=== PATIENT | female | born 1935 | race African-American/Black ===

== ENCOUNTER 2019-02-10 09:58 | Emergency (ER) | payer OTHER ==
--- OUTSIDE RECORDS SUMMARY | 2019-02-10 10:00 | XMS REPORT | Clinical Summary ---
:1935 Author Organization [facility] Address [address] [place] [address] Care Team Providers Name Role Phone Ellis Moreland MD Primary Care Provider Allergies No Known Allergies Medications Medication Sig Dispensed Refills Start Date End Date Status pantoprazole Take 40 mg by 0 Active (PROTONIX) 40 MG EC mouth daily. tablet LORAZepam (ATIVAN) 2 Take 2 mg by mouth 0 Active MG tablet every 6 (six) hours as needed for anxiety. traMADol (ULTRAM) 50 Take 50 mg by 0 Active mg tablet mouth every 6 (six) hours as needed for moderate pain. verapamil sustained Take 240 mg by 0 Active release (CALAN-SR) 240 mouth nightly. MG SR tablet aspirin (ECOTRIN) 81 Take 81 mg by 0 Active MG enteric coated mouth daily. tablet Active Problems No known active problems Social History Tobacco Use Types Packs/Day Years Used Date Never Smoker Smokeless Tobacco: Never Used Alcohol Use Drinks/Week oz/Week Comments No Sex Assigned at Date Recorded Not on file Job Start Date Occupation Industry Not on file Not on file Not on file Travel History Travel Start Travel End No recent travel history available. 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
[2019-02-10 10:45] LABS: Absolute Lymphocytes (CBC) 1.8 K/uL (0.7-4.9); Hematocrit 40.5 % (36.0-45.0); Lymphocytes % 45.6 % (15.3-44.8); MPV 7.1 fL (7.6-11.3); RBC Red Blood Cell Count 4.15 M/uL (3.86-4.86)
[2019-02-10] MEDS ORDERED: MORPHINE 4 MG/ML SYR ONE ×2 (10:48→14:19)
[2019-02-10] MEDS ORDERED: ONDANSETRON 4 MG/2 ML VIAL ONE ×2 (10:48→12:33)
[2019-02-10] MEDS ORDERED: FAMOTIDINE 20 MG/2 ML VIAL IV ONE (10:49)
[2019-02-10] MEDS ORDERED: NA CHLORIDE 0.9% 1,000 ML ONE (10:49)
[2019-02-10] MEDS ORDERED: CEFTRIAXONE/SWI 1gm 1 GM/10 ML SYR ONE (10:49)
[2019-02-10 11:23] LABS: ALT/SGPT 14 U/L (12-78); AST/SGOT 10 U/L (15-37); Albumin 3.4 g/dL (3.4-5.0); Alkaline Phosphatase 51 U/L (45-117); BUN Blood Urea Nitrogen 9 mg/dL (7-18); Bicarbonate 33 mmol/L (21-32); Bilirubin Direct 0.2 mg/dL (0-0.2); Bilirubin Total 0.6 mg/dL (0.2-1.0); Glucose Level 88 mg/dL (74-106); Lipase 72 U/L (73-393); Potassium 4.1 mmol/L (3.5-5.1); Protein, Total 7.4 g/dL (6.4-8.2); Sodium Level 143 mmol/L (136-145)
--- NOTE | 2019-02-10 11:27 | RAD REPORT ---
EXAM DESCRIPTION: RAD - Chest Single View - 02/10/2019 11:15 am CLINICAL HISTORY: ABDOMINAL DISTENTION Chest pain. COMPARISON: Chest Pa And Lat (2 Views) dated 10/20/2017; Chest Single View dated 07/24/2017; Chest Pa A nd Lat (2 Views) dated 07/19/2017; Chest Pa And Lat (2 Views) dated 05/21/2017 FINDINGS: Portable technique limits examination quality. The lungs are grossly clear. The heart is mildly enlarged size. Advanced scoliosis is present of the thoracolumbar spine.Degenerative changes are present both shoulders, greater on the left.
[2019-02-10 12:46] LABS: Urine Blood NEGATIVE (NEG); Urine Glucose NEGATIVE (NEG); Urine Protein NEGATIVE (NEG); Urine pH 8.5 (5.0-7.0)
--- NOTE | 2019-02-10 13:02 | RAD REPORT ---
EXAM DESCRIPTION: CTAbdomen Pelvis W Contrast - 02/10/2019 12:46 pm CLINICAL HISTORY: Abdominal pain. ABD PAIN COMPARISON: Abdomen Pelvis W Contrast dated 09/21/2016; CT ABD PELVIS W CONTRAST dated 09/01/2012 TECHNIQUE: Biphasic CT imaging of the abdomen and pelvis was performed with 100 ml non-ionic IV cont rast. All CT scans are performed using dose optimization technique as appropriate and may include automated exposure control or mA/KV adjustment according to patient size. FINDINGS: The lung bases are clear. There is mild dilatation of the intrahepatic biliary tree and pancreatic duct seen. The gallbladder a ppears surgically absent. The spleen, pancreas the kidneys show no acute process. Small calculus is p resent inferior right kidney. No bowel obstruction, free air, free fluid or abscess. Postsurgical changes are present involving the sigmoid colon. The appendix is normal. No evidence of significant lymphadenopathy. Prominent lumbar degenerative changes. IMPRESSION: No acute intra-abdominal or pelvic finding.
--- NOTE | 2019-02-10 14:04 | EDPHYS ---
Physician Documentation [facility] Name: Johanna Guevara Age: 83 yrs Sex: Female : 1935 Arrival Date: 02/10/2019 Time: 09:59 Bed 6 Private MD: Ellis Moreland ED Physician Adrienne Godinez HPI: 02/10 13:33 This 83 yrs old Black Female presents to ER via Wheelchair with complaints of Back ma2 Pain, Nausea. 13:33 This 83 yrs old Black Female presents to ER via Wheelchair with complaints of left UQ ma2 abd pain that radiates to back . 13:33 Onset: The symptoms/episode began/occurred gradually, 1 week(s) ago. Associated signs ma2 and symptoms: Pertinent negatives: chest pain, dysuria, headache, incontinence, numbness, tingling. Modifying factors: The patient symptoms are alleviated by nothing, the patient symptoms are aggravated by any movement. Severity of symptoms: At their worst the symptoms were moderate, in the emergency department the symptoms are unchanged. The patient has experienced similar episodes in the past. 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 - Social history:: Smoking status: Patient/guardian denies using tobacco, Patient uses Patient/guardian denies using alcohol, street drugs, The patient lives with family, with spouse. - Ebola Screening: : No symptoms or risks identified at this time. - Family history:: not pertinent. ROS: 13:33 Constitutional: Negative for fever, chills, and weight loss. ma2 13:33 All other systems are negative. Exam: 13:33 Constitutional: This is a well developed, well nourished patient who is awake, alert, ma2 and in no acute distress. ENT: Nares patent. No nasal discharge, no septal abnormalities noted. Tympanic membranes are normal and external auditory canals are clear. Oropharynx with no redness, swelling, or masses, exudates, or evidence of obstruction, uvula midline. Mucous membranes moist. Neck: Trachea midline, no thyromegaly or masses palpated, and no cervical lymphadenopathy. Supple, full range of motion without nuchal rigidity, or vertebral point tenderness. No Meningismus. Chest/axilla: Normal chest wall appearance and motion. Nontender with no deformity. No lesions are appreciated. Cardiovascular: Regular rate and rhythm with a normal S1 and S2. No gallops, murmurs, or rubs. Normal PMI, no JVD. No pulse deficits. Respiratory: Lungs have equal breath sounds bilaterally, clear to auscultation and percussion. No rales, rhonchi or wheezes noted. No increased work of breathing, no retractions or nasal flaring. Abdomen/GI: left UQ ttp, otherwsie abd is Soft with normal bowel sounds. No distension or tympany. No guarding or rebound. Back: No spinal tenderness. No costovertebral tenderness. Full range of motion. Skin: Warm, dry with normal turgor. Normal color with no rashes, no lesions, and no evidence of cellulitis. MS/ Extremity: Pulses equal, no cyanosis. Neurovascular intact. Full, normal range of motion. Neuro: Awake and alert, GCS 15, oriented to person, place, time, and situation. Cranial nerves II-XII grossly intact. Motor strength 5/5 in all extremities. Sensory grossly intact. Cerebellar exam normal. Normal gait. Psych: Awake, alert, with orientation to person, place and time. Behavior, mood, and affect are within normal limits. Vital Signs: 10:08 BP 150 / 92; Pulse 77; Resp 17; Temp 98.5(O); Pulse Ox 94% on R/A; Weight 80.74 kg; la1 Height 5 ft. 5 in. (165.10 cm); 11:00 BP 150 / 97; Pulse 81; Resp 18; Pulse Ox 97% ; bp 12:04 BP 164 / 93; Pulse 77; Resp 16; Pulse Ox 95% on 2 lpm NC; bp 12:41 BP 154 / 87; Pulse 77; Resp 16; Pulse Ox 97% ; bp 13:44 BP 149 / 101; Pulse 76; Resp 17; Pulse Ox 100% ; bp 10:08 Body Mass Index 29.62 (80.74 kg, 165.10 cm) la1 MDM: 10:19 Patient medically screened. ma2 13:33 Differential diagnosis: Cholelithiasis Fatigue Fracture Hydronephrosis Joint Injury ma2 Neoplasm. 14:01 Data reviewed: vital signs, nurses notes. Counseling: I had a detailed discussion with ma2 the patient and/or guardian regarding: the historical points, exam findings, and any diagnostic results supporting the discharge/admit diagnosis, the presence of at least one elevated blood pressure reading (>120/80) during this emergency department visit, the need for outpatient follow up. Response to treatment: the patient's symptoms have resolved after treatment. 02/10 10:27 Order name: Basic Metabolic Panel; Complete Time: 12:49 [facility] 02/10 10:27 Order name: CBC with Diff; Complete Time: 11:23 [facility] 02/10 10:27 Order name: Creatinine for Radiology; Complete Time: 11:23 [facility] 02/10 10:27 Order name: Hepatic Function; Complete Time: 12:49 [facility] 02/10 10:27 Order name: Lipase; Complete Time: 12:49 [facility] 02/10 12:31 Order name: Urine Dipstick--Ancillary (enter results); Complete Time: 12:49 eb 02/10 10:27 Order name: Chest Single View XRAY; Complete Time: 12:49 [facility] 02/10 12:05 Order name: CT Abd/Pelvis - IV Contrast Only; Complete Time: 13:22 bp 02/10 10:27 Order name: IV Saline Lock; Complete Time: 10:41 [facility] 02/10 10:27 Order name: Labs collected and sent; Complete Time: 10:41 [facility] 02/10 10:27 Order name: Urine Dipstick-Ancillary (obtain specimen); Complete Time: 11:56 ma2 Administered Medications: 10:40 Drug: NS 0.9% 1000 ml Route: IV; Rate: 1 bolus; Site: right wrist; bp 14:37 Follow up: IV Status: Completed infusion; IV Intake: 1000ml bp 10:40 Drug: morphine 4 mg Route: IVP; Site: right wrist; bp 14:34 Follow up: Response: No adverse reaction bp 10:40 Drug: Zofran 4 mg Route: IVP; Site: right wrist; bp 14:33 Follow up: Response: No adverse reaction bp 10:40 Drug: Pepcid 20 mg Route: IVP; Site: right wrist; bp 14:33 Follow up: Response: No adverse reaction bp 10:40 Drug: Rocephin 1 grams Route: IV; Rate: calculated rate; Site: right wrist; bp 14:37 Follow up: IV Status: Completed infusion; IV Intake: 50ml bp 12:35 Drug: Zofran 4 mg Route: IVP; Site: right hand; ae4 14:34 Follow up: Response: No adverse reaction bp 14:24 Drug: morphine 4 mg Route: IVP; Site: right wrist; ae4 14:34 Follow up: Response: No adverse reaction bp Disposition: 02/10/19 14:02 Discharged to Home. Impression: Epigastric pain. - Condition is Stable. - Discharge Instructions: Abdominal Pain, Adult. - Prescriptions for Pepcid 20 mg Oral Tablet - take 1 tablet by ORAL route once daily for 10 days; 10 tablet. - Medication Reconciliation Form, Thank You Letter, Antibiotic Education, Prescription Opioid Use form. - Follow up: Private Physician; When: Tomorrow; Reason: Continuance of care. Signatures: Dispatcher [employer] EDMS Miguelito Chauhan RN RN la1 Mason Christopher RN RN bp Alzahri, Mohammad, MD MD ma2 Rustam Baltazar RN RN ae4 Corrections: (The following items were deleted from the chart) 14:45 14:02 02/10/2019 14:02 Discharged to Home. Impression: Epigastric pain. Condition is bp Stable. Forms are Medication Reconciliation Form, Thank You Letter, Antibiotic Education, Prescription Opioid Use. Follow up: Private Physician; When: Tomorrow; Reason: Continuance of care. [email or web address]
--- NOTE | 2019-02-10 14:04 | ER ---
Nurse's Notes [facility] Name: Johanna Guevara Age: 83 yrs Sex: Female : 1935 Arrival Date: 02/10/2019 Time: 09:59 Bed 6 Private MD: Ellis Moreland Diagnosis: Epigastric pain Presentation: 02/10 10:09 Presenting complaint: Patient states: Abd pain, pain behind left shoulder blade off and la1 on all week. Transition of care: patient was not received from another setting of care. Onset of symptoms was February 10, 2019. Risk Assessment: Do you want to hurt yourself or someone else? Patient reports no desire to harm self or others. Initial Sepsis Screen: Does the patient meet any 2 criteria? No. Patient's initial sepsis screen is negative. Does the patient have a suspected source of infection? No. Patient's initial sepsis screen is negative. Care prior to arrival: None. 10:09 Method Of Arrival: Wheelchair la1 10:09 Acuity: JAIME 3 la1 Triage Assessment: 10:10 General: Appears in no apparent distress. uncomfortable, Behavior is cooperative, bp appropriate for age, anxious. Pain: Complains of pain in back and abdomen. EENT: No deficits noted. Neuro: No deficits noted. Cardiovascular: No deficits noted. Respiratory: No deficits noted. GI: No signs and/or symptoms were reported involving the gastrointestinal system. : No signs and/or symptoms were reported regarding the genitourinary system. Derm: No deficits noted. Musculoskeletal: Circulation, motion, and sensation intact. Range of motion: intact in all extremities. 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 - Social history:: Smoking status: Patient/guardian denies using tobacco, Patient uses Patient/guardian denies using alcohol, street drugs, The patient lives with family, with spouse. - Ebola Screening: : No symptoms or risks identified at this time. - Family history:: not pertinent. Screenin:10 Abuse screen: Denies threats or abuse. Denies injuries from another. Nutritional bp screening: No deficits noted. Tuberculosis screening: No symptoms or risk factors identified. Fall Risk None identified. Assessment: 10:10 General: SEE TRIAGE NOTE. Neuro: Level of Consciousness is awake, alert, obeys bp commands, Oriented to person, place, time, situation, Appropriate for age. 11:01 Reassessment: XRAY AND LABS COMPLETED, VS STABLE ON MONITOR. bp 12:04 Reassessment: CT PENDING, VS STABLE ON MONITOR. bp 12:35 Reassessment: Patient c/o of nausea, provider notified, new orders received. ae4 12:41 Reassessment: PT TO CT. bp 12:59 Reassessment: Patient returned from CT via stretcher. General: Behavior is calm, ae4 cooperative. Neuro: Level of Consciousness is awake, alert, obeys commands, Oriented to person, place, situation, Appropriate for age. Respiratory: Airway is patent. 13:45 Reassessment: ALL CURRENT ORDERS COMPLETED, VS STABLE ON MONITOR. bp 14:35 Reassessment: PT D/C HOME WITH WALKER, DX WITH EPIGASTRIC PAIN. bp Vital Signs: 10:08 BP 150 / 92; Pulse 77; Resp 17; Temp 98.5(O); Pulse Ox 94% on R/A; Weight 80.74 kg; la1 Height 5 ft. 5 in. (165.10 cm); 11:00 BP 150 / 97; Pulse 81; Resp 18; Pulse Ox 97% ; bp 12:04 BP 164 / 93; Pulse 77; Resp 16; Pulse Ox 95% on 2 lpm NC; bp 12:41 BP 154 / 87; Pulse 77; Resp 16; Pulse Ox 97% ; bp 13:44 BP 149 / 101; Pulse 76; Resp 17; Pulse Ox 100% ; bp 10:08 Body Mass Index 29.62 (80.74 kg, 165.10 cm) la1 ED Course: 09:59 Patient arrived in ED. as 09:59 Ellis Moreland MD is Private Physician. as 10:09 Triage completed. la1 10:09 Arm band placed on right wrist. la1 10:10 Patient has correct armband on for positive identification. Bed in low position. Call bp light in reach. Side rails up X2. Adult w/ patient. 10:19 Adrienne Godinez MD is Attending Physician. ma2 10:22 Mason Christopher, KUNAL is Primary Nurse. bp 10:40 Inserted saline lock: 22 gauge in right wrist, using aseptic technique. Blood collected.bp 11:16 Chest Single View XRAY In Process Unspecified. EDMS 12:25 Radiology exam delayed due to pt getting meds. mw3 12:44 CT completed. Patient tolerated procedure well. Patient moved back from CT. bq 12:48 CT Abd/Pelvis - IV Contrast Only In Process Unspecified. EDMS 14:36 No provider procedures requiring assistance completed. IV discontinued, intact, bp bleeding controlled, No redness/swelling at site. Pressure dressing applied. Administered Medications: 10:40 Drug: NS 0.9% 1000 ml Route: IV; Rate: 1 bolus; Site: right wrist; bp 14:37 Follow up: IV Status: Completed infusion; IV Intake: 1000ml bp 10:40 Drug: morphine 4 mg Route: IVP; Site: right wrist; bp 14:34 Follow up: Response: No adverse reaction bp 10:40 Drug: Zofran 4 mg Route: IVP; Site: right wrist; bp 14:33 Follow up: Response: No adverse reaction bp 10:40 Drug: Pepcid 20 mg Route: IVP; Site: right wrist; bp 14:33 Follow up: Response: No adverse reaction bp 10:40 Drug: Rocephin 1 grams Route: IV; Rate: calculated rate; Site: right wrist; bp 14:37 Follow up: IV Status: Completed infusion; IV Intake: 50ml bp 12:35 Drug: Zofran 4 mg Route: IVP; Site: right hand; ae4 14:34 Follow up: Response: No adverse reaction bp 14:24 Drug: morphine 4 mg Route: IVP; Site: right wrist; ae4 14:34 Follow up: Response: No adverse reaction bp Intake: 14:37 IV: 50ml; Total: 50ml. bp 14:37 IV: 1000ml; Total: 1050ml. bp Outcome: 14:02 Discharge ordered by . maTanisha 14:36 Discharged to home via wheelchair, with family. bp 14:36 Condition: stable 14:36 Discharge instructions given to patient, family, Instructed on discharge instructions, follow up and referral plans. medication usage, Demonstrated understanding of instructions, follow-up care, medications, Prescriptions given X 1. 14:45 Patient left the ED. bp Signatures: Dispatcher [employer] EDMS Jeaneth Reid Amelia as Attema, Lee, RN RN la1 Mason Christopher RN RN bp Adrienne Godinez MD MD ma2 Lizzette Saldaña 3 Rustam Baltazar RN RN ae4
[2019-02-10 14:52] VITALS: TEMP 98.5
[2019-02-10 14:57] VITALS: BP 149/101; O2SAT 100
== END 2019-02-10 14:45 | disposition home or self-care (01) ==
LOC: ER 09:58
DX: R10.13 Epigastric pain (principal); Z88.0 Allergy status to penicillin
CPT/HCPCS: 96365; 85025; 80048; 36415; 80076; 81003; 83690; 74177; 71045; 96375; 99284; 96366; Q9967; J0696; J7030; J2405 ×2

== ENCOUNTER 2019-07-31 16:08 | Emergency (ER) | payer OTHER ==
[2019-07-31 18:13] LABS: Absolute Lymphocytes (CBC) 2.2 K/uL (0.7-4.9); Basophils % 0.9 % (0-1.3); Lymphocytes % 37.2 % (15.3-44.8); MPV 7.5 fL (7.6-11.3); RBC Red Blood Cell Count 3.16 M/uL (3.86-4.86)
--- NOTE | 2019-07-31 18:15 | RAD REPORT ---
EXAM DESCRIPTION: RAD - Chest Single View - 07/31/2019 5:45 pm CLINICAL HISTORY: rectal bleeding Chest pain. COMPARISON: Chest Single View dated 02/10/2019; Chest Pa And Lat (2 Views) dated 10/20/2017; Chest Sin gle View dated 07/24/2017; Chest Pa And Lat (2 Views) dated 07/19/2017 FINDINGS: Portable technique limits examination quality. The lungs are grossly clear. The heart is mildly enlarged in size. No displaced fractures.Evidence of previous left rotator cuff repair with high-riding left humeral head seen. IMPRESSION: No acute intrathoracic process suspected.
[2019-07-31 18:18] LABS: Protime INR 1.12
[2019-07-31 18:35] LABS: ALT/SGPT 12 U/L (12-78); AST/SGOT 10 U/L (15-37); Albumin 2.9 g/dL (3.4-5.0); Alkaline Phosphatase 41 U/L (45-117); BUN Blood Urea Nitrogen 11 mg/dL (7-18); Bicarbonate 31 mmol/L (21-32); Bilirubin Direct 0.1 mg/dL (0-0.2); Bilirubin Total 0.5 mg/dL (0.2-1.0); Glucose Level 92 mg/dL (74-106); Lipase 112 U/L (73-393); Magnesium 2.1 mg/dL (1.8-2.4); NT PRO-BNP 51 pg/mL (<450); Potassium 3.8 mmol/L (3.5-5.1); Protein, Total 6.2 g/dL (6.4-8.2); Sodium Level 143 mmol/L (136-145); Troponin (Emerg Dept Use Only) < 0.02 ng/mL (0.0-0.045)
[2019-07-31] MEDS ORDERED: FENTANYL CITR 100 MCG/2 ML ONE (19:25)
[2019-07-31] MEDS ORDERED: PANTOPRAZOLE 40 MG INJ ONE (19:25)
[2019-07-31] MEDS ORDERED: CIPROFLOXACIN 400mg IV 400 MG/200 ML BAG IV ONE (19:25)
[2019-07-31] MEDS ORDERED: NA CHLORIDE 0.9% 1,000 ML ONE (19:26)
[2019-07-31] MEDS ORDERED: METRONIDAZOLE 500mg IVPB 500 MG/100 ML BAG IV ONE (19:26)
--- NOTE | 2019-07-31 20:10 | ER ---
Nurse's Notes [facility] Name: Johanna Guevara Age: 84 yrs Sex: Female : 1935 Arrival Date: 07/31/2019 Time: 16:11 Bed 19 Private MD: Diagnosis: Gastrointestinal hemorrhage, unspecified;Generalized abdominal pain Presentation: 07/30 16:26 Chief complaint: Patient states: rectal bleeding since Tuesday that has gotten worse. ss Dr. Diaz ordered a CT which patient had done yesterday which was reproted to her as negative. Pt is having abd pain and feels weak. Coronavirus screen: The patient has NOT traveled to a country currently being monitored by the [facility] within the last 14 days. Proceed with normal triage procedures. Ebola Screen: Patient denies exposure to infectious person. Patient denies travel to an Ebola-affected area in the 21 days before illness onset. Initial Sepsis Screen: Does the patient meet any 2 criteria? No. Patient's initial sepsis screen is negative. Does the patient have a suspected source of infection? No. Patient's initial sepsis screen is negative. Risk Assessment: Do you want to hurt yourself or someone else? Patient reports no desire to harm self or others. 16:26 Method Of Arrival: Wheelchair 16:26 Acuity: JAIME 3 ss 17:00 Onset of symptoms is unknown. wh Historical: - Allergies: 16:29 PENICILLINS; ss - PMHx: 16:29 CVA; Diverticulitis; hemorrhoids; Hypertension; ss - Immunization history:: Adult Immunizations up to date. - Social history:: Smoking status: Patient denies any tobacco usage or history of. Screenin:00 Abuse screen: Denies threats or abuse. Denies injuries from another. Nutritional wh screening: No deficits noted. Tuberculosis screening: No symptoms or risk factors identified. Fall Risk None identified. Assessment: 17:00 General: Appears in no apparent distress. Behavior is calm, cooperative, appropriate wh for age. Pain: Complains of pain in right upper quadrant and abdomen diffusely Pain does not radiate. Pain currently is 4 out of 10 on a pain scale. Pain began 2-3 days ago. Neuro: Level of Consciousness is awake, alert, obeys commands, Oriented to person, place, time, situation, Appropriate for age. Cardiovascular: Heart tones S1 S2. Respiratory: Airway is patent Respiratory effort is even, unlabored, Respiratory pattern is regular, symmetrical, Breath sounds are clear bilaterally. GI: Abdomen is flat, non-distended, Abd is soft and non tender X 4 quads. Reports lower abdominal pain, upper abdominal pain, rectal bleeding. : No signs and/or symptoms were reported regarding the genitourinary system. EENT: No signs and/or symptoms were reported regarding the EENT system. Derm: Skin is intact, is healthy with good turgor, Skin is pink, warm \T\ dry. normal. Musculoskeletal: Circulation, motion, and sensation intact. 18:00 Reassessment: Patient appears in no apparent distress at this time. No changes from previously documented assessment. Patient and/or family updated on plan of care and expected duration. Pain level reassessed. Patient is alert, oriented x 3, equal unlabored respirations, skin warm/dry/pink. 19:05 Reassessment: Patient appears in no apparent distress at this time. No changes from previously documented assessment. Patient and/or family updated on plan of care and expected duration. Pain level reassessed. Patient is alert, oriented x 3, equal unlabored respirations, skin warm/dry/pink. Provider at bedside explaining POC need for admit. 20:23 Reassessment: Patient appears in no apparent distress at this time. No changes from previously documented assessment. Patient and/or family updated on plan of care and expected duration. Pain level reassessed. Patient is alert, oriented x 3, equal unlabored respirations, skin warm/dry/pink. Provider at bedside explained transfer to [facility]. 21:23 Reassessment: Patient appears in no apparent distress at this time. No changes from previously documented assessment. Patient and/or family updated on plan of care and expected duration. Pain level reassessed. Patient is alert, oriented x 3, equal unlabored respirations, skin warm/dry/pink. Report given to Kimberley Angel RN. Vital Signs: 16:26 BP 167 / 112; Pulse 93; Resp 16; Temp 98.1(O); Pulse Ox 97% on R/A; Weight 81.65 kg; ss Height 5 ft. 5 in. (165.10 cm); Pain 10/10; 17:00 BP 111 / 73; Pulse 80; Pulse Ox 100% on R/A; Pain 6/10; jp3 18:30 BP 148 / 79; Pulse 74; Resp 18; Pulse Ox 99% on R/A; wh 20:15 BP 152 / 96; Pulse 73; Resp 18; Pulse Ox 100% on R/A; wh 21:24 BP 144 / 82; Pulse 77; Resp 18; Pulse Ox 98% on R/A; wh 16:26 Body Mass Index 29.95 (81.65 kg, 165.10 cm) ED Course: 16:11 Patient arrived in ED. ag5 16:28 Triage completed. ss 16:29 Arm band placed on right wrist. ss 16:33 Thais Tong is Primary Nurse. wh 16:37 Anand Marquez PA is PHCP. cp 16:37 Anand Nicole MD is Attending Physician. cp 17:00 Patient has correct armband on for positive identification. Placed in gown. Bed in low wh position. Call light in reach. monitor technician on. Pulse ox on. NIBP on. 17:15 Missed attempt(s): 22 gauge in left forearm. Bleeding controlled, band aid applied, jp3 catheter tip intact. 17:25 Missed attempt(s): 20 gauge in left antecubital area. Bleeding controlled, band aid jp3 applied, catheter tip intact. 17:30 Patient maintains SpO2 saturation greater than 95% on room air. jp3 17:46 XRAY Chest (1 view) In Process Unspecified. EDMS 18:00 Missed attempt(s): 22 gauge in left antecubital area. 19:01 Missed attempt(s): 22 gauge in right hand. Bleeding controlled, band aid applied, tw2 catheter tip intact. 19:48 Accessed peripheral vein via ultrasound, utilizing dynamic ultrasound technique using jd3 per hospital protocol. Good blood return. Flushes easily. Pro power glide 20 g 10 cm. 21:52 No provider procedures requiring assistance completed. Patient transferred, IV remains in place. Administered Medications: 20:02 Drug: NS 0.9% 250 ml Route: IV; Rate: bolus; Site: left upper arm; 21:25 Follow up: Response: No adverse reaction; IV Status: Completed infusion 20:04 Drug: fentaNYL (PF) 25 mcg {Note: RASS 0.} Route: IVP; Site: left upper arm; 21:25 Follow up: Response: No adverse reaction; Pain is decreased; RASS: Alert and Calm (0) 20:06 Drug: ProTONIX 40 mg Route: IVP; Site: left upper arm; 21:25 Follow up: Response: No adverse reaction 20:08 Drug: metroNIDAZOLE 500 mg Volume: 100 ml; Route: IVPB; Infused Over: 30 mins; Site: left upper arm; 21:24 Follow up: Response: No adverse reaction; IV Status: Completed infusion 20:25 Drug: Cipro 400 mg Volume: 200 ml; Route: IVPB; Infused Over: 60 mins; Site: left upper arm; 21:25 Follow up: Response: No adverse reaction; IV Status: Completed infusion 20:26 Drug: NS 0.9% 1000 ml Route: IV; Rate: 75 ml/hr; Site: left upper arm; 21:56 Follow up: Response: No adverse reaction; IV Status: Completed infusion Outcome: 20:09 ER care complete, transfer ordered by . 21:52 Transferred by ground EMS to [facility], Transfer form completed. X-rays sent w/ patient. Note: Report given to [facility] and Kimberley Angel RN 21:52 Condition: stable 21:52 Instructed on the need for transfer. 21:56 Patient left the ED. Signatures: Dispatcher [employer] EDMS Adry Zuniga RN RN Anand Vera PA PA cp Wise, Tara RN RN tw2 Thais Tong Campbell Pham RN RN jd3 José Benz jp3 Celestine Park
--- NOTE | 2019-07-31 20:10 | EDPHYS ---
Physician Documentation [facility] Name: Johanna Guevara Age: 84 yrs Sex: Female : 1935 Arrival Date: 07/31/2019 Time: 16:11 Bed 19 Private MD: ED Physician Anand Nicole HPI: 07/30 16:50 This 84 yrs old Black Female presents to ER via Wheelchair with complaints of Rectal cp Bleeding. 16:50 The patient presents to the emergency department with bleeding from the rectum/anus. cp Onset: The symptoms/episode began/occurred 4 day(s) ago. 16:50 Associate signs and symptoms: Pertinent positives: abdominal pain in the abdomen cp diffusely, Pertinent negatives: constipation, diarrhea, fever, vomiting. 16:50 Patient reports history of diverticulitis with colon resection and having CT cp abdomen/pelvis done yesterday. Patient reports results of CT were negative for acute findings. Historical: - Allergies: 16:29 PENICILLINS; ss - PMHx: 16:29 CVA; Diverticulitis; hemorrhoids; Hypertension; ss - Immunization history:: Adult Immunizations up to date. - Social history:: Smoking status: Patient denies any tobacco usage or history of. ROS: 17:00 Constitutional: Negative for body aches, chills, fever, poor PO intake. cp 17:00 Eyes: Negative for injury, pain, redness, and discharge. cp 17:00 ENT: Negative for drainage from ear(s), ear pain, sore throat, difficulty swallowing, difficulty handling secretions. 17:00 Cardiovascular: Negative for chest pain, palpitations. 17:00 Respiratory: Negative for cough, shortness of breath, wheezing. 17:00 Abdomen/GI: Positive for abdominal pain, rectal bleeding, Negative for vomiting, diarrhea, constipation, black/tarry stool. 17:00 Back: Negative for pain at rest, pain with movement, radiated pain. 17:00 : Negative for urinary symptoms. 17:00 MS/extremity: Positive for pain, of the left shoulder, Negative for injury or acute deformity, paresthesias. 17:00 Neuro: Negative for altered mental status, headache, weakness. 17:00 All other systems are negative. Exam: 17:10 Head/Face: Normocephalic, atraumatic. cp 17:10 Constitutional: The patient appears in no acute distress, alert, awake, non-diaphoretic, non-toxic, well developed, well nourished. 17:10 Eyes: Periorbital structures: appear normal, Conjunctiva: normal, no exudate, no injection, Sclera: no appreciated abnormality, Lids and lashes: appear normal, bilaterally. 17:10 ENT: External ear(s): are unremarkable, Nose: is normal, Mouth: is normal, Posterior pharynx: is normal, airway is patent, no erythema, no exudate. 17:10 Chest/axilla: Inspection: normal, Palpation: is normal, no crepitus, no tenderness. 17:10 Cardiovascular: Rate: normal, Rhythm: regular. 17:10 Respiratory: the patient does not display signs of respiratory distress, Respirations: normal, no use of accessory muscles, labored breathing, is not present, Breath sounds: are clear throughout, no decreased breath sounds, no stridor, no wheezing. 17:10 Abdomen/GI: Inspection: abdomen appears normal, Bowel sounds: active, all quadrants, Palpation: soft, in all quadrants, mild abdominal tenderness, in all quadrants, rebound tenderness, is not appreciated, voluntary guarding, is not appreciated, involuntary guarding, is not appreciated, Rectal exam: Stool: guaiac positive, maroon, hemorrhoid(s), without bleeding, without inflammation, without thrombosis, without pain, noted hemorrhoid tags. 17:10 Back: pain, is absent, ROM is normal. 17:10 Skin: cellulitis, is not appreciated, no rash present. 17:10 Neuro: Orientation: to person, place \T\ time. Mentation: is normal. 17:13 ECG was reviewed by the Attending Physician. cp Vital Signs: 16:26 BP 167 / 112; Pulse 93; Resp 16; Temp 98.1(O); Pulse Ox 97% on R/A; Weight 81.65 kg; ss Height 5 ft. 5 in. (165.10 cm); Pain 10/10; 17:00 BP 111 / 73; Pulse 80; Pulse Ox 100% on R/A; Pain 6/10; jp3 18:30 BP 148 / 79; Pulse 74; Resp 18; Pulse Ox 99% on R/A; wh 20:15 BP 152 / 96; Pulse 73; Resp 18; Pulse Ox 100% on R/A; wh 21:24 BP 144 / 82; Pulse 77; Resp 18; Pulse Ox 98% on R/A; wh 16:26 Body Mass Index 29.95 (81.65 kg, 165.10 cm) ss MDM: 16:44 Patient medically screened. lupe 16:45 Patient medically screened. lupe 20:00 Data reviewed: vital signs, nurses notes, lab test result(s), EKG, I have discussed the cp patient's presentation/case with the attending Emergency Department Physician; and as a result, I will administer antibiotics Flagyl, Cipro and transfer patient for GI services. 20:02 Physician consultation: was contacted at 20:00, DR Huff hospitalist \T\[facility], will approve transfer of patient for continued care . 07/30 16:47 Order name: Basic Metabolic Panel; Complete Time: 18:40 cp 07/30 18:40 Interpretation: Normal except: CL 108. cp 07/30 16:47 Order name: CBC with Diff; Complete Time: 18:19 cp 07/30 18:19 Interpretation: Normal except: RBC 3.16; HGB 10.0; HCT 31.0; MPV 7.5. cp 07/30 16:47 Order name: LFT's; Complete Time: 18:40 cp 07/30 18:40 Interpretation: Normal except: AST 10; ALK 41; TP 6.2; ALB 2.9; A/G 0.9. cp 07/30 16:47 Order name: Magnesium; Complete Time: 18:40 cp 07/30 16:47 Order name: NT PRO-BNP; Complete Time: 18:40 cp 07/30 16:47 Order name: PT-INR; Complete Time: 18:40 cp 07/30 16:47 Order name: Troponin (emerg Dept Use Only); Complete Time: 18:40 cp 07/30 16:47 Order name: XRAY Chest (1 view); Complete Time: 18:19 cp 07/30 16:47 Order name: Ptt, Activated; Complete Time: 18:40 cp 07/30 16:47 Order name: Type And Screen; Complete Time: 19:59 cp 07/30 16:47 Order name: Lipase; Complete Time: 18:40 cp 07/30 16:47 Order name: EKG; Complete Time: 16:49 cp 07/30 16:47 Order name: Cardiac monitoring; Complete Time: 17:49 cp 07/30 16:47 Order name: EKG - Nurse/Tech; Complete Time: 17:49 cp 07/30 16:47 Order name: IV Saline Lock; Complete Time: 20:26 cp 07/30 16:47 Order name: Labs collected and sent; Complete Time: 17:50 cp 07/30 16:47 Order name: O2 Per Protocol; Complete Time: 17:50 cp 07/30 16:47 Order name: O2 Sat Monitoring; Complete Time: 17:50 cp EC:13 Rate is 78 beats/min. Rhythm is regular. AL interval is normal. QRS interval is normal. cp QT interval is normal. T waves are Inverted in lead aVL. Interpreted by me. Reviewed by me. Administered Medications: 20:02 Drug: NS 0.9% 250 ml Route: IV; Rate: bolus; Site: [facility]; 21:25 Follow up: Response: No adverse reaction; IV Status: Completed infusion 20:04 Drug: fentaNYL (PF) 25 mcg {Note: RASS 0.} Route: IVP; Site: [facility]; 21:25 Follow up: Response: No adverse reaction; Pain is decreased; RASS: Alert and Calm (0) 20:06 Drug: ProTONIX 40 mg Route: IVP; Site: [facility]; 21:25 Follow up: Response: No adverse reaction 20:08 Drug: metroNIDAZOLE 500 mg Volume: 100 ml; Route: IVPB; Infused Over: 30 mins; Site: [facility]; 21:24 Follow up: Response: No adverse reaction; IV Status: Completed infusion 20:25 Drug: Cipro 400 mg Volume: 200 ml; Route: IVPB; Infused Over: 60 mins; Site: left upper arm; 21:25 Follow up: Response: No adverse reaction; IV Status: Completed infusion 20:26 Drug: NS 0.9% 1000 ml Route: IV; Rate: 75 ml/hr; Site: [facility]; 21:56 Follow up: Response: No adverse reaction; IV Status: Completed infusion Disposition: 07/31 12:43 Co-signature as Attending Physician, Anand PRESSLEY I agree with the assessment and lupe plan of care. Disposition: 07/31/19 20:09 Transfer ordered to [facility]. Diagnosis are Gastrointestinal hemorrhage, unspecified, Generalized abdominal pain. - Reason for transfer: Higher level of care. - Accepting physician is DR Ema Jacnito. - Condition is Stable. - Problem is new. - Symptoms have improved. Signatures: Dispatcher [employer] EDAnand Carrillo MD MD cha Smirch, Shelby, RN RN ss Anand Marquez, PA PA cp Asael Tongpipo puckett Corrections: (The following items were deleted from the chart) 07/30 18:19 18:19 Normal except: RBC 3.16; HGB 10.0; HCT 31.0. cp cp 20:49 20:09 07/31/2019 20:09 Transfer ordered to [facility]. Diagnosis is cp Gastrointestinal hemorrhage, unspecified; Generalized abdominal pain. Reason for transfer: Higher level of care. Accepting physician is Doctor. Condition is Stable. Problem is new. Symptoms have improved. cp 21:56 20:49 07/31/2019 20:09 Transfer ordered to [facility]. Diagnosis is Gastrointestinal hemorrhage, unspecified; Generalized abdominal pain. Reason for transfer: Higher level of care. Accepting physician is DR Ema Jacinto. Condition is Stable. Problem is new. Symptoms have improved. cp
[2019-07-31 22:37] VITALS: TEMP 98.1
[2019-07-31 22:42] VITALS: BP 144/82; O2SAT 98
--- NOTE | 2019-08-01 09:27 | EKG ---
Test Date: 2019-07-31 Test Time: 16:56:15 Health And Safety Manager: JOLYNN MEASUREMENT RESULTS: Intervals: Rate: 78 MA: 156 QRSD: 74 QT: 396 QTc: 451 [place]: P: 54 MA: 156 QRS: 76 T: 83 INTERPRETIVE STATEMENTS: Normal sinus rhythm ST elevation, consider early repolarization, pericarditis, or injury Abnormal ECG Compared to ECG 07/24/2017 09:57:38 No significant changes Electronically Signed On 08-01-19 09:26:58 CDT by Darrion Alegria
== END 2019-07-31 21:56 | disposition short-term general hospital (02) ==
LOC: ER 16:08
DX: K92.2 Gastrointestinal hemorrhage, unspecified (principal); R10.84 Generalized abdominal pain; Z88.0 Allergy status to penicillin
CPT/HCPCS: 96365; 96367; 96361; 93005; 85025; 80048; 36415; 86900; 83735; 86850; 85610; 86901; 80076; 85730; 84484; 83690; 83880; 71045; 96375; 99285; C9113; J3010; J7030; J0744

== ENCOUNTER 2020-10-30 16:04 | Emergency (ER) | payer OTHER ==
--- OUTSIDE RECORDS SUMMARY | 2020-10-30 16:07 | XMS REPORT | Continuity of Care Document ---
:1935 Author Organization [facility] t Address [address] [place] [address] Care Team Providers Name Role Phone Aniceto Oh MD, Nataliya Primary Care Physician [phone] NICOLAS Attending Clinician Unavailable CLEWING Admitting Clinician Unavailable Problems Condition Condition Condition Status Onset Resolution Last Treating Co mments Source Name Details Category Date Date Treatment Clinician Date Ventricula Ventricula Disease Active 2020-0 [place] r 3-14 Method[facility] tachycardi tachycardi 00:00: st a a 00 Hypokalemi Hypokalemi Disease Active 2020-0 [place] a a 3-14 Methodi 00:00: st 00 Diverticul Diverticul Disease Active 2020-0 [place] osis osis 3-11 Methodi 00:00: st 00 Hematochez Hematochez Disease Active 2020-0 Overview : Calder ia ia 3-10 Formattin Methodi 00:00: g of this st 00 note might be different from the original. Added automatic ally from request for surgery [id number] Allergies, Adverse Reactions, Alerts This patient has no known allergies or adverse reactions. Social History Social Habit Start Date Stop Date Quantity Comments Source Tobacco use and 2019-08-06 2019-08-06 Never used [facility] ethodist exposure 00:00:00 00:00:00 Alcohol intake 2019-08-06 2019-08-06 Current [facility] thodist 00:00:00 00:00:00 non-drinker of alcohol (finding) Sex Ass[birth year] At [birth year] Kevin Cartwright ethodist 00:00:00 00:00:00 Smoking Status Start Date Stop Date Source Never smoker Brown Methodis t Medications Ordered Filled Start Stop Current Ordering Indication Dosage Frequency Signature Comments Components Source Medication Medication Date Date Medication? Clinician (SIG) Name Name pantoprazol 2020-0 Yes 40mg QD Take 40 mg Brown e 3-15 by mouth Methodi (PROTONIX) 14:33: daily. st 40 MG EC 38 tablet LORAZepam 2020-0 Yes 2mg Q.5D Take 2 mg Kirti ston (ATIVAN) 2 3-15 by mouth 2 Met hodi MG tablet 14:33: (two) st 38 times a day. traMADol 2020-0 Yes 50mg Q.5D Take 50 mg Kirti ston (ULTRAM) 50 3-15 by mouth 2 Me thodi mg tablet 14:33: (two) st 38 times a day as needed for moderate pain. aspirin 2020-0 Yes 81mg QD Take 81 mg [place] (ECOTRIN) 3-15 by mouth Method i 81 MG 14:33: daily. st enteric 38 coated tablet cyanocobala 2020-0 Yes 1000ug QD Take 1,000 Brown min 3-15 mcg by Methodi (VITAMIN 14:33: mouth st B-12) 1000 38 daily. MCG tablet multivitami 2020-0 Yes 1{tbl} QD Take 1 [place] n-minerals- 3-15 tablet by Met hodi lutein 14:33: mouth st tablet 38 daily. cycloSPORIN 2020-0 Yes 1[drp] Q24H Administer Brown E 3-15 1 drop to Methodi (RESTASIS) 14:33: both eyes st 0.05 % 38 daily as ophthalmic needed. emulsion ADVAIR 2020-0 Yes 1{puff} Q.5D Inhale 1 [place] DISKUS 2-21 puff 2 Methodi 250-50 00:00: (two) st mcg/dose 00 times a DISKUS day. verapamil 2020-0 Yes 240mg Q.5D Take 240 Kirti ston extended 1-21 mg by Methodi release 00:00: mouth 2 st (VERELAN) 00 (two) 240 MG 24 times a hr capsule day. Tramadol Tramadol Yes [place] [address] HCl HCl [place] [facility] Centrum Centrum Yes [place] not [facility] Vitamints Vitamints [place] defined [facility] Advair Advair Yes [place] INHALE 1 [facility] Diskus Diskus [place] PUFFS [facility] Celecoxib Celecoxib Yes [place] [address] [facility] [place] with food [facility] Lorazepam Lorazepam Yes [place] [address] [facility] [place] at bedtime [facility] Verapamil Verapamil Yes [place] [address] [address] HCl ER HCl ER [place] [facility] Albuterol Albuterol Yes [place] [address] [facility] Sulfate Sulfate [place] needed [facility] Pantoprazol Pantoprazol Yes [place] [address] e Sodium e Sodium [place] [facility] Pantoprazol Pantoprazol Yes [place] TAKE [address] [facility] e Sodium e Sodium [place] TABLET BY [facility] EVERY DAY l [facility] ent Clinics Procedures This patient has no known procedures. Plan of Care Planned Activity Planned Date Details Comments Source Future Scheduled 2020-12-21 INFLUENZA VACCINE [place] [facility] 00:00:00 [code = INFLUENZA VACCINE] Future Scheduled 2002 65+ PNEUMOCOCCAL [facility] Test 00:00:00 VACCINE (1 of 1 - PPSV23) [code = 65+ PNEUMOCOCCAL VACCINE (1 of 1 - PPSV23)] Future Scheduled 1987 SHINGLES VACCINES (#1) Richy amezcua [facility] Test 00:00:00 [code = SHINGLES VACCINES (#1)] Future Scheduled 1949 COVID-19 VACCINE (1) Kirticarlos carpio [employer] Test 00:00:00 [code = COVID-19 VACCINE (1)] Encounters Start End Encounter Admission Attending Care Care Encounter Source Date/Time Date/Time Type Type Clinicians Facility Department ID 2020-10-22 2020-10-22 Outpatient [facility] [id number] [facility] 2020-10-15 2020-10-15 Outpatient [facility] [id number] [facility] 2020-09-25 2020-09-25 [facility] [id number] [facility] 2020-09-24 2020-09-24 Out[facility] [id number] [facility] 2020-09-23 2020-09-23 Out[facility] [id number] [facility] 2020-09-23 2020-09-23 Out[facility] [id number] [facility] 2020-07-22 2020-07-22 Outpatient [facility] [id number] [facility] 2020-06-17 2020-06-17 Outpatient [facility] [id number] [facility] 2020-05-07 2020-05-07 Out[facility] [id number] [facility] 2020-04-30 2020-04-30 Outpatient [facility] [id number] [facility] 2020-02-27 2020-02-27 Outpatient [facility] [id number] [facility] 2020-02-26 2020-02-26 Outpatient [facility] [id number] [facility] 2020-01-30 2020-01-30 [facility] [id number] 14:00:00 14:00:00 [employer] [place] [employer] [facility] Outpat[facility] ent Clinics 2019-12-07 2019-12-07 [facility] [id number] 10:54:00 10:54:00 t [employer] s - Drive [facility] Medicine l Medicine Outpati ent Clinics 2019-10-30 2019-10-30 [facility] [id number] 13:30:00 13:30:00 [employer] - Drive [facility] Medicine l Medicine Outpati ent Clinics 2019-10-25 2019-10-25 [facility] [id number] 16:50:00 16:50:00 t [facility] [employer] s - Road [facility] Medicine l Medicine Outpati ent Clinics 2019-10-19 2019-10-19 [facility] [id number] 15:21:00 15:21:00 t [place] [employer] [employer] - [address] [facility] l Medicine Outpati ent Clinics 2019-10-18 2019-10-18 [facility] [id number] 08:34:00 08:34:00 t [facility] [employer] s - Road [facility] Medicine l Medicine Outpati ent Clinics 2019-10-11 2019-10-11 [facility] [id number] 13:40:00 13:40:00 t [facility] [employer] [facility] Medicine Outpati ent Clinics 2019-10-09 2019-10-09 [facility] [id number] 13:00:00 13:00:00 t [employer] [facility] Medicine l Medicine Outpati ent Clinics 2019-10-04 2019-10-04 [facility] [id number] 14:02:00 14:02:00 t [facility] [employer] - [address] [facility] Medicine l Medicine Outpati ent Clinics 2019-10-02 2019-10-02 [facility] [id number] 17:10:00 17:10:00 t [place] - [address] [facility] l Medicine Outpati ent Clinics 2019-10-01 2019-10-01 [facility] [id number] 13:30:00 13:30:00 t [employer] [facility] ent [facility] 2019-10-01 2019-10-01 Outpatient [facility] [id number] 09:03:00 09:03:00 [facility] [employer] [facility] 2019-07-31 2019-08-05 [facility] [id number] [place] [address] 00:00:00 00:00:00 JORGE A [address] Results This patient has no known results.
[2020-10-30 17:25] LABS: Absolute Lymphocytes (CBC) 1.7 K/uL (0.7-4.9); Basophils % 0.9 % (0-1.3); Hematocrit 41.2 % (36.0-45.0); Lymphocytes % 39.7 % (15.3-44.8); MPV 7.4 fL (7.6-11.3)
--- NOTE | 2020-10-30 17:25 | RAD REPORT ---
EXAM DESCRIPTION: [place] Single View10/30/2020 5:10 pm CLINICAL HISTORY: Shortness of breath COMPARISON: 2019 FINDINGS: Scoliosis involves the spine. The lungs appear clear of acute infiltrate. The heart is mildly enlarged IMPRESSION: No acute abnormalities displayed
[2020-10-30 17:27] LABS: Protime INR 1.03
[2020-10-30 17:41] LABS: ALT/SGPT 16 U/L (12-78); AST/SGOT 12 U/L (15-37); Albumin 3.3 g/dL (3.4-5.0); Alkaline Phosphatase 62 U/L (45-117); BUN Blood Urea Nitrogen 12 mg/dL (7-18); Bicarbonate 35 mmol/L (21-32); Bilirubin Direct < 0.1 mg/dL (0-0.2); Bilirubin Total 0.3 mg/dL (0.2-1.0); Glucose Level 111 mg/dL (74-106); Magnesium 2.2 mg/dL (1.8-2.4); NT PRO-BNP 119 pg/mL (<450); Protein, Total 7.8 g/dL (6.4-8.2); Sodium Level 141 mmol/L (136-145); Troponin (Emerg Dept Use Only) < 0.02 ng/mL (0.0-0.045)
[2020-10-30 17:51] LABS: Urine Blood Trace-lysed (Negative); Urine Glucose Negative (Negative); Urine Protein Negative (Negative); Urine Specific Gravity 1.015 (1.005-1.030); Urine pH 7.5 (5.0-7.0)
[2020-10-30 18:36] LABS: Urine Bacteria <20 /HPF (<20); Urine RBC <5 /HPF (NONE SEEN)
[2020-10-30] MEDS ORDERED: NA CHLORIDE 0.9% 250 ML ONE (18:37)
[2020-10-30] MEDS ORDERED: METHYLPREDNISOLONE 40 MG INJ ONE (19:17)
[2020-10-30] MEDS ORDERED: ALBUTEROL 2.5 MG/3 ML NEB SOL ONE (19:17)
[2020-10-30] MEDS ORDERED: IPRATROPIUM BROM 0.5MG/2.5ML ONE (19:18)
--- NOTE | 2020-10-30 19:43 | EDPHYS ---
Physician Documentation [facility] Name: Johanna Guevara Age: 85 yrs Sex: Female : 1935 Arrival Date: 10/30/2020 Time: 16:13 Bed 19 Private MD: ED Physician Renzo Persaud HPI: 10/30 16:33 This 85 yrs old Black Female presents to ER via EMS with complaints of shortness of cp breath. 16:33 The patient has shortness of breath at rest. Onset: The symptoms/episode began/occurred cp gradually, and became worse over past several days. Duration: The symptoms are continuous, and are steadily getting worse. Associated signs and symptoms: Pertinent negatives: chest pain, productive cough, fever, vomiting, abdominal pain. Severity of symptoms: in the emergency department the symptoms are unchanged despite home interventions. 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 - Social history:: Smoking status: Patient denies any tobacco usage or history of. ROS: 16:35 Constitutional: Negative for body aches, chills, fever, poor PO intake. cp 16:35 Eyes: Negative for injury, pain, redness, and discharge. cp 16:35 ENT: Negative for ear pain, sore throat, difficulty swallowing, difficulty handling secretions. 16:35 Cardiovascular: Negative for chest pain, edema, palpitations. 16:35 Respiratory: Positive for cough, with no reported sputum, shortness of breath. 16:35 Abdomen/GI: Negative for abdominal pain, nausea, vomiting, and diarrhea. 16:35 Back: Negative for radiated pain. 16:35 Neuro: Negative for altered mental status, dizziness, headache, syncope, weakness. 16:35 All other systems are negative. Exam: 16:40 Constitutional: The patient appears in no acute distress, alert, awake, cp non-diaphoretic, non-toxic, well developed, well nourished, obese. 16:40 Head/Face: Normocephalic, atraumatic. cp 16:40 Eyes: Periorbital structures: appear normal, Conjunctiva: normal, no exudate, no injection, Sclera: no appreciated abnormality, Lids and lashes: appear normal, bilaterally. 16:40 ENT: External ear(s): are unremarkable, Nose: is normal, Mouth: Lips: moist, Oral mucosa: pink and intact, moist, Posterior pharynx: Airway: no evidence of obstruction, patent. 16:40 Chest/axilla: Inspection: normal, Palpation: is normal, no crepitus, no tenderness. 16:40 Cardiovascular: Rate: normal, Rhythm: regular, Edema: is not appreciated, JVD: is not appreciated. 16:40 Respiratory: the patient does not display signs of respiratory distress, Respirations: shallow respirations, that is mild, Breath sounds: bronchial sounds, that are mild, are heard diffusely, stridor, is not appreciated. 16:40 Abdomen/GI: Inspection: abdomen appears normal, Palpation: abdomen is soft and non-tender, in all quadrants. 16:40 Back: pain, is absent, ROM is normal. 16:40 Skin: no rash present. 16:40 Neuro: Orientation: to person, place \T\ time. Mentation: is normal. 17:25 ECG was reviewed by the Attending Physician. Vital Signs: 16:21 BP 155 / 97; Pulse 72; Resp 20; Pulse Ox 95% on R/A; Pain 0/10; kg 17:10 Weight 80.74 kg (R); Height 5 ft. 6 in. (167.64 cm) (R); kg 17:10 Temp 97.8(T); kg 19:00 BP 136 / 91; Pulse 74; Resp 18; Pulse Ox 95% on R/A; wh 20:00 BP 140 / 91; Pulse 72; Resp 18; Pulse Ox 95% on R/A; wh 17:10 Body Mass Index 28.73 (80.74 kg, 167.64 cm) kg MDM: 16:24 Patient medically screened. cp 17:00 Differential diagnosis: Anemia asthma, CHF exacerbation, Chronic Obstructive Pulmonary cp Disease Myocardial Infarction pneumonia, pulmonary edema, Pulmonary Embolism Sepsis Unstable Angina. 19:40 Data reviewed: vital signs, nurses notes, lab test result(s), EKG, radiologic studies, cp plain films. 19:40 Test interpretation: by ED physician or midlevel provider: ECG, plain radiologic cp studies. Response to treatment: the patient's symptoms have markedly improved after treatment, VSS. Patient reports symptoms improved after breathing treatment. Will discharge to home for continued monitoring. 10/30 16:26 Order name: Basic Metabolic Panel 10/30 16:26 Order name: CBC with Diff; Complete Time: 17:42 10 17:43 Interpretation: Normal except: WBC 4.20; MCHC 31.4; MPV 7.4; EOSINOPHIL % 4.6. 10/30 16:26 Order name: LFT's; Complete Time: 17:43 10 17:43 Interpretation: Normal except: AST 12; ALB 3.3; GLOB 4.5; A/G 0.7. 10/30 16:26 Order name: Magnesium; Complete Time: 17:43 10/30 16:26 Order name: NT PRO-BNP; Complete Time: 17:43 10/30 16:26 Order name: PT-INR; Complete Time: 17:43 10/30 16:26 Order name: Troponin (emerg Dept Use Only); Complete Time: 17:43 10/30 16:26 Order name: XRAY Chest (1 view); Complete Time: 17:43 10/30 16:27 Order name: Basic Metabolic Panel; Complete Time: 17:43 EDMS 10 17:43 Interpretation: Normal except: CO2 35; GLUC 111. 10/30 16:27 Order name: Urine Microscopic Only EDMO 10/30 17:51 Order name: Urine Dipstick-Ancillary EDMO 10/30 18:44 Order name: SARS-COV-2 RT PCR EDMO 10/30 16:26 Order name: EKG; Complete Time: 16:27 10 16:26 Order name: Cardiac monitoring; Complete Time: 17:03 10 16:26 Order name: EKG - Nurse/Tech; Complete Time: 17:09 10/30 16:26 Order name: IV Saline Lock; Complete Time: 17:03 10/30 16:26 Order name: Labs collected and sent; Complete Time: 17:03 10/30 16:26 Order name: O2 Per Protocol; Complete Time: 17:03 10/30 16:26 Order name: O2 Sat Monitoring; Complete Time: 17:03 10/30 16:26 Order name: Urine Dipstick-Ancillary (obtain specimen); Complete Time: 18:12 cp EC:25 Rate is 65 beats/min. Rhythm is regular. IA interval is normal. QRS interval is normal. cp QT interval is normal. Interpreted by me. Reviewed by me. Administered Medications: 18:21 Drug: NS 0.9% 250 ml Route: IV; Rate: calculated rate; Site: left antecubital; kg 20:07 Follow up: Response: No adverse reaction; IV Status: Completed infusion wh 19:12 Drug: AtroVENT (ipratropium) Aerosol 0.5 mg Route: Inhalation; wh 20:07 Follow up: Response: No adverse reaction; Wheezing diminished wh 19:13 Drug: Albuterol 2.5 mg Route: Inhalation; wh 20:07 Follow up: Response: No adverse reaction; Wheezing diminished wh 19:13 Drug: SOLU-Medrol (methylPrednisoLONE) 80 mg Route: IVP; Site: left antecubital; wh 20:07 Follow up: Response: No adverse reaction Disposition: 10/31 07:03 Co-signature as Attending Physician, Renzo Persaud MD I agree with the assessment and kdr plan of care. Disposition: 10/30/20 19:41 Discharged to Home. Impression: Unspecified asthma with (acute) exacerbation. - Condition is Stable. - Discharge Instructions: Asthma, Adult. - Prescriptions for Albuterol Sulfate 2.5 mg /3 mL (0.083 %) Inhalation Solution for Nebulization - inhale 1 unit by NEBULIZATION route every 8 hours As needed; 1 box. Prednisone 20 mg Oral Tablet - take 2 tablet by ORAL route once daily for 5 days; 10 tablet. - Medication Reconciliation Form, Thank You Letter, Antibiotic Education, Prescription Opioid Use form. - Follow up: Private Physician; When: 1 - 2 days; Reason: Recheck today's complaints. - Problem is an acute exacerbation. - Symptoms have improved. Signatures: Dispatcher [employer] EDMS Renzo Persaud MD MD [facility] Anand Marquez PA PA cp Habalo, Winsy, KUNAL SYED Emmy Merrill RN RN kg Corrections: (The following items were deleted from the chart) 10/30 17:48 16:27 UA MICROSCOPIC+U.LAB.BRZ ordered. EDMS EDMS :07 19:41 10/30/2020 19:41 Discharged to Home. Impression: Unspecified asthma with (acute) wh exacerbation. Condition is Stable. Forms are Medication Reconciliation Form, Thank You Letter, Antibiotic Education, Prescription Opioid Use. Follow up: Private Physician; When: 1 - 2 days; Reason: Recheck today's complaints. Problem is an acute exacerbation. Symptoms have improved. cp
--- NOTE | 2020-10-30 19:43 | ER ---
Nurse's Notes [facility] Name: Johanna Guevara Age: 85 yrs Sex: Female : 1935 Arrival Date: 10/30/2020 Time: 16:13 Bed 19 Private MD: Diagnosis: Unspecified asthma with (acute) exacerbation Presentation: 10/30 16:21 Chief complaint: Patient states: High Blood pressure since this AM. Coronavirus screen: kg Client denies travel out of the [place] in the last 14 days. Client indicates they have traveled out of the [place] in the last 14 days. At this time, unable to obtain information related to travel outside the [place] Coronavirus screen: Client denies travel out of the [place] in the last 14 days. Ebola Screen: Patient negative for fever greater than or equal to 101.5 degrees Fahrenheit, and additional compatible Ebola Virus Disease symptoms Patient denies exposure to infectious person. Patient denies travel to an Ebola-affected area in the 21 days before illness onset. Initial Sepsis Screen: Does the patient meet any 2 criteria? No. Patient's initial sepsis screen is negative. Initial Sepsis Screen: Does the patient have a suspected source of infection? No. Patient's initial sepsis screen is negative. Risk Assessment: Do you want to hurt yourself or someone else? Patient reports no desire to harm self or others. Onset of symptoms was October 30, 2020. 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 - Social history:: Smoking status: Patient denies any tobacco usage or history of. Screenin:32 Abuse screen: Denies threats or abuse. Denies injuries from another. Nutritional kg screening: No deficits noted. Tuberculosis screening: No symptoms or risk factors identified. Fall Risk None identified. No fall in past 12 months (0 pts). No secondary diagnosis (0 pts). IV access (20 points). Ambulatory Aid- Crutches/Cane/Walker (15 pts). Gait- Weak (10 pts.). Mental Status- Oriented to own ability (0 pts). Total Restrepo Fall Scale indicates Low Risk Score (25-44 pts). Fall prevention measures have been instituted. Side Rails Up X 2 Placed close to Nursing Station Frequent Obs/Assesments occuring Family Present and informed to notify staff if they need to leave bedside As available Patient and Family Educated on Fall Prevention Program and strategies. Assessment: 17:11 General: Appears in no apparent distress. Behavior is calm, cooperative, appropriate kg for age, quiet. Pain: Denies pain. Neuro: No deficits noted. Level of Consciousness is awake, alert, obeys commands, Oriented to person, place, time, situation, Appropriate for age. Cardiovascular: No deficits noted. Reports Pt reports high blood pressure this morning. B/P is now within normal limits Heart tones S1 S2 Capillary refill < 3 seconds. Respiratory: Airway is patent Trachea midline Respiratory effort is even, Respiratory pattern is tachypnea Breath sounds with wheezes. GI: No deficits noted. : No deficits noted. EENT: No deficits noted. Derm: No deficits noted. Musculoskeletal: No deficits noted. 19:15 Reassessment: Patient appears in no apparent distress at this time. Patient and/or wh family updated on plan of care and expected duration. Pain level reassessed. Patient is alert, oriented x 3, equal unlabored respirations, skin warm/dry/pink. 20:00 Reassessment: Patient appears in no apparent distress at this time. Patient and/or wh family updated on plan of care and expected duration. Pain level reassessed. Patient is alert, oriented x 3, equal unlabored respirations, skin warm/dry/pink. Vital Signs: 16:21 BP 155 / 97; Pulse 72; Resp 20; Pulse Ox 95% on R/A; Pain 0/10; kg 17:10 Weight 80.74 kg (R); Height 5 ft. 6 in. (167.64 cm) (R); kg 17:10 Temp 97.8(T); kg 19:00 BP 136 / 91; Pulse 74; Resp 18; Pulse Ox 95% on R/A; wh 20:00 BP 140 / 91; Pulse 72; Resp 18; Pulse Ox 95% on R/A; wh 17:10 Body Mass Index 28.73 (80.74 kg, 167.64 cm) kg ED Course: 16:13 Patient arrived in ED. kg 16:19 Anand Marquez PA is PHCP. cp 16:19 eRnzo Persaud MD is Attending Physician. cp 16:21 Emmy Merrill, KUNAL is Primary Nurse. kg 16:27 Triage completed. kg 16:50 Inserted saline lock: 20 gauge in left antecubital area, using aseptic technique. kg 17:03 Basic Metabolic Panel Sent. kg 17:09 EKG done, by ED staff, reviewed by Renzo Persaud MD. mh5 17:09 Patient has correct armband on for positive identification. Placed in gown. Bed in low mh5 position. Call light in reach. Side rails up X 1. Adult w/ patient. Warm blanket given. sort worker on. Pulse ox on. NIBP on. 17:10 XRAY Chest (1 view) In Process Unspecified. EDMS 19:00 Arm band placed on right wrist. wh 20:06 No provider procedures requiring assistance completed. IV discontinued, intact, wh bleeding controlled, No redness/swelling at site. Administered Medications: 18:21 Drug: NS 0.9% 250 ml Route: IV; Rate: calculated rate; Site: left antecubital; kg 20:07 Follow up: Response: No adverse reaction; IV Status: Completed infusion wh 19:12 Drug: AtroVENT (ipratropium) Aerosol 0.5 mg Route: Inhalation; wh 20:07 Follow up: Response: No adverse reaction; Wheezing diminished wh 19:13 Drug: Albuterol 2.5 mg Route: Inhalation; wh 20:07 Follow up: Response: No adverse reaction; Wheezing diminished wh 19:13 Drug: SOLU-Medrol (methylPrednisoLONE) 80 mg Route: IVP; Site: left antecubital; wh 20:07 Follow up: Response: No adverse reaction Outcome: 19:41 Discharge ordered by MD. cp 20:06 Discharged to home via wheelchair, with family. wh 20:06 Condition: stable 20:06 Discharge instructions given to patient, family, Instructed on discharge instructions, follow up and referral plans. medication usage, POC Demonstrated understanding of instructions, follow-up care, medications, POC Prescriptions given X 2. 20:07 Patient left the ED. wh Signatures: Dispatcher [employer] EDND Anand Marquez PA PA cp Martinez, Maria [facility]ill [facility] Thais Tong, KUNAL RN Emmy Merrill RN RN kg Corrections: (The following items were deleted from the chart) 18:13 17:11 Respiratory: Airway is patent Trachea midline Respiratory effort is even, kg Respiratory pattern is tachypnea Breath sounds are clear bilaterally. kg
[2020-10-30 20:21] VITALS: TEMP 97.8
[2020-10-30 20:22] VITALS: O2SAT 95
[2020-10-30 20:23] VITALS: BP 140/91
== END 2020-10-30 20:07 | disposition home or self-care (01) ==
LOC: ER 16:04
DX: J45.901 Unspecified asthma with (acute) exacerbation (principal); Z20.822 Contact with and (suspected) exposure to COVID-19; I10 Essential (primary) hypertension; Z88.5 Allergy status to narcotic agent
CPT/HCPCS: 96365; 93005; 85025; 80048; 36415; 83735; 85610; 80076; 84484; 83880; 71045; 96375; 99285; 96366; U0003; J7050; J2920; 81003; 81015

== ENCOUNTER 2022-03-18 14:03 | Emergency (ER) | payer OTHER ==
--- OUTSIDE RECORDS SUMMARY | 2022-03-18 14:12 | XMS REPORT | Continuity of Care Document ---
:1935 Author Organization [facility] t Address [facility] Rodrigues. [address] [place] [id number] Care Team Providers Name Role Phone Aniceto Oh MD, Ellis An Primary Care Physician [phone] Colten [place] Attending Clinician Unavailable Lalito Richardson MD Attending Clinician Misael Pham MD Attending Clinician [phone] Sarah New Attending Clinician Rain Crouch NP Attending Clinician Yani Menendez MD Attending Clinician Kingsley Aguirre MD Attending Clinician [phone] Eliana Fam MD Attending Clinician DAYSI GARCIA Attending Clinician Unavailable Baltazar Oden Attending Clinician Unavailable LALITO RICHARDSON Admitting Clinician Unavailable Baltazar Oden Admitting Clinician Unavailable Payers Payer Name Policy Type Policy Number Effective Date Expiration Date Mimi Han [id number] 2019 [facility] (NON-PAR) 00:00:00 - [facility] MEDICARE MB [id number] 1989 [facility] NOVITAS 00:00:00 [facility] JUANA C1 [id number] 2019 [facility] (NON-PAR) 00:00:00 [facility] MEDICARE MB [id number] 1989 [facility] NOVITAS 00:00:00 [facility] JUANA C1 [id number] 2019 [facility] (NON-PAR) 00:00:00 [facility] MEDICARE MB [id number] 1989 [facility] NOVITAS 00:00:00 [facility] JUANA C1 [id number] 2019 [facility] (NON-PAR) 00:00:00 [facility] MEDICARE MB [id number] 1989 [facility] NOVITAS 00:00:00 [facility] Problems Condition Condition Condition Status Onset Resolution Last Treating Co mments Source Name Details Category Date Date Treatment Clinician Date 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 [facility] complicati Medica l on Center [id number] Opioid Problem Common dependence Spirit in - CHI controlled [facility] [id number] Generalize Problem Com mon d anxiety Spirit disorder - CHI [facility] [id number] Benzodiaze Problem Co mmon pine Spirit dependence - CHI , [facility] [id number] Chronic Problem Commo n pain Spirit syndrome - CHI [facility] [id number] Urinary Problem Commo n incontinen Spirit ce, - CHI unspecifie [facility] [id number] Mild Problem Common opioid use Spirit disorder - CHI in controlled [facility] [id number] Primary Problem 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 [facility] [id number] 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 [facility] Allergies, Adverse Reactions, Alerts Allergy Allergy Status Severity Reaction(s) Onset Inactive Treating Comm ents Source Name Type Date Date Clinician No Known DA Active U [facility] Allergie 12-08 Clear s 00:00: Hernandez 00 [facility] No Known DA Active U [facility] Allergie 12-08 Clear s 00:00: Hernandez [facility] codeine DA Active SV ITCHING [facility] 7 Clear 00:00: Hernandez 00 [facility] codeine DA Active SV 2020- [facility] 12-08 Clear 00:00: Hernandez [facility] Codeine Propensi Active Itching Method i ty to 12-08 st adverse 00:00: Hospita reaction 00 l s to drug Family History Family Member Diagnosis Comments Start Date Stop Date Source Natural father [facility] Natural mother [facility] Social History Social Habit Start Date Stop Date Quantity Comments Source [facility] of [facility] - Tobacco Use [facility] Alcohol intake 2022-01-15 2022-01-15 Current [facility] 00:00:00 00:00:00 non-drinker of Hospital alcohol (finding) Tobacco use and 2021-08-28 2021-08-28 Smokeless tobacco [facility] exposure 00:00:00 00:00:00 non-user Hospital Sex Assigned At [birth year] [facility] 00:00:00 00:00:00 Hospital Smoking Status Start Date Stop Date Source Never Smoker [facility] Medications Ordered Filled Start Stop Current Ordering Indication Dosage Frequency Signature Comments Components Source Medication Medication Date Date Medication? Clinician (SIG) Name Name LORazepam 1 LORazepam 1 No 1{table BID LORazepam MG MG 8-29 t_as_ne 1 MG 00:00: eded} 00 traMADol traMADol No 1{table BID traMADol HCl 50 MG HCl 50 MG 8-29 t_as_ne HCl 50 MG 00:00: eded} 00 Famotidine Famotidine No 1{table BID Famotidine 10 MG 10 MG 8-29 t_as_ne 10 MG 00:00: eded} 00 LORazepam 1 LORazepam 1 No 1{table BID LORazepam MG MG 8-29 t_as_ne 1 MG 00:00: eded} 00 Famotidine Famotidine No 1{table BID Famotidine 10 MG 10 MG 8-29 t_as_ne 10 MG 00:00: eded} 00 traMADol traMADol No 1{table BID traMADol HCl 50 MG HCl 50 MG 8-29 t_as_ne HCl 50 MG 00:00: eded} 00 traMADol Yes 50mg Q.5D Take 50 mg Met hodi (ULTRAM) 50 8-[address] mg tablet 14:24: (two) Hospita 10 times a l day as needed for moderate pain. aspirin Yes 81mg QD Take 81 mg Meth monica (ECOTRIN) 8-[address] 81 MG 14:24: daily. Hospita enteric 10 l coated tablet multivitami Yes 1{tbl} QD Take 1 Me thodi n-minerals- 8-[address] lutein 14:24: mouth Hospita tablet 10 daily. l cycloSPORIN Yes 1[drp] Q24H Administer Methodi E 8-[address] (RESTASIS) 14:24: both eyes Ho spita 0.05 % 10 daily as l ophthalmic needed. emulsion LORAZepam Yes 1 tablet Meth monica (ATIVAN) 1 8-[address] MG tablet 14:24: Hospita 10 l celecoxib Yes 1 capsule Met hodi (CeleBREX) 8-[address] 200 MG 14:24: Hospita capsule 10 l ZINC ORAL Yes Take by Metho di 8-[address] 14:24: Hospita 10 l diphenhydrA Yes 25mg QD Take 1 Meth monica MINE 8-25 tablet (25 st (BENADRYL) 14:24: mg total) Ho spita 25 mg 10 by mouth l tablet nightly as needed for sleep. famotidine Yes 10mg Q.5D Take 1 Metho di (PEPCID) 10 8-25 tablet (10 st MG tablet 14:24: mg total) Hos radha 10 by mouth 2 l (two) [place] [id number] 50mg Q6H Take 1 Metho di (ULTRAM) 50 8-25 08-31 tablet (50 s t mg tablet 00:00: 04:59 mg total) Ho spita 00 :00 by mouth l every 6 (six) hours as needed for moderate pain for up to 5 days .acute pain. Azithromyci Azithromyci 2021- No QD Azithromyc n 250 MG n 250 MG 12-14-30 in 250 MG 00:00: 00:00 00 :00 predniSONE predniSONE 2021- No QD predniSONE 20 MG 20 MG 12-14-30 20 MG 00:00: 00:00 00 :00 Azithromyci Azithromyci 2021- No QD Azithromyc n 250 MG n 250 MG 12-14-30 in 250 MG 00:00: 00:00 00 :00 predniSONE predniSONE 2021- No QD predniSONE 20 MG 20 MG 12-14-30 20 MG 00:00: 00:00 00 :00 pantoprazol 2021- No 40mg QD Take 40 mg Methodi e 6-14 06-[address] (PROTONIX) 15:27: 00:00 daily. Hosp [place] 40 MG EC 30 :00 l tablet LORAZepam No 2mg Q.5D Take 2 mg Me thodi (ATIVAN) 2 6-14 06-[address] MG tablet 15:27: 00:00 (two) Hospit a 20 :00 times a l day. cyanocobala No 1000ug QD Take 1,000 Methodi min 6-14 06-[address] (VITAMIN 15:26: 00:00 mouth Hospita B-12) 1000 53 :00 daily. l MCG tablet LORazepam 1 LORazepam 1 No 1{table BID LORazepam MG MG 09-21 t_as_ne 1 MG 00:00: eded} 00 traMADol traMADol 2021- No 1{table BID traMADol HCl 50 MG HCl 50 MG 5- 06- t_as_ne HCl 50 MG 00:00: 00:00 eded} 00 :00 methylPREDN methylPREDN 2021- No QD methylPRED ISolone 4 ISolone 4 3- 03-07 NISolone 4 MG MG 00:00: 00:00 MG 00 :00 methylPREDN methylPREDN 2021- No QD methylPRED ISolone 4 ISolone 4 3-05 25- NISolone 4 MG MG 00:00: 00:00 MG 00 :00 LORazepam 1 LORazepam 1 2021-0 No 1{table BID LORazepam MG MG 2-03 t_as_ne 1 MG 00:00: eded} 00 traMADol traMADol 2021-0 No 1{table BID traMADol HCl 50 MG HCl 50 MG 2-03 t_as_ne HCl 50 MG 00:00: eded} 00 traMADol traMADol 2021-0 No 1{table BID traMADol HCl 50 MG HCl 50 MG 2-03 t_as_ne HCl 50 MG 00:00: eded} 00 LORazepam 1 LORazepam 1 2021- No 1{table BID LORazepam MG MG 2-03 t_as_ne 1 MG 00:00: eded} traMADol traMADol 2021-0 No 1{table BID traMADol HCl 50 MG HCl 50 MG 2-03 t_as_ne HCl 50 MG 00:00: eded} 00 LORazepam 1 LORazepam 1 2021- No 1{table BID LORazepam MG MG 2-03 t_as_ne 1 MG 00:00: eded} 00 traMADol traMADol 2021-0 No 1{table BID traMADol HCl 50 MG HCl 50 MG 2-03 t_as_ne HCl 50 MG 00:00: eded} 00 LORazepam 1 LORazepam 1 2021-0 No 1{table BID LORazepam MG MG 2-03 t_as_ne 1 MG 00:00: eded} 00 Nystatin Nystatin 2021-0 2021- No QID Nystatin [id number] 2-07-09 [id number] UNIT/ML UNIT/ML 00:00: 00:00 UNIT/ML 00 :00 traMADol traMADol 2020- No 1{table BID traMADol HCl 50 MG HCl 50 MG 1-02 t_as_ne HCl 50 MG 00:00: eded} 00 LORazepam 1 LORazepam 1 2020-05 No 1{table BID LORazepam MG MG 1-02 t_as_ne 1 MG 00:00: eded} 00 traMADol traMADol 2020- No 1{table BID traMADol HCl 50 MG HCl 50 MG 1-02 t_as_ne HCl 50 MG 00:00: eded} 00 LORazepam 1 LORazepam 1 2020-05 No 1{table BID LORazepam MG MG 1-02 t_as_ne 1 MG 00:00: eded} 00 Bactrim DS Bactrim DS 2020-05- No 1{table BID Bactrim DS 800-160 MG 800-160 MG 0-28 03-24 t} 800-160 MG 00:00: 00:00 00 :00 Bactrim DS Bactrim DS 2020-05- No 1{table BID Bactrim DS 800-160 MG 800-160 MG 0-28 03-24 t} 800-160 MG 00:00: 00:00 00 :00 Pyridium Pyridium 2020-05- No 1{table TID Pyridium 200 MG 200 MG 03-21 t_after 200 MG 00:00: 00:00 _meals} 00 :00 traMADol traMADol 2020-0 No 1{table BID traMADol HCl 50 MG HCl 50 MG 9-17 t_as_ne HCl 50 MG 00:00: eded} 00 traMADol traMADol 2020-0 No 1{table BID traMADol HCl 50 MG HCl 50 MG 9-17 t_as_ne HCl 50 MG 00:00: eded} 00 traMADol traMADol 2020-0 No 1{table BID traMADol HCl 50 MG HCl 50 MG 9-17 t_as_ne HCl 50 MG 00:00: eded} 00 traMADol traMADol 2020-0 No 1{table BID traMADol HCl 50 MG HCl 50 MG 9-17 t_as_ne HCl 50 MG 00:00: eded} 00 traMADol traMADol 2020-0 No 1{table BID traMADol HCl 50 MG HCl 50 MG 9-17 t_as_ne HCl 50 MG 00:00: eded} 00 traMADol traMADol 2020-0 No 1{table BID traMADol HCl 50 MG HCl 50 MG 9-17 t_as_ne HCl 50 MG 00:00: eded} 00 traMADol traMADol 2020-0 No 1{table BID traMADol HCl 50 MG HCl 50 MG 9-17 t_as_ne HCl 50 MG 00:00: eded} 00 traMADol traMADol 2020-0 No 1{table BID traMADol HCl 50 MG HCl 50 MG 9-17 t_as_ne HCl 50 MG 00:00: eded} 00 traMADol traMADol 2020-0 No 1{table BID traMADol HCl 50 MG HCl 50 MG 02-06 t_as_ne HCl 50 MG 00:00: eded} 00 traMADol traMADol 2020-0 No 1{table BID traMADol HCl 50 MG HCl 50 MG 17 t_as_ne HCl 50 MG 00:00: eded} 00 Spacer/Aero Spacer/Aero 2020-0 No Spacer/Aer -Holding -Holding 5-06 o-Holding Chambers - Chambers - 00:00: Chambers - 00 Spacer/Aero Spacer/Aero 2020-0 No Spacer/Aer -Holding -Holding 5-06 o-Holding Chambers - Chambers - 00:00: Chambers - 00 Spacer/Aero Spacer/Aero 2020-0 No Spacer/Aer -Holding -Holding 5-06 o-Holding Chambers - Chambers - 00:00: Chambers - 00 Spacer/Aero Spacer/Aero 2020-0 No Spacer/Aer -Holding -Holding 5-06 o-Holding Chambers - Chambers - 00:00: Chambers - 00 Spacer/Aero Spacer/Aero 2020-0 No Spacer/Aer -Holding -Holding 5-06 o-Holding Chambers - Chambers - 00:00: Chambers - 00 Spacer/Aero Spacer/Aero 2020-0 No Spacer/Aer -Holding -Holding 5-06 o-Holding Chambers - Chambers - 00:00: Chambers - 00 Spacer/Aero Spacer/Aero 2020-0 No Spacer/Aer -Holding -Holding 5-06 o-Holding Chambers - Chambers - 00:00: Chambers - 00 Spacer/Aero Spacer/Aero 2020-0 No Spacer/Aer -Holding -Holding 5-06 o-Holding Chambers - Chambers - 00:00: Chambers - 00 Spacer/Aero Spacer/Aero 2020-0 No Spacer/Aer -Holding -Holding 5-06 o-Holding Chambers - Chambers - 00:00: Chambers - 00 Spacer/Aero Spacer/Aero 2020-0 No Spacer/Aer -Holding -Holding 5-06 o-Holding Chambers - Chambers - 00:00: Chambers - 00 gabapentin 2019-1 Yes 1 capsule Me thodi (NEURONTIN) 0-06 st 300 mg 00:00: Hospita capsule 00 l LORAZepam Yes 2mg Q.5D Take 2 mg Met hodi (ATIVAN) 2 3-[address] MG tablet 19:33: (two) Hospita 38 times a l day. traMADol 2020-0 Yes 50mg Q.5D Take 50 mg Met hodi (ULTRAM) 50 3-[address] mg tablet 19:33: (two) Hospita 38 times a l day as needed for moderate pain. aspirin 2020-0 Yes 81mg QD Take 81 mg Meth monica (ECOTRIN) 3-[address] 81 MG 19:33: daily. Hospita enteric 38 l coated tablet cyanocobala 2020-0 Yes 1000ug QD Take 1,000 Methodi min 3-[address] (VITAMIN 19:33: mouth Hospita B-12) 1000 38 daily. l MCG tablet multivitami 2020-0 Yes 1{tbl} QD Take 1 Me thodi n-minerals- 3-[address] lutein 19:33: mouth Hospita tablet 38 daily. l cycloSPORIN 2020-0 Yes 1[drp] Q24H Administer Methodi E 3-[address] (RESTASIS) 19:33: both eyes Ho spita 0.05 % 38 daily as l ophthalmic needed. emulsion pantoprazol 2020-0 Yes 40mg QD Take 40 mg Methodi e 3-[address] (PROTONIX) 19:33: daily. Hospi ta 40 MG EC 38 l tablet ADVAIR 2020-0 Yes 1{puff} Q.5D Inhale 1 Meth monica DISKUS 2-[address] 250-50 00:00: (two) Hospita mcg/dose 00 times a l DISKUS day. ADVAIR 2020-0 Yes 1{puff} Q.5D Inhale 1 Meth monica DISKUS 2-[address] 250-50 00:00: (two) Hospita mcg/dose 00 times a l DISKUS day. verapamil 2020-0 Yes 240mg Q.5D Take 240 Met hodi extended 1-[address] release 00:00: mouth 2 Hospita (VERELAN) 00 (two) l 240 MG 24 times a hr capsule day. verapamil 2020-0 Yes 240mg Q.5D Take 240 Met hodi extended 1-[address] release 00:00: mouth 2 Hospita (VERELAN) 00 (two) l 240 MG 24 times a hr capsule day. Tramadol Tramadol Yes Colten 1 tablet C ommon HCl HCl [place] as needed [facility] Centrum Centrum Yes Colten not Common Vitamints Vitamints [place] defined S pirit [facility] Advair Advair Yes Colten INHALE 1 Commo n Diskus Diskus [place] PUFFS Spirit TWICE A - CHI DAY [facility] Celecoxib Celecoxib Yes Colten 1 capsule Common [place] with food [facility] Lorazepam Lorazepam Yes Colten 1 tablet Common [place] at bedtime Spirit as needed [facility] Verapamil Verapamil Yes Colten 1 tablet Common HCl ER HCl ER [place] [facility] Albuterol Albuterol Yes Colten 3 ml as Common Sulfate Sulfate [place] needed [facility] Pantoprazol Pantoprazol Yes Colten 1 tablet Common e Sodium e Sodium [place] [facility] Pantoprazol Pantoprazol Yes Colten TAKE 1 Common e Sodium e Sodium [place] TABLET BY S pirit MOUTH - CHI EVERY DAY [facility] Albuterol Albuterol No Albuterol Sulfate Sulfate Sulfate (2.5 (2.5 (2.5 MG/3ML) MG/3ML) MG/3ML) 0.083% 0.083% 0.083% Cyclobenzap Cyclobenzap No 1{table QD Cyclobenza rine HCl 5 rine HCl 5 t_at_be buffy HCl MG MG dtime_a 5 MG s_neede d} Eliquis 5 Eliquis 5 No Eliquis 5 MG MG MG Centrum Centrum No Centrum Vitamints Vitamints Vitamints Pantoprazol Pantoprazol No Pantoprazo e Sodium 40 e Sodium 40 le Sodium MG MG 40 MG Verapamil Verapamil No 1{table BID Verapamil HCl ER 240 HCl ER 240 t} HCl ER 240 MG MG MG LORazepam 1 LORazepam 1 No 1{table BID LORazepam MG MG t_as_ne 1 MG eded} Albuterol Albuterol No 3{ml_as TID Albuterol Sulfate Sulfate _needed Sulfate (2.5 (2.5 } (2.5 MG/3ML) MG/3ML) MG/3ML) 0.083% 0.083% 0.083% Advair Advair No Advair Diskus Diskus Diskus 250-50 250-50 250-50 MCG/DOSE MCG/DOSE MCG/DOSE Albuterol Albuterol No Albuterol Sulfate Sulfate Sulfate (2.5 (2.5 (2.5 MG/3ML) MG/3ML) MG/3ML) 0.083% 0.083% 0.083% Prevacid Prevacid No Prevacid Centrum Centrum No Centrum Vitamints Vitamints Vitamints Gabapentin Gabapentin No 1{capsu BID Gabapentin 300 MG 300 MG le} 300 MG Celecoxib Celecoxib No Celecoxib 200 MG 200 MG 200 MG Cyclobenzap Cyclobenzap No 1{table QD Cyclobenza rine HCl 5 rine HCl 5 t_at_be buffy HCl MG MG dtime_a 5 MG s_neede d} Eliquis 5 Eliquis 5 No Eliquis 5 MG MG MG Celecoxib Celecoxib No 1{capsu Celecoxib 200 MG 200 MG le_with 200 MG _food} Albuterol Albuterol No Albuterol Sulfate Sulfate Sulfate (2.5 (2.5 (2.5 MG/3ML) MG/3ML) MG/3ML) 0.083% 0.083% 0.083% Centrum Centrum No Centrum Vitamints Vitamints Vitamints Celecoxib Celecoxib No 1{capsu Celecoxib 200 MG 200 MG le_with 200 MG _food} Eliquis 5 Eliquis 5 No Eliquis 5 MG MG MG Albuterol Albuterol No 3{ml_as TID Albuterol Sulfate Sulfate _needed Sulfate (2.5 (2.5 } (2.5 MG/3ML) MG/3ML) MG/3ML) 0.083% 0.083% 0.083% Pantoprazol Pantoprazol No Pantoprazo e Sodium 40 e Sodium 40 le Sodium MG MG 40 MG Celecoxib Celecoxib No Celecoxib 200 MG 200 MG 200 MG Advair Advair No Advair Diskus Diskus Diskus 250-50 250-50 250-50 MCG/DOSE MCG/DOSE MCG/DOSE LORazepam 1 LORazepam 1 No 1{table BID LORazepam MG MG t_as_ne 1 MG eded} Cyclobenzap Cyclobenzap No 1{table QD Cyclobenza rine HCl 5 rine HCl 5 t_at_be buffy HCl MG MG dtime_a 5 MG s_neede d} Gabapentin Gabapentin No 1{capsu BID Gabapentin 300 MG 300 MG le} 300 MG Prevacid Prevacid No Prevacid Verapamil Verapamil No 1{table BID Verapamil HCl ER 240 HCl ER 240 t} HCl ER 240 MG MG MG Centrum Centrum No Centrum Vitamints Vitamints Vitamints Celecoxib Celecoxib No Celecoxib 200 MG 200 MG 200 MG Advair Advair No Advair Diskus Diskus Diskus 250-50 250-50 250-50 MCG/DOSE MCG/DOSE MCG/DOSE Verapamil Verapamil No 1{table BID Verapamil HCl ER 240 HCl ER 240 t} HCl ER 240 MG MG MG Celecoxib Celecoxib No 1{capsu Celecoxib 200 MG 200 MG le_with 200 MG _food} Albuterol Albuterol No 3{ml_as TID Albuterol Sulfate Sulfate _needed Sulfate (2.5 (2.5 } (2.5 MG/3ML) MG/3ML) MG/3ML) 0.083% 0.083% 0.083% Albuterol Albuterol No Albuterol Sulfate Sulfate Sulfate (2.5 (2.5 (2.5 MG/3ML) MG/3ML) MG/3ML) 0.083% 0.083% 0.083% Prevacid Prevacid No Prevacid Gabapentin Gabapentin No 1{capsu BID Gabapentin 300 MG 300 MG le} 300 MG Pantoprazol Pantoprazol No 1{table QD Pantoprazo e Sodium 40 e Sodium 40 t} le Sodium MG MG 40 MG Eliquis 5 Eliquis 5 No Eliquis 5 MG MG MG Advair Advair No Advair Diskus Diskus Diskus 250-50 250-50 250-50 MCG/DOSE MCG/DOSE MCG/DOSE Cyclobenzap Cyclobenzap No 1{table QD Cyclobenza rine HCl 5 rine HCl 5 t_at_be buffy HCl MG MG dtime_a 5 MG s_neede d} Pantoprazol Pantoprazol No Pantoprazo e Sodium 40 e Sodium 40 le Sodium MG MG 40 MG Celecoxib Celecoxib No Celecoxib 200 MG 200 MG 200 MG Centrum Centrum No Centrum Vitamints Vitamints Vitamints Albuterol Albuterol No 3{ml_as TID Albuterol Sulfate Sulfate _needed Sulfate (2.5 (2.5 } (2.5 MG/3ML) MG/3ML) MG/3ML) 0.083% 0.083% 0.083% Albuterol Albuterol No Albuterol Sulfate Sulfate Sulfate (2.5 (2.5 (2.5 MG/3ML) MG/3ML) MG/3ML) 0.083% 0.083% 0.083% Celecoxib Celecoxib No 1{capsu Celecoxib 200 MG 200 MG le_with 200 MG _food} Prevacid Prevacid No Prevacid Gabapentin Gabapentin No 1{capsu BID Gabapentin 300 MG 300 MG le} 300 MG Verapamil Verapamil No 1{table BID Verapamil HCl ER 240 HCl ER 240 t} HCl ER 240 MG MG MG Eliquis 5 Eliquis 5 No Eliquis 5 MG MG MG Cyclobenzap Cyclobenzap No 1{table QD Cyclobenza rine HCl 5 rine HCl 5 t_at_be buffy HCl MG MG dtime_a 5 MG s_neede d} Advair Advair No Advair Diskus Diskus Diskus 250-50 250-50 250-50 MCG/DOSE MCG/DOSE MCG/DOSE Pantoprazol Pantoprazol No 1{table QD Pantoprazo e Sodium 40 e Sodium 40 t} le Sodium MG MG 40 MG Pantoprazol Pantoprazol No Pantoprazo e Sodium 40 e Sodium 40 le Sodium MG MG 40 MG Pantoprazol Pantoprazol No Pantoprazo e Sodium 40 e Sodium 40 le Sodium MG MG 40 MG Pantoprazol Pantoprazol No 1{table QD Pantoprazo e Sodium 40 e Sodium 40 t} le Sodium MG MG 40 MG Prevacid Prevacid No Prevacid Centrum Centrum No Centrum Vitamints Vitamints Vitamints Advair Advair No Advair Diskus Diskus Diskus 250-50 250-50 250-50 MCG/DOSE MCG/DOSE MCG/DOSE Gabapentin Gabapentin No 1{capsu BID Gabapentin 300 MG 300 MG le} 300 MG Advair Advair No Advair Diskus Diskus Diskus 250-50 250-50 250-50 MCG/DOSE MCG/DOSE MCG/DOSE Verapamil Verapamil No 1{table BID Verapamil HCl ER 240 HCl ER 240 t} HCl ER 240 MG MG MG Eliquis 5 Eliquis 5 No Eliquis 5 MG MG MG Cyclobenzap Cyclobenzap No 1{table QD Cyclobenza rine HCl 5 rine HCl 5 t_at_be buffy HCl MG MG dtime_a 5 MG s_neede d} Celecoxib Celecoxib No Celecoxib 200 MG 200 MG 200 MG Albuterol Albuterol No 3{ml_as TID Albuterol Sulfate Sulfate _needed Sulfate (2.5 (2.5 } (2.5 MG/3ML) MG/3ML) MG/3ML) 0.083% 0.083% 0.083% Celecoxib Celecoxib No 1{capsu Celecoxib 200 MG 200 MG le_with 200 MG _food} Albuterol Albuterol No Albuterol Sulfate Sulfate Sulfate (2.5 (2.5 (2.5 MG/3ML) MG/3ML) MG/3ML) 0.083% 0.083% 0.083% Eliquis 5 Eliquis 5 No Eliquis 5 MG MG MG Pantoprazol Pantoprazol No 1{table QD Pantoprazo e Sodium 40 e Sodium 40 t} le Sodium MG MG 40 MG Prevacid Prevacid No Prevacid Verapamil Verapamil No 1{table BID Verapamil HCl ER 240 HCl ER 240 t} HCl ER 240 MG MG MG Cyclobenzap Cyclobenzap No 1{table QD Cyclobenza rine HCl 5 rine HCl 5 t_at_be buffy HCl MG MG dtime_a 5 MG s_neede d} Celecoxib Celecoxib No Celecoxib 200 MG 200 MG 200 MG Azithromyci Azithromyci No QD Azithromyc n 250 MG n 250 MG in 250 MG Albuterol Albuterol No Albuterol Sulfate Sulfate Sulfate (2.5 (2.5 (2.5 MG/3ML) MG/3ML) MG/3ML) 0.083% 0.083% 0.083% Celecoxib Celecoxib No 1{capsu Celecoxib 200 MG 200 MG le_with 200 MG _food} Advair Advair No Advair Diskus Diskus Diskus 250-50 250-50 250-50 MCG/DOSE MCG/DOSE MCG/DOSE Gabapentin Gabapentin No 1{capsu BID Gabapentin 300 MG 300 MG le} 300 MG Centrum Centrum No Centrum Vitamints Vitamints Vitamints Albuterol Albuterol No 3{ml_as TID Albuterol Sulfate Sulfate _needed Sulfate (2.5 (2.5 } (2.5 MG/3ML) MG/3ML) MG/3ML) 0.083% 0.083% 0.083% Benzonatate Benzonatate No 1{capsu Benzonatat 200 MG 200 MG le_as_n e 200 MG eeded} Pantoprazol Pantoprazol No Pantoprazo e Sodium 40 e Sodium 40 le Sodium MG MG 40 MG Eliquis 5 Eliquis 5 No Eliquis 5 MG MG MG Pantoprazol Pantoprazol No 1{table QD Pantoprazo e Sodium 40 e Sodium 40 t} le Sodium MG MG 40 MG Prevacid Prevacid No Prevacid Verapamil Verapamil No 1{table BID Verapamil HCl ER 240 HCl ER 240 t} HCl ER 240 MG MG MG Cyclobenzap Cyclobenzap No 1{table QD Cyclobenza rine HCl 5 rine HCl 5 t_at_be buffy HCl MG MG dtime_a 5 MG s_neede d} Celecoxib Celecoxib No Celecoxib 200 MG 200 MG 200 MG Azithromyci Azithromyci No QD Azithromyc n 250 MG n 250 MG in 250 MG Albuterol Albuterol No Albuterol Sulfate Sulfate Sulfate (2.5 (2.5 (2.5 MG/3ML) MG/3ML) MG/3ML) 0.083% 0.083% 0.083% Celecoxib Celecoxib No 1{capsu Celecoxib 200 MG 200 MG le_with 200 MG _food} Advair Advair No Advair Diskus Diskus Diskus 250-50 250-50 250-50 MCG/DOSE MCG/DOSE MCG/DOSE Gabapentin Gabapentin No 1{capsu BID Gabapentin 300 MG 300 MG le} 300 MG Centrum Centrum No Centrum Vitamints Vitamints Vitamints Albuterol Albuterol No 3{ml_as TID Albuterol Sulfate Sulfate _needed Sulfate (2.5 (2.5 } (2.5 MG/3ML) MG/3ML) MG/3ML) 0.083% 0.083% 0.083% Benzonatate Benzonatate No 1{capsu Benzonatat 200 MG 200 MG le_as_n e 200 MG eeded} Pantoprazol Pantoprazol No Pantoprazo e Sodium 40 e Sodium 40 le Sodium MG MG 40 MG Verapamil Verapamil No 1{table BID Verapamil HCl ER 240 HCl ER 240 t} HCl ER 240 MG MG MG Eliquis 5 Eliquis 5 No Eliquis 5 MG MG MG Celecoxib Celecoxib No Celecoxib 200 MG 200 MG 200 MG Prevacid Prevacid No Prevacid Cyclobenzap Cyclobenzap No 1{table QD Cyclobenza rine HCl 5 rine HCl 5 t_at_be buffy HCl MG MG dtime_a 5 MG s_neede d} Advair Advair No Advair Diskus Diskus Diskus 250-50 250-50 250-50 MCG/DOSE MCG/DOSE MCG/DOSE Azithromyci Azithromyci No QD Azithromyc n 250 MG n 250 MG in 250 MG Albuterol Albuterol No Albuterol Sulfate Sulfate Sulfate (2.5 (2.5 (2.5 MG/3ML) MG/3ML) MG/3ML) 0.083% 0.083% 0.083% Celecoxib Celecoxib No 1{capsu Celecoxib 200 MG 200 MG le_with 200 MG _food} Gabapentin Gabapentin No 1{capsu BID Gabapentin 300 MG 300 MG le} 300 MG Pantoprazol Pantoprazol No Pantoprazo e Sodium 40 e Sodium 40 le Sodium MG MG 40 MG Centrum Centrum No Centrum Vitamints Vitamints Vitamints Albuterol Albuterol No 3{ml_as TID Albuterol Sulfate Sulfate _needed Sulfate (2.5 (2.5 } (2.5 MG/3ML) MG/3ML) MG/3ML) 0.083% 0.083% 0.083% Benzonatate Benzonatate No 1{capsu Benzonatat 200 MG 200 MG le_as_n e 200 MG eeded} Pantoprazol Pantoprazol No 1{table QD Pantoprazo e Sodium 40 e Sodium 40 t} le Sodium MG MG 40 MG Celecoxib Celecoxib No Celecoxib 200 MG 200 MG 200 MG Celecoxib Celecoxib No 1{capsu Celecoxib 200 MG 200 MG le_with 200 MG _food} Gabapentin Gabapentin No 1{capsu BID Gabapentin 300 MG 300 MG le} 300 MG Cyclobenzap Cyclobenzap No 1{table QD Cyclobenza rine HCl 5 rine HCl 5 t_at_be buffy HCl MG MG dtime_a 5 MG s_neede d} Advair Advair No Advair Diskus Diskus Diskus 250-50 250-50 250-50 MCG/ACT MCG/ACT MCG/ACT Azithromyci Azithromyci No QD Azithromyc n 250 MG n 250 MG in 250 MG Albuterol Albuterol No Albuterol Sulfate Sulfate Sulfate (2.5 (2.5 (2.5 MG/3ML) MG/3ML) MG/3ML) 0.083% 0.083% 0.083% Pantoprazol Pantoprazol No Pantoprazo e Sodium 40 e Sodium 40 le Sodium MG MG 40 MG Benzonatate Benzonatate No 1{capsu Benzonatat 200 MG 200 MG le_as_n e 200 MG eeded} Eliquis 5 Eliquis 5 No Eliquis 5 MG MG MG Verapamil Verapamil No BID Verapamil HCl ER 240 HCl ER 240 HCl ER 240 MG MG MG Pantoprazol Pantoprazol No 1{table QD Pantoprazo e Sodium 40 e Sodium 40 t} le Sodium MG MG 40 MG Albuterol Albuterol No 3{ml_as TID Albuterol Sulfate Sulfate _needed Sulfate (2.5 (2.5 } (2.5 MG/3ML) MG/3ML) MG/3ML) 0.083% 0.083% 0.083% Centrum Centrum No Centrum Vitamints Vitamints Vitamints Prevacid Prevacid No Prevacid traMADol traMADol No 1{table BID traMADol HCl 50 MG HCl 50 MG t_as_ne HCl 50 MG eded} Celecoxib Celecoxib No 1{capsu Celecoxib 200 MG 200 MG le_with 200 MG _food} LORazepam 1 LORazepam 1 No 1{table BID LORazepam MG MG t_as_ne 1 MG eded} Albuterol Albuterol No 3{ml_as TID Albuterol Sulfate Sulfate _needed Sulfate (2.5 (2.5 } (2.5 MG/3ML) MG/3ML) MG/3ML) 0.083% 0.083% 0.083% Cyclobenzap Cyclobenzap No 1{table QD Cyclobenza rine HCl 5 rine HCl 5 t_at_be buffy HCl MG MG dtime_a 5 MG s_neede d} Verapamil Verapamil No 1{table BID Verapamil HCl ER 240 HCl ER 240 t} HCl ER 240 MG MG MG Gabapentin Gabapentin No 1{capsu BID Gabapentin 300 MG 300 MG le} 300 MG Centrum Centrum No Centrum Vitamints Vitamints Vitamints Advair Advair No Advair Diskus Diskus Diskus 250-50 250-50 250-50 MCG/DOSE MCG/DOSE MCG/DOSE Pantoprazol Pantoprazol No 1{table QD Pantoprazo e Sodium 40 e Sodium 40 t} le Sodium MG MG 40 MG traMADol traMADol No 1{table BID traMADol HCl 50 MG HCl 50 MG t_as_ne HCl 50 MG eded} Celecoxib Celecoxib No 1{capsu Celecoxib 200 MG 200 MG le_with 200 MG _food} LORazepam 1 LORazepam 1 No 1{table BID LORazepam MG MG t_as_ne 1 MG eded} Albuterol Albuterol No 3{ml_as TID Albuterol Sulfate Sulfate _needed Sulfate (2.5 (2.5 } (2.5 MG/3ML) MG/3ML) MG/3ML) 0.083% 0.083% 0.083% Cyclobenzap Cyclobenzap No 1{table QD Cyclobenza rine HCl 5 rine HCl 5 t_at_be buffy HCl MG MG dtime_a 5 MG s_neede d} Verapamil Verapamil No 1{table BID Verapamil HCl ER 240 HCl ER 240 t} HCl ER 240 MG MG MG Gabapentin Gabapentin No 1{capsu BID Gabapentin 300 MG 300 MG le} 300 MG Centrum Centrum No Centrum Vitamints Vitamints Vitamints Advair Advair No Advair Diskus Diskus Diskus 250-50 250-50 250-50 MCG/DOSE MCG/DOSE MCG/DOSE Pantoprazol Pantoprazol No 1{table QD Pantoprazo e Sodium 40 e Sodium 40 t} le Sodium MG MG 40 MG traMADol traMADol No 1{table BID traMADol HCl 50 MG HCl 50 MG t_as_ne HCl 50 MG eded} Celecoxib Celecoxib No 1{capsu Celecoxib 200 MG 200 MG le_with 200 MG _food} LORazepam 1 LORazepam 1 No 1{table BID LORazepam MG MG t_as_ne 1 MG eded} Albuterol Albuterol No 3{ml_as TID Albuterol Sulfate Sulfate _needed Sulfate (2.5 (2.5 } (2.5 MG/3ML) MG/3ML) MG/3ML) 0.083% 0.083% 0.083% Cyclobenzap Cyclobenzap No 1{table QD Cyclobenza rine HCl 5 rine HCl 5 t_at_be buffy HCl MG MG dtime_a 5 MG s_neede d} Verapamil Verapamil No 1{table BID Verapamil HCl ER 240 HCl ER 240 t} HCl ER 240 MG MG MG Gabapentin Gabapentin No 1{capsu BID Gabapentin 300 MG 300 MG le} 300 MG Centrum Centrum No Centrum Vitamints Vitamints Vitamints Advair Advair No Advair Diskus Diskus Diskus 250-50 250-50 250-50 MCG/DOSE MCG/DOSE MCG/DOSE Pantoprazol Pantoprazol No 1{table QD Pantoprazo e Sodium 40 e Sodium 40 t} le Sodium MG MG 40 MG Verapamil Verapamil No 1{table BID Verapamil HCl ER 240 HCl ER 240 t} HCl ER 240 MG MG MG Pantoprazol Pantoprazol No 1{table QD Pantoprazo e Sodium 40 e Sodium 40 t} le Sodium MG MG 40 MG Centrum Centrum No Centrum Vitamints Vitamints Vitamints Celecoxib Celecoxib No 1{capsu Celecoxib 200 MG 200 MG le_with 200 MG _food} traMADol traMADol No 1{table BID traMADol HCl 50 MG HCl 50 MG t_as_ne HCl 50 MG eded} Cyclobenzap Cyclobenzap No 1{table QD Cyclobenza rine HCl 5 rine HCl 5 t_at_be buffy HCl MG MG dtime_a 5 MG s_neede d} LORazepam 1 LORazepam 1 No 1{table BID LORazepam MG MG t_as_ne 1 MG eded} Advair Advair No Advair Diskus Diskus Diskus 250-50 250-50 250-50 MCG/DOSE MCG/DOSE MCG/DOSE Benzonatate Benzonatate No 1{capsu TID Benzonatat 200 MG 200 MG le_as_n e 200 MG eeded} Advair Advair No Advair Diskus Diskus Diskus 250-50 250-50 250-50 MCG/ACT MCG/ACT MCG/ACT Albuterol Albuterol No 3{ml_as TID Albuterol Sulfate Sulfate _needed Sulfate (2.5 (2.5 } (2.5 MG/3ML) MG/3ML) MG/3ML) 0.083% 0.083% 0.083% Gabapentin Gabapentin No 1{capsu BID Gabapentin 300 MG 300 MG le} 300 MG Verapamil Verapamil No 1{table BID Verapamil HCl ER 240 HCl ER 240 t} HCl ER 240 MG MG MG Pantoprazol Pantoprazol No 1{table QD Pantoprazo e Sodium 40 e Sodium 40 t} le Sodium MG MG 40 MG Centrum Centrum No Centrum Vitamints Vitamints Vitamints Celecoxib Celecoxib No 1{capsu Celecoxib 200 MG 200 MG le_with 200 MG _food} traMADol traMADol No 1{table BID traMADol HCl 50 MG HCl 50 MG t_as_ne HCl 50 MG eded} Cyclobenzap Cyclobenzap No 1{table QD Cyclobenza rine HCl 5 rine HCl 5 t_at_be buffy HCl MG MG dtime_a 5 MG s_neede d} LORazepam 1 LORazepam 1 No 1{table BID LORazepam MG MG t_as_ne 1 MG eded} Advair Advair No Advair Diskus Diskus Diskus 250-50 250-50 250-50 MCG/DOSE MCG/DOSE MCG/DOSE Benzonatate Benzonatate No 1{capsu TID Benzonatat 200 MG 200 MG le_as_n e 200 MG eeded} Advair Advair No Advair Diskus Diskus Diskus 250-50 250-50 250-50 MCG/ACT MCG/ACT MCG/ACT Albuterol Albuterol No 3{ml_as TID Albuterol Sulfate Sulfate _needed Sulfate (2.5 (2.5 } (2.5 MG/3ML) MG/3ML) MG/3ML) 0.083% 0.083% 0.083% Gabapentin Gabapentin No 1{capsu BID Gabapentin 300 MG 300 MG le} 300 MG Advair Advair No Advair Diskus Diskus Diskus 250-50 250-50 250-50 MCG/DOSE MCG/DOSE MCG/DOSE Albuterol Albuterol No 3{ml_as TID Albuterol Sulfate Sulfate _needed Sulfate (2.5 (2.5 } (2.5 MG/3ML) MG/3ML) MG/3ML) 0.083% 0.083% 0.083% Gabapentin Gabapentin No 1{capsu BID Gabapentin 300 MG 300 MG le} 300 MG Celecoxib Celecoxib No 1{capsu Celecoxib 200 MG 200 MG le_with 200 MG _food} Verapamil Verapamil No Verapamil HCl ER 240 HCl ER 240 HCl ER 240 MG MG MG Centrum Centrum No Centrum Vitamints Vitamints Vitamints Benzonatate Benzonatate No 1{capsu TID Benzonatat 200 MG 200 MG le_as_n e 200 MG eeded} Advair Advair No Advair Diskus Diskus Diskus 250-50 250-50 250-50 MCG/ACT MCG/ACT MCG/ACT Celecoxib Celecoxib No Celecoxib 200 MG 200 MG 200 MG Verapamil Verapamil No 1{table BID Verapamil HCl ER 240 HCl ER 240 t} HCl ER 240 MG MG MG Cyclobenzap Cyclobenzap No 1{table QD Cyclobenza rine HCl 5 rine HCl 5 t_at_be buffy HCl MG MG dtime_a 5 MG s_neede d} Cyclobenzap Cyclobenzap No 1{table QD Cyclobenza rine HCl 5 rine HCl 5 t_at_be buffy HCl MG MG dtime_a 5 MG s_neede d} Nystatin Nystatin No Nystatin [id number] UNIT/ML UNIT/ML UNIT/ML Albuterol Albuterol No 3{ml_as TID Albuterol Sulfate Sulfate _needed Sulfate (2.5 (2.5 } (2.5 MG/3ML) MG/3ML) MG/3ML) 0.083% 0.083% 0.083% Gabapentin Gabapentin No 1{capsu BID Gabapentin 300 MG 300 MG le} 300 MG Celecoxib Celecoxib No 1{capsu Celecoxib 200 MG 200 MG le_with 200 MG _food} Centrum Centrum No Centrum Vitamints Vitamints Vitamints Advair Advair No Advair Diskus Diskus Diskus 250-50 250-50 250-50 MCG/DOSE MCG/DOSE MCG/DOSE Advair Advair No Advair Diskus Diskus Diskus 250-50 250-50 250-50 MCG/ACT MCG/ACT MCG/ACT Celecoxib Celecoxib No Celecoxib 200 MG 200 MG 200 MG Verapamil Verapamil No Verapamil HCl ER 240 HCl ER 240 HCl ER 240 MG MG MG Verapamil Verapamil No 1{table BID Verapamil HCl ER 240 HCl ER 240 t} HCl ER 240 MG MG MG Benzonatate Benzonatate No 1{capsu TID Benzonatat 200 MG 200 MG le_as_n e 200 MG eeded} Pantoprazol Pantoprazol No Pantoprazo e Sodium 40 e Sodium 40 le Sodium MG MG 40 MG Celecoxib Celecoxib No 1{capsu Celecoxib 200 MG 200 MG le_with 200 MG _food} Gabapentin Gabapentin No 1{capsu BID Gabapentin 300 MG 300 MG le} 300 MG Verapamil Verapamil No 1{table BID Verapamil HCl ER 240 HCl ER 240 t} HCl ER 240 MG MG MG LORazepam 1 LORazepam 1 No 1{table BID LORazepam MG MG t_as_ne 1 MG eded} Albuterol Albuterol No 3{ml_as TID Albuterol Sulfate Sulfate _needed Sulfate (2.5 (2.5 } (2.5 MG/3ML) MG/3ML) MG/3ML) 0.083% 0.083% 0.083% Advair Advair No Advair Diskus Diskus Diskus 250-50 250-50 250-50 MCG/DOSE MCG/DOSE MCG/DOSE Prevacid Prevacid No Prevacid Celecoxib Celecoxib No Celecoxib 200 MG 200 MG 200 MG Advair Advair No Advair Diskus Diskus Diskus 250-50 250-50 250-50 MCG/DOSE MCG/DOSE MCG/DOSE Immunizations Ordered Immunization Filled Immunization Date Status Commen ts Source Name Name [employer] COVID-19 MRNA 2021-08-27 Completed Meth odist VACCINATION 00:00:00 [facility] PFIZER COVID-19 MRNA 2021-02-14 Completed Meth odist VACCINATION 00:00:00 [facility] PFIZER COVID-19 MRNA 2020-08-05 Completed Meth odist VACCINATION 00:00:00 [facility] PFIZER COVID-19 MRNA 2020-07-15 Completed Meth odist VACCINATION 00:00:00 Hospital Vital Signs Vital Name Observation Time Observation Value Comments Source height 2022-01-18 13:10:00 66 [in_i] [facility] S [facility] weight 2022-01-18 13:10:00 191.8 [lb_av] [facility] temperature 2022-01-18 13:10:00 97.3 [degF] [facility] bmi 2022-01-18 13:10:00 30.95 kg/m2 [facility] oximetry 2022-01-18 13:10:00 96 % [facility] respiratory rate 2022-01-18 13:10:00 17 /min Comm on [facility] blood pressure 2022-01-18 13:10:00 119 mm[Hg] Common [facility] - systolic [facility] blood pressure 2022-01-18 13:10:00 70 mm[Hg] [facility] height 2021-12-14 16:40:00 66 [in_i] Common S [facility] weight 2021-12-14 16:40:00 191.8 [lb_av] [facility] bmi 2021-12-14 16:40:00 30.95 kg/m2 Common [facility] height 2021-10-07 14:30:00 66 [in_i] Common [facility] weight 2021-10-07 14:30:00 191.8 [lb_av] [facility] temperature 2021-10-07 14:30:00 97.2 [degF] [facility] bmi 2021-10-07 14:30:00 30.95 kg/m2 [facility] oximetry 2021-10-07 14:30:00 90 % [facility] respiratory rate 2021-10-07 14:30:00 16 /min Comm on [facility] blood pressure 2021-10-07 14:30:00 137 mm[Hg] Common [facility] - systolic [facility] blood pressure 2021-10-07 14:30:00 77 mm[Hg] Common [facility] - diastolic [facility] height 2021-10-07 15:00:00 66 [in_i] Common [facility] weight 2021-10-07 15:00:00 191.8 [lb_av] [facility] temperature 2021-10-07 15:00:00 97.2 [degF] [facility] bmi 2021-10-07 15:00:00 30.95 kg/m2 [facility] oximetry 2021-10-07 15:00:00 90 % [facility] respiratory rate 2021-10-07 15:00:00 16 /min Comm on [facility] blood pressure 2021-10-07 15:00:00 137 mm[Hg] Common [facility] - systolic [facility] blood pressure 2021-10-07 15:00:00 77 mm[Hg] Common [facility] - diastolic [facility] height 2021-07-21 13:20:00 66 [in_i] Common [facility] weight 2021-07-21 13:20:00 187.3 [lb_av] [facility] bmi 2021-07-21 13:20:00 30.23 kg/m2 [facility] height 2021-06-25 15:40:00 66 [in_i] [facility] weight 2021-06-25 15:40:00 187.3 [lb_av] [facility] temperature 2021-06-25 15:40:00 97.8 [degF] [facility] bmi 2021-06-25 15:40:00 30.23 kg/m2 [facility] oximetry 2021-06-25 15:40:00 99 % [facility] respiratory rate 2021-06-25 15:40:00 18 /min Comm [facility] blood pressure 2021-06-25 15:40:00 135 mm[Hg] Common [facility] - systolic [facility] blood pressure 2021-06-25 15:40:00 78 mm[Hg] Common [facility] - diastolic [facility] height 2021-03-24 10:10:00 66 [in_i] Common [facility] weight 2021-03-24 10:10:00 188 [lb_av] [facility] temperature 2021-03-24 10:10:00 98 [degF] Common S [facility] - [facility] bmi 2021-03-24 10:10:00 30.34 kg/m2 Common S pirit - [facility] blood pressure 2021-03-24 10:10:00 132 mm[Hg] [facility] blood pressure 2021-03-24 10:10:00 62 mm[Hg] [facility] Systolic blood 2022-01-14 18:54:00 139 mm[Hg] [facility] pressure Diastolic blood 2022-01-14 18:54:00 69 mm[Hg] [facility] pressure Heart rate 2022-01-14 18:54:00 69 /min [facility] Body temperature 2022-01-14 18:54:00 36.67 Ilsa [facility] Respiratory rate 2022-01-14 18:54:00 20 /min [facility] Oxygen saturation in 2022-01-14 18:54:00 94 /min [facility] Arterial blood by Pulse oximetry Body height 2022-01-12 21:37:00 167.6 cm [facility] Body weight 2022-01-12 21:37:00 85.73 kg [facility] BMI 2022-01-12 21:37:00 30.51 kg/m2 [facility] Procedures Procedure Date / Time Performing Clinician Source Performed OH AN ELECTIVE 2022-01-14 17:16:00 Luisana Cardenas spital SUPRAGLOTTIC AIRWAY POC GLUCOSE 2022-01-14 17:07:00 Lalito Richardson Nasir [facility] CARPAL TUNNEL RELEASE, 2022-01-14 17:07:00 [facility]OS[facility]IC BASIC METABOLIC PANEL 2022-01-12 21:29:00 Sarah Clark [facility] ESTIMATED GFR 2022-01-12 21:29[facility] 3+ VW LEFT 2021-07-27 23:36:16 Eliana Ferrer [facility] XR HAND 3+ VW LEFT 2021-07-27 23:35:53 Eliana Ferrer [facility] CYCLIC CITRULLINATED 2021-07-27 22:43:00 Eliana Ferrer [facility] PEPTIDE AB, IGG HC COMPLETE BLD COUNT 2021-07-27 22:43:00 Eliana Ferrer [facility] W/AUTO DIFF COMPREHENSIVE METABOLIC 2021-07-27 22:43:00 Eliana Ferrer [facility] PANEL SEDIMENTATION RATE 2021-07-27 22:43:00 Eliana Ferrer [facility] C-REACTIVE PROTEIN 2021-07-27 22:43:00 Eliana Ferrer [facility] URIC ACID LEVEL 2021-07-27 22:43:00 Eliana Ferrer [facility] spital ESTIMATED GFR 2021-07-27 22:43:00 Eliana Ferrer [facility] spital RHEUMATOID FACTOR 2021-07-27 22:43:00 Eliana Ferrer [facility] Plan of Care Planned Activity Planned Date Details Comments Source Future Scheduled 2022-02-05 HEPATITIS B VACCINES Met [facility] [place] [place] Test 03:31:20 (1 of 3 - 3-dose series) [code = HEPATITIS B VACCINES (1 of 3 - 3-dose series)] Future Scheduled 2022-02-05 65+ PNEUMOCOCCAL [facility] Test 03:31:20 VACCINE (1 - PCV) [code = 65+ PNEUMOCOCCAL VACCINE (1 - PCV)] Future Scheduled 2022-02-05 SHINGLES VACCINES ([address] [facility] [place] Test 03:31:20 of 2) [code = SHINGLES VACCINES (1 of 2)] Future Scheduled 2022-02-05 COVID-19 VACCINE (5 - [facility] Test 03:31:20 Booster for Pfizer series) [code = COVID-19 VACCINE (5 - Booster for Pfizer series)] Future Scheduled 2022-02-05 INFLUENZA VACCINE Method [facility] Test 03:31:20 [code = INFLUENZA VACCINE] Future Scheduled COVID-19 VACCINE (1) Met [facility] [place] [place] Test [code = COVID-19 VACCINE (1)] Future Scheduled SHINGLES VACCINES (#1) [facility] Test [code = SHINGLES VACCINES (#1)] Future Scheduled 65+ PNEUMOCOCCAL [facility] Test VACCINE (1 of 1 - PPSV23) [code = 65+ PNEUMOCOCCAL VACCINE (1 of 1 - PPSV23)] Future Scheduled INFLUENZA VACCINE [facility] Test [code = INFLUENZA VACCINE] Encounters Start End Encounter Admission Attending Care Care Encounter Source Date/Time Date/Time Type Type Clinicians Facility Department ID 2021-12-14 Out[facility] [place] [id number] Common 16:19:01 [place] 2021-07-20 Outpatient [place], STLMLC [facility] [id number] Common 14:24:03 [facility] 2021-06-17 Outpatient [place], STLMLC [facility] [id number] Common 14:01:53 [place] [id number] [facility] 2021-06-17 Outpatient [place], STLMLC [facility] [id number] Common 13:57:09 [place] [address] [facility] 2021-06-17 Outpatient [place], STLMLC [facility] [id number] Common 13:55:26 [place] [address] [facility] 2021-06-17 Outpatient [place], STLMLC [facility] [id number] Common 13:34:26 [place] [address]478 [facility] 2021-06-17 Outpatient [place], STLMLC [facility] [id number] Common 13:33:54 [place] [address] [facility] 2021-06-17 Outpatient [place], STLC ST[facility] [id number] Common 12:58:36 [place] 11758 [facility] 2021-06-17 Outpatient [place], STLMLC [facility] [id number] Common 12:35:04 [place] 79427 [facility] 2021-06-17 Outpatient [place], [facility]LMLC [facility] [id number] Common 12:34:21 [place] 45241 [facility] 2021-06-17 Outpatient [place], STLC ST[facility] [id number] Common 12:11:56 [place] 7[address]82 [facility] 2021-06-17 Outpatient [place], STLMLC ST[facility] [id number] Common 11:52:30 [place] [address] [facility] 2021-06-17 Outpatient [place], STLMLC STLMLC [id number] Common 11:44:30 [place] [address] [facility] 2021-06-17 Outpatient [place], STLMLC STLMLC [id number] Common 11:26:10 [place] [address] [facility] 2021-06-17 Outpatient [place], STLMLC STLMLC [id number] Common 11:22:17 [place] [address] [facility] 2021-06-17 Outpatient [place], STLMLC STLMLC [id number] Common 11:21:19 [place] [address] [facility] 2021-06-17 Outpatient [place], STLMLC STLMLC [id number] Common 11:21:11 [place] [address] [facility] 2022-03-08 2022-03-08 (TEL) STLMLC STLC [id number] Co mmon 00:00:00 00:00:00 [facility] 2022-01-22 2022-01-22 Office Richardson, 1.2.840.1 [id number] Methodi 14:40:00 17:39:07 Visit Lalito 35010.1.1 456 [facility] 3.430.2.7 Hospit a .3.723897 l .8 2022-01-22 2022-01-22 Outpatient RICHARDSON, [facility] [id number] [place] 00:00:00 00:00:00 LALITO [facility] 2022-01-22 2022-01-22 Travel 1.2.840.1 [id number] Methodi 00:00:00 00:00:[id number] 3.430.2.7 0.2.7.3.698 Ho spita .3.470558 084.8 l .8 2022-01-18 2022-01-18 OFFICE STLMLC STL[facility]C [id number] Co mmon 00:00:00 00:00:00 VISIT [facility] LEVEL 4 [facility] 2022-01-14 2022-01-14 Hospital Richardson, 1.2.840.1 [id number] Methodi 10:21:00 14:23:00 Encounter Vincent [address]852.1.[address] [facility] 3.430.2.7 Hospit a .3.598944 l .8 2022-01-14 2022-01-14 Anesthesia BrandynmireyaDavidMisael 1.2.8 40.1 [id number] Methodi 12:06:00 12:55:00 Event Sarah Clark 38300.1.[address] 3.430.2.7 Hospit a .3.717179 l .8 2022-01-14 2022-01-14 Surgery [facility], 1.2.840.1 [id number] Methodi 12:00:00 12:55:[address] [facility] 3.430.2.7 Hospit a .3.106618 l .8 2022-01-14 2022-01-14 Outpatient [facility], [facility] 885 [id number] [place] 00:00:00 00:00:00 VINCENT [address] 2022-01-14 2022-01-14 Orders Richardson, 1.2.840.1 [id number] Methodi 00:00:00 00:00:00 Only Vincent [address]203.1.[address] [facility] 3.430.2.7 Hospit a .3.799845 l .8 2022-01-12 2022-01-12 Pre-Admiss Richardson, 1.2.840.1 [id number] Methodi 16:30:00 17:30:00 ion Vincent [address]86.1.[address] Testing Nas[facility] 3.430.2.7 Hospit a .3.636729 l .8 2022-01-12 2022-01-12 Office Richardson, 1.2.840.1 [id number] Methodi 14:50:00 15:55:40 Visit Vincent [address]02.1.[address] [facility] 3.430.2.7 Hospit a .3.711734 l .8 2022-01-12 2022-01-12 Outpatient RICHARDSON, [facility] [id number] [place] 00:00:00 00:00:00 VINCENT [address] 2022-01-12 2022-01-12 Outpatient RICHARDSON, [facility] [id number] [place] 00:00:00 00:00:00 VINCENT [address] 2022-01-12 2022-01-12 Transcribe Richardson, 1.2.840.1 [id number] Methodi 00:00:00 00:00:00 Orders [place] [address]443.1.[address] Nasir 3.430.2.7 Hospit a .3.648762 l .8 2022-01-12 2022-01-12 Travel 1.2.840.1 1.2.087.739 [id number] Methodi 00:00:00 00:00:[address] 3.430.2.7 0.2.7.3.698 Ho spita .3.944098 084.8 l .8 2022-01-01 2022-01-01 Travel 1.2.840.1 1.2.402.219 8381 589486 Methodi 00:00:00 00:00:[address] 3.430.2.7 0.2.7.3.698 Ho spita .3.809838 084.8 l .8 2021-12-14 2021-12-14 OL DIG E/M [facility] [id number] Common 00:00:00 00:00:00 [facility] [place] it [facility] 2021-12-14 2021-12-14 (TEL) [facility] [id number] Co mmon 00:00:00 00:00:00 [facility] 2021-12-10 2021-12-10 Office Miko, 1.2.840.1 [id number] 3726 Methodi 14:30:00 14:32:16 Visit Rain 01468.1.1 [address] 3.430.2.7 Hospit a .3.476982 l .8 2021-12-10 2021-12-10 Procedure Yani Menendez 1.2.840.1 [id number] Methodi 13:30:00 13:56:[address] 3.430.2.7 Hospit a .3.936079 l .8 2021-12-10 2021-12-10 Outpatient YANI MENENDEZ [facility] [id number] [place] 00:00:00 00:00:[address] 2021-12-10 2021-12-10 Outpatient [facility] [id number] [place] 00:00:00 00:00:[address] 2021-12-10 2021-12-10 Travel 1.2.840.1 1.2.803.425 [id number] Methodi 00:00:00 00:00:[address] 3.430.2.7 0.2.7.3.698 Ho spita .3.227872 084.8 l .8 2021-11-03 2021-11-03 Office Miko, 1.2.840.1 [id number] Methodi 15:30:00 16:21:50 Visit Rain [address]54.1.[address] 3.430.2.7 Hospit a .3.527237 l .8 2021-11-03 2021-11-03 Travel 1.2.840.1 1.2.003.038 1099 [id number] Methodi 00:00:00 00:00:[address] 3.430.2.7 0.2.7.3.698 Ho spita .3.258791 084.8 l .8 2021-11-03 2021-11-03 Outpatient [facility] [id number] [place] 00:00:00 00:00:[address] 2021-10-07 2021-10-07 OFFICE STLMLC STLMLC [id number] [place] 00:00:00 00:00:00 VISIT Spirit ESTAB PT - CHI LEVEL 4 [facility] 2021-10-07 2021-10-07 (TEL) STLMLC STLMLC [id number] Co mmon 00:00:00 00:00:00 Spirit - CHI [facility] 2021-10-07 2021-10-07 SUB ANNUAL STLMLC STLMLC [id number] Common 00:00:00 00:00:00 MCR Spirit WELLNESS - CHI VISIT [facility] 2021-09-21 2021-09-21 (TEL) STLMLC STLMLC [id number] Co mmon 00:00:00 00:00:00 Spirit - CHI [facility] 2021-08-28 2021-08-28 Office Richardson, 1.2.840.1 [id number] Methodi 13:40:00 14:39:54 Visit Lalito 76558.1.[address] Nasir 3.430.2.7 Hospit a .3.245424 l .8 2021-08-28 2021-08-28 Travel 1.2.840.1 1.2.845.802 4850 [id number] Methodi 00:00:00 00:00:[address] 3.430.2.7 0.2.7.3.698 Ho spita .3.969207 084.8 l .8 2021-08-28 2021-08-28 Outpatient RICHARDSON, [facility] [id number] [place] 00:00:00 00:00:[address] 2021-08-25 2021-08-25 Transcribe Carla, 1.2.840.1 [id number] Methodi 00:00:00 00:00:00 Orders Kingsley [address]32.1.[address] [place] 3.430.2.7 Hospit a .3.193823 l .8 2021-08-12 2021-08-12 Travel 1.2.840.1 1.2.601.896 [id number] [id number] Methodi 00:00:00 00:00:[address] 3.430.2.7 0.2.7.3.698 Ho spita .3.385200 084.8 l .8 2021-07-31 2021-07-31 (TEL) STLMLC STLMLC [id number] Co mmon 00:00:00 00:00:00 [facility] 2021-07-27 2021-07-27 [facility] Eliana Ferrer 1.2.840.1 [id number] Methodi 17:06:04 23:59:00 Encounter W. [address]376.1.[address] 3.430.2.7 Hospit a .3.307946 l .8 2021-07-27 2021-07-27 [facility] Eliana Ferrer 1.2.840.1 [id number] Methodi 17:00:00 17:05:00 Encounter [address]856.1.[address] 3.430.2.7 Hospit a .3.899931 l .8 2021-07-27 2021-07-27 Outpatient ELIANA FERRER [facility] [id number] [place] 00:00:00 00:00:[address] 2021-07-27 2021-07-27 Outpatient ELIANA FERRER [facility] [id number] [place] 00:00:00 00:00:[address] 2021-07-27 2021-07-27 Outpatient ELIANA FERRER [facility] [id number] [place] 00:00:00 00:00:[address] 2021-07-27 2021-07-27 Transcribe Ferrer, Eliana 1.2.840.1 [id number] Methodi 00:00:00 00:00:[address] Orders [address]. [address]951.1.[address] 3.430.2.7 Hospit a .3.862369 l .8 2021-07-27 2021-07-27 Travel 1.2.840.1 1.2.080.105 [id number] Methodi 00:00:00 00:00:[address] 3.430.2.7 0.2.7.3.698 Ho spita .3.719130 084.8 l .8 2021-07-21 2021-07-21 OL DIG E/M STLMLC STLMLC [id number] Common 00:00:00 00:00:00 [facility] [place] Spir it MIN [facility] 2021-07-15 2021-07-15 (TEL) STLMLC STLMLC [id number] Co mmon 00:00:00 00:00:00 [facility] 2021-06-25 2021-06-25 OFFICE STLMLC STLMLC [id number] Co mmon 00:00:00 00:00:00 VISIT [facility] PT [facility] LEVEL 4 [facility] 2021-06-16 2021-06-16 (TEL) STLMLC STLMLC [id number] Co mmon 00:00:00 00:00:00 [facility] 2021-03-24 2021-03-24 (TELEAUD) STLMLC STLMLC [id number] Common 00:00:00 00:00:[address] [facility] TELEMEDICI - [facility] 2021-03-19 2021-03-19 (TEL) STLMLC STLMLC [id number] Co mmon 00:00:00 00:00:00 [facility] 2021-03-09 2021-03-09 (TEL) STLMLC STLMLC [id number] Co mmon 00:00:00 00:00:00 [facility] 2021-03-04 2021-03-04 Outpatient [facility] [id number] [place] 00:00:00 00:00:00 DAYSI 514 Method i 2021-03-04 2021-03-04 Outpatient [facility] [id number] [place] 00:00:00 00:00:00 DAYSI 823 Method i 2021-03-04 2021-03-04 Outpatient [facility] [id number] [place] 00:00:00 00:00:00 DAYSI 315 Method i 2021-02-19 2021-02-19 (TEL) STLMLC STLMLC [id number] Co mmon 00:00:00 00:00:00 [facility] 2021-01-28 2021-01-28 Inpatient [facility] OUTD [id number] [facility] 05:18:00 05:18:00 Baltazar 03 [facility] 2020-12-24 2020-12-24 Outpatient STLMLC STLMLC [id number] Common 00:00:00 00:00:00 [facility] 2020-12-10 2020-12-11 Inpatient RIANA MercadoCL INTE.02 [id number] [facility] 05:27:00 13:49:00 Baltazar 17 [facility] 2020-10-30 2020-10-30 Outpatient STLMLC STLMLC [id number] Common 00:00:00 00:00:00 [facility] 2020-10-22 2020-10-22 Outpatient STLMLC STLMLC [id number] Common 00:00:00 00:00:00 [facility] 2020-10-15 2020-10-15 Outpatient STLMLC STLMLC [id number] Common 00:00:00 00:00:00 [facility] 2020-09-25 2020-09-25 Outpatient STLMLC STLMLC [id number] Common 00:00:00 00:00:00 [facility] 2020-09-24 2020-09-24 Outpatient STLMLC STLMLC [id number] Common 00:00:00 00:00:00 [facility] 2020-09-23 2020-09-23 Outpatient STLMLC STLMLC [id number] Common 00:00:00 00:00:00 [facility] 2020-09-23 2020-09-23 Outpatient STLMLC STLMLC [id number] Common 00:00:00 00:00:00 [facility] 2020-07-22 2020-07-22 Outpatient STLMLC STLMLC [id number] Common 00:00:00 00:00:00 [facility] 2020-06-17 2020-06-17 Outpatient STLMLC STLMLC [id number] Common 00:00:00 00:00:00 [facility] 2020-05-07 2020-05-07 Outpatient STLMLC STLMLC [id number] Common 00:00:00 00:00:00 [facility] 2020-04-30 2020-04-30 Outpatient STLMLC STLMLC [id number] Common 00:00:00 00:00:00 [facility] 2020-02-27 2020-02-27 Outpatient STLMLC STLMLC [id number] Common 00:00:00 00:00:00 [facility] 2020-02-26 2020-02-26 Outpatient STLMLC STLMLC [id number] Common 00:00:00 00:00:00 [facility] 2020-01-30 2020-01-30 [facility] [id number] Common 14:00:00 14:00:[address] [facility] 2019-12-07 2019-12-07 [facility] [id number] Common 10:54:00 10:54:[address] [facility] 2019-10-30 2019-10-30 [facility] 30 [id number] Common 13:30:00 13:30:[address] [facility] 2019-10-25 2019-10-25 [facility] [id number] Common 16:50:00 16:50:00 [facility] [address] [facility] 2019-10-19 2019-10-19 [facility] [id number] Common 15:21:00 15:21:00 [facility] [address] [facility] 2019-10-18 2019-10-18 [facility] [id number] Common 08:34:00 08:34:00 [facility] [address] [facility] 2019-10-11 2019-10-11 [facility] [id number] Common 13:40:00 13:40:[address] [facility] 2019-10-09 2019-10-09 [facility] 30 [id number] Common 13:00:00 13:00:[address] [facility] 2019-10-04 2019-10-04 [facility] 30 [id number] Common 14:02:00 14:02:[address] [facility] 2019-10-02 2019-10-02 [facility] 30 [id number] Common 17:10:00 17:10:[address] [facility] 2019-10-01 2019-10-01 [facility] [id number] Common 13:30:00 13:30:[address] [facility] 2019-10-01 2019-10-01 Out[facility] [id number] Common 09:03:00 09:03:[address] [facility] Results Test Description Test Time Test Comments Results Result Comments Source POC glucose 2022-01-14 17:17:00 Test Item Value Reference Range Interpretation Comme nts POC glucose (test code = 87 mg/dL 65-99 Ope rator Name: Mumtaz Oneill [id number]) ID: [id number] [facility] Coronavirus 2018 [id number] 23:10:00 Test Item Value Reference Range Interpretation Comments Novel Coronavirus Negative Negative Positive r esults are 2019 Inhouse (test indicativ e of the presence code = COVNONPUI) ofSARS-CoV -2 RNA, clinical correlation wit h patient historyand othe r diagnostic info rmation is necessary to determinepatien t infection status. Positiv e results do not rule out bacterial infection or co -infection with other viru ses. Negative result s do not preclude SARS-C oV-2 infection andsh ould not be used as the estrella e basis for patient managementdecis ions. Negative result s must be combined with otherclinical observations, p atient history, and epidemiological information . Detection of SARS-CoV-2 RNA may be affe cted bysample collec tion methods, storag e conditions, and /or stageof infection. Radha l RNA mutations, vacc inations, antiviraltherap eutics, antibiotics, chemotherapeuti c orimmunosuppres karen drugs have not been e valuated for effectson d etection. Results are for the identification of SARS-CoV-2 RNA usingthe Yogurt3D Engine M2000 Sy stem under the FDA Emergen cy UseAuthorizatio n. The testing is perf ormed by personneltraine d in the procedures for the Yogurt3D Engine M2000 molecular diagnostic SARS-CoV-2 assa y in vitro. PROTHROMBIN [id number] 11:28:00 Test Item Value Reference Range Interpretation Comments PROTHROMBIN TIME 14.6 SECONDS 9.3-12.9 H PATIENT (test code = PTP) INTERNATIONAL NORMAL 1.3 0.8-1.2 H TARGET INR BY RATIO (test code = INDICATIO N Indication INR) INR1. Prophylax is of venous thrombos is 2.0 - 3.0 (orthoped ic surgery), Proph ylaxis of venous throm bosis (other than hig h-risk surgery), Treat ment of Deep Vein Thrombosis/Pulm onary Embolism, Preve ntion of systemic emb olism - Tissue heart va lves, Acute Myocardia l Infarction (to prevent systemic emboli sm), Valvular heart disease, Atrial Fibrillation, Bileaflet mecha nical valve in aortic position.2. Mec hanical prosthetic valv es (high risk), 2. 5 - 3.5 Presence of Lup us Anticoagulant o r Antiphospholipi d Antibodies, Pre vention of systemic emb olism - Acute Myocardia l Infarction (to prevent recurrent infar ct). BASIC METABOLIC [id number] 11:25:00 Test Item Value Reference Range Interpretation Comments SODIUM (test code = NA) 145 mEq/L 134-147 N POTASSIUM (test code = 3.8 mEq/L 3.4-5.0 N K) CHLORIDE (test code = 103 mEq/L 100-108 N CL) CARBON DIOXIDE (test 37 mEq/l 21-33 H code = CO2) ANION GAP (test code = 9 0-20 N GAP) GLUCOSE (test code = 119 mg/dL 70-110 H GLU) BLOOD UREA NITROGEN 17 mg/dL 7-18 N (test code = BUN) GLOMERULAR FILTRATION 64.1 70-80 L Units of measure = RATE (test code = GFR) ml/mi n/1.73 m2 CREATININE (test code = 1.0 mg/dL 0.6-1.3 N CREAT) CALCIUM (test code = 9.6 mg/dL 8.0-10.5 N CA) CBC W/AUTO [id number] 11:15:00 Test Item Value Reference Range Interpretation Comments WHITE BLOOD CELL (test code = 4.8 x10 3/uL 4.5-11.0 N WBC) RED BLOOD CELL (test code = 4.07 x10 6/uL 3.54-5.02 N RBC) HEMOGLOBIN (test code = HGB) 12.8 g/dL 11.0-15.0 N HEMATOCRIT (test code = HCT) 42.4 % 33.0-45.0 N MEAN CELL VOLUME (test code = 104.2 fL 81.0-99.0 H MCV) MEAN CELL HGB (test code = MCH) 31.4 pg 27.0-33.0 N MEAN CELL HGB CONCETRATION 30.2 g/dL 33.0-37.0 L (test code = MCHC) RED CELL DISTRIBUTION WIDTH CV 14.1 % 11.5-14.5 N (test code = RDW) RED CELL DISTRIBUTION WIDTH SD 55.0 fL 37.0-54.0 H (test code = RDW-SD) PLATELET COUNT (test code = 286 x10 3/uL 150-400 N PLT) MEAN PLATELET VOLUME (test code 9.1 fL 7.0-9.0 H = MPV) NEUTROPHIL % (test code = NT%) 54.7 % 56.0-77.0 L IMMATURE GRANULOCYTE % (test 0.2 % 0.0-2.0 N code = IG%) LYMPHOCYTE % (test code = LY%) 35.9 % 14.0-32.0 H MONOCYTE % (test code = MO%) 7.1 % 4.8-9.0 N EOSINOPHIL % (test code = EO%) 1.7 % 0.3-3.7 N BASOPHIL % (test code = BA%) 0.4 % 0.0-2.0 N NUCLEATED RBC % (test code = 0.0 % 0-0 N NRBC%) NEUTROPHIL # (test code = NT#) 2.60 x10 3/uL 2.0-7.6 N IMMATURE GRANULOCYTE # (test 0.01 x10 3/uL 0.00-0.03 N code = IG#) LYMPHOCYTE # (test code = LY#) 1.71 x10 3/uL 1.0-3.8 N MONOCYTE # (test code = MO#) 0.34 x10 3/uL 0.1-0.8 N EOSINOPHIL # (test code = EO#) 0.08 x10 3/uL 0.0-0.2 N BASOPHIL # (test code = BA#) 0.02 x10 3/uL 0.0-0.2 N NUCLEATED RBC # (test code = 0.00 x10 3/uL 0.0-0.1 N NRBC#) MANUAL DIFF REQUIRED (test code NO = MDIFF) BASIC METABOLIC [id number] 05:27:00 Test Item Value Reference Range Interpretation Comments SODIUM (test code = NA) 140 mEq/L 134-147 N POTASSIUM (test code = 4.0 mEq/L 3.4-5.0 N K) CHLORIDE (test code = 106 mEq/L 100-108 N CL) CARBON DIOXIDE (test 27 mEq/l 21-33 N code = CO2) ANION GAP (test code = 11 0-20 N GAP) GLUCOSE (test code = 161 mg/dL 70-110 H GLU) BLOOD UREA NITROGEN 8 mg/dL 7-18 N (test code = BUN) GLOMERULAR FILTRATION 96.7 70-80 H Units of measure = RATE (test code = GFR) ml/mi n/1.73 m2 CREATININE (test code = 0.7 mg/dL 0.6-1.3 N CREAT) CALCIUM (test code = 8.5 mg/dL 8.0-10.5 N CA) CBC W/AUTO [id number] 05:17:00 Test Item Value Reference Range Interpretation Comments WHITE BLOOD CELL (test code = 5.6 x10 3/uL 4.5-11.0 N WBC) RED BLOOD CELL (test code = 3.83 x10 6/uL 3.54-5.02 N RBC) HEMOGLOBIN (test code = HGB) 11.9 g/dL 11.0-15.0 N HEMATOCRIT (test code = HCT) 37.8 % 33.0-45.0 N MEAN CELL VOLUME (test code = 98.7 fL 81.0-99.0 N MCV) MEAN CELL HGB (test code = MCH) 31.1 pg 27.0-33.0 N MEAN CELL HGB CONCETRATION 31.5 g/dL 33.0-37.0 L (test code = MCHC) RED CELL DISTRIBUTION WIDTH CV 13.2 % 11.5-14.5 N (test code = RDW) RED CELL DISTRIBUTION WIDTH SD 47.6 fL 37.0-54.0 N (test code = RDW-SD) PLATELET COUNT (test code = 224 x10 3/uL 150-400 N PLT) MEAN PLATELET VOLUME (test code 9.1 fL 7.0-9.0 H = MPV) NEUTROPHIL % (test code = NT%) 80.3 % 56.0-77.0 H IMMATURE GRANULOCYTE % (test 0.5 % 0.0-2.0 N code = IG%) LYMPHOCYTE % (test code = LY%) 16.3 % 14.0-32.0 N MONOCYTE % (test code = MO%) 2.9 % 4.8-9.0 L EOSINOPHIL % (test code = EO%) 0.0 % 0.3-3.7 L BASOPHIL % (test code = BA%) 0.0 % 0.0-2.0 N NUCLEATED RBC % (test code = 0.0 % 0-0 N NRBC%) NEUTROPHIL # (test code = NT#) 4.50 x10 3/uL 2.0-7.6 N IMMATURE GRANULOCYTE # (test 0.03 x10 3/uL 0.00-0.03 N code = IG#) LYMPHOCYTE # (test code = LY#) 0.91 x10 3/uL 1.0-3.8 L MONOCYTE # (test code = MO#) 0.16 x10 3/uL 0.1-0.8 N EOSINOPHIL # (test code = EO#) 0.00 x10 3/uL 0.0-0.2 N BASOPHIL # (test code = BA#) 0.00 x10 3/uL 0.0-0.2 N NUCLEATED RBC # (test code = 0.00 x10 3/uL 0.0-0.1 N NRBC#) MANUAL DIFF REQUIRED (test code NO = MDIFF) [id number] 15:33:00 Test Item Value Reference Range Interpretation Comments ACT-ISTAT (test code 257 SEC 74-137 H Perform ed by certified = ACTI) 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 [facility] [id number] 15:33:00 Test Item Value Reference Range Interpretation Comments ACT-ISTAT (test code 235 SEC 74-137 H Perform ed by certified = ACTI) 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 [facility] [id number] 14:40:00 Test Item Value Reference Range Interpretation Comments ACT-ISTAT (test code 224 SEC 74-137 H Perform ed by certified = ACTI) 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 [facility] - XR CHEST 1 [id number] 00:00:00 [facility] : 1935 Sex: F FAX: Baltazar Avendaño MD [phone] [place]: St: [facility] FAX: Dhaval Gracia [facility] [phone] Name: JOHANNA GUEVARA [facility] : 1935 Age/S: 85/F [address] [place] [address] Unit #: [id number] Loc: [place] [address] Phys: Dhaval Gracia [facility] Acct: [id number] Dis Date: Status: ADM IN PHONE #: [phone] Exam Date: 12/10/2020 1623 FAX #: [phone] Reason: S/P WATCHMAN EXAMS: CPT CODE: [id number] XR CHEST 1 V 42403 PROCEDURE INFORMATION: Exam: XR Chest Exam date and time: 12/10/2020 3:48 PM Age: 85 years old Clinical indication: Condition or disease; Other: Watchman; Additional info: S/P watchman TECHNIQUE: Imaging protocol: XR of the chest. Views: 1 view. Other technique: AP portable chest obtained with the patient semi upright. COMPARISON: DX XR CHEST 2 V 12/08/2020 1:09 PM FINDINGS: Limitations: Portable technique, patient slightly rotated and tilted to the left. Tubes, catheters and devices: Faintly radiopaque EKG leads overlie the chest. Atrial appendage occlusion device overlies the left cardiac silhouette. Lungs: The lungs are clear, allowing for portable technique. Pleural spaces: There isno pneumothorax or pleural effusion. Heart/Mediastinum: The cardiomediastinal silhouette is stable allowing for rotation. Calcified plaque thoracic aorta. Bones/joints: Scoliosis and multilevel degenerative changes of the spine. No acute skeletal abnormality. IMPRESSION: 1. Interval atrial appendage occlusion device placement. 2. No acute findings. at 1177 Reported and signed by: Mark So M.D. CC: Baltazar Oden MD; Clinton Gracia Technologist: RT Karina(R) Trnscrd Date/Time/By: 12/10/2020 (1646) : By: Sandip Orig Print D/T: S: 12/10/2020 (1646) PAGE 1 Signed ReportNovel Coronavirus 2019 [id number] 05:28:00 Test Item Value Reference Range Interpretation Comments Novel Coronavirus Negative Negative Positive r esults are 2019 Inhouse (test indicativ e of the presence code = COVNONPUI) ofSARS-CoV -2 RNA, clinical correlation wit h patient historyand othe r diagnostic info rmation is necessary to determinepatien t infection status. Positiv e results do not rule out bacterial infection or co -infection with other viru ses. Negative result s do not preclude SARS-C oV-2 infection andsh ould not be used as the estrella e basis for patient managementdecis ions. Negative result s must be combined with otherclinical observations, p atient history, and epidemiological information . Detection of SARS-CoV-2 RNA may be affe cted bysample collec tion methods, storag e conditions, and /or stageof infection. Radha l RNA mutations, vacc inations, antiviraltherap eutics, antibiotics, chemotherapeuti c orimmunosuppres karen drugs have not been e valuated for effectson d etection. Results are for the identification of SARS-CoV-2 RNA usingthe Yogurt3D Engine M2Picturae Sy stem under the FDA Emergen cy UseAuthorizatio n. The testing is perf ormed by personneltraine d in the procedures for the Seekly000 molecular diagnostic SARS-CoV-2 assa y in vitro. BASIC METABOLIC [id number] 12:58:00 Test Item Value Reference Range Interpretation Comments SODIUM (test code = NA) 142 mEq/L 134-147 N POTASSIUM (test code = 4.0 mEq/L 3.4-5.0 N K) CHLORIDE (test code = 103 mEq/L 100-108 N CL) CARBON DIOXIDE (test 33 mEq/l 21-33 N code = CO2) ANION GAP (test code = 10 0-20 N GAP) GLUCOSE (test code = 90 mg/dL 70-110 N GLU) BLOOD UREA NITROGEN 12 mg/dL 7-18 N (test code = BUN) GLOMERULAR FILTRATION 72.4 70-80 N Units of measure = RATE (test code = GFR) ml/mi n/1.73 m2 CREATININE (test code = 0.9 mg/dL 0.6-1.3 N CREAT) CALCIUM (test code = 9.9 mg/dL 8.0-10.5 N CA) [id number] 12:58:00 Test Item Value Reference Range Interpretation Comments PREALBUMIN (test code = PREALB) 15.9 mg/dL 16.0-40.0 L BASIC METABOLIC [id number] 12:57:00 Test Item Value Reference Range Interpretation Comments SODIUM (test code = NA) 142 mEq/L 134-147 N POTASSIUM (test code = 4.0 mEq/L 3.4-5.0 N K) CHLORIDE (test code = 103 mEq/L 100-108 N CL) CARBON DIOXIDE (test 33 mEq/l 21-33 N code = CO2) ANION GAP (test code = 10 0-20 N GAP) GLUCOSE (test code = 90 mg/dL 70-110 N GLU) BLOOD UREA NITROGEN 12 mg/dL 7-18 N (test code = BUN) GLOMERULAR FILTRATION 72.4 70-80 N Units of measure = RATE (test code = GFR) ml/mi n/1.73 m2 CREATININE (test code = 0.9 mg/dL 0.6-1.3 N CREAT) CALCIUM (test code = 9.9 mg/dL 8.0-10.5 N CA) [id number] 12:57:00 Test Item Value Reference Range Interpretation Comments PREALBUMIN (test code = PREALB) mg/dL 16.0-40.0 PROTHROMBIN [id number] 12:50:00 Test Item Value Reference Range Interpretation Comments PROTHROMBIN TIME 12.1 SECONDS 9.3-12.9 N PATIENT (test code = PTP) INTERNATIONAL NORMAL 1.1 0.8-1.2 N TARGET INR BY RATIO (test code = INDICATIO N Indication INR) INR1. Prophylax is of venous thrombos is 2.0 - 3.0 (orthoped ic surgery), Proph ylaxis of venous throm bosis (other than hig h-risk surgery), Treat ment of Deep Vein Thrombosis/Pulm onary Embolism, Preve ntion of systemic emb olism - Tissue heart va lves, Acute Myocardia l Infarction (to prevent systemic emboli sm), Valvular heart disease, Atrial Fibrillation, Bileaflet mecha nical valve in aortic position.2. Mec hanical prosthetic valv es (high risk), 2. 5 - 3.5 Presence of Lup us Anticoagulant o r Antiphospholipi d Antibodies, Pre vention of systemic emb olism - Acute Myocardia l Infarction (to prevent recurrent infar ct). CBC W/AUTO [id number] 12:45:00 Test Item Value Reference Range Interpretation Comments WHITE BLOOD CELL (test code = 5.2 x10 3/uL 4.5-11.0 N WBC) RED BLOOD CELL (test code = 4.60 x10 6/uL 3.54-5.02 N RBC) HEMOGLOBIN (test code = HGB) 14.2 g/dL 11.0-15.0 N HEMATOCRIT (test code = HCT) 46.3 % 33.0-45.0 H MEAN CELL VOLUME (test code = 100.7 fL 81.0-99.0 H MCV) MEAN CELL HGB (test code = MCH) 30.9 pg 27.0-33.0 N MEAN CELL HGB CONCETRATION 30.7 g/dL 33.0-37.0 L (test code = MCHC) RED CELL DISTRIBUTION WIDTH CV 13.5 % 11.5-14.5 N (test code = RDW) RED CELL DISTRIBUTION WIDTH SD 50.2 fL 37.0-54.0 N (test code = RDW-SD) PLATELET COUNT (test code = 245 x10 3/uL 150-400 N PLT) MEAN PLATELET VOLUME (test code 8.8 fL 7.0-9.0 N = MPV) NEUTROPHIL % (test code = NT%) 49.1 % 56.0-77.0 L IMMATURE GRANULOCYTE % (test 0.2 % 0.0-2.0 N code = IG%) LYMPHOCYTE % (test code = LY%) 39.9 % 14.0-32.0 H MONOCYTE % (test code = MO%) 8.3 % 4.8-9.0 N EOSINOPHIL % (test code = EO%) 2.1 % 0.3-3.7 N BASOPHIL % (test code = BA%) 0.4 % 0.0-2.0 N NUCLEATED RBC % (test code = 0.0 % 0-0 N NRBC%) NEUTROPHIL # (test code = NT#) 2.53 x10 3/uL 2.0-7.6 N IMMATURE GRANULOCYTE # (test 0.01 x10 3/uL 0.00-0.03 N code = IG#) LYMPHOCYTE # (test code = LY#) 2.06 x10 3/uL 1.0-3.8 N MONOCYTE # (test code = MO#) 0.43 x10 3/uL 0.1-0.8 N EOSINOPHIL # (test code = EO#) 0.11 x10 3/uL 0.0-0.2 N BASOPHIL # (test code = BA#) 0.02 x10 3/uL 0.0-0.2 N NUCLEATED RBC # (test code = 0.00 x10 3/uL 0.0-0.1 N NRBC#) MANUAL DIFF REQUIRED (test code NO = MDIFF) - XR CHEST 2 [id number] 00:00:00 [facility] : 1935 Sex: F FAX: Baltazar Avendaño MD [phone] [place]: St: PRE Name: GUEVARA,JOHANNA ARRINGTON [facility] : 1935 Age/S: 85/F [address] [place] [address] Unit #: [id number] Loc: [place] [address] Phys: Baltazar Oden MD Acct: [id number] Dis Date: Status: PRE IN PHONE #: [phone] Exam Date: 12/08/2020 1434 FAX #: [phone] Reason: WATCHMAN EXAMS: CPT CODE: [id number] XR CHEST 2 V [id number] PROCEDURE INFORMATION: Exam: XR Chest Exam date and time: 12/08/2020 1:09 PM Age: 85 years old Clinical indication: Pre-operative exam; Respiratory screening exam; Additional info: Watchman TECHNIQUE: Imaging protocol: XR of the chest. Views: 2 views. PA and Lateral COMPARISON: No relevant prior studies available. FINDINGS: Lungs: There are normal lung volumes without consolidation or interstitial oppacities. Pleural spaces: Unremarkable. No pleural effusion. No pneumothorax. Heart/Mediastinum: Mild cardiomegaly. Vasculature: Tortuous aorta contains calcifications. Bones/joints: Right curvature of the midthoracic spine is present. Degenerative changes in both shoulders. IMPRESSION: No acute cardiopulmonary process. at 1950 Reported and signed by: Mason Calvert M.D. CC: Baltazar Oden MD Technologist: RT Efrain(Natalie) Trnscrd Date/Time/By: 12/08/2020 (1950) : By: [email or web address] Orig Print D/T: S: 12/08/2020 (1950) PAGE 1 Signed Report
[2022-03-18 15:44] LABS: Absolute Lymphocytes (CBC) 2.3 K/uL (0.7-4.9); Hematocrit 25.9 % (36.0-45.0); MPV 6.8 fL (7.6-11.3); RBC Red Blood Cell Count 2.64 M/uL (3.86-4.86)
[2022-03-18] MEDS ORDERED: FAMOTIDINE 20 MG/2 ML VIAL IV ONE (15:53)
[2022-03-18] MEDS ORDERED: NA CHLORIDE 0.9% 1,000 ML ONE (15:53)
[2022-03-18 16:03] LABS: Albumin 2.9 g/dL (3.4-5.0); Bilirubin Total 0.5 mg/dL (0.2-1.0); Potassium 4.1 mmol/L (3.5-5.1); Protein, Total 5.9 g/dL (6.4-8.2)
--- NOTE | 2022-03-18 16:59 | RAD REPORT ---
EXAM DESCRIPTION: CTAbdomen Pelvis W Contrast - 03/18/2022 4:38 pm CLINICAL HISTORY: Abdominal pain. GIB COMPARISON: Abdomen Pelvis W Contrast dated 07/30/2019; Abdomen Pelvis W Contrast dated 02/10/2019; Abdomen Pelvis W Contrast dated 09/21/2016; CT ABD PELVIS W CONTRAST dated 09/01/2012 TECHNIQUE: Biphasic CT imaging of the abdomen and pelvis was performed with 100 ml non-ionic IV cont rast. All CT scans are performed using dose optimization technique as appropriate and may include automated exposure control or mA/KV adjustment according to patient size. FINDINGS: The lung bases are clear. The liver, spleen, pancreas, adrenal glands and left kidney are within normal limits. 5 mm calculus i s present inferior calyx right kidney without hydronephrosis. No bowel obstruction, free air, free fluid or abscess. Nonvisualized appendix. Postsurgical changes in the region of the sigmoid colon. Mild sigmoid diverticulosis coli without diverticulitis. No evid ence of significant lymphadenopathy. Moderate lumbar degenerative changes are present. IMPRESSION: No acute intra-abdominal or pelvic finding. Nonobstructing 5 mm right renal calculus.
[2022-03-18] MEDS ORDERED: PANTOPRAZOLE 40 MG INJ ONE (17:04)
--- NOTE | 2022-03-18 18:52 | ER ---
Nurse's Notes [facility] Name: Johanna Gueavra Age: 86 yrs Sex: Female : 1935 Arrival Date: 03/18/2022 Time: 14:04 Bed 16 Private MD: Diagnosis: GI Bleed/ Gastrointestinal hemorrhage, unspecified;Anemia, unspecified Presentation: 03/18 14:05 Chief complaint: Patient states: Rectal bleeding since Tuesday - reports passing blood ld1 clots. Denies pain. Coronavirus screen: At this time, the client does not indicate any symptoms associated with coronavirus-19. Ebola Screen: No symptoms or risks identified at this time. Initial Sepsis Screen: Does the patient meet any 2 criteria? No. Patient's initial sepsis screen is negative. Does the patient have a suspected source of infection? No. Patient's initial sepsis screen is negative. Risk Assessment: Do you want to hurt yourself or someone else? Patient reports no desire to harm self or others. Onset of symptoms was March 18, 2022. 14:05 Method Of Arrival: EMS: [facility] ld1 14:05 Acuity: JAIME 3 ld1 Triage Assessment: 14:05 General: Appears in no apparent distress. comfortable, Behavior is calm, cooperative, ld1 appropriate for age. Pain: Complains of pain in low back area Pain does not radiate. Pain currently is 7 out of 10 on a pain scale. Quality of pain is described as throbbing. EENT: No signs and/or symptoms were reported regarding the EENT system. Neuro: Level of Consciousness is awake, alert, obeys commands, Oriented to person, place, time, situation, Appropriate for age. Cardiovascular: Capillary refill < 3 seconds Patient's skin is warm and dry. Respiratory: Airway is patent Respiratory effort is even, unlabored. GI: Abdomen is round non-distended. : No signs and/or symptoms were reported regarding the genitourinary system. Derm: No signs and/or symptoms reported regarding the dermatologic system. Musculoskeletal: No signs and/or symptoms reported regarding the musculoskeletal system. 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 - Social history:: Smoking status: Patient denies any tobacco usage or history of. Patient/guardian denies using alcohol. Screenin:36 Abuse screen: Denies threats or abuse. Denies injuries from another. Nutritional ph screening: No deficits noted. Tuberculosis screening: No symptoms or risk factors identified. Fall Risk None identified. Assessment: 16:14 General: Appears in no apparent distress. comfortable, well groomed, Behavior is calm, ph cooperative, appropriate for age, Denies fever, feeling ill. Pain: Complains of pain in low back area. Neuro: Level of Consciousness is awake, alert, obeys commands, Oriented to person, place, time, situation. Cardiovascular: Capillary refill < 3 seconds in bilateral fingers Patient's skin is warm and dry. Respiratory: Airway is patent Respiratory effort is even, unlabored, Respiratory pattern is regular, symmetrical. GI: Reports rectal bleeding, Patient currently denies abdominal pain, nausea, vomiting. Derm: Skin is pink, warm \T\ dry. Musculoskeletal: Circulation, motion, and sensation intact. Range of motion: intact in all extremities. 17:30 Reassessment: Patient appears in no apparent distress at this time. Patient and/or ph family updated on plan of care and expected duration. Pain level reassessed. Patient is alert, oriented x 3, equal unlabored respirations, skin warm/dry/pink. 18:34 Reassessment: Patient appears in no apparent distress at this time. Patient and/or ph family updated on plan of care and expected duration. Pain level reassessed. Patient is alert, oriented x 3, equal unlabored respirations, skin warm/dry/pink. 19:00 General: Received care of pt from day shift RN. PT AAO x4, states no pain at this time. kb3 Updated regarding pending transfer, no questions. Will continue to provide updates regarding transfer as information is known. Pt's daughter at bedside with no questions. . 21:13 General: Report given to [facility] medic for pt transport to [facility]. kb3 Vital Signs: 14:05 BP 116 / 80; Pulse 109; Resp 18; Temp 98.9(O); Pulse Ox 98% on R/A; Weight 81.19 kg; ld1 Height 5 ft. 6 in. (167.64 cm); Pain 7/10; 16:15 BP 122 / 78; Pulse 84; Resp 18; Pulse Ox 98% on R/A; ph 17:30 BP 118 / 68; Pulse 68; Resp 18; Pulse Ox 98% on R/A; ph 18:46 BP 146 / 99; Pulse 72; ko1 19:00 BP 127 / 75; Pulse 93; Resp 20; Pulse Ox 100% ; Pain 0/10; kb3 20:00 BP 140 / 85; Pulse 102; Resp 20; Pulse Ox 100% ; kb3 21:00 BP 142 / 80; Pulse 100; Resp 18; Pulse Ox 100% ; kb3 14:05 Body Mass Index 28.89 (81.19 kg, 167.64 cm) ld1 ED Course: 14:04 Patient arrived in ED. ld1 14:05 Triage completed. ld1 14:05 Arm band placed on right wrist. ld1 14:07 Jyothi Viveros RN is Primary Nurse. ph 15:02 Aura Mercado FNP-C is PHCP. snw 15:02 Anand Nicole MD is Attending Physician. snw 15:31 Inserted saline lock: 22 gauge in left hand, using aseptic technique. Blood collected. ph placed by Cathleen DINERO observed by Campbell SYED. 15:38 TS Sent. kb3 15:38 CBC with Diff Sent. kb3 15:38 CMP Sent. kb3 15:38 Lipase Sent. kb3 16:40 CT Abd/Pelvis - IV Contrast Only In Process Unspecified. EDMS 17:36 Patient has correct armband on for positive identification. Bed in low position. Call ph light in reach. Side rails up X 1. 17:36 No provider procedures requiring assistance completed. ph 18:09 transfer initiated with [facility] [place]; transfer declined due to em1 capacity. 19:01 SARS RAPID Sent. ko1 19:26 Ferritin Sent. kb3 20:36 Assisted to bedside commode. Cleaned of incontinence. ld1 21:15 Patient transferred, IV remains in place. kb3 Administered Medications: 16:14 Drug: Pepcid (famotidine) 20 mg Route: IVP; Site: left hand; ph 19:00 Follow up: Response: No adverse reaction ph 16:14 Drug: NS 0.9% 1000 ml Route: IV; Rate: 75 ml/hr; Site: left hand; ph 19:00 Follow up: Response: No adverse reaction; IV Status: Infusion continued upon transfer ph 21:15 Follow up: Response: No adverse reaction; IV Status: Infusion continued upon transfer; kb3 IV Intake: 150ml 17:20 Drug: ProTONIX (pantoprazole) 40 mg Route: IVP; Site: left hand; ph 19:00 Follow up: Response: No adverse reaction ph 20:39 Drug: Ativan (LORazepam) 1 mg Route: IVP; Site: left hand; kb3 21:10 Follow up: Response: No adverse reaction; Anxiety decreased kb3 Medication: 17:36 VIS not applicable for this client. ph Intake: 21:15 IV: 150ml; Total: 150ml. kb3 Outcome: 18:52 ER care complete, transfer ordered by . snbeto 21:14 Transferred by ground EMS Note: [facility] kb3 21:14 Condition: stable 21:14 Instructed on the need for transfer, Demonstrated understanding of instructions. 21:16 Patient left the ED. kb3 Signatures: Dispatcher [employer] EDMS Aura Mercado, ENGAGEMENT QUALITY CONSULTANT-C ENGAGEMENT QUALITY CONSULTANT-Csnw Sahil Rausch em1 Jyothi Viveros RN KUNAL ph Radha Marie RN RN ld1 Estrellita Irene RN RN kb3 Allison Sylvester RN RN ko1
--- NOTE | 2022-03-18 18:53 | EDPHYS ---
Physician Documentation [facility] Name: Johanna Guevara Age: 86 yrs Sex: Female : 1935 Arrival Date: 03/18/2022 Time: 14:04 Bed 16 Private MD: ED Physician Anand Nicole HPI: 03/18 15:46 This 86 yrs old Black Female presents to ER via EMS with complaints of Rectal Bleeding. snw 15:46 The patient presents to the emergency department with bleeding from the rectum/anus, snw that is moderate. Onset: The symptoms/episode began/occurred suddenly. 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 Pt has had rectal bleeding in the past, today with clots and weakness. Associate signs and symptoms: The patient has no apparent associated signs or symptoms. The patient has experienced similar episodes in the past. Pt sees Dr. Templeton, Dr. Choi, Dr. Aguirre, and Dr. Rausch. 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 - Social history:: Smoking status: Patient denies any tobacco usage or history of. Patient/guardian denies using alcohol. ROS: 15:40 Eyes: Negative for injury, pain, redness, and discharge, ENT: Negative for injury, snw pain, and discharge, Neck: Negative for injury, pain, and swelling, Cardiovascular: Negative for chest pain, palpitations, and edema, Respiratory: Negative for shortness of breath, cough, wheezing, and pleuritic chest pain. 15:40 MS/Extremity: Negative for injury and deformity, Skin: Negative for injury, rash, and discoloration, Neuro: Negative for headache, weakness, numbness, tingling, and seizure. 15:40 Constitutional: Positive for malaise, weakness. 15:40 Abdomen/GI: Positive for rectal bleeding. 15:40 Back: Positive for left subscapular tenderness. Exam: 15:35 Head/Face: Normocephalic, atraumatic. Eyes: Pupils equal round and reactive to light, snw extra-ocular motions intact. Lids and lashes normal. Conjunctiva and sclera are non-icteric and not injected. Cornea within normal limits. Periorbital areas with no swelling, redness, or edema. ENT: Nares patent. No nasal discharge, no septal abnormalities noted. Tympanic membranes are normal and external auditory canals are clear. Oropharynx with no redness, swelling, or masses, exudates, or evidence of obstruction, uvula midline. Mucous membranes moist. Neck: Trachea midline, no thyromegaly or masses palpated, and no cervical lymphadenopathy. Supple, full range of motion without nuchal rigidity, or vertebral point tenderness. No Meningismus. Chest/axilla: Normal chest wall appearance and motion. Nontender with no deformity. No lesions are appreciated. 15:35 Respiratory: Lungs have equal breath sounds bilaterally, clear to auscultation and percussion. No rales, rhonchi or wheezes noted. No increased work of breathing, no retractions or nasal flaring. Abdomen/GI: Soft, non-tender, with normal bowel sounds. No distension or tympany. No guarding or rebound. No evidence of tenderness throughout. +rectal bleeding Back: No spinal tenderness. No costovertebral tenderness. Full range of motion. MS/ Extremity: Pulses equal, no cyanosis. Neurovascular intact. Full, normal range of motion. Neuro: Awake and alert, GCS 15, oriented to person, place, time, and situation. Cranial nerves II-XII grossly intact. Motor strength 5/5 in all extremities. Sensory grossly intact. Cerebellar exam normal. Normal gait. 15:35 Constitutional: The patient appears alert, awake, pale. 15:35 Cardiovascular: Rate: tachycardic, Rhythm: regular, Pulses: no pulse deficits are appreciated. Vital Signs: 14:05 BP 116 / 80; Pulse 109; Resp 18; Temp 98.9(O); Pulse Ox 98% on R/A; Weight 81.19 kg; ld1 Height 5 ft. 6 in. (167.64 cm); Pain 7/10; 16:15 BP 122 / 78; Pulse 84; Resp 18; Pulse Ox 98% on R/A; ph 17:30 BP 118 / 68; Pulse 68; Resp 18; Pulse Ox 98% on R/A; ph 18:46 BP 146 / 99; Pulse 72; ko1 19:00 BP 127 / 75; Pulse 93; Resp 20; Pulse Ox 100% ; Pain 0/10; kb3 20:00 BP 140 / 85; Pulse 102; Resp 20; Pulse Ox 100% ; kb3 21:00 BP 142 / 80; Pulse 100; Resp 18; Pulse Ox 100% ; kb3 14:05 Body Mass Index 28.89 (81.19 kg, 167.64 cm) ld1 MDM: 15:02 Patient medically screened. snw 15:11 Data reviewed: vital signs, nurses notes. Data interpreted: Pulse oximetry: on room air snw is 98 %. Interpretation: normal. Counseling: I had a detailed discussion with the patient and/or guardian regarding: the historical points, exam findings, and any diagnostic results supporting the discharge/admit diagnosis, the need for further work-up and treatment in the hospital. 17:16 Physician consultation: Bang Medina MD was called at 17:16, regarding admission, to snw the telemetry unit. 17:45 Physician consultation: was contacted at 17:45, would like consultation with Dr. Joan HOOK snw monotype mechanic for scope, will transfer as requested. 18:50 Physician consultation: Dr. Carlson was contacted at 18:50, regarding regarding transfer, snw to [facility]. 03/18 15:05 Order name: CBC with Diff; Complete Time: 15:57 snw 03/18 15:05 Order name: CMP; Complete Time: 16:07 snw 03/18 15:05 Order name: Lipase; Complete Time: 16:07 snw 03/18 15:05 Order name: TS; Complete Time: 16:54 snw 03/18 15:11 Order name: Ferritin snw 03/18 15:12 Order name: SARS RAPID; Complete Time: 19:29 snw 03/18 15:05 Order name: CT Abd/Pelvis - IV Contrast Only; Complete Time: 17:02 snw 03/18 15:05 Order name: IV Saline Lock; Complete Time: 15:38 snw 03/18 15:05 Order name: Labs collected and sent; Complete Time: 15:38 snw 03/18 18:07 Order name: EKG; Complete Time: 18:08 snw 03/18 17:47 Order name: consult Order-[facility] snw 03/18 18:07 Order name: EKG - Nurse/Tech; Complete Time: 18:31 snw EC:39 Rate is 95 beats/min. Rhythm is regular. [place] interval is normal. QRS interval is normal. snw QT interval is normal. No Q waves. Clinical impression: NSR w/ Non-specific ST/T Changes. Administered Medications: 16:14 Drug: Pepcid (famotidine) 20 mg Route: IVP; Site: left hand; ph 19:00 Follow up: Response: No adverse reaction ph 16:14 Drug: NS 0.9% 1000 ml Route: IV; Rate: 75 ml/hr; Site: left hand; ph 19:00 Follow up: Response: No adverse reaction; IV Status: Infusion continued upon transfer ph 21:15 Follow up: Response: No adverse reaction; IV Status: Infusion continued upon transfer; kb3 IV Intake: 150ml 17:20 Drug: ProTONIX (pantoprazole) 40 mg Route: IVP; Site: left hand; ph 19:00 Follow up: Response: No adverse reaction ph 20:39 Drug: Ativan (LORazepam) 1 mg Route: IVP; Site: left hand; kb3 21:10 Follow up: Response: No adverse reaction; Anxiety decreased kb3 Disposition Summary: 03/18/22 18:52 Transfer Ordered Transfer Location: [facility] snw Reason: Specialty snw Condition: Stable snw Problem: new snw Symptoms: are unchanged snw Accepting Physician: Dr. Carlson(03/18/22 21:16) kb3 Diagnosis - GI Bleed/ Gastrointestinal hemorrhage, unspecified snw - Anemia, unspecified snw Forms: - Medication Reconciliation Form snw - SBAR form snw Signatures: Dispatcher [employer] EDAura Bella FNP-Matt ULTRASOUND MANAGER-Csnw Jyothi Viveros RN RN ph Radha Marie RN RN ld1 Estrellita Irene RN RN kb3 Corrections: (The following items were deleted from the chart) 21:16 18:52 Dr. Carlson snw kb3
[2022-03-18 19:22] LABS: SARS-CoV-2 Antigen Rapid Res Negative (Negative)
[2022-03-18] MEDS ORDERED: LORazepam 2 MG/ML VIAL ONE (20:37)
[2022-03-18 21:49] VITALS: TEMP 98.9
[2022-03-18 21:55] VITALS: O2SAT 100
[2022-03-18 21:57] VITALS: BP 142/80
== END 2022-03-18 21:16 | disposition short-term general hospital (02) ==
LOC: ER 14:03
DX: D64.9 Anemia, unspecified (principal); I10 Essential (primary) hypertension; Z88.5 Allergy status to narcotic agent; Z20.822 Contact with and (suspected) exposure to COVID-19
CPT/HCPCS: 96361; 93005; 85025; 36415; 86900; 86850; 86901; 82728; 83690; 80053; 74177; 96375; 96374; 99285; 87811; Q9967; C9113; J7030

== ENCOUNTER 2022-11-29 09:34 | Emergency (ER) | payer OTHER ==
--- OUTSIDE RECORDS SUMMARY | 2022-11-29 09:42 | XMS REPORT | Continuity of Care Document ---
:1935 Author Organization [facility] t Address [address] [place] [address] [address] [place] [address] Care Team Providers Name Role Phone Colten [place] DO Primary Care Physician [phone] Colten [place] Attending Clinician Unavailable Yani Menendez MD Attending Clinician DEON BURCH Attending Clinician Unavailable Lalito Richardson MD Attending Clinician Misael Pham MD Attending Clinician [phone] Sarah New Attending Clinician Rain Crouch NP Attending Clinician Kingsley Aguirre MD Attending Clinician [phone] Eliana Ferrer MD Attending Clinician DAYIS GARCIA Attending Clinician Unavailable Baltazar Oden Attending Clinician Unavailable ANIL GUERRA Admitting Clinician Unavailable LALITO RICHARDSON Admitting Clinician Unavailable Baltazar Oden Admitting Clinician Unavailable Payers Payer Name Policy Type Policy Number Effective Date Expiration Date Mimi benton MEDICARE A B [id number] 1989 00:00:00 MEDICAID OF [id number] 2022 [place] 00:00:00 ARIAS C1 [id number] 2019 [facility] (NON-PAR) 00:00:00 [facility] MEDICARE MB [id number] 1989 [facility] NOVITAS 00:00:00 [facility] ARIAS C1 [id number] 2019 [facility] (NON-PAR) 00:00:00 [facility] MEDICARE MB [id number] 1989 [facility] NOVITAS 00:00:00 [facility] ARIAS C1 [id number] 2019 [facility] (NON-PAR) 00:00:00 [facility] MEDICARE MB [id number] 1989 [facility] NOVITAS 00:00:00 [facility] ARIAS C1 [id number] 2019 [facility] (NON-PAR) 00:00:00 [facility] MEDICARE MB [id number] 1989 [facility] NOVITAS 00:00:00 [facility] Problems Condition Condition Condition Status Onset Resolution Last Treating Co mments Source Name Details Category Date Date Treatment Clinician Date 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 intestinal Medica l diverticul Center itis [id number] S/P Problem Common partial Spirit colectomy - CHI [facility] [id number] GERD Problem Common without Spirit esophagiti - CHI s 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 [id number] Diverticul Problem Comm on osis large Spirit intestine - CHI w/o perforatio 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 complicati Medica l on Center [id number] Opioid Problem Common dependence Spirit in - CHI controlled [facility] [id number] Generalize Problem Com mon d anxiety Spirit disorder - CHI [facility] [id number] Benzodiaze Problem Co mmon pine Spirit dependence - [facility] , [facility] [id number] Chronic Problem Commo n pain Spirit syndrome - CHI 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 [facility] Allergies, Adverse Reactions, Alerts Allergy Allergy Status Severity Reaction(s) Onset Inactive Treating Comm ents Source Name Type Date Date Clinician TRAMADOL Allergy Active High Hives 2021-[address] [facility] [address] [facility] 00[facility] 00 Helen CODEINE Allergy Active Itching 2021-[address] [facility] 00 Helen Codeine Propensi Active Itching Method i ty to 12-08 st adverse 00:00: Hospita reaction 00 l s to drug No Known DA Active U [facility] Allergie 12-08 Clear s 00:00: Hernandez 00 [facility] No Known DA Active U [facility] Allergie 12-08 Clear s 00:00: Hernandez 00 [facility] codeine DA Active SV ITCHING [facility] 7-19 Clear 00:00: Hernandez 00 [facility] codeine DA Active SV 2020-0 [facility] 7-19 Clear 00:00: Hernandez 00 [facility] Family History Family Member Diagnosis Comments Start Date Stop Date Source Natural father [facility] Natural mother [facility] Social History Social Habit Start Date Stop Date Quantity Comments Source Gender identity Yarsanism [facility] Sexual orientation [facility] of [facility] - Use [facility] Alcohol intake 2022-01-15 2022-01-15 Current Yarsanism 00:00:00 00:00:00 non-drinker of Hospital alcohol (finding) History of Social 2022-01-15 2022-01-[address] function 00:00:00 00:00:00 Hospital Tobacco use and 2021-08-28 2021-08-28 Smokeless Yarsanism exposure 00:00:00 00:00:00 tobacco non-user Hospital Sex Assigned At [birth year] Yarsanism 00:00:00 00:00:00 Hospital Smoking Status Start Date Stop Date Source Never Smoker [facility] Medications Ordered Filled Start Stop Current Ordering Indication Dosage Frequency Signature Comments Components Source Medication Medication Date Date Medication? Clinician (SIG) Name Name LORazepam 1 LORazepam 1 2021-05 No 1{table BID LORazepam MG MG 1-29 t_as_ne 1 MG 00:00: eded} traMADol traMADol 2021-05 No 1{table BID traMADol HCl 50 MG HCl 50 MG 1-29 t_as_ne HCl 50 MG 00:00: eded} 00 LORazepam 1 LORazepam 1 No 1{table BID LORazepam MG MG 8-29 t_as_ne 1 MG 00:00: eded} traMADol traMADol No 1{table BID traMADol HCl 50 MG HCl 50 MG 8-29 t_as_ne HCl 50 MG 00:00: eded} Famotidine Famotidine No 1{table BID Famotidine 10 MG 10 MG 8-29 t_as_ne 10 MG 00:00: eded} 00 LORazepam 1 LORazepam 1 No 1{table BID LORazepam MG MG 8- t_as_ne 1 MG 00:00: eded} Famotidine Famotidine No 1{table BID Famotidine 10 MG 10 MG 8-29 t_as_ne 10 MG 00:00: eded} traMADol traMADol No 1{table BID traMADol HCl 50 MG HCl 50 MG 8-29 t_as_ne HCl 50 MG 00:00: eded} LORazepam 1 LORazepam 1 No 1{table BID LORazepam MG MG 8-29 t_as_ne 1 MG 00:00: eded} traMADol traMADol No 1{table BID traMADol HCl 50 MG HCl 50 MG 8-29 t_as_ne HCl 50 MG 00:00: eded} 00 LORazepam 1 LORazepam 1 No 1{table BID LORazepam MG MG 8-29 t_as_ne 1 MG 00:00: eded} traMADol traMADol No 1{table BID traMADol HCl 50 MG HCl 50 MG 8-29 t_as_ne HCl 50 MG 00:00: eded} traMADol Yes 50mg Q.5D Take 50 mg [...] mouth 2 l (two) times a day. traMADol Yes 50mg Q.5D Take 50 mg [...] celecoxib Yes 1 capsule Met hodi (CeleBREX) [address] 200 MG 14:24: Hospita [...] 2 l (two) times a day. traMADoL 2021- No [id number] 50mg Q6H Take 1 Metho di (ULTRAM) 50 8-25 08-31 tablet (50 s t mg tablet 00:00: 04:59 mg total) Ho spita 00 :00 by mouth l every 6 (six) hours as needed for moderate pain for up to 5 days .acute pain. traMADoL 2021- [place] [id number] 50mg Q6H Take 1 Metho di (ULTRAM) 50 8-25 08-31 tablet (50 s t mg tablet 00:00: 04:59 mg total) Ho spita 00 :00 by mouth l every 6 (six) hours as needed for moderate pain for up to 5 days .acute pain. Azithromyci Azithromyci 2021- No QD Azithromyc n 250 MG n 250 MG 12-14 07-30 in 250 MG 00:00: 00:00 00 :00 predniSONE predniSONE 2021- No QD predniSONE 20 MG 20 MG - 07-30 20 MG 00:00: 00:00 00 :00 Azithromyci Azithromyci 2021- No QD Azithromyc n 250 MG n 250 MG 12-14 07-30 in 250 MG 00:00: 00:00 00 :00 predniSONE predniSONE 2021- No QD predniSONE 20 MG 20 MG 12-14-30 20 MG 00:00: 00:00 00 :00 pantoprazol 2021- No 40mg QD Take 40 mg Methodi e - 06-[address] (PROTONIX) 15:27: 00:00 daily. Hosp [place] 40 MG EC 30 :00 l tablet LORAZepam 2021- No 2mg Q.5D Take 2 mg [facility] (ATIVAN) 2 11-03-[address] MG tablet 15:27: 00:00 (two) Hospit a 20 :00 times a l day. cyanocobala 2021- No 1000ug QD Take 1,000 Methodi min -03 11-[address] (VITAMIN 15:26: 00:00 mouth Hospita B-12) 1000 53 :00 daily. l MCG tablet LORazepam 1 LORazepam 1 No 1{table BID LORazepam MG MG 5- t_as_ne 1 MG 00:00: eded} 00 traMADol traMADol 2021- No 1{table BID traMADol HCl 50 MG HCl 50 MG 5-06 28- t_as_ne HCl 50 MG 00:00: 00:00 eded} 00 :00 methylPREDN methylPREDN 2021- No QD methylPRED ISolone 4 ISolone 4 3-05 25- NISolone 4 MG MG 00:00: 00:00 MG 00 :00 methylPREDN methylPREDN 2021- No QD methylPRED ISolone 4 ISolone 4 3-05 25- NISolone 4 MG MG 00:00: 00:00 MG 00 :00 LORazepam 1 LORazepam 1 No 1{table BID LORazepam MG MG 2-03 t_as_ne 1 MG 00:00: eded} 00 traMADol traMADol No 1{table BID traMADol HCl 50 MG HCl 50 MG 2-03 t_as_ne HCl 50 MG 00:00: eded} 00 traMADol traMADol 2022-0 No 1{table BID traMADol HCl 50 MG HCl 50 MG 2-03 t_as_ne HCl 50 MG 00:00: eded} 00 LORazepam 1 LORazepam 1 No 1{table BID LORazepam MG MG 2-03 t_as_ne 1 MG 00:00: eded} 00 traMADol traMADol No 1{table BID traMADol HCl 50 MG HCl 50 MG 2-03 t_as_ne HCl 50 MG 00:00: eded} 00 LORazepam 1 LORazepam 1 No 1{table BID LORazepam MG MG 2-03 t_as_ne 1 MG 00:00: eded} 00 traMADol traMADol No 1{table BID traMADol HCl 50 MG HCl 50 MG 2-03 t_as_ne HCl 50 MG 00:00: eded} 00 LORazepam 1 LORazepam 1 No 1{table BID LORazepam MG MG 2-03 t_as_ne 1 MG 00:00: eded} 00 Nystatin Nystatin No QID Nystatin 006533 611863 2-03 02-17 063076 UNIT/ML UNIT/ML 00:00: 00:00 UNIT/ML 00 :00 traMADol traMADol 2020-05 No 1{table BID traMADol HCl 50 MG HCl 50 MG 1-02 t_as_ne HCl 50 MG 00:00: eded} 00 LORazepam 1 LORazepam 1 2020-05 No 1{table BID LORazepam MG MG 1-02 t_as_ne 1 MG 00:00: eded} 00 traMADol traMADol 2020-05 No 1{table BID traMADol HCl 50 MG HCl 50 MG 1-02 t_as_ne HCl 50 MG 00:00: eded} 00 LORazepam 1 LORazepam 1 2020-05 No 1{table BID LORazepam MG MG 1-02 t_as_ne 1 MG 00:00: eded} 00 Bactrim DS Bactrim DS 2020-05- No 1{table BID Bactrim DS 800-160 MG 800-160 MG 0-28 -02 t} 800-160 MG 00:00: 00:00 00 :00 Bactrim DS Bactrim DS 2020-05- No 1{table BID Bactrim DS 800-160 MG 800-160 MG 0-28 -02 t} 800-160 MG 00:00: 00:00 00 :00 Pyridium Pyridium 2020-1 2020- No 1{table TID Pyridium 200 MG 200 MG 028 -30 t_after 200 MG 00:00: 00:00 _meals} 00 [...] 9-17 t_as_ne HCl 50 MG 00:00: eded} traMADol traMADol 2020-0 No 1{table BID traMADol HCl 50 MG HCl 50 MG 9-17 t_as_ne HCl 50 MG 00:00: eded} 00 Spacer/Aero Spacer/Aero No Spacer/Aer -Holding -Holding 5-06 o-Holding Chambers - Chambers - 00:00: Chambers - 00 Spacer/Aero Spacer/Aero 2021-0 No Spacer/Aer -Holding -Holding 5-06 o-Holding Chambers - Chambers - 00:00: Chambers - 00 Spacer/Aero Spacer/Aero 2021-0 No Spacer/Aer -Holding -Holding 5-06 o-Holding Chambers - Chambers - 00:00: Chambers - 00 Spacer/Aero Spacer/Aero 2021-0 No Spacer/Aer -Holding -Holding 5-06 o-Holding Chambers - Chambers - 00:00: Chambers - 00 Spacer/Aero Spacer/Aero 2021-0 No Spacer/Aer -Holding -Holding 5-06 o-Holding Chambers - Chambers - 00:00: Chambers - 00 Spacer/Aero Spacer/Aero 2021-0 No Spacer/Aer -Holding -Holding 5-06 o-Holding Chambers - Chambers - 00:00: Chambers - 00 Spacer/Aero Spacer/Aero 2021-0 No Spacer/Aer -Holding -Holding 5-06 o-Holding Chambers - Chambers - 00:00: Chambers - 00 Spacer/Aero Spacer/Aero 2021-0 No Spacer/Aer -Holding -Holding 5-06 o-Holding Chambers - Chambers - 00:00: Chambers - 00 Spacer/Aero Spacer/Aero 2021-0 No Spacer/Aer -Holding -Holding 5-06 o-Holding Chambers - Chambers - 00:00: Chambers - 00 Spacer/Aero Spacer/Aero 2021-0 No Spacer/Aer -Holding -Holding 5-06 o-Holding Chambers - Chambers - 00:00: Chambers - 00 gabapentin 2019- Yes 1 capsule [facility] (NEURONTIN) 0-06 st 300 mg 00:00: Hospita capsule 00 l gabapentin 2019-05 Yes 1 capsule [facility] (NEURONTIN) 0-06 st 300 mg 00:00: Hospita capsule 00 l LORAZepam 2019-0 Yes 2mg Q.5D Take 2 mg Met hodi (ATIVAN) 2 3-[address] MG tablet 19:33: (two) Hospita 38 times a l day. traMADol 2019-0 Yes 50mg Q.5D Take 50 mg Met [...] C ommon HCl HCl [place] as needed [facility] Centrum Centrum Yes Colten not Common Vitamints Vitamints [place] defined S pirit [facility] Advair Advair Yes Colten INHALE 1 Commo n Diskus Diskus [place] PUFFS Spirit TWICE A - CHI DAY [facility] Celecoxib Celecoxib Yes Colten 1 capsule Common [place] with food [facility] Lorazepam Lorazepam Yes Colten 1 tablet Common [place] at bedtime Spirit as needed [facility] Verapamil Verapamil Yes Colten 1 tablet Common HCl ER HCl ER [place] [facility] Albuterol Albuterol Yes Colten 3 ml as Common Sulfate Sulfate [place] needed [facility] Pantoprazol Pantoprazol Yes Colten 1 tablet Common e Sodium e Sodium [place] [facility] Pantoprazol Pantoprazol Yes Colten TAKE 1 Common e Sodium e Sodium [place] TABLET BY S pirit MOUTH - CHI EVERY DAY [facility] Albuterol Albuterol No Albuterol Sulfate Sulfate Sulfate [...] MG s_neede d} Nystatin Nystatin No Nystatin 037974 768769 783157 UNIT/ML UNIT/ML UNIT/ML Albuterol Albuterol No 3{ml_as [...] 200 MG le_as_n e 200 MG eeded} Cyclobenzap Cyclobenzap No 1{table QD Cyclobenza rine [...] Celecoxib 200 MG 200 MG 200 MG Heartburn Heartburn No Heartburn Relief 10 Relief 10 Relief 10 MG MG MG Verapamil Verapamil No Verapamil HCl ER 240 HCl ER 240 HCl ER 240 MG MG MG Verapamil Verapamil No 1{table BID Verapamil HCl ER 240 HCl ER 240 t} HCl ER 240 MG MG MG Nystatin Nystatin No Nystatin 997899 594816 860033 UNIT/ML UNIT/ML UNIT/ML Benzonatate Benzonatate No 1{capsu TID Benzonatat 200 MG 200 MG le_as_n e 200 MG eeded} Cyclobenzap Cyclobenzap No 1{table QD Cyclobenza rine [...] Celecoxib 200 MG 200 MG 200 MG Heartburn Heartburn No Heartburn Relief 10 Relief 10 Relief 10 MG MG MG Verapamil Verapamil No Verapamil HCl ER 240 HCl ER 240 HCl ER 240 MG MG MG Verapamil Verapamil No 1{table BID Verapamil HCl ER 240 HCl ER 240 t} HCl ER 240 MG MG MG Nystatin Nystatin No Nystatin 184837 664368 134641 UNIT/ML UNIT/ML UNIT/ML Benzonatate Benzonatate No 1{capsu TID Benzonatat 200 MG 200 MG le_as_n e 200 MG eeded} Famotidine Famotidine No 1{table BID Famotidine 10 MG 10 MG t_as_ne 10 MG eded} Gabapentin Gabapentin No 1{capsu BID Gabapentin 300 MG 300 MG le} 300 MG Albuterol Albuterol No 3{ml_as TID Albuterol Sulfate Sulfate _needed Sulfate (2.5 (2.5 } (2.5 MG/3ML) MG/3ML) MG/3ML) 0.083% 0.083% 0.083% Nystatin Nystatin No Nystatin 600198 595633 500109 UNIT/ML UNIT/ML UNIT/ML Advair Advair No Advair Diskus Diskus Diskus 250-50 250-50 250-50 MCG/ACT MCG/ACT MCG/ACT Heartburn Heartburn No Heartburn Relief 10 Relief 10 Relief 10 MG MG MG Benzonatate Benzonatate No 1{capsu TID Benzonatat 200 MG 200 MG le_as_n e 200 MG eeded} Advair Advair No Advair Diskus Diskus Diskus 250-50 250-50 250-50 MCG/DOSE MCG/DOSE MCG/DOSE Centrum Centrum No Centrum Vitamints Vitamints Vitamints Verapamil Verapamil No Verapamil HCl ER 240 HCl ER 240 HCl ER 240 MG MG MG traMADol traMADol No 1{table BID traMADol HCl 50 MG HCl 50 MG t_as_ne HCl 50 MG eded} LORazepam 1 LORazepam 1 No 1{table BID LORazepam MG MG t_as_ne 1 MG eded} Celecoxib Celecoxib No 1{capsu Celecoxib 200 MG 200 MG le_with 200 MG _food} Celecoxib Celecoxib No Celecoxib 200 MG 200 MG 200 MG Verapamil Verapamil No 1{table BID Verapamil HCl ER 240 HCl ER 240 t} HCl ER 240 MG MG MG Cyclobenzap Cyclobenzap No 1{table QD Cyclobenza rine HCl 5 rine HCl 5 t_at_be buffy HCl MG MG dtime_a 5 MG s_neede d} Famotidine Famotidine No 1{table BID Famotidine 10 MG 10 MG t_as_ne 10 MG eded} Gabapentin Gabapentin No 1{capsu BID Gabapentin 300 MG 300 MG le} 300 MG Albuterol Albuterol No 3{ml_as TID Albuterol Sulfate Sulfate _needed Sulfate (2.5 (2.5 } (2.5 MG/3ML) MG/3ML) MG/3ML) 0.083% 0.083% 0.083% Nystatin Nystatin No Nystatin 881525 840206 701463 UNIT/ML UNIT/ML UNIT/ML Advair Advair No Advair Diskus Diskus Diskus 250-50 250-50 250-50 MCG/ACT MCG/ACT MCG/ACT Heartburn Heartburn No Heartburn Relief 10 Relief 10 Relief 10 MG MG MG Benzonatate Benzonatate No 1{capsu TID Benzonatat 200 MG 200 MG le_as_n e 200 MG eeded} Advair Advair No Advair Diskus Diskus Diskus 250-50 250-50 250-50 MCG/DOSE MCG/DOSE MCG/DOSE Centrum Centrum No Centrum Vitamints Vitamints Vitamints Verapamil Verapamil No Verapamil HCl ER 240 HCl ER 240 HCl ER 240 MG MG MG traMADol traMADol No 1{table BID traMADol HCl 50 MG HCl 50 MG t_as_ne HCl 50 MG eded} LORazepam 1 LORazepam 1 No 1{table BID LORazepam MG MG t_as_ne 1 MG eded} Celecoxib Celecoxib No 1{capsu Celecoxib 200 MG 200 MG le_with 200 MG _food} Celecoxib Celecoxib No Celecoxib 200 MG 200 MG 200 MG Verapamil Verapamil No 1{table BID Verapamil HCl ER 240 HCl ER 240 t} HCl ER 240 MG MG MG Cyclobenzap Cyclobenzap No 1{table QD Cyclobenza rine HCl 5 rine HCl 5 t_at_be buffy HCl MG MG dtime_a 5 MG s_neede d} Celecoxib Celecoxib No Celecoxib 200 MG 200 MG 200 MG Benzonatate Benzonatate No 1{capsu TID Benzonatat 200 MG 200 MG le_as_n e 200 MG eeded} Famotidine Famotidine No 1{table BID Famotidine 10 MG 10 MG t_as_ne 10 MG eded} Advair Advair No Advair Diskus Diskus Diskus 250-50 250-50 250-50 MCG/DOSE MCG/DOSE MCG/DOSE Centrum Centrum No Centrum Vitamints Vitamints Vitamints Advair Advair No Advair Diskus Diskus Diskus 250-50 250-50 250-50 MCG/ACT MCG/ACT MCG/ACT Verapamil Verapamil No 1{table BID Verapamil HCl ER 240 HCl ER 240 t} HCl ER 240 MG MG MG Heartburn Heartburn No Heartburn Relief 10 Relief 10 Relief 10 MG MG MG Verapamil Verapamil No Verapamil HCl ER 240 HCl ER 240 HCl ER 240 MG MG MG Celecoxib Celecoxib No 1{capsu Celecoxib 200 MG 200 MG le_with 200 MG _food} Cyclobenzap Cyclobenzap No 1{table QD Cyclobenza rine HCl 5 rine HCl 5 t_at_be buffy HCl MG MG dtime_a 5 MG s_neede d} Gabapentin Gabapentin No 1{capsu BID Gabapentin 300 MG 300 MG le} 300 MG Albuterol Albuterol No 3{ml_as TID Albuterol Sulfate Sulfate _needed Sulfate (2.5 (2.5 } (2.5 MG/3ML) MG/3ML) MG/3ML) 0.083% 0.083% 0.083% Nystatin Nystatin No Nystatin 853167 170186 186669 UNIT/ML UNIT/ML UNIT/ML Pantoprazol Pantoprazol No Pantoprazo e Sodium 40 [...] Date Status Commen ts Source Name Name PFIZER COVID-19 MRNA 2021-08-27 Completed Meth odist VACCINATION 00:00:00 [facility] PFIZER COVID-19 MRNA 2021-08-27 Completed Meth odist VACCINATION 00:00:00 [facility] PFIZER COVID-19 MRNA 2021-02-14 Completed Meth odist VACCINATION 00:00:00 [facility] PFIZER COVID-19 MRNA 2021-02-14 Completed Meth odist VACCINATION 00:00:00 [facility] PFIZER COVID-19 MRNA 2020-08-05 Completed Meth odist VACCINATION 00:00:00 [facility] PFIZER COVID-19 MRNA 2020-08-05 Completed Meth odist VACCINATION 00:00:00 [facility] PFIZER COVID-19 MRNA 2020-07-15 Completed Meth odist VACCINATION 00:00:00 [facility] PFIZER COVID-19 MRNA 2020-07-15 Completed Meth odist VACCINATION 00:00:00 Hospital Vital Signs Vital Name Observation Time Observation Value Comments Source height 2022-04-20 14:10:00 66 [in_i] [facility] weight 2022-04-20 14:10:00 178.4 [lb_av] [facility] temperature 2022-04-20 14:10:00 96.7 [degF] [facility] bmi 2022-04-20 14:10:00 28.79 kg/m2 [facility] oximetry 2022-04-20 14:10:00 96 % [facility] respiratory rate 2022-04-20 14:10:00 17 /min Comm on [facility] blood pressure 2022-04-20 14:10:00 138 mm[Hg] [facility] - systolic [facility] blood pressure 2022-04-20 14:10:00 72 mm[Hg] [facility] - diastolic [facility] height 2022-03-23 09:20:00 66 [in_i] Common [facility] weight 2022-03-23 09:20:00 179 [lb_av] Common S [facility] temperature 2022-03-23 09:20:00 96.2 [degF] Common S [facility] bmi 2022-03-23 09:20:00 28.89 kg/m2 Common [facility] blood pressure 2022-03-23 09:20:00 132 mm[Hg] [facility] - systolic [facility] blood pressure 2022-03-23 09:20:00 70 mm[Hg] [facility] - diastolic [facility] HEIGHT 2022-03-19 05:00:00 167.6 cm WEIGHT 2022-03-18 22:43:00 88.905 kg HEIGHT 2022-03-19 05:00:00 167.6 cm WEIGHT 2022-03-18 22:43:00 88.905 kg height 2022-01-18 13:10:00 66 [in_i] Common [facility] weight 2022-01-18 13:10:00 191.8 [lb_av] Common [facility] temperature 2022-01-18 13:10:00 97.3 [degF] Common [facility] bmi 2022-01-18 13:10:00 30.95 kg/m2 [facility] oximetry 2022-01-18 13:10:00 96 % [facility] respiratory rate 2022-01-18 13:10:00 17 /min Comm on [facility] blood pressure 2022-01-18 13:10:00 119 mm[Hg] [facility] - systolic [facility] blood pressure 2022-01-18 13:10:00 70 mm[Hg] [facility] - diastolic [facility] height 2021-12-14 16:40:00 66 [in_i] Common S pirit - [facility] weight 2021-12-14 16:40:00 191.8 [lb_av] Common [facility] bmi 2021-12-14 16:40:00 30.95 kg/m2 Common S pirit - [facility] height 2021-10-07 14:30:00 66 [in_i] Common S pirit [facility] weight 2021-10-07 14:30:00 191.8 [lb_av] [facility] temperature 2021-10-07 14:30:00 97.2 [degF] [facility] bmi 2021-10-07 14:30:00 30.95 kg/m2 [facility] oximetry 2021-10-07 14:30:00 90 % [facility] respiratory rate 2021-10-07 14:30:00 16 /min Comm on [facility] blood pressure 2021-10-07 14:30:00 137 mm[Hg] [facility] - systolic [facility] blood pressure 2021-10-07 14:30:00 77 mm[Hg] [facility] - diastolic [facility] height 2021-10-07 15:00:00 66 [in_i] Common S pirit [facility] weight 2021-10-07 15:00:00 191.8 [lb_av] [facility] temperature 2021-10-07 15:00:00 97.2 [degF] [facility] bmi 2021-10-07 15:00:00 30.95 kg/m2 [facility] oximetry 2021-10-07 15:00:00 90 % Common S pirit [facility] respiratory rate 2021-10-07 15:00:00 16 /min Comm on [facility] blood pressure 2021-10-07 15:00:00 137 mm[Hg] Common [facility] - systolic [facility] blood pressure 2021-10-07 15:00:00 77 mm[Hg] [facility] - diastolic [facility] height 2021-07-21 13:20:00 66 [in_i] Common [facility] weight 2021-07-21 13:20:00 187.3 [lb_av] Common [facility] bmi 2021-07-21 13:20:00 30.23 kg/m2 Common [facility] height 2021-06-25 15:40:00 66 [in_i] [facility] weight 2021-06-25 15:40:00 187.3 [lb_av] [facility] temperature 2021-06-25 15:40:00 97.8 [degF] [facility] bmi 2021-06-25 15:40:00 30.23 kg/m2 [facility] oximetry 2021-06-25 15:40:00 99 % [facility] respiratory rate 2021-06-25 15:40:00 18 /min Comm on [facility] blood pressure 2021-06-25 15:40:00 135 mm[Hg] Common [facility] - systolic [facility] blood pressure 2021-06-25 15:40:00 78 mm[Hg] Common [facility] - diastolic [facility] height 2021-03-24 10:10:00 66 [in_i] Common [facility] weight 2021-03-24 10:10:00 188 [lb_av] [facility] temperature 2021-03-24 10:10:00 98 [degF] [facility] bmi 2021-03-24 10:10:00 30.34 kg/m2 [facility] blood pressure 2021-03-24 10:10:00 132 mm[Hg] [facility] - systolic [facility] blood pressure 2021-03-24 10:10:00 62 mm[Hg] [facility] - diastolic [facility] Systolic blood 2022-07-19 21:40:00 143 mm[Hg] [facility] pressure Diastolic blood 2022-07-19 21:40:00 86 mm[Hg] [facility] pressure Heart rate 2022-07-19 21:40:00 79 /min [facility] Respiratory rate 2022-07-19 21:40:00 16 /min [facility] Body temperature 2022-01-14 18:54:00 36.67 Ilsa [facility] Oxygen saturation in 2022-01-14 18:54:00 94 /min [facility] Arterial blood by Pulse oximetry Systolic blood 2022-01-14 18:54:00 139 mm[Hg] Method [facility] pressure Diastolic blood 2022-01-14 18:54:00 69 mm[Hg] [facility] pressure Heart rate 2022-01-14 18:54:00 69 /min [facility] Respiratory rate 2022-01-14 18:54:00 20 /min [facility] Body height 2022-01-12 21:37:00 167.6 cm [facility] Body weight 2022-01-12 21:37:00 85.73 kg [facility] BMI 2022-01-12 21:37:00 30.51 kg/m2 [facility] Procedures Procedure Date / Time Performing Clinician Source Performed PA AN ELECTIVE 2022-01-14 17:16:00 Luisana Cardenas spital SUPRAGLOTTIC AIRWAY POC GLUCOSE 2022-01-14 17:07:00 Lalito Richardson Nasir [facility] CARPAL TUNNEL RELEASE, 2022-01-14 17:07:00 [facility] ENDOSCOPIC BASIC METABOLIC PANEL 2022-01-12 21:29:00 Sarah Clark [facility] ESTIMATED GFR 2022-01-12 21:29:00 Sarah Clark ospital XR WRIST 3+ VW LEFT 2021-07-27 23:36:16 Eliana Ferrer [facility] XR HAND 3+ VW LEFT 2021-07-27 23:35:53 Eliana Ferrer [facility] RHEUMATOID FACTOR 2021-07-27 22:43:00 Eliana Ferrer [facility] CYCLIC CITRULLINATED 2021-07-27 22:43:00 Eliana Ferrer [facility] PEPTIDE AB, IGG HC COMPLETE BLD COUNT 2021-07-27 22:43:00 Eliana Ferrer [facility] W/AUTO DIFF COMPREHENSIVE METABOLIC 2021-07-27 22:43:00 Eliana Ferrer [facility] PANEL SEDIMENTATION RATE 2021-07-27 22:43:00 Eliana Ferrer [facility] C-REACTIVE PROTEIN 2021-07-27 22:43:00 Eliana Ferrer [facility] URIC ACID LEVEL 2021-07-27 22:43:00 Eliana Ferrer [facility] spital ESTIMATED GFR 2021-07-27 22:43:00 Eliana Ferrer [facility] spital Plan of Care Planned Activity Planned Date Details Comments Source Future Scheduled 2022-11-29 65+ PNEUMOCOCCAL [facility] Test 09:36:31 VACCINE (1 - PCV) [code = 65+ PNEUMOCOCCAL VACCINE (1 - PCV)] Future Scheduled 2022-11-29 SHINGLES VACCINES (1 Met [facility] Test 09:36:31 of 2) [code = SHINGLES VACCINES (1 of 2)] Future Scheduled 2022-11-29 COVID-19 VACCINE (5 - Me [facility] Test 09:36:31 Pfizer series) [code = COVID-19 VACCINE (5 - Pfizer series)] Future Scheduled 2022-11-29 INFLUENZA VACCINE Method [facility] Test 09:36:31 [code = INFLUENZA VACCINE] Future Scheduled 2022-02-05 HEPATITIS B VACCINES Met [facility] Test 03:31:20 (1 of 3 - 3-dose series) [code = HEPATITIS B VACCINES (1 of 3 - 3-dose series)] Future Scheduled 2022-02-05 65+ PNEUMOCOCCAL [facility] Test 03:31:20 VACCINE (1 - PCV) [code = 65+ PNEUMOCOCCAL VACCINE (1 - PCV)] Future Scheduled 2022-02-05 SHINGLES [facility]ACCINES ([facility] 03:31:20 of 2) [code = SHINGLES VACCINES (1 of 2)] Future Scheduled 2022-02-05 COVID-19 [facility]ACCINE (5 - [facility] Test 03:31:20 Booster for Pfizer series) [code = COVID-19 VACCINE (5 - Booster for Pfizer series)] Future Scheduled 2022-02-05 INFLUENZA VACCINE [facility] Test 03:31:20 [code = INFLUENZA VACCINE] Future Scheduled COVID-19 VACCINE (1) Met [facility] Test [code = COVID-19 VACCINE (1)] Future Scheduled SHINGLES VACCINES (#1) [facility] [code = SHINGLES VACCINES (#1)] Future Scheduled 65+ PNEUMOCOCCAL [facility] Test VACCINE (1 of 1 - PPSV23) [code = 65+ PNEUMOCOCCAL VACCINE (1 of 1 - PPSV23)] Future Scheduled INFLUENZA VACCINE [facility] Test [code = INFLUENZA VACCINE] Encounters Start End Encounter Admission Attending Care Care Encounter Source Date/Time Date/Time Type Type Clinicians Facility Department ID 2022-10-05 Outpatient [place], [facility] [id number] Common 14:00:02 [facility] [address] [facility] 2022-05-01 Outpatient [place], [facility] [id number] Common 07:04:01 [facility] 31543 [facility] 2022-04-19 Outpatient [place], [facility] [id number] Common 15:50:02 [facility] 2022-03-23 Outpatient [place], [facility] [id number] Common 09:09:01 [facility] 2021-12-14 Outpatient [place], [facility] [id number] Common 16:19:01 [facility] 2021-07-20 Outpatient [place], [facility] [id number] Common 14:24:03 [facility] 2021-06-17 Outpatient [place], [facility] [id number] Common 14:01:53 [facility] 63676 [facility] 2021-06-17 Outpatient [place], STLMLC STLMLC [id number] Common 13:57:09 [place] 74[address] [facility] 2021-06-17 Outpatient [place], STLMLC STLMLC [id number] Common 13:55:26 [place] 584[address] [facility] 2021-06-17 Outpatient [place], STLMLC STLMLC [id number] Common 13:34:26 [place] 288[address] [facility] 2021-06-17 Outpatient [place], STLMLC STLMLC [id number] Common 13:33:54 [place] 91278 [facility] 2021-06-17 Outpatient [place], STLMLC STLMLC [id number] Common 12:58:36 [place] 61131 [facility] 2021-06-17 Outpatient [place], STLMLC STLMLC [id number] Common 12:35:04 [place] 10859 [facility] 2021-06-17 Outpatient [place], STLMLC STLMLC [id number] Common 12:34:21 [place] 95329 [facility] 2021-06-17 Outpatient [place], STLMLC STLMLC [id number] Common 12:11:56 [place] 85977 [facility] 2021-06-17 Outpatient [place], STLMLC STLMLC [id number] Common 11:52:30 [place] 81252 [facility] 2021-06-17 Outpatient [place], STLMLC STLMLC [id number] Common 11:44:30 [place] 09826 [facility] 2021-06-17 Outpatient [place], STLMLC STLMLC [id number] Common 11:26:10 [place] 07297 [facility] 2021-06-17 Outpatient [place], STLMLC STLMLC [id number] Common 11:22:17 [place] 60372 [facility] 2021-06-17 Outpatient [place], STLMLC STLMLC [id number] Common 11:21:19 [place] 11338 [facility] 2021-06-17 Outpatient [place], STLMLC STLMLC [id number] Common 11:21:11 [facility] 38[address] [facility] 2022-07-19 2022-07-19 Office Yani Menendez 1.2.840.1 [id number] Methodi 15:30:00 15:53:[address] 3.430.2.7 Hospit a .3.328006 l .8 2022-07-19 2022-07-19 Outpatient YANI MENENDEZ [facility] [id number] [place] 00:00:00 00:00:[address] 2022-07-19 2022-07-19 Travel 1.2.840.1 1.2.175.663 5948 [id number] Methodi 00:00:00 00:00:[address] 3.430.2.7 0.2.7.3.698 Ho spita .3.772509 084.8 l .8 2022-04-20 2022-04-20 OFFICE STLMLC STLMLC [id number] Co mmon 00:00:00 00:00:00 VISIT [facility] ESTAB PT - CHI LEVEL 4 [facility] 2022-04-09 2022-04-09 (TEL) STLMLC STLMLC [id number] Co mmon 00:00:00 00:00:00 [facility] 2022-03-23 2022-03-23 (EST. STLMLC STLMLC [id number] Co mmon 00:00:00 00:00:00 VIDEO) EST Spi rit VIRTUAL - CHI VIDEO [facility] 2022-03-22 2022-03-22 (TEL) STLMLC STLMLC [id number] Co mmon 00:00:00 00:00:00 [facility] 2022-03-22 2022-03-22 (TEL) STLMLC STLMLC [id number] Co mmon 00:00:00 00:00:00 [facility] 2022-03-18 2022-03-21 Inpatient ER SHIEH, [facility] [id number] [facility] 22:24:00 12:02:00 DEON 2022-03-18 2022-03-18 Emergency [facility] [id number] [facility] 22:52:53 22:52:00 2022-03-08 2022-03-08 (TEL) STLMLC STLMLC [id number] Co mmon 00:00:00 00:00:00 Spirit - [facility] 2022-01-22 2022-01-22 Office Richardson, 1.2.840.1 [id number] Methodi 14:40:00 17:39:07 Visit Lalito 69556.1.[address] Nasir 3.430.2.7 Hospit a .3.845327 l .8 2022-01-22 2022-01-22 Office Richardson, 1.2.840.1 [id number] 0803 Methodi 14:40:00 17:39:07 Visit Lalito 07790.1.[address] Nasir 3.430.2.7 Hospit a .3.741045 l .8 2022-01-22 2022-01-22 Travel 1.2.840.1 1.2.516.539 5757 [id number] Methodi 00:00:00 00:00:[address] 3.430.2.7 0.2.7.3.698 Ho spita .3.754619 084.8 l .8 2022-01-22 2022-01-22 Travel 1.2.840.1 1.2.162.334 3579 232968 Methodi 00:00:00 00:00:[address] 3.430.2.7 0.2.7.3.698 Ho spita .3.216838 084.8 l .8 2022-01-18 2022-01-18 OFFICE STLC STLC [id number] Co mmon 00:00:00 00:00:00 VISIT Rylan BECK PT - CHI LEVEL 4 [facility] 2022-01-14 2022-01-14 Hospital Richardson, 1.2.840.1 [id number] Methodi 10:21:00 14:23:00 Encounter Vincent 27880.1.[address] Nasir 3.430.2.7 Hospit a .3.702832 l .8 2022-01-14 2022-01-14 Hospital Richardson, 1.2.840.1 [id number] 08725 05775 Methodi 10:21:00 14:23:00 Encounter Vincent 68188.1.[address] Nasir 3.430.2.7 Hospit a .3.382171 l .8 2022-01-14 2022-01-14 Anesthesia [facility] 1.2.8 40.1 [id number] Methodi 12:06:00 12:55:00 Event Eduardo, Sarah 31880.1.[address] 3.430.2.7 Hospit a .3.456500 l .8 2022-01-14 2022-01-14 Anesthesia [facility] 1.2.8 40.1 [id number] Methodi 12:06:00 12:55:00 Event Eduardo, Sarah 89982.1.[address] 3.430.2.7 Hospit a .3.535933 l .8 2022-01-14 2022-01-14 Surgery Richardson, 1.2.840.1 [id number] 3504 Methodi 12:00:00 12:55:[address] Nasir 3.430.2.7 Hospit a .3.876970 l .8 2022-01-14 2022-01-14 Surgery Richardson, 1.2.840.1 [id number] 9791 Methodi 12:00:00 12:55:[address] Nasir 3.430.2.7 Hospit a .3.987914 l .8 2022-01-14 2022-01-14 Orders Richardson, 1.2.840.1 [id number] 1405 Methodi 00:00:00 00:00:00 Only Vincent 73749.1.[address] Nasir 3.430.2.7 Hospit a .3.691354 l .8 2022-01-14 2022-01-14 Orders Richardson, 1.2.840.1 [id number] 4288 Methodi 00:00:00 00:00:00 Only Vincent 96257.1.[address] Nasir 3.430.2.7 Hospit a .3.833488 l .8 2022-01-12 2022-01-12 Pre-Admiss Irchardson, 1.2.840.1 [id number] Methodi 16:30:00 17:30:00 ion Vincent 17173.1.[address] Testing Nasir 3.430.2.7 Hospit a .3.583192 l .8 2022-01-12 2022-01-12 Pre-Admiss Richardson, 1.2.840.1 [id number] 948 [id number] Methodi 16:30:00 17:30:00 ion Vincent 89208.1.[address] Testing Nasir 3.430.2.7 Hospit a .3.170146 l .8 2022-01-12 2022-01-12 Office Richardson, 1.2.840.1 [id number] 3860 Methodi 14:50:00 15:55:40 Visit Vincent 49053.1.[address] Nasir 3.430.2.7 Hospit a .3.773397 l .8 2022-01-12 2022-01-12 Office Richardson, 1.2.840.1 [id number] 2767 Methodi 14:50:00 15:55:40 Visit Vincent 69348.1.[address] Nasir 3.430.2.7 Hospit a .3.947108 l .8 2022-01-12 2022-01-12 Transcribe Richardson, 1.2.840.1 [id number] 324 [id number] Methodi 00:00:00 00:00:00 Orders Vincent 08336.1.[address] Nasir 3.430.2.7 Hospit a .3.409188 l .8 2022-01-122022-01-12 Travel 1.2.840.1 1.2.044.034 7975 075945 Methodi 00:00:00 00:00:[address] 3.430.2.7 0.2.7.3.698 Ho spita .3.959613 084.8 l .8 2022-01-12 2022-01-12 Transcribe Richardson, 1.2.840.1 [id number] Methodi 00:00:00 00:00:00 Orders Vincent 94843.1.[address] Nasir 3.430.2.7 Hospit a .3.745969 l .8 2022-01-12 2022-01-12 Travel 1.2.840.1 1.2.701.076 8332 574147 Methodi 00:00:00 00:00:[address] 3.430.2.7 0.2.7.3.698 Ho spita .3.614058 084.8 l .8 2022-01-01 2022-01-01 Travel 1.2.840.1 1.2.125.954 7590 427846 Methodi 00:00:00 00:00:[address] 3.430.2.7 0.2.7.3.698 Ho spita .3.715229 084.8 l .8 2022-01-01 2022-01-01 Travel 1.2.840.1 1.2.994.756 0087 018050 Methodi 00:00:00 00:00:[address] 3.430.2.7 0.2.7.3.698 Ho spita .3.558148 084.8 l .8 2021-12-14 2021-12-14 OL DIG E/M STLMLC STLMLC [id number] Common 00:00:00 00:00:00 SVC 11-20 Spir it MIN - [facility] 2021-12-14 2021-12-14 (TEL) STLMLC STLMLC [id number] Co mmon 00:00:00 00:00:00 [facility] 2021-12-10 2021-12-10 Office Miko, 1.2.840.1 [id number] 9250 Methodi 14:30:00 14:32:16 Visit Rain 72000.1.[address] 3.430.2.7 Hospit a .3.531427 l .8 2021-12-10 2021-12-10 Office Miko, 1.2.840.1 [id number] 3591 Methodi 14:30:00 14:32:16 Visit Rain 38048.1.[address] 3.430.2.7 Hospit a .3.747157 l .8 2021-12-10 2021-12-10 Procedure Yani Menendez 1.2.840.1 [id number] Methodi 13:30:00 13:56:[address] 3.430.2.7 Hospit a .3.664025 l .8 2021-12-10 2021-12-10 Procedure Yani Menendez 1.2.840.1 [id number] Methodi 13:30:00 13:56:[address] 3.430.2.7 Hospit a .3.116911 l .8 2021-12-10 2021-12-10 Travel 1.2.840.1 1.2.606.593 3277 108391 Methodi 00:00:00 00:00:[address] 3.430.2.7 0.2.7.3.698 Ho spita .3.647945 084.8 l .8 2021-12-10 2021-12-10 Travel 1.2.840.1 1.2.788.426 4585 887230 Methodi 00:00:00 00:00:[address] 3.430.2.7 0.2.7.3.698 Ho spita .3.565002 084.8 l .8 2021-11-03 2021-11-03 Office Miko, 1.2.840.1 [id number] 012509 2817 Methodi 15:30:00 16:21:50 Visit Rain 63331.1.[address] 3.430.2.7 Hospit a .3.194829 l .8 2021-11-03 2021-11-03 Travel 1.2.840.1 1.2.802.364 6941 479406 Methodi 00:00:00 00:00:[address] 3.430.2.7 0.2.7.3.698 Ho spita .3.945970 084.8 l .8 2021-10-07 2021-10-07 OFFICE STLMLC STLMLC [id number] Co mmon 00:00:00 00:00:00 VISIT Spirit ESTAB PT - [facility] LEVEL 4 [facility] 2021-10-07 2021-10-07 (TEL) STLMLC STLMLC [id number] Co mmon 00:00:00 00:00:00 Spirit - [facility] 2021-10-07 2021-10-07 SUB ANNUAL STLMLC STLMLC [id number] Common 00:00:00 00:00:00 MCR Spirit WELLNESS - [facility]I VISIT [facility] 2021-09-21 2021-09-21 (TEL) STLMLC STLMLC [id number] Co mmon 00:00:00 00:00:00 Spirit [facility] 2021-08-28 2021-08-28 Office Richardson, 1.2.840.1 [id number] 6819 Methodi 13:40:00 14:39:54 Visit Lalito 33147.1.[address] Nasir 3.430.2.7 Hospit a .3.400641 l .8 2021-08-28 2021-08-28 Travel 1.2.840.1 1.2.409.536 9515 997791 Methodi 00:00:00 00:00:[address] 3.430.2.7 0.2.7.3.698 Ho spita .3.466653 084.8 l .8 2021-08-25 2021-08-25 Transcribe Carla, 1.2.840.1 [id number] 162 [id number] Methodi 00:00:00 00:00:00 Orders Kingsley 07889.1.[address] [place] 3.430.2.7 Hospit a .3.778317 l .8 2021-08-12 2021-08-12 Travel 1.2.840.1 1.2.057.628 1386 105496 Methodi 00:00:00 00:00:[address] 3.430.2.7 0.2.7.3.698 Ho spita .3.393354 084.8 l .8 2021-07-31 2021-07-31 (TEL) [facility] [id number] Co mmon 00:00:00 00:00:00 [facility] 2021-07-27 2021-07-27 [facility] Eliana Ferrer 1.2.840.1 [id number] Methodi 17:06:04 23:59:00 Encounter [address] 23464.1.[address] 3.430.2.7 Hospit a .3.247933 l .8 2021-07-27 2021-07-27 [facility] Eliana Ferrer 1.2.840.1 [id number] Methodi 17:00:00 17:05:00 Encounter W[address]982.1.[address] 3.430.2.7 Hospit a .3.844592 l .8 2021-07-27 2021-07-27 Outpatient ELIANA FERRER [facility] [id number] [place] 00:00:00 00:00:[address] 2021-07-27 2021-07-27 Transcribe Eliana Ferrer 1.2.840.1 [id number] Methodi 00:00:00 00:00:[address] Orders W[address] 00508.1.[address] 3.430.2.7 Hospit a .3.716992 l .8 2021-07-27 2021-07-27 Travel 1.2.840.1 1.2.691.532 2092 079504 Methodi 00:00:00 00:00:[address] 3.430.2.7 0.2.7.3.698 Ho spita .3.091496 084.8 l .8 2021-07-21 2021-07-21 OL DIG E/M STLMLC STLMLC [id number] Common 00:00:00 00:00:00 [facility] [place] Spir it MIN - [facility] 2021-07-15 2021-07-15 (TEL) STLMLC STLMLC [id number] Co mmon 00:00:00 00:00:00 [facility] 2021-06-25 2021-06-25 OFFICE STLMLC STLMLC [id number] Co mmon 00:00:00 00:00:00 VISIT Spirit ESTAB PT - [facility]I LEVEL 4 [facility] 2021-06-16 2021-06-16 (TEL) STLMLC STLMLC [id number] Co mmon 00:00:00 00:00:00 [facility] 2021-03-24 2021-03-24 (TELEAUD) STLMLC STLMLC [id number] Common 00:00:00 00:00:00 AUDIO [facility] TELEMEDICI - [facility] NE [facility] 2021-03-19 2021-03-19 (TEL) STLMLC STLMLC [id number] Co mmon 00:00:00 00:00:00 [facility] 2021-03-09 2021-03-09 (TEL) STLMLC STLMLC [id number] Co mmon 00:00:00 00:00:00 [facility] 2021-03-04 2021-03-04 Outpatient JOSE [facility] [id number] [place] 00:00:00 00:00:00 DAYSI [facility] 2021-03-042021-03-04 Outpatient JOSE [facility] [id number] [place] 00:00:00 00:00:00 DAYSI [address] 2021-03-04 2021-03-04 Outpatient JOSE [facility] [id number] [place] 00:00:00 00:00:00 DAYSI [address] 2021-02-19 2021-02-19 (TEL) STLMLC STLMLC [id number] Co mmon 00:00:00 00:00:00 [facility] 2021-01-28 2021-01-28 Inpatient EL Raslan, [facility] OUTD [id number] [facility] 05:18:00 05:18:00 Baltazar 03 [facility] 2020-12-24 2020-12-24 Outpatient STLMLC STLMLC [id number] Common 00:00:00 00:00:00 [facility] 2020-12-10 2020-12-11 Inpatient EL Raslan, [facility] INTE.02 [id number] [facility] 05:27:00 13:49:00 Baltazar 17 [facility] 2020-10-30 2020-10-30 Outpatient STLMLC STLMLC [id number] Common 00:00:00 00:00:00 [facility] 2020-10-22 2020-10-22 Outpatient STLMLC STLMLC [id number] Common 00:00:00 00:00:00 [facility] 2020-10-15 2020-10-15 Outpatient STLMLC STLMLC [id number] Common 00:00:00 00:00:00 [facility] 2020-09-25 2020-09-25 Outpatient STLMLC STLMLC [id number] Common 00:00:00 00:00:00 [facility] 2020-09-24 2020-09-24 Outpatient STLMLC STLMLC [id number] Common 00:00:00 00:00:00 [facility] 2020-09-23 2020-09-23 Outpatient STLMLC STLMLC [id number] Common 00:00:00 00:00:00 [facility] 2020-09-23 2020-09-23 Outpatient STLMLC STLMLC [id number] Common 00:00:00 00:00:00 [facility] 2020-07-22 2020-07-22 Outpatient STLMLC STLMLC [id number] Common 00:00:00 00:00:00 [facility] 2020-06-17 2020-06-17 Outpatient STLMLC STLMLC [id number] Common 00:00:00 00:00:00 [facility] 2020-05-07 2020-05-07 Outpatient STLMLC STLMLC [id number] Common 00:00:00 00:00:00 [facility] 2020-04-30 2020-04-30 Outpatient STLMLC STLMLC [id number] Common 00:00:00 00:00:00 [facility] 2020-02-27 2020-02-27 Outpatient STLMLC STLMLC [id number] Common 00:00:00 00:00:00 [facility] 2020-02-26 2020-02-26 Outpatient STLMLC STLMLC [id number] Common 00:00:00 00:00:00 [facility] 2020-01-30 2020-01-30 [facility] [id number] Common 14:00:00 14:00:[address] [facility] 2019-12-07 2019-12-07 Outpatient [facility] [id number] Common 10:54:00 10:54:[address] [facility] 2019-10-30 2019-10-30 Outpatient [facility] [id number] Common 13:30:00 13:30:[address] [facility] 2019-10-25 2019-10-25 Outpatient [facility] [id number] Common 16:50:00 16:50:00 t [facility] it [facility] 2019-10-19 2019-10-19 Outpatient [facility] [id number] Common 15:21:00 15:21:[address] [facility] 2019-10-18 2019-10-18 [facility] [id number] Common 08:34:00 08:34:[address] [facility] 2019-10-11 2019-10-11 [facility] [id number] Common 13:40:00 13:40:[address] [facility] 2019-10-09 2019-10-09 [facility] [id number] Common 13:00:00 13:00:[address] [facility] 2019-10-04 2019-10-04 [facility] [id number] Common 14:02:00 14:02:00 t [facility] [address] [facility] 2019-10-02 2019-10-02 [facility] [id number] Common 17:10:00 17:10:00 t [facility] [address] [facility] 2019-10-01 2019-10-01 [facility] [id number] Common 13:30:00 13:30:[address] [facility] 2019-10-01 2019-10-01 [facility] [id number] Common 09:03:00 09:03:[address] [facility] Results Test Description Test Time Test Comments Results Result Comments Source BASIC METABOLIC PANEL 2022-03-21 05:58:05 Test Item Value Reference Range Interpretation Comme nts SODIUM (BEAKER) (test 143 meq/L 135-148 code = 381) POTASSIUM (BEAKER) 3.8 meq/L 3.6-5.5 (test code = 379) CHLORIDE (BEAKER) (test 109 meq/L 98-106 H code = 382) CO2 (BEAKER) (test code 24 meq/L 20-29 = 355) BLOOD UREA NITROGEN 6 mg/dL 10-26 L (BEAKER) (test code = 354) CREATININE (BEAKER) 0.79 mg/dL 0.50-1.20 (test code = 358) GLUCOSE RANDOM (BEAKER) 106 mg/dL 70-110 (test code = 652) CALCIUM (BEAKER) (test 8.6 mg/dL 8.5-10.5 code = 697) EGFR (BEAKER) (test 74 mL/min/1.73 sq In terpretation of eGFR values code = 1092) m Stage Descripti on Result G1 Normal or high >=90 G2 Mildly decreased 60-89 G3a Mildly to moderately 45-5 9 G3b Moderately to severely 30- 44 G4 Severly decreased 15-29 G5 Kidney failure <15Repo rted eGFR is based on the CK D-EPI 2020 equation that d oes not use a race coefficien tEstimated GFR is not as accurate as Creatinine Clearance in pr edicting glomerular filt ration rate. Estimated GFR i s not applicable for dialysis pa tients Printing Plate Clerk ID - LITOOperator ID - LITOOperator ID - LITOOperator ID - LITOOperator ID - LITOOperator ID - LITOOperator ID - LITOOperator ID - LITOOperator ID - LITOOperator ID - LITOOperator ID - LITOOperator ID - LITOOperator ID - LITOOperator ID - leviotaOperator ID - leviotaOperator ID - leviotaCBC W/PLT COUNT & AUTO [id number] 05:06:22 Test Item Value Reference Range Interpretation Comments WHITE BLOOD CELL COUNT (BEAKER) 5.9 K/ L 4.0-10.0 (test code = 775) RED BLOOD CELL COUNT (BEAKER) 2.95 M/ L 4.00-5.00 L (test code = 761) HEMOGLOBIN (BEAKER) (test code = 9.5 GM/DL 12.0-15.5 L 410) HEMATOCRIT (BEAKER) (test code = 29.4 % 36.0-46.0 L 411) MEAN CORPUSCULAR VOLUME (BEAKER) 100 fL 82-99 H (test code = 753) MEAN CORPUSCULAR HEMOGLOBIN 32.2 pg 27.0-33.0 (BEAKER) (test code = 751) MEAN CORPUSCULAR HEMOGLOBIN CONC 32.3 GM/DL 32.0-36.0 (BEAKER) (test code = 752) RED CELL DISTRIBUTION WIDTH 14.6 % 12.0-15.0 (BEAKER) (test code = 412) PLATELET COUNT (BEAKER) (test 211 K/CU MM 150-430 code = 756) MEAN PLATELET VOLUME (BEAKER) 9.0 fL 6.0-11.5 (test code = 754) NUCLEATED RED BLOOD CELLS 0 /100 WBC 0-0 (BEAKER) (test code = 413) NEUTROPHILS RELATIVE PERCENT 61 % (BEAKER) (test code = 429) LYMPHOCYTES RELATIVE PERCENT 29 % (BEAKER) (test code = 430) MONOCYTES RELATIVE PERCENT 8 % (BEAKER) (test code = 431) EOSINOPHILS RELATIVE PERCENT 2 % (BEAKER) (test code = 432) BASOPHILS RELATIVE PERCENT 0 % (BEAKER) (test code = 437) NEUTROPHILS ABSOLUTE COUNT 3.61 K/ L 1.80-8.00 (BEAKER) (test code = 670) LYMPHOCYTES ABSOLUTE COUNT 1.70 K/ L 1.48-4.50 (BEAKER) (test code = 414) MONOCYTES ABSOLUTE COUNT (BEAKER) 0.47 K/ L 0.00-1.30 (test code = 415) EOSINOPHILS ABSOLUTE COUNT 0.10 K/ L 0.00-0.50 (BEAKER) (test code = 416) BASOPHILS ABSOLUTE COUNT (BEAKER) 0.01 K/ L 0.00-0.20 (test code = 417) IMMATURE GRANULOCYTES-RELATIVE 0.20 % 0.00-0.00 H PERCENT (BEAKER) (test code = 2801) HEPATITIS B SURFACE [id number] 16:55:30 Test Item Value Reference Range Interpretation Comments HEPATITIS B SURFACE ANTIGEN (2) Nonreactive Nonreactive (BEAKER) (test code = 2585) Printing Plate Clerk ID - CARLINE-GLUCOSE [id number] 11:52:58 Test Item Value Reference Range Interpretation Comments POC-GLUCOSE METER 86 mg/dL 70-110 : TESTED A T [facility] [address] (BEAKER) (test code = [address], [address]) [facility] 77 478: Printing Plate Clerk/Techni kelly ID = [id number] for Diana Steiner POCT-GLUCOSE [id number] 06:57:11 Test Item Value Reference Range Interpretation Comments POC-GLUCOSE METER 112 mg/dL 70-110 H : TESTED A T [facility] [address] (BEAKER) (test code [address], = 1538) [facility] 77 478: Printing Plate Clerk/Techni kelly ID = [id number] for [facility] october BASIC METABOLIC [id number] 01:45:44 Test Item Value Reference Range Interpretation Comments SODIUM (BEAKER) 142 meq/L 135-148 (test code = 381) POTASSIUM 3.7 meq/L 3.6-5.5 (BEAKER) (test code = 379) CHLORIDE (BEAKER) 109 meq/L 98-106 H (test code = 382) CO2 (BEAKER) 23 meq/L 20-29 (test code = 355) BLOOD UREA 7 mg/dL 10-26 L NITROGEN (BEAKER) (test code = 354) CREATININE 0.72 mg/dL 0.50-1.20 (BEAKER) (test code = 358) GLUCOSE RANDOM 103 mg/dL 70-110 (BEAKER) (test code = 652) CALCIUM (BEAKER) 8.2 mg/dL 8.5-10.5 L (test code = 697) EGFR (BEAKER) 82 Interpretatio n of eGFR (test code = mL/min/1.73 values Stage De scription 1092) sq m Result G1 Francisca l or high >=90 G2 Mildly decreased 60-89 G3a Mildl y to moderately 45-5 9 G3b Moderately to s everely 30-44 G4 Sever ly decreased 15-29 G5 Kidney failure <15Repo rted eGFR is based on the CKD-EPI 2020 equation t hat does not use a race coefficientEsti mated GFR is not as accur ate as Creatinine Cherrie smith in predicting glom erular filtration rate . Estimated GFR is not appl icable for dialysis patien ts Printing Plate Clerk ID - [id number] ID - [id number] ID - [id number] ID - [id number] - [id number] ID - [id number] ID - [id number] ID - [id number] ID - [id number] ID - [id number] ID - [id number] ID - [id number] ID - [id number] CBC W/PLT COUNT & AUTO [id number] 01:33:45 Test Item Value Reference Range Interpretation Comments WHITE BLOOD CELL COUNT (BEAKER) 6.5 K/ L 4.0-10.0 (test code = 775) RED BLOOD CELL COUNT (BEAKER) 2.84 M/ L 4.00-5.00 L (test code = 761) HEMOGLOBIN (BEAKER) (test code = 9.0 GM/DL 12.0-15.5 L 410) HEMATOCRIT (BEAKER) (test code = 28.2 % 36.0-46.0 L 411) MEAN CORPUSCULAR VOLUME (BEAKER) 99 fL 82-99 (test code = 753) MEAN CORPUSCULAR HEMOGLOBIN 31.7 pg 27.0-33.0 (BEAKER) (test code = 751) MEAN CORPUSCULAR HEMOGLOBIN CONC 31.9 GM/DL 32.0-36.0 L (BEAKER) (test code = 752) RED CELL DISTRIBUTION WIDTH 15.0 % 12.0-15.0 (BEAKER) (test code = 412) PLATELET COUNT (BEAKER) (test 169 K/CU MM 150-430 code = 756) MEAN PLATELET VOLUME (BEAKER) 9.0 fL 6.0-11.5 (test code = 754) NUCLEATED RED BLOOD CELLS 0 /100 WBC 0-0 (BEAKER) (test code = 413) NEUTROPHILS RELATIVE PERCENT 61 % (BEAKER) (test code = 429) LYMPHOCYTES RELATIVE PERCENT 28 % (BEAKER) (test code = 430) MONOCYTES RELATIVE PERCENT 9 % (BEAKER) (test code = 431) EOSINOPHILS RELATIVE PERCENT 2 % (BEAKER) (test code = 432) BASOPHILS RELATIVE PERCENT 0 % (BEAKER) (test code = 437) NEUTROPHILS ABSOLUTE COUNT 3.96 K/ L 1.80-8.00 (BEAKER) (test code = 670) LYMPHOCYTES ABSOLUTE COUNT 1.80 K/ L 1.48-4.50 (BEAKER) (test code = 414) MONOCYTES ABSOLUTE COUNT (BEAKER) 0.58 K/ L 0.00-1.30 (test code = 415) EOSINOPHILS ABSOLUTE COUNT 0.12 K/ L 0.00-0.50 (BEAKER) (test code = 416) BASOPHILS ABSOLUTE COUNT (BEAKER) 0.01 K/ L 0.00-0.20 (test code = 417) IMMATURE GRANULOCYTES-RELATIVE 0.50 % 0.00-0.00 H PERCENT (BEAKER) (test code = 2801) POCT-GLUCOSE [id number] 23:59:54 Test Item Value Reference Range Interpretation Comments POC-GLUCOSE METER 126 mg/dL 70-110 H : TESTED A T [facility] [address] (BEAKER) (test code [address], = 1538) [place] [address] 478: Printing Plate Clerk/Techni kelly ID = [id number] for [facility] october POCT-GLUCOSE [id number] 17:17:50 Test Item Value Reference Range Interpretation Comments POC-GLUCOSE METER 98 mg/dL 70-110 : TESTED A T [facility] [address] (BEAKER) (test code = [address], [address]) [place] [address] 478: Printing Plate Clerk/Techni kelly ID = [id number] for Dapr Diana og B-TYPE NATRIURETIC FACTOR (BNP)2022-03-19 04:33:52 Test Item Value Reference Range Interpretation Comments B-TYPE NATRIURETIC PEPTIDE (BEAKER) 90 pg/mL 0-100 (test code = 700) Printing Plate Clerk ID - LITOBASIC METABOLIC [id number] 04:22:47 Test Item Value Reference Range Interpretation Comments SODIUM (BEAKER) 142 meq/L 135-148 (test code = 381) POTASSIUM 3.7 meq/L 3.6-5.5 (BEAKER) (test code = 379) CHLORIDE (BEAKER) 109 meq/L 98-106 H (test code = 382) CO2 (BEAKER) 23 meq/L 20-29 (test code = 355) BLOOD UREA 17 mg/dL 10-26 NITROGEN (BEAKER) (test code = 354) CREATININE 0.81 mg/dL 0.50-1.20 (BEAKER) (test code = 358) GLUCOSE RANDOM 117 mg/dL 70-110 H (BEAKER) (test code = 652) CALCIUM (BEAKER) 8.2 mg/dL 8.5-10.5 L (test code = 697) EGFR (BEAKER) 72 Interpretatio n of eGFR (test code = mL/min/1.73 values Stage De scription 1092) sq m Result G1 Francisca l or high >=90 G2 Mildly decreased 60-89 G3a Mildl y to moderately 45-5 9 G3b Moderately to s everely 30-44 G4 Severl y decreased 15-29 G5 Kidney failure <15Reported eGF R is based on the CKD-EPI 2021 equation that d oes not use a race coefficientEsti mated GFR is not as accur ate as Creatinine Cherrie luis in predicting glom erular filtration rate . Estimated GFR is not appl icable for dialysis patien ts Printing Plate Clerk ID - LITOOperator ID - LITOOperator ID - LITOOperator ID - LITOOperator ID - LITOOperator ID - LITOOperator ID - LITOOperator ID - LITOOperator ID - LITOOperator ID - LITOOperator ID - LITOOperator ID - LITOCBC W/PLT COUNT & AUTO [id number] 04:14:27 Test Item Value Reference Range Interpretation Comments WHITE BLOOD CELL COUNT (BEAKER) 6.2 K/ L 4.0-10.0 (test code = 775) RED BLOOD CELL COUNT (BEAKER) 2.32 M/ L 4.00-5.00 L (test code = 761) HEMOGLOBIN (BEAKER) (test code = 7.5 GM/DL 12.0-15.5 L 410) HEMATOCRIT (BEAKER) (test code = 23.4 % 36.0-46.0 L 411) MEAN CORPUSCULAR VOLUME (BEAKER) 101 fL 82-99 H (test code = 753) MEAN CORPUSCULAR HEMOGLOBIN 32.3 pg 27.0-33.0 (BEAKER) (test code = 751) MEAN CORPUSCULAR HEMOGLOBIN CONC 32.1 GM/DL 32.0-36.0 (BEAKER) (test code = 752) RED CELL DISTRIBUTION WIDTH 14.1 % 12.0-15.0 (BEAKER) (test code = 412) PLATELET COUNT (BEAKER) (test 184 K/CU MM 150-430 code = 756) MEAN PLATELET VOLUME (BEAKER) 9.2 fL 6.0-11.5 (test code = 754) NUCLEATED RED BLOOD CELLS 0 /100 WBC 0-0 (BEAKER) (test code = 413) NEUTROPHILS RELATIVE PERCENT 52 % (BEAKER) (test code = 429) LYMPHOCYTES RELATIVE PERCENT 40 % (BEAKER) (test code = 430) MONOCYTES RELATIVE PERCENT 7 % (BEAKER) (test code = 431) EOSINOPHILS RELATIVE PERCENT 1 % (BEAKER) (test code = 432) BASOPHILS RELATIVE PERCENT 0 % (BEAKER) (test code = 437) NEUTROPHILS ABSOLUTE COUNT 3.23 K/ L 1.80-8.00 (BEAKER) (test code = 670) LYMPHOCYTES ABSOLUTE COUNT 2.45 K/ L 1.48-4.50 (BEAKER) (test code = 414) MONOCYTES ABSOLUTE COUNT (BEAKER) 0.40 K/ L 0.00-1.30 (test code = 415) EOSINOPHILS ABSOLUTE COUNT 0.08 K/ L 0.00-0.50 (BEAKER) (test code = 416) BASOPHILS ABSOLUTE COUNT (BEAKER) 0.01 K/ L 0.00-0.20 (test code = 417) IMMATURE GRANULOCYTES-RELATIVE 0.20 % 0.00-0.00 H PERCENT (BEAKER) (test code = 2801) VITAMIN [id number] 03:09:55 Test Item Value Reference Range Interpretation Comments VITAMIN B12 (BEAKER) (test code = 386 pg/mL 211-911 774) Printing Plate Clerk ID - LITOTSH/FREE T4 IF [id number] 01:33:59 Test Item Value Reference Range Interpretation Comments THYROID STIMULATING HORMONE 1.240 uIU/mL 0.350-5.500 (BEAKER) (test code = 772) Printing Plate Clerk ID - JUSTINLIPID [id number] 01:31:59 Test Item Value Reference Range Interpretation Comments TRIGLYCERIDES (BEAKER) 101 mg/dL Speci men slightly (test code = 540) hemolyzed CHOLESTEROL (BEAKER) 143 mg/dL Specime n slightly (test code = 631) hemolyzed HDL CHOLESTEROL (BEAKER) 36 mg/dL (test code = 976) LDL CHOLESTEROL 87 mg/dL CALCULATED (BEAKER) (test code = 633) Triglyceride Reference Range: Low Risk <150 Borderline 150-199 High Risk 200-499 Very High Risk >=500Cholesterol Reference Range: Low Risk <200 Borderline 200-239 High Risk >240HDL Cholesterol Reference Range: Low Risk >=60 High Risk <40LDL Cholesterol Reference Range: Optimal <100 Near Optimal 100-129 Borderline 130-159 High 160-189 Very High >=190 Printing Plate Clerk ID - JUSTINOperator ID - JUSTINOperator ID - JUSTINOperator ID - JUSTINOperator ID - JUSTINOperator ID - JUSTINIRON, TIBC, % SAT. (WITHOUT FERRITIN)2022-03-19 00:10:48 Test Item Value Reference Range Interpretation Comments IRON (BEAKER) (test code = 547) 127.0 ug/dL 45.0-170.0 TOTAL IRON BINDING CAPACITY 233 ug/dL 250-550 L (BEAKER) (test code = 769) IRON % SATURATION (2) (BEAKER) 55 % 20-55 (test code = 2590) Printing Plate Clerk ID - JUSTINOperator ID - [id number] 00:07:28 Test Item Value Reference Range Interpretation Comments FERRITIN (BEAKER) (test code = 53.60 ng/mL 10.00-291.00 361) Printing Plate Clerk ID - JUSTINCOMPREHENSIVE METABOLIC [id number] 23:49:23 Test Item Value Reference Range Interpretation Comments TOTAL PROTEIN 5.3 gm/dL 6.0-8.5 L Specimen sligh tly (BEAKER) (test hemolyzed code = 770) ALBUMIN (BEAKER) 3.0 g/dL 3.5-5.0 L Specimen sl ightly (test code = 1145) hemolyzed ALKALINE 32 U/L 30-115 PHOSPHATASE (BEAKER) (test code = 346) BILIRUBIN TOTAL 0.7 mg/dL 0.1-1.2 Specimen sli ghtly (BEAKER) (test hemolyzed code = 377) SODIUM (BEAKER) 143 meq/L 135-148 (test code = 381) POTASSIUM (BEAKER) 4.2 meq/L 3.6-5.5 Specimen slightly (test code = 379) hemolyzed CHLORIDE (BEAKER) 110 meq/L 98-106 H (test code = 382) CO2 (BEAKER) (test 23 meq/L 20-29 code = 355) BLOOD UREA 20 mg/dL 10-26 NITROGEN (BEAKER) (test code = 354) CREATININE 0.84 mg/dL 0.50-1.20 Specimen slight ly (BEAKER) (test hemolyzed code = 358) GLUCOSE RANDOM 112 mg/dL 70-110 H (BEAKER) (test code = 652) CALCIUM (BEAKER) 8.4 mg/dL 8.5-10.5 L (test code = 697) AST (SGOT) 17 U/L 5-40 Specimen slight ly (BEAKER) (test hemolyzed code = 353) ALT (SGPT) 8 U/L 5-50 Specimen slight ly (BEAKER) (test hemolyzed code = 347) EGFR (BEAKER) 68 Interpretatio n of eGFR (test code = 1092) mL/min/1.[address] age Description sq m Result G1 Francisca l or high >=90 G2 Mildly decreased 60-89 G3a Mildl y to moderately 45-5 9 G3b Moderately to s everely 30-44 G4 Severl y decreased 15-29 G5 Kidney failure <15Reported eGF R is based on the CKD-EPI 2020 equation that d oes not use a race coefficientEsti mated GFR is not as accur ate as Creatinine Cherrie luis in predicting glom erular filtration rate . Estimated GFR is not appl icable for dialysis patien ts Printing Plate Clerk ID - JUSTINOperator ID - JUSTINOperator ID - JUSTINOperator ID - JUSTINOperator ID - JUSTINOperator ID - JUSTINOperator ID - JUSTINOperator ID - JUSTINOperator ID - JUSTINOperator ID - JUSTINOperator ID - JUSTINOperator ID - JUSTINOperator ID - JUSTINOperator ID - JUSTINOperator ID - JUSTINOperator ID - JUSTINOperator ID - JUSTINOperator ID - JUSTINOperator ID - JUSTINPROTHROMBIN TIME/[id number] 23:42:41 Test Item Value Reference Range Interpretation Comments PROTIME (BEAKER) 11.6 seconds 9.3-12.0 Final Infor mation (test code = 759) (Auto Outp ut) INR (BEAKER) (test 1.06 See_Comment Final Inf ormation code = 370) (Auto Output) [Automated mess age] The system [employer] generated this result transmitted ref erence range: <=5.90. The reference range was not used to int erpret this result as normal/abnormal . RECOMMENDED COUMADIN/WARFARIN INR THERAPY RANGESSTANDARD DOSE: 2.0 - 3.0 Includes: PROPHYLAXIS for venous thrombosis, systemic embolization; TREATMENT for venous thrombosis and/or pulmonary embolus.HIGH RISK: Target INR is 2.5-3.5 for patients with mechanical heart valves.CBC W/PLT COUNT & AUTO [id number] 23:29:57 Test Item Value Reference Range Interpretation Comments WHITE BLOOD CELL COUNT (BEAKER) 6.5 K/ L 4.0-10.0 (test code = 775) RED BLOOD CELL COUNT (BEAKER) 2.40 M/ L 4.00-5.00 L (test code = 761) HEMOGLOBIN (BEAKER) (test code = 7.7 GM/DL 12.0-15.5 L 410) HEMATOCRIT (BEAKER) (test code = 24.2 % 36.0-46.0 L 411) MEAN CORPUSCULAR VOLUME (BEAKER) 101 fL 82-99 H (test code = 753) MEAN CORPUSCULAR HEMOGLOBIN 32.1 pg 27.0-33.0 (BEAKER) (test code = 751) MEAN CORPUSCULAR HEMOGLOBIN CONC 31.8 GM/DL 32.0-36.0 L (BEAKER) (test code = 752) RED CELL DISTRIBUTION WIDTH 14.1 % 12.0-15.0 (BEAKER) (test code = 412) PLATELET COUNT (BEAKER) (test 190 K/CU MM 150-430 code = 756) MEAN PLATELET VOLUME (BEAKER) 9.5 fL 6.0-11.5 (test code = 754) NUCLEATED RED BLOOD CELLS 0 /100 WBC 0-0 (BEAKER) (test code = 413) NEUTROPHILS RELATIVE PERCENT 56 % (BEAKER) (test code = 429) LYMPHOCYTES RELATIVE PERCENT 35 % (BEAKER) (test code = 430) MONOCYTES RELATIVE PERCENT 8 % (BEAKER) (test code = 431) EOSINOPHILS RELATIVE PERCENT 1 % (BEAKER) (test code = 432) BASOPHILS RELATIVE PERCENT 0 % (BEAKER) (test code = 437) NEUTROPHILS ABSOLUTE COUNT 3.63 K/ L 1.80-8.00 (BEAKER) (test code = 670) LYMPHOCYTES ABSOLUTE COUNT 2.27 K/ L 1.48-4.50 (BEAKER) (test code = 414) MONOCYTES ABSOLUTE COUNT (BEAKER) 0.50 K/ L 0.00-1.30 (test code = 415) EOSINOPHILS ABSOLUTE COUNT 0.08 K/ L 0.00-0.50 (BEAKER) (test code = 416) BASOPHILS ABSOLUTE COUNT (BEAKER) 0.02 K/ L 0.00-0.20 (test code = 417) IMMATURE GRANULOCYTES-RELATIVE 0.30 % 0.00-0.00 H PERCENT (BEAKER) (test code = 2801) POC [id number] 17:17:00 Test Item Value Reference Range Interpretation Comments POC glucose (test 87 mg/dL 65-99 Printing Plate Clerk N justice: Pandya code = 51256-2) CarmenDevice ID: [id number] [facility] [id number] 17:17:00 Test Item Value Reference Range Interpretation Comments POC glucose (test 87 mg/dL 65-99 Printing Plate Clerk N justice: Pandya code = 11192-7) CarmenDevice ID: [id number] [facility] Coronavirus 2019 [id number] 23:10:00 Test Item Value Reference Range Interpretation [...] for the identification of SARS-CoV-2 RNA usingthe Dragonfly List M2000 Sy stem under the FDA Emergen cy UseAuthorizatio n. The testing is perf ormed by russell d in the procedures for the Dragonfly List M2000 molecular diagnostic SARS-CoV-2 assa y in vitro. PROTHROMBIN [id number] 11:28:00 Test Item Value Reference Range Interpretation Comments PROTHROMBIN TIME 14.6 SECONDS 9.3-12.9 H PATIENT (test code = PTP) INTERNATIONAL NORMAL 1.3 0.8-1.2 H TARGET INR BY RATIO (test code = INDICATIO N Indication INR) INR1. Prophylax is of venous thrombos is 2.0 - 3.0 (orthope dic surgery), Proph ylaxis of venous throm bosis [...] (to prevent recurrent infar ct). BASIC METABOLIC [id number] 11:25:00 Test Item Value Reference Range Interpretation [...] 9.6 mg/dL 8.0-10.5 N CA) CBC W/AUTO [id number] 11:15:00 Test Item Value Reference Range Interpretation [...] (test code NO = MDIFF) BASIC METABOLIC [id number] 05:27:00 Test Item Value Reference Range Interpretation [...] 8.5 mg/dL 8.0-10.5 N CA) CBC W/AUTO [id number] 05:17:00 Test Item Value Reference Range Interpretation [...] DIFF REQUIRED (test code NO = MDIFF) [id number] 15:33:00 Test Item Value Reference Range Interpretation Comments ACT-ISTAT (test code 257 SEC 74-137 H Perform ed by certified = ACTI) 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 [facility] [id number] 15:33:00 Test Item Value Reference Range Interpretation Comments ACT-ISTAT (test code 235 SEC 74-137 H Perform ed by certified = ACTI) 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 [facility] [id number] 14:40:00 Test Item Value Reference Range Interpretation Comments ACT-ISTAT (test code 224 SEC 74-137 H Perform ed by certified = ACTI) 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 [facility] - XR CHEST 1 [id number] 00:00:00 [facility] 1935 Sex: F FAX: Baltazar Avendaño MD [phone] Agency: St: ADM FAX: Dhaval Gracia [phone] Name: JOHANNA GUEVARA [facility] : 1935 Age/S: 85/F [address] [place] [address] Unit #: [id number] Loc: [place] [address] Phys: Dhaval Gracia Acct: [id number] Dis Date: Status: ADM IN PHONE #: [phone] Exam Date: 12/10/2020 1623 FAX #: [phone] Reason: S/P WATCHMAN EXAMS: CPT CODE: [id number] XR CHEST 1 V 46350 PROCEDURE INFORMATION: Exam: XR Chest Exam date [...] device placement. 2. No acute findings. at 3387 Reported and signed by: Mark So M.D. CC: Baltazar Oden MD; Clinton Gracia Technologist: RT Karina(R) Trnscrd Date/Time/By: 12/10/2020 (1646) : By: Sandip Orig Print D/T: S: 12/10/2020 (1646) PAGE 1 Signed ReportNovel Coronavirus 2019 [id number] 05:28:00 Test Item Value Reference Range Interpretation [...] for the identification of SARS-CoV-2 RNA usingthe Dragonfly List M2000 Sy stem under the FDA Emergen cy UseAuthorizatio n. The testing is perf ormed by personneltrajaime d in the procedures for the Whipple M2000 molecular diagnostic SARS-CoV-2 assa y in vitro. BASIC METABOLIC [id number] 12:58:00 Test Item Value Reference Range Interpretation [...] code = 9.9 mg/dL 8.0-10.5 N CA) [id number] 12:58:00 Test Item Value Reference Range Interpretation Comments PREALBUMIN (test code = PREALB) 15.9 mg/dL 16.0-40.0 L BASIC METABOLIC [id number] 12:57:00 Test Item Value Reference Range Interpretation [...] code = 9.9 mg/dL 8.0-10.5 N CA) [id number] 12:57:00 Test Item Value Reference Range Interpretation Comments PREALBUMIN (test code = PREALB) mg/dL 16.0-40.0 PROTHROMBIN [id number] 12:50:00 Test Item Value Reference Range Interpretation [...] (to prevent recurrent infar ct). CBC W/AUTO [id number] 12:45:00 Test Item Value Reference Range Interpretation [...] NO = MDIFF) - XR CHEST 2 [id number] 00:00:00 [facility] : 1935 Sex: F FAX: Baltazar Avendaño MD [phone] Agency: St: PRE Name: JOHANNA GUEVARA [facility] : 1935 Age/S: 85/F [address] [place] [address] Unit #: [id number] Loc: [place] [address] Phys: Baltazar Oden MD Acct: [id number] Dis Date: Status: PRE IN PHONE #: [phone] Exam Date: 12/08/2020 1434 FAX #: [phone] Reason: WATCHMAN EXAMS: CPT CODE: [id number] XR CHEST 2 V 21899 PROCEDURE INFORMATION: Exam: XR Chest Exam date [...] shoulders. IMPRESSION: No acute cardiopulmonary process. at 1951 Reported and signed by: Mason Calvert M.D. CC: Baltazar Oden MD Technologist: Virginia Jennings, RT(R) Trnscrd Date/Time/By: 12/08/2020 (1950) : By: [email or web address] Orig Print D/T: S: 12/08/2020 (1950) PAGE 1 Signed Report Notes Date/Time Note Provider Source 2020-12-11 12:04:00-00:00 [facility]) Discharge Summary REPORT#:[id number] REPORT STATUS: Signed DATE:12/11/20 TIME: 1204 PATIENT: JOHANNA GUEVARA UNIT #: [id number] ROOM/BED: [place] [address] : [birth year] AGE: 85 SEX: F ATTEND: Manpreet Oden MD ADM AUTHOR: Dhaval Gracia * ALL edits or amendments must be made on the Mambu/computer document * PCP PCP Discharge to: home General Information Discharge date: 12/11/20 Hospital course: -s/p Watchman implantation per -monitored overnight -hemodynamically stable -R groin soft; no hematoma; suture removed yeste rday -post-op ECHO - no pericardial effusion -resume AC eliquis -d/c home; outpt f/u w/ in 2 weeks Med Rec PCP PCP: PCP: Undefined Provider Med Rec Discharge meds: Continue taking these medications: ASPIRIN EC (ECOTRIN) 81 MG TAB.EC 81 MILLIGRAM ORAL DAILY. MULTIVITAMIN (MULTIPLE VITAMIN) 1 TAB TAB 1 TABLET ORAL DAILY. LORazepam (ATIVAN) 1 MG TAB 1 MILLIGRAM ORAL TWICE DAILY. as needed for ANX IETY CELECOXIB (CeleBREX) 200 MG CAP 200 MILLIGRAM ORAL DAILY. as needed for ARTHRIT IS PAIN GABAPENTIN (NEURONTIN) 300 MG CAP 300 MILLIGRAM ORAL BEDTIME. LANSOPRAZOLE DR (PREVACID) 30 MG CAP.DR 30 MILLIGRAM ORAL TWICE DAILY. traMADol ER (ULTRAM ER) 100 MG TAB.SR.24H 100 MILLIGRAM ORAL TWICE DAILY. VERAPAMIL ER (VERELAN) 240 MG CAP.SR.24H 240 MILLIGRAM ORAL TWICE DAILY. APIXABAN (ELIQUIS) 5 MG TAB 5 MILLIGRAM ORAL TWICE DAILY. Objective VS/I O Last Documented: Result Date Time Pulse Ox 92 12/11 113 B/P 139/85 12/11 1137 B/P Mean 102.6 12/11 1137 O2 Delivery Room air 12/11 1137 Temp 36.7 12/11 1137 Pulse 83 12/11 1137 Resp 18 12/11 1137 24 hour I O ending at 0700: 12/11 0700 12/10 1900 Intake Total 870.00 Output Total 2700 Balance -1830.00 Intake, IV 750.00 Intake, Oral 120 Number Voids 5 Output, Urine 2700 PATIENT WEIGHT: Weight (lb): 180 Weight (oz): 12.46 Weight (kg): 82.000 General appearance: alert, awake, oriented, no a cute distress Cardiovascular: regular rate rhythm Respiratory: clear to auscultation, no distress GI: soft, non-tender Extremities: moves all Neuro/WEIGHT SHIFTER: alert, oriented X 3 Skin: dry Wound/incision: Location: R groin soft; no hematoma Results Findings/Data: Laboratory Tests: 12/11 12/10 12/10 12/10 0355 1454 1443 1431 Chemistry Sodium (134 - 147 mEq/L) 140 Potassium (3.4 - 5.0 mEq/L) 4.0 Chloride (100 - 108 mEq/L) 106 Carbon Dioxide (21 - 33 mEq/l) 27 Anion Gap (0 - 20) 11 BUN (7 - 18 mg/dL) 8 Creatinine (0.6 - 1.3 mg/dL) 0.7 Glomerular Filtr Rate (70 - 80) 96.7 H Glucose (70 - 110 mg/dL) 161 H Calcium (8.0 - 10.5 mg/dL) 8.5 Coagulation Activated Coag Time (74 - 137 SEC) 257 H 235 H 224 H Hematology WBC (4.5 - 11.0 x10 3/uL) 5.6 RBC (3.54 - 5.02 x10 6/uL) 3.83 Hgb (11.0 - 15.0 g/dL) 11.9 Hct (33.0 - 45.0 %) 37.8 MCV (81.0 - 99.0 fL) 98.7 MCH (27.0 - 33.0 pg) 31.1 MCHC (33.0 - 37.0 g/dL) 31.5 L RDW (11.5 - 14.5 %) 13.2 Plt Count (150 - 400 x10 3/uL) 224 MPV (7.0 - 9.0 fL) 9.1 H Neut % (Auto) (56.0 - 77.0 %) 80.3 H Lymph % (Auto) (14.0 - 32.0 %) 16.3 [place] % (Auto) (4.8 - 9.0 %) 2.9 L Eos % (Auto) (0.3 - 3.7 %) 0.0 L Baso % (Auto) (0.0 - 2.0 %) 0.0 Neut # (Auto) (2.0 - 7.6 x10 3/uL) 4.50 Lymph # (Auto) (1.0 - 3.8 x10 3/uL) 0.91 L [place] # (Auto) (0.1 - 0.8 x10 3/uL) 0.16 Eos # (Auto) (0.0 - 0.2 x10 3/uL) 0.00 Baso # (Auto) (0.0 - 0.2 x10 3/uL) 0.00 Abs Immat Gran (auto) (0.00 - 0.03 x10 3/uL) 0. 03 Add Manual Diff NO Immature Gran % (0.0 - 2.0 %) 0.5 Nucleated RBC % (0 - 0 %) 0.0 Nucleated RBCs # (Man) (0.0 - 0.1 x10 3/uL) 0.0 0 Radiology data: Recent Impressions: RADIOLOGY - XR CHEST 1 V 12/10 1623 Report Impression - Status: SIGNED Entered: 12/10/2020 7897 IMPRESSION: 1. Interval atrial appendage occlusion device pl acement. 2. No acute findings. Impression By: Sandip So M.D. Treatments Procedures Treatments Procedures: Left atrial appendage closure using a 27-mm Watc hman FLX closure device. Lab: Chemistry last 24 hrs: 12/11 9855 Chemistry Sodium (134 - 147 mEq/L) 140 Potassium (3.4 - 5.0 mEq/L) 4.0 Chloride (100 - 108 mEq/L) 106 BUN (7 - 18 mg/dL) 8 Creatinine (0.6 - 1.3 mg/dL) 0.7 Glucose (70 - 110 mg/dL) 161 H Hematology last 24 hrs: 12/11 0355 Hematology WBC (4.5 - 11.0 x10 3/uL) 5.6 Hgb (11.0 - 15.0 g/dL) 11.9 Hct (33.0 - 45.0 %) 37.8 Plt Count (150 - 400 x10 3/uL) 224 Neut % (Auto) (56.0 - 77.0 %) 80.3 H Imaging: Recent Impressions: RADIOLOGY - XR CHEST 1 V 12/10 1623 Report Impression - Status: SIGNED Entered: 12/10/2020 1647 IMPRESSION: 1. Interval atrial appendage occlusion device pl acement. 2. No acute findings. Impression By: Sandip So M.D. Discharge Instructions PCP PCP: PCP: Undefined Provider )( Discharge to: Home/Self Care Discharge Instructions Additional Discharge Routines: Attending Follow- Up )( Diet: Cardiac )( Activity: As Tolerated Follow-up Appointments Attending Physician: Attending Physician: Baltazar Oden MD Attending physician follow up timeframe: In 1-2 weeks Consulting provider 1: Provider 1: Baltazar Oden MD Specialty: BOTTOMER OPERATOR Consult follow up timeframe: 2 WEEKS Special instructions: CALL FOR FOLLOW UP APPOINTMENT Electronically Signed by Dhaval Gracia on 0 12/11/20 at 1508 RPT #:[id number] END OF REPORT 2020-12-11 12:04:00-00:00 [facility]ACL [facility] ([facility]) Discharge Summary REPORT#:[id number] REPORT STATUS: Signed DATE:12/11/20 TIME: 1204 PATIENT: JOHANNA GUEVARA UNIT #: [id number] ROOM/BED: 3353-1 : 37 AGE: 85 SEX: F ATTEND: Manpreet Oden MD ADM AUTHOR: Dhaval Gracia * ALL edits or amendments must be made on the Mambu/computer document * PCP PCP Discharge to: home General Information Discharge date: 12/11/20 Hospital course: -s/p Watchman implantation per -monitored overnight -hemodynamically stable -R groin soft; no hematoma; suture removed yeste rday -post-op ECHO - no pericardial effusion -resume AC eliquis -d/c home; outpt f/u w/ in 2 weeks Med Rec PCP PCP: PCP: Undefined Provider Med Rec Discharge meds: Continue taking these medications: ASPIRIN EC (ECOTRIN) 81 MG TAB.EC 81 MILLIGRAM ORAL DAILY. MULTIVITAMIN (MULTIPLE VITAMIN) 1 TAB TAB 1 TABLET ORAL DAILY. LORazepam (ATIVAN) 1 MG TAB 1 MILLIGRAM ORAL TWICE DAILY. as needed for ANX IETY CELECOXIB (CeleBREX) 200 MG CAP 200 MILLIGRAM ORAL DAILY. as needed for ARTHRIT IS PAIN GABAPENTIN (NEURONTIN) 300 MG CAP 300 MILLIGRAM ORAL BEDTIME. LANSOPRAZOLE DR (PREVACID) 30 MG CAP.DR 30 MILLIGRAM ORAL TWICE DAILY. traMADol ER (ULTRAM ER) 100 MG TAB.SR.24H 100 MILLIGRAM ORAL TWICE DAILY. VERAPAMIL ER (VERELAN) 240 MG CAP.SR.24H 240 MILLIGRAM ORAL TWICE DAILY. APIXABAN (ELIQUIS) 5 MG TAB 5 MILLIGRAM ORAL TWICE DAILY. Objective VS/I O Last Documented: Result Date Time Pulse Ox 92 12/11 1137 B/P 139/85 12/11 1137 B/P Mean 102.6 12/11 1137 O2 Delivery Room air 12/11 1137 Temp 36.7 12/11 1137 Pulse 83 12/11 1137 Resp 18 12/11 1137 24 hour I O ending at 0700: 12/11 0700 12/10 1900 Intake Total 870.00 Output Total 2700 Balance -1830.00 Intake, IV 750.00 Intake, Oral 120 Number Voids 5 Output, Urine 2700 PATIENT WEIGHT: Weight (lb): 180 Weight (oz): 12.46 Weight (kg): 82.000 General appearance: alert, awake, oriented, no a cute distress Cardiovascular: regular rate rhythm Respiratory: clear to auscultation, no distress GI: soft, non-tender Extremities: moves all Neuro/WEIGHT SHIFTER: alert, oriented X 3 Skin: dry Wound/incision: Location: R groin soft; no hematoma Results Findings/Data: Laboratory Tests: 12/11 12/10 12/10 12/10 0355 1454 1443 1431 Chemistry Sodium (134 - 147 mEq/L) 140 Potassium (3.4 - 5.0 mEq/L) 4.0 Chloride (100 - 108 mEq/L) 106 Carbon Dioxide (21 - 33 mEq/l) 27 Anion Gap (0 - 20) 11 BUN (7 - 18 mg/dL) 8 Creatinine (0.6 - 1.3 mg/dL) 0.7 Glomerular Filtr Rate (70 - 80) 96.7 H Glucose (70 - 110 mg/dL) 161 H Calcium (8.0 - 10.5 mg/dL) 8.5 Coagulation Activated Coag Time (74 - 137 SEC) 257 H 235 H 224 H Hematology WBC (4.5 - 11.0 x10 3/uL) 5.6 RBC (3.54 - 5.02 x10 6/uL) 3.83 Hgb (11.0 - 15.0 g/dL) 11.9 Hct (33.0 - 45.0 %) 37.8 MCV (81.0 - 99.0 fL) 98.7 MCH (27.0 - 33.0 pg) 31.1 MCHC (33.0 - 37.0 g/dL) 31.5 L RDW (11.5 - 14.5 %) 13.2 Plt Count (150 - 400 x10 3/uL) 224 MPV (7.0 - 9.0 fL) 9.1 H Neut % (Auto) (56.0 - 77.0 %) 80.3 H Lymph % (Auto) (14.0 - 32.0 %) 16.3 Morehouse % (Auto) (4.8 - 9.0 %) 2.9 L Eos % (Auto) (0.3 - 3.7 %) 0.0 L Baso % (Auto) (0.0 - 2.0 %) 0.0 Neut # (Auto) (2.0 - 7.6 x10 3/uL) 4.50 Lymph # (Auto) (1.0 - 3.8 x10 3/uL) 0.91 L Morehouse # (Auto) (0.1 - 0.8 x10 3/uL) 0.16 Eos # (Auto) (0.0 - 0.2 x10 3/uL) 0.00 Baso # (Auto) (0.0 - 0.2 x10 3/uL) 0.00 Abs Immat Gran (auto) (0.00 - 0.03 x10 3/uL) 0. 03 Add Manual Diff NO Immature Gran % (0.0 - 2.0 %) 0.5 Nucleated RBC % (0 - 0 %) 0.0 Nucleated RBCs # (Man) (0.0 - 0.1 x10 3/uL) 0.0 0 Radiology data: Recent Impressions: RADIOLOGY - XR CHEST 1 V 12/10 1622 Report Impression - Status: SIGNED Entered: 12/10/20201646 IMPRESSION: 1. Interval atrial appendage occlusion device pl acement. 2. No acute findings. Impression By: Sandip So M.D. Treatments Procedures Treatments Procedures: Left atrial appendage closure using a 27-mm Watc hman FLX closure device. Lab: Chemistry last 24 hrs: 12/11 0355 Chemistry Sodium (134 - 147 mEq/L) 140 Potassium (3.4 - 5.0 mEq/L) 4.0 Chloride (100 - 108 mEq/L) 106 BUN (7 - 18 mg/dL) 8 Creatinine (0.6 - 1.3 mg/dL) 0.7 Glucose (70 - 110 mg/dL) 161 H Hematology last 24 hrs: 12/11 0355 Hematology WBC (4.5 - 11.0 x10 3/uL) 5.6 Hgb (11.0 - 15.0 g/dL) 11.9 Hct (33.0 - 45.0 %) 37.8 Plt Count (150 - 400 x10 3/uL) 224 Neut % (Auto) (56.0 - 77.0 %) 80.3 H Imaging: Recent Impressions: RADIOLOGY - XR CHEST 1 V 12/10 1622 Report Impression - Status: SIGNED Entered: 12/10/20201646 IMPRESSION: 1. Interval atrial appendage occlusion device pl acement. 2. No acute findings. Impression By: Sandip So M.D. 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 AGE: 85 REPORT TYPE: eECHOCARDIOGRAM REPORT SEX: F ADMITTING PHYSICIAN:Baltazar Oden MD ATTENDING PHYSICIAN:Balatzar Oden MD *[place] [address] Limited Transthoracic Echocardiogram Patient: Johanna Guevara Study Date: 12/10/2020 BP: 165 / 86 Location: [facility] URN: [id number] : 1935 Age: 85 Height: 66 in / 167.6 cm Gender: F Weight: 179 .6 lb / 81.6 kg BMI/BSA: 29.1 kg/m 2 / 1.97 m 2 *Ordering Physician: * Dhaval Gracia *Interpreting Physician: * Akshat Ledesma MD *Planned Giving Officer: * Esther Ramires Indications: POST WATCHMAN. Study data: Transthoracic echocardiogram, limite d study. Procedure: Transthoracic echocardiography was performed. Im age quality was adequate. Limited 2D and limited spectral Dopple r. Location: Bedside. Patient status: Inpatient. Patient room number: CHIC. Study status: Routine. Findings Left ventricle: The cavity size is normal. Wall thickness is normal. Systolic function is normal. The estimated eject ion fraction is 55-60%. Wall motion is normal; there are no regional wal l motion abnormalities. Left atrium: The atrium is normal in size. Pericardium: There is no pericardial effusion. PATIENT NAME: JOHANNA GUEVARA [id number] Measurements Left ventricle Value Ref PHILLY, LAX 4.4 cm 3.8 - 5.2 ESD, LAX 3.0 cm 2.2 - 3.5 ESD/bsa, LAX 1.5 cm/m 2 1.3 - 2.1 FS, LAX 31 % 27 - 45 ESD/bsa major ax, A4C 3.1 cm/m 2 --------- PHILLY/bsa minor ax, A4C 3.1 cm/m 2 --------- PHILLY major ax, A2C 7.4 cm --------- PHILLY/bsa major ax, A2C 3.7 cm/m 2 --------- PW, ED 1.0 cm 0.6 - 0.9 IVS/PW, ED 1.06 --------- EF 58 % 54 - 74 LVOT Value Ref Diam, S 1.99 cm --------- Area 3.1 cm 2 --------- Ventricular septum Value Ref IVS, ED 1.0 cm 0.6 - 0.9 Right ventricle Value Ref PHILLY, LAX 2.8 cm --------- Left atrium Value Ref Vol/bsa, ES, 1-p A4C 25 ml/m 2 11 - 40 Vol/bsa, ES, A/L 27 ml/m 2 16 - 34 AP dim, ES MM 4.5 cm 2.7 - 3.8 LA/Ao root ratio, MM 1.54 --------- Aortic valve Value Ref Leaflet sep, MM 2.00 cm --------- Mitral valve Value Ref E-septal separation 0.5 cm --------- E-F slope 0.07 m/sec --------- Aortic root Value Ref Root diam, ED MM 2.89 cm --------- Conclusions Summary: 1. Left ventricle: The cavity size is normal. Wa ll thickness is normal. Systolic function is normal. The estimated ejec tion fraction is 55-60%. Wall motion is normal; there are no reg ional wall motion abnormalities. 2. Left atrium: The atrium is normal in size. 3. Pericardium, extracardiac: There is no perica rdial effusion. PATIENT NAME: JOHANNA GUEVARA ANN [id number] Prepared and electronically signed by Akshat Ledesma MD 12/10/2020 19:08 Electronically Signed by Baltazar Oden MD on at 1909 PATIENT NAME: JOHANNA GUEVARA [id number] 15:52:00-00:00 [id number] [place] [address] PATIENT NAME: JOHANNA GUEVARA ADMIT DATE: 12/10 ACCOUNT NO: [id number] ROOM NO: G.CHIC AGE: 85 REPORT TYPE: eELECTROCARDIOGRAM REPORT SEX: F ADMITTING PHYSICIAN:Baltazar Oden MD ATTENDING PHYSICIAN:Baltazar Oden MD Order: [id number] Test Reason : WATCHMAN Test Date/Time Stamp: TueDec 10 2020 15:52:19 Blood Pressure : / mmHG Vent. Rate : 071 BPM Atrial Rate : 071 BPM P-R Int : 192 ms QRS Dur : 076 ms QT Int : 454 ms P-R-T Axes : 079 078 079 degree s QTc Int : 493 ms Normal sinus rhythm ST elevation, consider early repolarization, per icarditis, or injury Prolonged QT Abnormal ECG When compared with ECG of 08-DEC-2020 12:34, No significant change was found Confirmed by WALDEMAR FINK MD ([id number]) on 12/11/19 21 7:03:52 PM Referred By: Baltazar Oden Confirmed by:WALDEMAR SALAS MD at 1904 PATIENT NAME: JOHANNA GUEVARA [id number] 15:24:00-00:00 [id number] [place] [id number] PATIENT NAME: JOHANNA GUEVARA ADMIT DATE: 12/10 ACCOUNT NO: [id number] ROOM NO: G.3353 AGE: 85 REPORT TYPE: OPERATIVE REPORT SEX: F ADMITTING PHYSICIAN:Baltazar Oden MD ATTENDING PHYSICIAN:Baltazar Oden MD OPERATION DATE: 12/10/2020 PREOPERATIVE DIAGNOSIS: POSTOPERATIVE DIAGNOSIS: PROCEDURE PERFORMED: Left atrial appendage closu re using a 27-mm Watchman FLX closure device. SURGEON: Baltazar Oden MD BRAKE REPAIRER RAILROAD: ANESTHESIA: INDICATIONS: Paroxysmal atrial fibrillation with history of TIA and inability to take anticoagulants due to falls and GI bleed . ACCESS: Right femoral vein, 16-Tongan closed wit h [id number] suture. COMPLICATIONS: None. BLEEDING: Less than 50 mL. PROCEDURE IN DETAIL: After risks, benefits, and alternatives were explained, the patient agreed to proceed and signed informe d consent. The patient was brought into the cardiac catheterization laboratory, prepped and draped in the usual sterile fashion and th en general anesthesia was applied and HORACIO probe was inserted and preprocedure HORACIO was performed. No thrombus was found in the appendage. I then took micropuncture kit and und er the ultrasound guidance, accessed the right femoral vein and placed an 8- Tongan [place] sheath and upgraded to 16-Tongan Cook sheath and gave parti al dose of heparin. Subsequently, took a SL1 she ath into the SVC and then the [place] needle inside, we descended under the val nce of HORACIO and fluoroscopy into the low mid position and transseptal puncture was done succes sfully. LA pressure was 10 mmHg. Then, I took a ProTrack wire into the left atrium and we gave full dose heparin to assure ACT level above 250 t hroughout the procedure. I then took a double curve Watchman sheath into the LA and navigated it into the appendage over the pigtail and then the angiogram was done of the appendage and determined 27-mm device will be suitable for closure. Attempted to deploy a 27-mm device; however, the appendage was very deep anteriorly, could not re ach it with a double curve sheath, so we captured the d evice and then removed it outside the body and then exchanged for a single anter ior curve sheath and placed it in the appendage over PATIENT NAME: JOHANNA GUEVARA [id number] the pigtail and then I took a new 27-mm Watchman FLX closure device into the sheath and under fluoroscopy and HORACIO guidance, t he device was deployed in position. Then, PASS criteria were evalu ated and were all met such. The device was released in position and remained stable. Then, removed the Watchman sheath and the Cook sheath and placed a [id number] suture with good hemostasis. CONCLUSION: Successful left atrial appendage martha sure using 27-mm Watchman FLX closure device. PLAN: Eliquis for 6 weeks, at which time a HORACIO will be performed and then plan to discontinue it if satisfactory closure. Dictated By: Baltazar Oden MD WT: OP:PEREZ/TANIA/ESTEVAN Conf#: [id number]/DID#: [id number] Authenticated by Baltazar Oden MD On 12/23/2020 11:48:02 AM Electronically Signed by Baltazar Oden MD on at 1148 PATIENT NAME: JOHANNA GUEVARA [id number] 17:14:00-00:00 HCACL [facility]) Consultation Note - Brief REPORT#:[id number] REPORT STATUS: Signed DATE:12/08/20 TIME: 1714 PATIENT: JOHANNA GUEVARA UNIT #: [id number] ROOM/BED: : 37 AGE: 85 SEX: F ATTEND: Manpreet Oden MD ADM AUTHOR: Tony Alexander DO * ALL edits or amendments must be made on the Mambu/computer document * History of Present Illness HPI Requesting Clinician: Dr Oden Reason for consult: WATCHMAN pre-op evaluation PCP: PCP: Daysi Templeton MD History of present illness: 85-year-old female with past medical history of atrial fibrillation on, diverticulitis, rheumatoid arthritis, ne uropathy, anxiety, GERD, hypertension, and stroke in 2000 with residual right-s ided weakness presents to hospital for preop evaluation for watchman procedure. She is not currently on anticoagulation, reports that she had diverticul ar bleeding. Her [id number] score is 6 and her has bled score is 4. The NICE questionnaire was reviewed with her and all questions were answered. History - Adult longitudinal Additional medical history: Atrial fibrillation Diverticulitis Rheumatoid arthritis Neuropathy Anxiety GERD Hypertension Stroke Additional surgical history: Bilateral total knee replacement Bilateral shoulder surgery Colon resection Appendectomy Additional family history: Denies Alcohol use: Denies EtOH use Drug use: Denies recreational drugs Smoking status: Smoking status for patients 13 years old or old er: Never Smoker Medications: Home Medications: Medication Dose/Rte/Freq Days Qty Entered Last Max Daily Dose Reviewed ASPIRIN EC (ECOTRIN) 81 MG PO DAILY 12/08/20 Strength: 81 MG TAB.EC 1246 MULTIVITAMIN 1 TAB PO DAILY 12/08/20 (MULTIPLE VITAMIN) 1247 Strength: 1 TAB TAB LORazepam (ATIVAN) 1 MG PO 12/08/20 Strength: 1 MG TAB BID PRN ANXIETY 1247 CELECOXIB (CeleBREX) 200 MG PO 12/08/20 Strength: 200 MG CAP DAILY PRN ARTHRITIS 1248 PAIN GABAPENTIN (NEURONTIN) 300 MG PO BEDTIME Strength: 300 MG CAP [address] 30 MG PO BID 12/08/20 (PREVACID) 1249 Strength: 30 MG CAP.DR traMADol ER (ULTRAM ER) 100 MG PO BID 12/08/20 Strength: 100 MG 1249 TAB.SR.24H VERAPAMIL ER (VERELAN) 240 MG PO BID 12/08/20 Strength: 240 MG 1249 CAP.SR.24H Current Hospital Medications: Cardiovascular Drugs Sig/Thierno Start time Last Medication Dose Route Stop Time Status Admin Lidocaine HCl 2 ML PREOP ONCALL 12/08 1345 AC (LIDOCAINE HCL/PF) LOCAL 01/07 2359 Lidocaine HCl 2 ML PREOP ONCALL 12/08 1345 AC (LIDOCAINE HCL/PF) LOCAL 01/07 235 Central Nervous System Agents Sig/Thierno Start time Last Medication Dose Route Stop Time Status Admin Acetaminophen 1,000 MG PREOP ONCALL 12/08 1345 CKD (TYLENOL EXTRA PO 01/07 2359 STRENGTH) Electrolytic, Caloric, And Gildardo Sig/Thierno Start time Last Medication Dose Route Stop Time Status Admin Lactated Ringer's 1,000 ML PREOP ONCALL 12/08 1 345 AC (LACTATED RINGERS) IV 01/07 2359 Sodium Chloride 500 ML PREOP ONCALL 12/08 1345 AC (SODIUM CHLORIDE IV 01/07 2359 0.9%) Sodium Chloride 500 ML PREOP ONCALL 12/08 1345 AC (SODIUM CHLORIDE IV 01/07 2359 0.9%) Sodium Chloride 1,000 ML PREOP ONCALL 12/08 134 5 AC (SODIUM CHLORIDE IV 08/18 2359 0.9%) Sodium Chloride 5 ML ASDIR PRN 12/08 1345 AC (SODIUM CHLORIDE) IV 01/07 1344 Sodium Chloride 10 ML ASDIR PRN 12/08 1345 AC (SODIUM CHLORIDE) IV 01/07 1344 Sodium Chloride 250 ML ASDIR PRN 12/08 1345 AC (SODIUM CHLORIDE IV 01/07 1344 0.9%) Allergies: Coded Allergies: codeine (Severe, ITCHING 12/08/20) Brief Consult Note Physical Exam General appearance: alert, awake, oriented HEENT: mucosal membranes moist, pupils reactive to light Neck: non-tender Cardiovascular: normal capillary refill, normal heart sounds Respiratory: clear to auscultation, aerating wel l Abdomen: soft, non-tender Neuro/WEIGHT SHIFTER: alert, oriented X 3 Skin: dry, intact Findings/Data: Laboratory Tests 12/08/20 1218: [Embedded Image Not Available] Problem List/A P: 1. Afib A P Patient seen for preop watchman evaluat ion. [id number] score is 6, has bled score is 4. The NICE questio nnaire was reviewed with patient, all questions were answered. Patient appears to be a good candidate for watchman procedure. at 1721 RPT #:[id number] END OF REPORT 2020-12-08 12:34:00-00:00 [id number] [place] [address] PATIENT NAME: JOHANNA GUEVARA ADMIT DATE: ACCOUNT NO: [id number] ROOM NO: AGE: 85 REPORT TYPE: eELECTROCARDIOGRAM REPORT SEX: F ADMITTING PHYSICIAN:Baltazra Oden MD ATTENDING PHYSICIAN:Baltazar Oden MD Order: [id number] Test Reason : PREOP Test Date/Time Stamp: TueDec 08 2020 12:34:04 Blood Pressure : / mmHG Vent. Rate : 071 BPM Atrial Rate : 071 BPM P-R Int : 174 ms QRS Dur : 076 ms QT Int : 408 ms P-R-T Axes : 049 065 076 degree s QTc Int : 443 ms Normal sinus rhythm ST elevation, consider early repolarization, per icarditis, or injury Abnormal ECG No previous ECGs available Confirmed by ALICIA PACHECO ([id number]) on 9:00:26 AM Referred By: Baltazar Oden Confirmed by:ALICIA PACHECO at 0900 PATIENT NAME: JOHANNA GUEVARA ANN [id number]
[2022-11-29 10:04] LABS: Absolute Lymphocytes (CBC) 1.5 K/uL (0.7-4.9); Hematocrit 40.9 % (36.0-45.0); Lymphocytes % 40.9 % (15.3-44.8); MCV 98.1 fL (80-100); MPV 6.7 fL (7.6-11.3); RBC Red Blood Cell Count 4.17 M/uL (3.86-4.86)
[2022-11-29 10:18] LABS: Albumin 3.4 g/dL (3.4-5.0); Bilirubin Direct 0.1 mg/dL (0-0.2); Bilirubin Indirect, Calculated 0.4 mg/dL (0.2-0.8); Bilirubin Total 0.5 mg/dL (0.2-1.0); Protein, Total 7.6 g/dL (6.4-8.2); Troponin High Sensitivity 8.3 pg/mL (<58.9)
[2022-11-29] MEDS ORDERED: ONDANSETRON 4 MG/2 ML VIAL ONE (10:23)
[2022-11-29] MEDS ORDERED: MORPHINE 2 MG/ML SYR ONE (10:23)
--- NOTE | 2022-11-29 11:10 | RAD REPORT ---
EXAM DESCRIPTION: RADChest Single View11/29/2022 9:57 am CLINICAL HISTORY: Chest pain;Cough COMPARISON: Chest Single View dated 10/30/2020; Chest Single View dated 07/31/2019; Chest Single View dated 02/10/2019; Chest Pa And Lat (2 Views) dated 10/20/2017; Chest For Pe Angio dated 11/29/2022 TECHNIQUE: Portable AP view of the chest. FINDINGS: The lungs are clear. No pneumothorax or effusion. The cardiomediastinal contours are unch anged, again with tortuosity of the ascending aorta. Shadowing density in the retrocardiac region is stable, and likely also relates to tortuosity. IMPRESSION: No acute cardiopulmonary process.
--- NOTE | 2022-11-29 11:31 | RAD REPORT ---
EXAM DESCRIPTION: CT - Chest For Pe Angio - 11/29/2022 10:38 am CLINICAL HISTORY: CHEST PAIN COMPARISON: Chest Single View dated 11/29/2022 TECHNIQUE: Thin axial CT images of the chest were obtained following administration of 100 mL Isovue 370 IV contrast. Multiplanar reconstructions, and maximum intensity projection reconstructions were generated and reviewed. Exam utilizes a protocol for optimal evaluation of pulmonary arterial tree. All CT scans are performed using dose optimization technique as appropriate and may include automated exposure control or mA/KV adjustment according to patient size. FINDINGS: Pulmonary arteries are normal. No emboli or other suspicious finding. No acute or signific ant aorta findings. Left atrial appendage occlusion device in place. No mass or infiltrate in the lung parenchyma. Right posterior costophrenic angle 6 millimeter calcifi ed granuloma is incidentally noted. No pleural thickening or pleural effusion. No pneumothorax. No abnormal mediastinal or hilar masses or lymphadenopathy seen. No chest wall mass or abnormal axill iary lymphadenopathy. No suspicious osseous abnormality. Midthoracic dextroconvex scoliosis noted. IMPRESSION: No evidence of acute central pulmonary emboli. No other acute chest process.
--- NOTE | 2022-11-29 12:18 | RAD REPORT ---
EXAM DESCRIPTION: US - Extremity Venous Uni Ltd - 11/29/2022 10:53 am CLINICAL HISTORY: Pain COMPARISON: None. TECHNIQUE: Real-time sonographic evaluation of the right lower extremity deep venous system was perf ormed. FINDINGS: Normal compressibility, flow augmentation, phasic flow and spontaneous flow is identified in the right lower extremity deep venous system. No intraluminal filling defects seen. IMPRESSION: No DVT in the right lower extremity.
--- NOTE | 2022-11-29 13:09 | EDPHYS ---
Physician Documentation [facility] Name: Johanna Guevara Age: 87 yrs Sex: Female : 1935 Arrival Date: 11/29/2022 Time: 09:34 Bed 20 Private MD: ED Physician Ildefonso Tuttle HPI: 11/29 10:17 This 87 yrs old Black Female presents to ER via EMS with complaints of Chest Pain, Knee rn Pain. 10:17 The patient or guardian reports chest pain that is located primarily in the anterior rn chest wall, left. Onset: just prior to arrival. The pain radiates to back. Associated signs and symptoms: Pertinent positives: shortness of breath, Pertinent negatives: abdominal pain, headache, palpitations, syncope. The chest pain is described as sharp, stabbing. Duration: The patient or guardian reports multiple episodes, that are intermittent. Modifying factors: The symptoms are alleviated by nothing. the symptoms are aggravated by nothing. 10:18 Severity of pain: At its worst the pain was mild in the emergency department the pain rn is unchanged. The patient has not experienced similar symptoms in the past. The patient has not recently seen a physician. Pt reports chest pain, left sided, started this AM, no trauma, no hx of dvt/PE. Denies abd pain/vomiting/diarrhea. Also reports chronic pain to RLE. Has had stroke in past with residual right sided weakness. No fever. + asthma. . 10:49 Pt also reports dizziness and generalized weakness. . rn Historical: - Allergies: 09:45 Codeine; eh3 - PMHx: 09:45 CVA; Diverticulitis; hemorrhoids; Hypertension; Arthritis; eh3 - PSHx: 09:45 Cholecystectomy; eh3 - Immunization history:: Adult Immunizations up to date. - Social history:: Smoking status: unknown. - Family history:: not pertinent. - Hospitalizations: : No recent hospitalization is reported. ROS: 10:18 Constitutional: Negative for fever, chills, and weight loss, Neck: Negative for injury, rn pain, and swelling, Cardiovascular: Negative for palpitations Respiratory: Negative for cough, wheezing Abdomen/GI: Negative for abdominal pain, nausea, vomiting, diarrhea, and constipation, MS/Extremity: Negative for injury and deformity, Skin: Negative for injury, rash, and discoloration, Neuro: Negative for headache, numbness, tingling, and seizure. Exam: 10:01 ECG was reviewed by the Attending Physician. rn 10:18 Constitutional: This is a well developed, well nourished patient who is awake, alert, rn and in no acute distress. Head/Face: Normocephalic, atraumatic. Cardiovascular: Regular rate and rhythm. No pulse deficits. Respiratory: No increased work of breathing, no retractions or nasal flaring. Abdomen/GI: soft, non-tender Skin: Warm, dry with normal turgor. Normal color with no rashes, no lesions, and no evidence of cellulitis. MS/ Extremity: RLE slightly greater circumference when compared to LLE Neuro: Awake and alert, GCS 15, oriented to person, place, time, and situation. Baseline RUE/RLE weakness. Vital Signs: 09:53 BP 165 / 89; Pulse 70; Resp 16; Temp 98.4(O); Pulse Ox 95% on R/A; Pain 8/10; eh3 10:45 BP 156 / 90; Pulse 69; Resp 17; Pulse Ox 94% on R/A; eh3 11:45 BP 148 / 87; Pulse 79; Resp 20; Pulse Ox 95% on R/A; eh3 12:45 BP 169 / 94; Pulse 75; Resp 16; Pulse Ox 95% on R/A; eh3 09:53 Pain Scale: Adult eh3 MDM: 09:37 Patient medically screened. rn 13:07 Differential diagnosis: acute myocardial infarction, acute pericarditis, anxiety, rn coronary artery disease chest wall pain, congestive heart failure costochondritis, esophagitis, gastritis, gastroesophageal reflux disease (GERD), pericarditis, pleurisy, pneumonia, pneumothorax, pulmonary embolus, stable angina, thoracic aortic disection, unstable angina. Data reviewed: vital signs, nurses notes, lab test result(s), EKG, radiologic studies, CT scan, plain films, ultrasound, and as a result, I will discharge patient. Counseling: I had a detailed discussion with the patient and/or guardian regarding: the historical points, exam findings, and any diagnostic results supporting the discharge/admit diagnosis, lab results, radiology results, the need for outpatient follow up, to return to the emergency department if symptoms worsen or persist or if there are any questions or concerns that arise at home. Response to treatment: the patient's symptoms have markedly improved after treatment, Eating and sitting upright, feels much better. , and as a result, I will discharge patient. Special discussion: Based on the patient's history, exam, and Dx evaluation, there is no indication for emergent intervention or inpatient Tx. It is understood by the patient/guardian that if the Sx's persist or worsen they need to return immediately for re-evaluation. I discussed with the patient/guardian in detail that at this point there is no indication for admission to the hospital. It is understood, however, that if the symptoms persist or worsen the patient needs to return immediately for re-evaluation. Based on the history and exam findings, there is no indication for further emergent testing or inpatient evaluation. I discussed with the patient/guardian the need to see the primary care provider for further evaluation of the symptoms. ED course: Trop neg x 2, no STEMI on ECG, CT PE grossly neg, no acute findings in blood or ultrasound either. . 11/29 09:38 Order name: Basic Metabolic Panel; Complete Time: 10:11/29 09:38 Order name: CBC with Diff; Complete Time: 11:11/29 09:38 Order name: LFT's; Complete Time: :11/29 09:38 Order name: NT PRO-BNP; Complete Time: :11/29 09:38 Order name: PT-INR; Complete Time: 10:11/29 09:38 Order name: Troponin HS; Complete Time: :11/29 11:57 Order name: Troponin High Sensitivity; Complete Time: 13:03 11/29 09:38 Order name: XRAY Chest (1 view); Complete Time: 11:11/29 09:38 Order name: Extremity Venous Uni Ltd US; Complete Time: 12:39 11/29 09:38 Order name: CT Chest For PE Angio; Complete Time: 11:56 11/29 09:38 Order name: EKG; Complete Time: 09:39 11/29 09:38 Order name: Cardiac monitoring; Complete Time: 09:50 11/29 09:38 Order name: EKG - Nurse/Tech; Complete Time: 09:50 11/29 09:38 Order name: IV Saline Lock; Complete Time: :50 11/29 09:38 Order name: Labs collected and sent; Complete Time: 09:50 rn 11/29 09:38 Order name: O2 Per Protocol; Complete Time: rn 11/29 09:38 Order name: O2 Sat Monitoring; Complete Time: rn EC:01 Rate is 68 beats/min. Rhythm is regular. QRS [place] is Normal. [place] interval is normal. QRS rn interval is normal. QT interval is normal. No Q waves. T waves are Normal. No ST changes noted. Clinical impression: NSR w/ Non-specific ST/T Changes. Interpreted by me. Reviewed by me. Administered Medications: 10:20 Drug: Ondansetron IVP 4 mg Route: IVP; Site: left forearm; 3 11:00 Follow up: Response: No adverse reaction 3 10:21 Drug: morphine IVP or IV 2 mg Route: IVP; Infused Over: 4 mins; Site: left forearm; eh3 11:00 Follow up: Response: No adverse reaction; Pain is decreased 3 Disposition Summary: 11/29/22 13:09 Discharge Ordered Location: Home rn Problem: new rn Symptoms: have improved rn Condition: Stable rn Diagnosis - Chest pain, unspecified rn Followup: rn - With: Private Physician - When: As needed - Reason: Recheck today's complaints, Re-evaluation by your physician Discharge Instructions: - Discharge Summary Sheet rn - Nonspecific Chest Pain, Adult rn - Hypertension, Adult rn - Pain Without a Known Cause rn Forms: - Medication Reconciliation Form rn - Thank You Letter rn - Antibiotic rn dermatology - Prescription Opioid Use rn - [email or web address] rn Signatures: Dispatcher [employer] Ildefonso Marquez MD MD rn Hall, Erin, RN RN [facility]
--- NOTE | 2022-11-29 13:09 | ER ---
Nurse's Notes [facility] Name: Johanna Guevara Age: 87 yrs Sex: Female : 1935 Arrival Date: 11/29/2022 Time: 09:34 Bed 20 Private MD: Diagnosis: Chest pain, unspecified Presentation: 11/29 09:53 Chief complaint: EMS states: left sided chest pain started 30 minutes ago, pt c/o eh3 dizziness and pain gets worse with inspiration/expiration, also c/o right knee pain. Coronavirus screen: Vaccine status: Patient reports receiving the 2nd dose of the covid vaccine. Ebola Screen: No symptoms or risks identified at this time. Initial Sepsis Screen: Does the patient meet any 2 criteria? No. Patient's initial sepsis screen is negative. Does the patient have a suspected source of infection? No. Patient's initial sepsis screen is negative. Risk Assessment: Do you want to hurt yourself or someone else? Patient reports no desire to harm self or others. Onset of symptoms. 09:53 Method Of Arrival: EMS: [facility] 09:53 Acuity: JAIME 3 eh3 Triage Assessment: 09:45 General: Appears in no apparent distress. uncomfortable, Behavior is calm, cooperative, eh3 appropriate for age. Pain: Complains of pain in chest Pain radiates to back Pain currently is 8 out of 10 on a pain scale. Pain began 30 min ago. Neuro: Level of Consciousness is awake, alert, obeys commands, Oriented to person, place, time, situation. Cardiovascular: Capillary refill < 3 seconds Patient's skin is warm and dry. Respiratory: Airway is patent Respiratory effort is even, unlabored, Respiratory pattern is regular, symmetrical. GI: Abdomen is round non-distended. Derm: Skin is pink, warm \T\ dry. Musculoskeletal: Reports pain in right knee. Historical: - Allergies: 09:45 Codeine; eh3 - PMHx: :45 CVA; Diverticulitis; hemorrhoids; Hypertension; Arthritis; eh3 - PSHx: 09:45 Cholecystectomy; eh3 - Immunization history:: Adult Immunizations up to date. - Social history:: Smoking status: unknown. - Family history:: not pertinent. - Hospitalizations: : No recent hospitalization is reported. Screenin:45 [facility] ED Fall Risk Assessment (Adult) Score/Fall Risk Level 0 - 2 = Low Risk. Abuse eh3 screen: Denies threats or abuse. Denies injuries from another. Nutritional screening: No deficits noted. Tuberculosis screening: No symptoms or risk factors identified. Assessment: 09:45 Reassessment: No changes from previously documented assessment. See triage assessment. eh3 Pain: Complains of pain in right knee and chest Pain radiates to back Pain currently is 8 out of 10 on a pain scale. Quality of pain is described as pressure, sharp, Pain began 30 min ago. Is continuous. 10:45 Reassessment: Patient appears in no apparent distress at this time. Patient and/or eh3 family updated on plan of care and expected duration. Pain level reassessed. Patient is alert, oriented x 3, equal unlabored respirations, skin warm/dry/pink. 11:45 Reassessment: Patient appears in no apparent distress at this time. Patient and/or eh3 family updated on plan of care and expected duration. Pain level reassessed. Patient is alert, oriented x 3, equal unlabored respirations, skin warm/dry/pink. 12:45 Reassessment: Patient appears in no apparent distress at this time. Patient and/or eh3 family updated on plan of care and expected duration. Pain level reassessed. Patient is alert, oriented x 3, equal unlabored respirations, skin warm/dry/pink. Vital Signs: 09:53 BP 165 / 89; Pulse 70; Resp 16; Temp 98.4(O); Pulse Ox 95% on R/A; Pain 8/10; eh3 10:45 BP 156 / 90; Pulse 69; Resp 17; Pulse Ox 94% on R/A; eh3 11:45 BP 148 / 87; Pulse 79; Resp 20; Pulse Ox 95% on R/A; eh3 12:45 BP 169 / 94; Pulse 75; Resp 16; Pulse Ox 95% on R/A; eh3 09:53 Pain Scale: Adult 3 ED Course: 09:37 Patient arrived in ED. rn 09:37 Ildefonso Tuttle MD is Attending Physician. rn 09:40 Emily Viveros RN is Primary Nurse. eh3 09:45 Patient maintains SpO2 saturation greater than 95% on room air. eh3 09:45 Arm band placed on. eh3 09:45 Patient has correct armband on for positive identification. Bed in low position. Call eh3 light in reach. Side rails up X2. Provided Education on: N/A. Client placed on continuous cardiac and pulse oximetry monitoring. NIBP monitoring applied. Warm blanket given. 09:50 Inserted saline lock: 22 gauge in left forearm, using aseptic technique. Blood ds4 collected. 09:55 Triage completed. eh3 09:59 XRAY Chest (1 view) In Process Unspecified. EDMS 10:39 CT Chest For PE Angio In Process Unspecified. EDMS 10:53 Extremity Venous Uni Ltd US In Process Unspecified. EDMS 13:27 No provider procedures requiring assistance completed. IV discontinued, intact, eh3 bleeding controlled, No redness/swelling at site. Pressure dressing applied. Administered Medications: 10:20 Drug: Ondansetron IVP 4 mg Route: IVP; Site: left forearm; eh3 11:00 Follow up: Response: No adverse reaction eh3 10:21 Drug: morphine IVP or IV 2 mg Route: IVP; Infused Over: 4 mins; Site: left forearm; eh3 11:00 Follow up: Response: No adverse reaction; Pain is decreased eh3 Medication: 13:27 VIS not applicable for this client. eh3 Outcome: 13:09 Discharge ordered by . rn 13:43 Discharged to home via wheelchair, with family. eh3 13:43 Condition: stable 13:43 Discharge instructions given to patient, family, Instructed on discharge instructions, follow up and referral plans. Demonstrated understanding of instructions, follow-up care. 13:43 Patient left the ED. eh3 Signatures: Dispatcher [employer] EDMS Ildefonso Tuttle MD MD rn Swanson, Donovan ds4 Emily Viveros RN RN eh3 Corrections: (The following items were deleted from the chart) 10:01 10:01 Pain: Complains of pain in right knee and back and chest eh3 eh3 10:02 10:01 Reassessment: No changes from previously documented assessment. See triage eh3 assessment eh3 10:02 10:01 Pain: Complains of pain in right knee and back and chest Pain currently is 8 out eh3 of 10 on a pain scale. Quality of pain is described as pressure, sharp, Pain began 30 min ago. Is continuous, eh3 10:02 10:01 Pain: Complains of pain in right knee and chest Pain radiates to back Pain eh3 currently is 8 out of 10 on a pain scale. Quality of pain is described as pressure, sharp, Pain began 30 min ago. Is continuous, eh3
[2022-11-29 14:05] VITALS: TEMP 98.4
[2022-11-29 14:09] VITALS: O2SAT 95
[2022-11-29 14:10] VITALS: BP 169/94
--- NOTE | 2022-11-30 20:26 | EKG ---
Test Date: 2022-11-29 Test Time: 09:45:52 [employer]ber: ROBERT MEASUREMENT RESULTS: Intervals: Rate: 68 LA: 180 QRSD: 72 QT: 446 QTc: 474 [place]: P: 85 LA: 180 QRS: 74 T: 83 INTERPRETIVE STATEMENTS: Normal sinus rhythm Biatrial enlargement ST elevation, consider early repolarization, pericarditis, or injury Abnormal ECG Compared to ECG 10/30/2020 17:17:39 No significant changes Electronically Signed On 11-30-22 20:23:55 CDT by Nic Alvarez
== END 2022-11-29 13:43 | disposition home or self-care (01) ==
LOC: ER 09:34
DX: R07.89 Other chest pain (principal); R53.1 Weakness; R42 Dizziness and giddiness; I10 Essential (primary) hypertension; Z88.5 Allergy status to narcotic agent
CPT/HCPCS: 93005; 85025; 80048; 36415; 85610; 80076; 84484 ×2; 83880; 71275; 71045; 93971; 96375; 96374; 99285; Q9967; J2270; J2405

== ENCOUNTER 2023-04-26 15:57 | Emergency (ER) | payer OTHER ==
--- OUTSIDE RECORDS SUMMARY | 2023-04-26 16:04 | XMS REPORT | Continuity of Care Document ---
:1935 Author Organization [facility] t Address [address] [place] [address] [place] [id number] Care Team Providers Name Role Phone Colten Templeton DO Primary Care Physician [phone] Colten Templeton Attending Clinician Unavailable Trace Calixto MD Attending Clinician DEON BURCH Attending Clinician Unavailable Lalito Richardson MD Attending Clinician Misael Pham MD Attending Clinician [phone] Sarah New Attending Clinician Rain Crouch NP Attending Clinician Kingsley Aguirre MD Attending Clinician [phone] Eliana Ferrer MD Attending Clinician DAYSI GARCIA Attending Clinician Unavailable Baltazar Oden Attending Clinician Unavailable ANIL GUERRA Admitting Clinician Unavailable LALITO RICHARDSON Admitting Clinician Unavailable Baltazar Oden Admitting Clinician Unavailable Payers Payer Name Policy Type Policy Number Effective Date Expiration Date Mimi benton MEDICARE A B [id number] 1989 00:00:00 [place]ICA[place] [id number] 2022 [place] 00:[place]:00 [place] [id number] 2019 [facility] (NON-PAR) 00:00:00 [facility] MEDICARE MB [id number] 1989 [facility] [place] 00:00:00 [place] [id number] 2019 [facility] (NON-PAR) 00:00:00 [facility] MEDICARE MB [id number] 1989 [facility] [place]IT[place] 00:00:00 [place] [id number] 2019 [facility] (NON-PAR) 00:00:00 [facility] MEDICARE MB [id number] 1989 [facility] [place]OVITAS 00:00:00 [place] [id number] 2019 [facility] (NON-PAR) 00:00:00 [facility] MEDICARE MB [id number] 1989 [facility] NOVITAS 00:00:00 [facility] Problems Condition Condition Condition Status Onset Resolution Last Treating Co mments Source Name Details Category Date Date Treatment Clinician Date Anxiety Anxiety Disease Recurre 2021-[address] [facility] [address] [facility] Center Paroxysmal Paroxysmal Disease Recurre 2021-[address] atrial atrial nce 0-27 [facility] fibrillati fibrillati 00:00: Me dical on on 00 Center History of History of Disease Recurre 2021-05 Overvie w: [facility] CVA with CVA with nce 0-27 Formattin Ranjana es residual residual 00:00: g of this Med ical deficit deficit 00 note Center might be different from the original. 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 [facility] [id number] Body mass Problem Com mon index Spirit [BMI] - CHI 30.0-30.9, [facility] [id number] Other Problem Common obesity Spirit due to - CHI excess [facility] [id number] S/P Problem Common partial Spirit colectomy - CHI [facility] [id number] GERD Problem Common without Spirit esophagiti - CHI s [facility] [id number] Diverticul Problem Comm on osis large Spirit intestine - CHI w/o perforatio [facility] n or Medical abscess Center w/bleeding [id number] Panic Problem Common disorder Spirit [episodic - CHI paroxysmal anxiety] [facility] [id number] 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[facility] 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 [id number] 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 - CHI joints, St unspecifie [facility] Medical osteoarthr Center itis type [id number] Nontraumat Problem C ommon 937576 ic tear of Spirit left - CHI rotator St cuff, [facility] unspecifie Medica l d tear Center extent [id number] 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 - CHI asthma without [facility] complicati Medica l on Center [id number] Opioid Problem Common dependence Spirit in - CHI controlled [facility] [id number] Generalize Problem Com mon d anxiety Spirit disorder - [facility] [id number] Benzodiaze Problem Co mmon pine Spirit dependence - [facility] , [facility] [id number] Chronic Problem Commo n pain Spirit syndrome - [facility] [id number] Urinary Problem Commo n incontinen Spirit ce, - CHI unspecifie [facility] [id number] Mild Problem Common opioid use Spirit [facility] [id number] Primary Problem 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 [facility] [id number] 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 for L shoulder pain TRAMADOL Allergy Active High Hives 2021-[address] [facility] 0-27 [facility] 00:[facility]: Medical 00 Center CODEINE Allergy Active Itching 2021-[address] 0-27 [facility] 00:[facility]: Medical 00 Center Codeine Propensi Active Itching Method i ty to 7-19 st adverse 00:00: Hospita reaction 00 l s to drug No Known DA Active U [facility] Allergie 7-19 Clear s 00:00: Hernandez 00 [facility] No Known DA Active U [facility] Allergie 7-19 Clear s 00:00: Hernandez 00 [facility] codeine DA Active SV ITCHING [facility] 7-19 Clear 00:00: Hernandez 00 [facility] codeine DA Active SV [facility] 7-19 Clear 00:00: Hernandez 00 [facility] Family History Family Member Diagnosis Comments Start Date Stop Date Source Natural mother Heart disease [facility] Natural father Heart disease [facility] Social History Social Habit Start Date Stop Date Quantity Comments Source History of Tobacco [facility] - Use [facility] Sexual orientation [facility] Tobacco use and 2022-03-18 2022-03-[address] Elvia kes exposure 00:00:00 00:00:00 tobacco non-user [facility] Alcohol intake 2022-03-18 2022-03-[address] Ranjana es 00:00:00 00:00:00 non-drinker [facility] (finding) History of Social 2022-01-15 2022-01-[address] function 00:00:00 00:00:00 Hospital Sex Assigned At [address] Elvia kes 00:00:00 00:00:00 [facility] Smoking Status Start Date Stop Date Source Never smoked tobacco [facility] Medications Ordered Filled Start Stop Current Ordering Indication Dosage Frequency Signature Comments Components Source Medication Medication Date Date Medication? Clinician (SIG) Name Name LORazepam LORazepam 2022-05 No 2{table BID LORazepam 0.5 MG 0.5 MG 0-19 ts_as_n 0.5 MG 00:00: eeded} 00 LORazepam LORazepam 2022-05 No 2{table BID LORazepam 0.5 MG 0.5 MG 0-19 ts_as_n 0.5 MG 00:00: eeded} 00 LORazepam 1 LORazepam 1 No 1{table BID LORazepam MG MG 8-17 t_as_ne 1 MG 00:00: eded} 00 LORazepam 1 LORazepam 1 No 1{table BID LORazepam MG MG 8-17 t_as_ne 1 MG 00:00: eded} 00 LORazepam 1 LORazepam 1 2021-05 No 1{table BID LORazepam MG MG -29 t_as_ne 1 MG 00:00: eded} 00 traMADol traMADol 2021-05 No 1{table BID traMADol HCl 50 MG HCl 50 MG 1-29 t_as_ne HCl 50 MG 00:00: eded} 00 famotidine 2021-05 Yes 10mg Q.5D Take [address] (PEPCID) 10 0-30 by mouth 2 Elvia kes MG tablet 12:02: (two) Medical 11 times Center daily. LORazepam 2021-05 Yes anxiety 1mg Take [address] (ATIVAN) 1 0-30 by mouth [facility] MG tablet 12:02: every 6 Medic al 11 (six) Center hours as needed for Anxiety. multivitami 2021-05 Yes 1{capsu QD Take [address] n capsule 0-30 le} capsule by Luke s 12:02: mouth Medical 11 daily. Center diphenhydrA 2021-05 Yes Take by [facility] MINE 12.5 0-30 mouth 4 [facility] mg/5 mL 12:02: (four) Medical (BENADRYL) 11 times Center 12.5 mg/5 daily as mL elixir needed for Allergies. LORazepam 1 LORazepam 1 No 1{table BID [...] MG 8-29 t_as_ne 1 MG 00:00: eded} Famotidine Famotidine [...] traMADol HCl 50 MG HCl 50 MG 8 t_as_ne HCl 50 MG 00:00: eded} 00 LORazepam 1 LORazepam 1 No 1{table BID LORazepam MG MG 8- t_as_ne 1 MG 00:00: eded} 00 traMADol traMADol No 1{table BID traMADol HCl 50 MG HCl 50 MG 8- t_as_ne HCl 50 MG 00:00: eded} 00 [...] 2 l (two) times a day. traMADol 2022-0 Yes 50mg Q.5D Take 50 mg Met hodi (ULTRAM) 50 8-[address] mg tablet 14:24: (two) Hospita 10 times a l day as needed for moderate pain. aspirin 0 Yes 81mg QD Take 81 mg Meth [...] day as needed for moderate pain. aspirin 0 Yes 81mg QD Take 81 mg Meth monica (ECOTRIN) 8-[address] 81 MG 14:24: daily. Hospita enteric 10 l coated tablet multivitami Yes 1{tbl} QD Take 1 Me thodi n-minerals- 8-[address] lutein 14:24: mouth Hospita tablet 10 daily. l cycloSPORIN Yes 1[drp] Q24H Administer Methodi E [address] (RESTASIS) 14:24: both eyes Ho spita 0.05 % 10 daily as l ophthalmic needed. emulsion LORAZepam Yes 1 tablet Meth monica (ATIVAN) 1 8-[address] MG tablet 14:24: Hospita 10 l celecoxib Yes 1 capsule Met hodi (CeleBREX) 01-[address] 200 MG 14:24: Hospita [...] Q.5D Take 1 Metho di (PEPCID) 10 -25 tablet (10 st MG tablet 14:24: mg total) Hos radha 10 by mouth 2 l (two) times a day. traMADoL 2021- [place] [id number] 50mg Q6H Take 1 Metho di (ULTRAM) 50 8-25 08-31 tablet (50 s t mg tablet 00:00: 04:59 mg total) Ho spita 00 :00 by mouth l every 6 (six) hours as needed for moderate pain for up to 5 days .acute pain. traMADoL 2021- No [id number] 50mg Q6H Take 1 Metho di (ULTRAM) [...] 40mg QD Take 40 mg Methodi e -03 11-[address] (PROTONIX) 15:27: 00:00 daily. [...] No QD methylPRED ISolone 4 ISolone 4 3-07-27 NISolone 4 MG MG 00:00: 00:00 MG 00 :00 methylPREDN methylPREDN 2021- No QD methylPRED ISolone 4 ISolone 4 07-21 NISolone 4 MG MG 00:00: 00:00 MG [...] 1 MG 00:00: eded} 00 Nystatin Nystatin 2021- No QID Nystatin [id number] [id number] 2-03 02-17 [id number] UNIT/ML UNIT/ML 00:00: 00:00 UNIT/ML 00 :00 [...] BID Bactrim DS 800-160 MG 800-160 MG 0-19 04- t} 800-160 MG 00:00: 00:00 00 :00 Bactrim DS Bactrim DS 2020-05- No 1{table BID Bactrim DS 800-160 MG 800-160 MG 0-28 11-02 t} 800-160 MG 00:00: 00:00 00 :00 Pyridium Pyridium 2020-05- No 1{table TID Pyridium 200 MG 200 MG 0-28 10-30 t_after 200 MG 00:00: 00:00 _meals} 00 [...] 50 MG 00:00: eded} 00 Spacer/Aero Spacer/Aero 2021-0 No Spacer/Aer -Holding [...] Chambers - 00:00: Chambers - 00 gabapentin 2019-05 Yes 1 capsule Me thodi [...] by st release 00:00: mouth 2 Hospita ([facility]) 00 (two) l 240 MG 24 times a hr capsule day. verapamil 2020-0 Yes 240mg Q.5D Take 240 Met hodi extended 1-[address] release 00:00: mouth 2 Hospita ([facility]) 00 (two) l 240 MG 24 times a hr capsule day. verapamil 2020-0 Yes 240mg Q.5D Take 240 Met hodi extended 1-[address] release 00:00: mouth 2 Hospita ([facility]) 00 (two) l 240 MG 24 times a hr capsule day. verapamil 2020-0 Yes 240mg Q.5D Take 240 Met hodi extended 1-[address] release 00:00: mouth 2 Hospita ([facility]) 00 (two) l 240 MG 24 times a hr capsule day. Celecoxib Celecoxib No Celecoxib 200 MG 200 MG 200 MG Advair Advair No Advair Diskus Diskus Diskus 250-50 250-50 250-50 MCG/DOSE MCG/DOSE MCG/DOSE Tramadol Tramadol Yes Colten 1 tablet C ommon HCl HCl Templeton as needed [facility] Centrum Centrum Yes Colten not Common Vitamints Vitamints Templeton defined S [facility] Advair Advair Yes Colten INHALE 1 Commo n Diskus Diskus [place] PUFFS Spirit TWICE A - CHI DAY [facility] Celecoxib Celecoxib Yes Colten 1 capsule Common Templeton with food [facility] Lorazepam Lorazepam Yes Colten 1 tablet Common Templeton at bedtime [facility] as needed [facility] Verapamil Verapamil Yes Colten 1 tablet Common HCl ER HCl ER Templeton [facility] Albuterol Albuterol Yes Colten 3 ml as Common Sulfate Sulfate Templeton needed [facility] Pantoprazol Pantoprazol Yes Colten 1 tablet Common e Sodium e Sodium Templeton [facility] Pantoprazol Pantoprazol Yes Colten TAKE 1 Common e Sodium e Sodium Templeton TABLET BY S [facility] MOUTH - CHI EVERY DAY [facility] Albuterol Albuterol No Albuterol Sulfate Sulfate [...] MG s_neede d} Nystatin Nystatin No Nystatin 137179 441188 195908 UNIT/ML UNIT/ML UNIT/ML Albuterol Albuterol No 3{ml_as [...] MG MG MG Nystatin Nystatin No Nystatin 141802 832328 [id number] UNIT/ML UNIT/ML UNIT/ML Benzonatate Benzonatate No 1{capsu [...] MG MG MG Nystatin Nystatin No Nystatin 743526 297166 382760 UNIT/ML UNIT/ML UNIT/ML Benzonatate Benzonatate No 1{capsu [...] 0.083% 0.083% 0.083% Nystatin Nystatin No Nystatin 124584 157607 484119 UNIT/ML UNIT/ML UNIT/ML Advair Advair No Advair [...] 0.083% 0.083% 0.083% Nystatin Nystatin No Nystatin 951475 688059 132927 UNIT/ML UNIT/ML UNIT/ML Advair Advair No Advair [...] 0.083% 0.083% 0.083% Nystatin Nystatin No Nystatin 905471 720785 286113 UNIT/ML UNIT/ML UNIT/ML Centrum Centrum No Centrum Vitamints Vitamints Vitamints Celecoxib Celecoxib No Celecoxib 200 MG 200 MG 200 MG Famotidine Famotidine No BID Famotidine Orig St [address] 10 MG MG MG Famotidine Famotidine No 1{table BID Famotidine 10 MG 10 MG t_as_ne 10 MG eded} Gabapentin Gabapentin No 1{capsu TID Gabapentin 300 MG 300 MG le} 300 MG Albuterol Albuterol No Albuterol Sulfate Sulfate Sulfate (2.5 (2.5 (2.5 MG/3ML) MG/3ML) MG/3ML) 0.083% 0.083% 0.083% traMADol traMADol No 1{table BID traMADol HCl 50 MG HCl 50 MG t_as_ne HCl 50 MG eded} Gabapentin Gabapentin No 1{capsu TID Gabapentin 300 MG 300 MG le} 300 MG Verapamil Verapamil No 1{table BID Verapamil HCl ER 240 HCl ER 240 t} HCl ER 240 MG MG MG Cyclobenzap Cyclobenzap No 1{table QD Cyclobenza rine HCl 5 rine HCl 5 t_at_be buffy HCl MG MG dtime_a 5 MG s_neede d} Advair Advair No Advair Diskus Diskus Diskus 250-50 250-50 250-50 MCG/ACT MCG/ACT MCG/ACT Advair Advair No Advair Diskus Diskus Diskus 250-50 250-50 250-50 MCG/DOSE MCG/DOSE MCG/DOSE Nystatin Nystatin No Nystatin 276233 995509 599674 UNIT/ML UNIT/ML UNIT/ML Verapamil Verapamil No 1{table BID Verapamil HCl ER 240 HCl ER 240 t} HCl ER 240 MG MG MG Cyclobenzap Cyclobenzap No 1{table QD Cyclobenza rine HCl 5 rine HCl 5 t_at_be buffy HCl MG MG dtime_a 5 MG s_neede d} Gabapentin Gabapentin No 1{capsu TID Gabapentin 300 MG 300 MG le} 300 MG Famotidine Famotidine No 1{table BID Famotidine 10 MG 10 MG t_as_ne 10 MG eded} Gabapentin Gabapentin No 1{capsu TID Gabapentin 300 MG 300 MG le} 300 MG traMADol traMADol No 1{table BID traMADol HCl 50 MG HCl 50 MG t_as_ne HCl 50 MG eded} Celecoxib Celecoxib No Celecoxib 200 MG 200 MG 200 MG Heartburn Heartburn No Heartburn Relief 10 Relief 10 Relief 10 MG MG MG Advair Advair No Advair Diskus Diskus Diskus 250-50 250-50 250-50 MCG/ACT MCG/ACT MCG/ACT Albuterol Albuterol No Albuterol Sulfate Sulfate Sulfate (2.5 (2.5 (2.5 MG/3ML) MG/3ML) MG/3ML) 0.083% 0.083% 0.083% Advair Advair No Advair Diskus Diskus Diskus 250-50 250-50 250-50 MCG/DOSE MCG/DOSE MCG/DOSE Nystatin Nystatin No Nystatin 491350 371835 526884 UNIT/ML UNIT/ML UNIT/ML Centrum Centrum No Centrum Vitamints Vitamints Vitamints [...] MCG/DOSE MCG/DOSE MCG/DOSE Prevacid Prevacid No Prevacid Immunizations Ordered Filled Immunization Date Status Comments Sourc e Immunization Name Name [facility] COVID-19 2021-08-27 Completed [facility] VACC[facility] 00:00:00 [facility] PFIZER COVID-19 2021-08-27 Completed [facility] VACCINATION 00:00:00 [facility] PFIZER COVID-19 2021-02-14 Completed [facility] VACCINATION 00:00:00 [facility] PFIZER COVID-19 2021-02-14 Completed [facility] VACCINATION 00:00:00 [facility] PFIZER COVID-19 2020-08-05 Completed [facility] VACCINATION 00:00:00 [facility] PFIZER COVID-19 2020-08-05 Completed [facility] VACCINATION 00:00:00 [facility] PFIZER COVID-19 2020-07-15 Completed [facility] VACCINATION 00:00:00 [facility] PFIZER COVID-19 2020-07-15 Completed [facility] VACCINATION 00:00:00 [facility] PFIZER COVID-19 Unknown Completed [facility] VACCINATION [facility] PFIZER COVID-19 Unknown Completed [facility] VACCINATION [facility] PFIZER COVID-19 Unknown Completed [facility] VACCINATION [facility] PFIZER COVID-19 Unknown Completed [facility] Vital Signs Vital Name Observation Time Observation Value Comments Source height 2022-07-12 14:20:00 66 [in_i] [facility] weight 2022-07-12 14:20:00 178.4 [lb_av] [facility] temperature 2022-07-12 14:20:00 97.3 [degF] [facility] bmi 2022-07-12 14:20:00 28.79 kg/m2 [facility] oximetry 2022-07-12 14:20:00 95 % [facility] respiratory rate 2022-07-12 14:20:00 16 /min Comm on [facility] blood pressure 2022-07-12 14:20:00 135 mm[Hg] [facility] - systolic [facility] blood pressure 2022-07-12 14:20:00 78 mm[Hg] [facility] - diastolic [facility] height 2022-04-20 14:10:00 66 [in_i] [facility] weight 2022-04-20 14:10:00 178.4 [lb_av] [facility] temperature 2022-04-20 14:10:00 96.7 [degF] Common S pirit [facility] bmi 2022-04-20 14:10:00 28.79 kg/m2 [facility] oximetry 2022-04-20 14:10:00 96 % Common [facility] respiratory rate 2022-04-20 14:10:00 17 /min Comm on Spirit - [facility] blood pressure 2022-04-20 14:10:00 138 mm[Hg] [facility] - systolic [facility] blood pressure 2022-04-20 14:10:00 72 mm[Hg] [facility] - diastolic [facility] height 2022-03-23 09:20:00 66 [in_i] Common [facility] weight 2022-03-23 09:20:00 179 [lb_av] Common [facility] temperature 2022-03-23 09:20:00 96.2 [degF] Common S pirit [facility] bmi 2022-03-23 09:20:00 28.89 kg/m2 Common S pirit [facility] blood pressure 2022-03-23 09:20:00 132 mm[Hg] [facility] - systolic [facility] blood pressure 2022-03-23 09:20:00 70 mm[Hg] [facility] - diastolic [facility] HEIGHT 2022-03-19 05:00:00 167.6 cm WEIGHT 2022-03-18 22:43:00 88.905 kg HEIGHT 2022-03-19 05:00:00 167.6 cm WEIGHT 2022-03-18 22:43:00 88.905 kg height 2022-01-18 13:10:00 66 [in_i] Common S [facility] weight 2022-01-18 13:10:00 191.8 [lb_av] Common [facility] temperature 2022-01-18 13:10:00 97.3 [degF] Common S pirit [facility] bmi 2022-01-18 13:10:00 30.95 kg/m2 [facility] oximetry 2022-01-18 13:10:00 96 % Common [facility] respiratory rate 2022-01-18 13:10:00 17 /min Comm on [facility] blood pressure 2022-01-18 13:10:00 119 mm[Hg] Common [facility] - systolic [facility] blood pressure 2022-01-18 13:10:00 70 mm[Hg] Common [facility] - diastolic [facility] height 2021-12-14 16:40:00 66 [in_i] Common [facility] weight 2021-12-14 16:40:00 191.8 [lb_av] [facility] bmi 2021-12-14 16:40:00 30.95 kg/m2 [facility] height 2021-10-07 14:30:00 66 [in_i] [facility] weight 2021-10-07 14:30:00 191.8 [lb_av] [facility] temperature 2021-10-07 14:30:00 97.2 [degF] [facility] bmi 2021-10-07 14:30:00 30.95 kg/m2 [facility] oximetry 2021-10-07 14:30:00 90 % [facility] respiratory rate 2021-10-07 14:30:00 16 /min Comm on [facility] blood pressure 2021-10-07 14:30:00 137 mm[Hg] Common [facility] - systolic [facility] blood pressure 2021-10-07 14:30:00 77 mm[Hg] Common [facility] - diastolic [facility] height 2021-10-07 15:00:00 66 [in_i] [facility] weight 2021-10-07 15:00:00 191.8 [lb_av] [facility] temperature 2021-10-07 15:00:00 97.2 [degF] Common S pirit [facility] bmi 2021-10-07 15:00:00 30.95 kg/m2 [facility] oximetry 2021-10-07 15:00:00 90 % [facility] respiratory rate 2021-10-07 15:00:00 16 /min Comm on [facility] blood pressure 2021-10-07 15:00:00 137 mm[Hg] Common [facility] - systolic [facility] blood pressure 2021-10-07 15:00:00 77 mm[Hg] Common [facility] - diastolic [facility] height 2021-07-21 13:20:00 66 [in_i] Common [facility] weight 2021-07-21 13:20:00 187.3 [lb_av] [facility] bmi 2021-07-21 13:20:00 30.23 kg/m2 Common S pirit [facility] height 2021-06-25 15:40:00 66 [in_i] Common S [facility] weight 2021-06-25 15:40:00 187.3 [lb_av] [facility] temperature 2021-06-25 15:40:00 97.8 [degF] Common S pirit [facility] bmi 2021-06-25 15:40:00 30.23 kg/m2 [facility] pirit [facility] oximetry 2021-06-25 15:40:00 99 % [facility] respiratory rate 2021-06-25 15:40:00 18 /min Comm on [facility] blood pressure 2021-06-25 15:40:00 135 mm[Hg] Common [facility] - systolic [facility] blood pressure 2021-06-25 15:40:00 78 mm[Hg] Common [facility] - diastolic [facility] height 2021-03-24 10:10:00 66 [in_i] [facility] weight 2021-03-24 10:10:00 188 [lb_av] [facility] temperature 2021-03-24 10:10:00 98 [degF] [facility] bmi 2021-03-24 10:10:00 30.34 kg/m2 [facility] blood pressure 2021-03-24 10:10:00 132 mm[Hg] [facility] - systolic [facility] blood pressure 2021-03-24 10:10:00 62 mm[Hg] Common [facility] - diastolic [facility] Systolic blood 2022-07-19 21:40:00 143 mm[Hg] Method [facility] pressure Diastolic blood 2022-07-19 21:40:00 86 mm[Hg] [place] [facility] Heart rate 2022-07-19 21:40:00 79 /min [facility] Respiratory rate 2022-07-19 21:40:00 16 /min [facility] Systolic blood 2022-01-14 18:54:00 139 mm[Hg] Method [facility] pressure Diastolic blood 2022-01-14 18:54:00 69 mm[Hg] [facility] pressure Heart rate 2022-01-14 18:54:00 69 /min [facility] Body temperature 2022-01-14 18:54:00 36.67 Ilsa [facility] Respiratory rate 2022-01-14 18:54:00 20 /min [facility] Oxygen saturation in 2022-01-14 18:54:00 94 /min [facility] Arterial blood by Pulse oximetry Body height 2022-01-12 21:37:[address] [facility] Body weight 2022-01-12 21:37:[address] [facility] BMI 2022-01-12 21:37:00 30.51 kg/m2 [facility] Procedures Procedure Date / Time Performing Clinician Source Performed CT AN ELECTIVE 2022-01-14 17:16:00 Luisana Cardenas [facility] spital SUPRAGLOTTIC AIRWAY POC GLUCOSE 2022-01-14 17:07:00 Lalito Richardson [facility] CARPAL TUNNEL RELEASE, 2022-01-14 17:07:00 Lalito Richardson [facility] ENDOSCOPIC BASIC METABOLIC PANEL 2022-01-12 21:29:00 Sarah Clark [facility] ESTIMATED GFR 2022-01-12 21:29:00 Jasmyn Clarksse [facility] ospital XR WRIST 3+ VW LEFT 2021-07-27 23:36:[address] [facility] XR HAND 3+ VW LEFT 2021-07-27 23:35:53 Eliana Ferrer [facility] RHEUMATOID FACTOR 2021-07-27 22:43:00 Eliana Ferrer [facility] CYCLIC CITRULLINATED 2021-07-27 22:43:00 Eliana Ferrer Eli [facility] PEPTIDE AB, IGG HC COMPLETE BLD COUNT 2021-07-27 22:43:00 Eliana Ferrer [facility] W/AUTO DIFF COMPREHENSIVE METABOLIC 2021-07-27 22:43:00 Eliana Ferrer [facility] PANEL SEDIMENTATION RATE 2021-07-27 22:43:00 Eliana Ferrer [facility] C-REACTIVE PROTEIN 2021-07-27 22:43:00 Carissa Eliana [facility] URIC ACID LEVEL 2021-07-27 22:43:00 Eliana Ferrer [facility] spital ESTIMATED GFR 2021-07-27 22:43:00 Eliana Ferrer [facility] Plan of Care Planned Activity Planned Date Details Comments Source Future Scheduled 2023-03-18 Tobacco Cessation [facility] Test 00:00:00 [facility] Cent[facility] r Screening (12+) [code = Tobacco Cessation Counseling and Screening (12+)] Future Scheduled 2023-03-17 65+ PNEUMOCOCCAL [facility] Test 14:47:10 VACCINE (1 - PCV) [code = 65+ PNEUMOCOCCAL VACCINE (1 - PCV)] Future Scheduled 2023-03-17 SHINGLES VACCINES (1 [facility] Test 14:47:10 of 2) [code = SHINGLES VACCINES (1 of 2)] Future Scheduled 2023-03-17 COVID-19 VACCINE (5 - [facility] Test 14:47:10 season) [code = COVID-19 VACCINE ( - season)] Future Scheduled 2023-03-17 INFLUENZA VACCINE (#[facility]) [facility] 14:47:10 [code = INFLUENZA VACCINE (#1)] Future Scheduled 2023-01-21 Influenza Vaccine (#1) [facility] Test 00:00:00 [code = Influenza Medical Ce nter Vaccine (#1)] Future Scheduled 2022-11-29 65+ [facility]CCAL [facility] Test 09:36:31 VACCINE (1 - PCV) [code = 65+ PNEUMOCOCCAL VACCINE (1 - PCV)] Future Scheduled 2022-11-29 SHINGLES VACCINES (1 [facility] Test 09:36:31 of 2) [code = SHINGLES VACCINES (1 of 2)] Future Scheduled 2022-11-29 COVID-19 VACCINE (5 - [facility] Test 09:36:31 Pfizer series) [code = COVID-19 VACCINE (5 - Pfizer series)] Future Scheduled 2022-11-29 INFLUENZA VACCINE Method [facility] Test 09:36:31 [code = INFLUENZA VACCINE] Future Scheduled 2022-05-[address] [facility] Test 00:00:00 (12+) [code = Medical Center DEPRESSION SCREENING (12+)] Future Scheduled 2022-05-23 FALLS RISK SCREENING [facility] Test 00:00:00 [code = FALLS RISK Medical C enter SCREENING] Future Scheduled 2022-02-05 HEPATITIS B VACCINES [facility] Test 03:31:20 (1 of 3 - 3-dose series) [code = HEPATITIS B VACCINES (1 of 3 - 3-dose series)] Future Scheduled 2022-02-05 65+ P[facility]UMOCOCCAL [facility] Test 03:31:20 VACCINE (1 - PCV) [code = 65+ PNEUMOCOCCAL VACCINE (1 - PCV)] Future Scheduled 2022-02-05 SHINGLES VACCINES (1 [facility] Test 03:31:20 of 2) [code = SHINGLES VACCINES (1 of 2)] Future Scheduled 2022-02-05 COVID-19 VACCINE (5 - [facility] Test 03:31:20 Booster for Pfizer series) [code = COVID-19 VACCINE (5 - Booster for Pfizer series)] Future Scheduled 2022-02-05 INFLUENZA VACCINE [facility] Test 03:31:20 [code = INFLUENZA VACCINE] Future Scheduled 2002 PNEUMOCOCCAL 65+ YRS [facility] Test 00:00:00 (1 - PCV) [code = Medical Ce nter PNEUMOCOCCAL 65+ YRS (1 - PCV)] Future Scheduled 1990-08-[address] [facility] Test 00:00:00 WELLNESS (YEAR 2 or Medical Center FIRST YEAR if no IPPE) [code = MEDICARE ANNUAL WELLNESS (YEAR 2 or FIRST YEAR if no IPPE)] Future Scheduled 1987 SHINGLES VACCINES ([address] [facility] Test 00:00:00 of 2) [code = SHINGLES Medic al Center VACCINES (1 of 2)] Future Scheduled 1956 DTAP/TDAP/TD VACCINES [facility] Test 00:00:00 (1 - Tdap) [code = Medical C enter DTAP/TDAP/TD VACCINES (1 - Tdap)] Future Scheduled 1937 COVID-19 VACCINE (#1) [facility] Test 00:00:00 [code = COVID-[address] VACCINE (#1)] Future Scheduled 1937 DXA SCAN [code = DXA [facility] Test 00:00:00 SCAN] [facility] Future Scheduled COVID-19 VACCINE (1) [facility] Test [code = COVID-19 VACCINE (1)] Future Scheduled SHINGLES VACCINES (#1) [facility] [code = SHINGLES VACCINES (#1)] Future Scheduled 65+ [facility]OCOCCAL [facility] Test VACCINE (1 of 1 - PPSV23) [code = 65+ PNEUMOCOCCAL VACCINE (1 of 1 - PPSV23)] Future Scheduled INFLUENZA VACCINE [facility] Test [code = INFLUENZA VACCINE] Encounters Start End Encounter Admission Attending Care Care Encounter Source Date/Time Date/Time Type Type Clinicians Facility Department ID 2023-01-06 Outpatient [place], [facility] [id number] Common 16:15:00 [facility] [address] [facility] 2022-10-05 Outpatient [place], [facility] [id number] Common 14:00:02 [facility] [address] [facility] 2022-05-01 Outpatient [place], STLMLC STLMLC [id number] Common 07:04:01 Colten [facility] 2022-04-19 Outpatient [place], STLMLC STLMLC [id number] Common 15:50:02 Colten [facility] 2022-03-23 Outpatient [place], STLMLC STLMLC [id number] Common 09:09:01 Colten [facility] 2021-12-14 Outpatient [place], STLMLC STLMLC [id number] Common 16:19:01 Colten [facility] 2021-07-20 Outpatient [place], STLMLC STLMLC [id number] Common 14:24:03 Colten [facility] 2021-06-17 Outpatient [place], STLMLC STLMLC [id number] Common 14:01:53 Colten [address] [facility] 2021-06-17 Outpatient [place], STLMLC STLMLC [id number] Common 13:57:09 Colten [address]35 [facility] 2021-06-17 Outpatient [place], STLMLC STLMLC [id number] Common 13:55:26 Colten [address] [facility] 2021-06-17 Outpatient [place], STLMLC STLMLC [id number] Common 13:34:26 Colten 24[address] [facility] 2021-06-17 Outpatient [place], STLMLC STLMLC [id number] Common 13:33:54 Colten 07876 [facility] 2021-06-17 Outpatient [place], STLMLC STLMLC [id number] Common 12:58:36 Colten 08275 [facility] 2021-06-17 Outpatient [place], STLMLC STLMLC [id number] Common 12:35:04 Colten [facility] 2021-06-17 Outpatient [place], STLMLC STLMLC [id number] Common 12:34:21 Colten [facility] 2021-06-17 Outpatient [place], STLMLC STLMLC [id number] Common 12:11:56 Colten [address] [facility] 2021-06-17 Outpatient [place], STLMLC STLMLC [id number] Common 11:52:30 [place] 6[address] [facility] 2021-06-17 Outpatient [place], STLMLC STLMLC [id number] Common 11:44:30 Col[place] [address] [facility] 2021-06-17 Outpatient [place], STLMLC STLMLC [id number] Common 11:26:10 Colten 60756 [facility] 2021-06-17 Outpatient [place], STLMLC STLMLC [id number] Common 11:22:17 Colten 41399 [facility] 2021-06-17 Outpatient [place], STLMLC STLMLC [id number] Common 11:21:19 Col[place] 86514 [facility] 2021-06-17 Outpatient [place], STLMLC STLMLC [id number] Common 11:21:11 [place] [address] [facility] 2022-09-21 2022-09-21 (TEL) STLMLC STLC [id number] Co mmon 00:00:00 00:00:00 [facility] 2022-07-19 2022-07-19 Office Trace [place] 1.2.840.1 [id number] Methodi 15:30:00 15:53:[address] 3.430.2.7 Hospit a .3.927360 l .8 2022-07-19 2022-07-19 Office Trace [place] 1.2.840.1 [id number] Methodi 15:30:00 15:53:[address] 3.430.2.7 Hospit a .3.563083 l .8 2022-07-19 2022-07-19 Travel 1.2.840.1 1.2.699.076 7703 [id number] Methodi 00:00:00 00:00:[address] 3.430.2.7 0.2.7.3.698 Ho spita .3.801488 084.8 l .8 2022-07-19 2022-07-19 Travel 1.2.840.1 1.2.475.948 3369 [id number] Methodi 00:00:00 00:00:[address] 3.430.2.7 0.2.7.3.698 Ho spita .3.735419 084.8 l .8 2022-07-12 2022-07-12 OFFICE STLMLC STLMLC [id number] Co mmon 00:00:00 00:00:00 VISIT [facility] PT - CHI LEVEL 4 [facility] 2022-04-20 2022-04-20 OFFICE STLMLC STLMLC [id number] Co mmon 00:00:00 00:00:00 VISIT [facility] PT - CHI LEVEL 4 [facility] 2022-04-09 2022-04-09 (TEL) STLMLC STLMLC [id number] Co mmon 00:00:00 00:00:00 [facility] 2022-03-23 2022-03-23 (EST. STLMLC STLMLC [id number] Co mmon 00:00:00 00:00:00 VIDEO) EST Spi rit VIRTUAL - [facility] VIDEO [facility] 2022-03-22 2022-03-22 (TEL) STLMLC STLMLC [id number] Co mmon 00:00:00 00:00:00 [facility] 2022-03-22 2022-03-22 (TEL) STLMLC STLMLC [id number] Co mmon 00:00:00 00:00:00 [facility] 2022-03-18 2022-03-21 Inpatient ER SHIEH, [facility] [id number] [facility] 22:24:00 12:02:00 DEON 2022-03-18 2022-03-18 Emergency [facility]SL [facility] [id number] [facility] 22:52:53 22:52:00 2022-03-08 2022-03-08 (TEL) STLMLC STLMLC [id number] Co mmon 00:00:00 00:00:00 [facility] 2022-01-22 2022-01-22 Office Richardson, 1.2.840.1 [id number] Methodi 14:40:00 17:39:07 Visit [place] 89559.1.[address] Nasir 3.430.2.7 Hospit a .3.892074 l .8 2022-01-22 2022-01-22 Travel 1.2.840.1 1.2.521.791 6386 [id number] Methodi 00:00:00 00:00:[address] 3.430.2.7 0.2.7.3.698 Ho spita .3.356841 084.8 l .8 2022-01-18 2022-01-18 [facility] [id number] Co mmon 00:00:00 00:00:00 VISIT [facility] L[facility]EL 4 [facility] 2022-01-14 2022-01-14 Hospital Richardson, 1.2.840.1 [id number] Methodi 10:21:00 14:23:00 Encounter [place] 09555.1.[address] Nasir 3.430.2.7 Hospit a .3.698829 l .8 2022-01-14 2022-01-14 Anesthesia Misael Pham 1.2.8 40.1 [id number] Methodi 12:06:00 12:55:00 Event EduardoJasmynSarah 17684.1.[address] 3.430.2.7 Hospit a .3.063851 l .8 2022-01-14 2022-01-14 Surgery Richardson, 1.2.840.1 [id number] Methodi 12:00:00 12:55:[address] Nasir 3.430.2.7 Hospit a .3.796446 l .8 2022-01-14 2022-01-14 Orders Richardson, 1.2.840.1 [id number] 0320 Methodi 00:00:00 00:00:00 Only Vincent 76685.1.[address] Nasir 3.430.2.7 Hospit a .3.904064 l .8 2022-01-12 2022-01-12 Pre-Admiss Richardson, 1.2.840.1 [id number] Methodi 16:30:00 17:30:00 ion Lauraent 58227.1.[address] Testing Nasir 3.430.2.7 Hospit a .3.200594 l .8 2022-01-12 2022-01-12 Office Richardson, 1.2.840.1 [id number] 6877 Methodi 14:50:00 15:55:40 Visit Vincent 65828.1.[address] Nasir 3.430.2.7 Hospit a .3.357288 l .8 2022-01-12 2022-01-12 Transcribe Richardson, 1.2.840.1 [id number] [id number] Methodi 00:00:00 00:00:00 Orders Vincent 66106.1.[address] Nasir 3.430.2.7 Hospit a .3.051546 l .8 2022-01-12 2022-01-12 Travel 1.2.840.1 1.2.888.014 8164 [id number] Methodi 00:00:00 00:00:[address] 3.430.2.7 0.2.7.3.698 Ho spita .3.745974 084.8 l .8 2022-01-01 2022-01-01 Travel 1.2.840.1 1.2.215.378 8244 989741 Methodi 00:00:00 00:00:[address] 3.430.2.7 0.2.7.3.698 Ho spita .3.123393 084.8 l .8 2021-12-14 2021-12-14 OL DIG E/M STLMLC STLMLC [id number] Common 00:00:00 00:00:00 [facility] 11-20 Spir it [facility] 2021-12-14 2021-12-14 (TEL) STLMLC STLMLC [id number] Co mmon 00:00:00 00:00:00 [facility] 2021-12-10 2021-12-10 Office Miko, 1.2.840.1 [id number] 5218 Methodi 14:30:00 14:32:16 Visit Rain 20501.1.[address] 3.430.2.7 Hospit a .3.124408 l .8 2021-12-10 2021-12-10 Procedure Trace [place] 1.2.840.1 [id number] Methodi 13:30:00 13:56:[address] 3.430.2.7 Hospit a .3.049549 l .8 2021-12-10 2021-12-10 Travel 1.2.840.1 1.2.215.379 6420 187226 Methodi 00:00:00 00:00:[address] 3.430.2.7 0.2.7.3.698 Ho spita .3.878304 084.8 l .8 2021-11-03 2021-11-03 Office Miko, 1.2.840.1 [id number] 4365 Methodi 15:30:00 16:21:50 Visit Rain 31223.1.[address] 3.430.2.7 Hospit a .3.888848 l .8 2021-11-03 2021-11-03 Travel 1.2.840.1 1.2.976.710 6113 725803 Methodi 00:00:00 00:00:[address] 3.430.2.7 0.2.7.3.698 Ho spita .3.958374 084.8 l .8 2021-10-07 2021-10-07 OFFICE STLMLC STLMLC [id number] Co mmon 00:00:00 00:00:00 VISIT [facility] PT - CHI LEVEL 4 [facility] 2021-10-07 2021-10-07 (TEL) STLMLC STLMLC [id number] Co mmon 00:00:00 00:00:00 Spirit - CHI [facility] 2021-10-07 2021-10-07 SUB ANNUAL STLMLC STLMLC [id number] Common 00:00:00 00:00:00 MCR [facility] WELLNESS - CHI VISIT [facility] 2021-09-21 2021-09-21 (TEL) STLMLC STLMLC [id number] Co mmon 00:00:00 00:00:00 Spirit - [facility] 2021-08-28 2021-08-28 Office Richardson, 1.2.840.1 [id number] Methodi 13:40:00 14:39:54 Visit Vincent 26126.1.[address] Nasir 3.430.2.7 Hospit a .3.908428 l .8 2021-08-28 2021-08-28 Travel 1.2.840.1 1.2.981.989 0000 [id number] Methodi 00:00:00 00:00:[address] 3.430.2.7 0.2.7.3.698 Ho spita .3.285997 084.8 l .8 2021-08-25 2021-08-25 Transcribe Carla, 1.2.840.1 [id number] 858 [id number] Methodi 00:00:00 00:00:00 Orders Kingsley 29763.1.[address] [place] 3.430.2.7 Hospit a .3.974499 l .8 2021-08-12 2021-08-12 Travel 1.2.840.1 1.2.195.011 9699 906200 Methodi 00:00:00 00:00:[address] 3.430.2.7 0.2.7.3.698 Ho spita .3.322009 084.8 l .8 2021-07-31 2021-07-31 (TEL) STLMLC STLMLC [id number] Co mmon 00:00:00 00:00:00 [facility] 2021-07-27 2021-07-27 [facility] Eliana Ferrer 1.2.840.1 [id number] 21 [id number] Methodi 17:06:04 23:59:00 Encounter W. 79369.1.[address] 3.430.2.7 Hospit a .3.290511 l .8 2021-07-27 2021-07-27 [facility] Eliana Ferrer 1.2.840.1 [id number] 21 [id number] Methodi 17:00:00 17:05:00 [address] 36633.1.[address] 3.430.2.7 Hospit a .3.109769 l .8 2021-07-27 2021-07-27 Outpatient ELIANA FERRER [facility] [id number] [place] 00:00:00 00:00:[address] 2021-07-27 2021-07-27 Transcribe Eliana Ferrer 1.2.840.1 [id number] Methodi 00:00:00 00:00:[address]8784.1.[address] 3.430.2.7 Hospit a .3.668733 l .8 2021-07-27 2021-07-27 Travel 1.2.840.1 1.2.718.166 2106 [id number] Methodi 00:00:00 00:00:[address] 3.430.2.7 0.2.7.3.698 Ho spita .3.639193 084.8 l .8 2021-07-21 2021-07-21 OL DIG E/M STLMLC STLMLC [id number] Common 00:00:00 00:00:00 [facility]-20 Spir it [facility] 2021-07-15 2021-07-15 (TEL) STLMLC STLMLC [id number] Co mmon 00:00:00 00:00:00 [facility] 2021-06-25 2021-06-25 OFFICE STLMLC STLMLC [id number] Co mmon 00:00:00 00:00:00 VISIT [facility] ESTAB PT - [facility] LEVEL 4 [facility] 2021-06-16 2021-06-16 (TEL) STLMLC STLMLC [id number] Co mmon 00:00:00 00:00:00 [facility] 2021-03-24 2021-03-24 (TELEAUD) STLMLC STLMLC [id number] Common 00:00:00 00:00:00 AUDIO [facility] TELEMEDICI - CHI NE [facility] 2021-03-19 2021-03-19 (TEL) STLMLC STLMLC [id number] Co mmon 00:00:00 00:00:00 [facility] 2021-03-09 2021-03-09 (TEL) STLMLC STLMLC [id number] Co mmon 00:00:00 00:00:00 [facility] 2021-03-04 2021-03-04 Outpatient [facility] [id number] [place] 00:00:00 00:00:00 DAYSI 514 Method i 2021-03-04 2021-03-04 Outpatient [facility] [id number] [place] 00:00:00 00:00:00 DAYSI [address] 2021-03-04 2021-03-04 Outpatient [facility] [id number] [place] 00:00:00 00:00:00 DAYSI [address] 2021-02-19 2021-02-19 (TEL) STLMLC STLMLC [id number] Co mmon 00:00:00 00:00:00 [facility] 2021-01-28 2021-01-28 Inpatient ANNA Mercado OUTD [id number] [facility] 05:18:00 05:18:00 Baltazar 03 [facility] 2020-12-24 2020-12-24 Outpatient STLMLC STLMLC [id number] Common 00:00:00 00:00:00 [facility] 2020-12-10 2020-12-11 Inpatient MERCY Oden, [facility]ACL INTE.02 [id number] [facility] 05:27:00 13:49:00 Baltazar 17 [facility] 2020-10-30 2020-10-30 Outpatient STLMLC STLMLC [id number] Common 00:00:00 00:00:00 [facility] 2020-10-22 2020-10-22 Outpatient STLMLC STLMLC [id number] Common 00:00:00 00:00:00 [facility] 2020-10-15 2020-10-15 Outpatient STLMLC STLMLC [id number] Common 00:00:00 00:00:00 [facility] 2020-09-25 2020-09-25 Outpatient STLMLC STLMLC [id number] Common 00:00:00 00:00:00 [facility] 2020-09-24 2020-09-24 Outpatient STLMLC STLMLC [id number] Common 00:00:00 00:00:00 [facility] 2020-09-23 2020-09-23 Outpatient STLMLC STLMLC [id number] Common 00:00:00 00:00:00 [facility] 2020-09-23 2020-09-23 Outpatient STLMLC STLMLC [id number] Common 00:00:00 00:00:00 [facility] 2020-07-22 2020-07-22 Outpatient STLMLC STLMLC [id number] Common 00:00:00 00:00:00 [facility] 2020-06-17 2020-06-17 Outpatient STLMLC STLMLC [id number] Common 00:00:00 00:00:00 [facility] 2020-05-07 2020-05-07 Outpatient STLMLC STLMLC [id number] Common 00:00:00 00:00:00 [facility] 2020-04-30 2020-04-30 Outpatient STLMLC STLMLC [id number] Common 00:00:00 00:00:00 [facility] 2020-02-27 2020-02-27 Outpatient STLMLC STLMLC [id number] Common 00:00:00 00:00:00 [facility] 2020-02-26 2020-02-26 Outpatient STLMLC STLMLC [id number] Common 00:00:00 00:00:00 [facility] 2020-01-30 2020-01-30 [facility] [id number] Common 14:00:00 14:00:[address] [facility] 2019-12-07 2019-12-07 [facility] [id number] Common 10:54:00 10:54:[address] [facility] 2019-10-30 2019-10-30 [facility] [id number] Common 13:30:00 13:30:[address] [facility] 2019-10-25 2019-10-25 [facility] [id number] Common 16:50:00 16:50:[address] [facility] 2019-10-19 2019-10-19 [facility] [id number] Common 15:21:00 15:21:[address] [facility] 2019-10-18 2019-10-18 [facility] [id number] Common 08:34:00 08:34:[address] [facility] 2019-10-11 2019-10-11 [facility] [id number] Common 13:40:00 13:40:[address] [facility] 2019-10-09 2019-10-09 [facility] [id number] Common 13:00:00 13:00:[address] [facility] 2019-10-04 2019-10-04 [facility] [id number] Common 14:02:00 14:02:[address] [facility] 2019-10-02 2019-10-02 Outpatient Lee [facility]t [id number] Common 17:10:00 17:10:[address] [facility] 2019-10-01 2019-10-01 Outpatient Lee Howardt [id number] Common 13:30:00 13:30:[address] [facility] 2019-10-01 2019-10-01 Outpatient Lee Howardt [id number] Common 09:03:00 09:03:00 t [place] [address] [facility] [address] [facility] Results Test Description Test Time Test Comments Results Result Comments Source CBC W/AUTO DIFF 2022-09-28 00:00:00 Test Item Value Reference Range Interpretation Comme nts NUCLEATED RBCS (test code 0.0 /100 WBC'S See_Comment [Automated message] The = 39077-0) system which ge nerated this result transmit radha reference range: 0.0 /100 WBC'S. The reference range was not used to interpret th is result as normal/abnormal . ABSOLUTE EOSINOPHILS (test 0.07 K/UL See_Comment [Automated message] The code = 29990-1) system which generated this result transmit rahda reference range: 0.00-0.5 0 K/UL. The reference range was not used to interpret th is result as normal/abnormal . ABSOLUTE LYMPHOCYTES (test 1.68 K/UL See_Comment [Automated message] The code = 35554-1) system which generated this result transmit radha reference range: 1.00-4.0 0 K/UL. The reference range was not used to interpret th is result as normal/abnormal . ABSOLUTE MONOCYTES (test 0.40 K/UL See_Comment [A utomated message] The code = 08144-4) system which generated this result transmit radha reference range: 0.20-1.0 0 K/UL. The reference range was not used to interpret th is result as normal/abnormal . ABSOLUTE NEUTROPHILS (test 2.52 K/UL See_Comment [Automated message] The code = 17110-0) system which generated this result transmit radha reference range: 1.50-7.5 0 K/UL. The reference range was not used to interpret th is result as normal/abnormal . BASOPHILS (test code = 0.2 % 80754-3) EOSINOPHILS (test code = 1.5 % 62649-0) HEMATOCRIT (test code = 40.9 % See_Comment [Au tomated message] The ) system which NEXGRID nerated this result transmit radha reference range: 34.0-45. 0 %. The reference range was not used to interpret th is result as normal/abnormal . HEMOGLOBIN (test code = 13.0 G/DL See_Comment [Au tomated message] The 87) system which NEXGRID nerated this result transmit radha reference range: 11.5-15. 5 G/DL. The reference range was not used to interpret th is result as normal/abnormal . LYMPHOCYTES (test code = 35.8 % 06521-9) MCH (test code = 48915-1) 30.6 PG See_Comment [ Automated message] The system which NEXGRID nerated this result transmit radha reference range: 25.0-33. 0 PG. The reference range was not used to interpret th is result as normal/abnormal . MCHC (test code = 78729-5) 31.8 G/DL See_Comment [Automated message] The system which NEXGRID nerated this result transmit radha reference range: 31.0-36. 0 G/DL. The reference range was not used to interpret th is result as normal/abnormal . MCV (test code = 56567-7) 96.2 fL See_Comment [ Automated message] The system which NEXGRID nerated this result transmit radha reference range: 80.0-99. 0 fL. The reference range was not used to interpret th is result as normal/abnormal . MONOCYTES (test code = 8.5 % 45899-3) NEUTROPHILS (test code = 53.8 % 36720-8) PLATELET COUNT (test code 263 K/UL See_Comment [ Automated message] The = 35094-2) system which NEXGRID nerated this result transmit radha reference range: 130-400 K/UL. The reference range was not used to interpret th is result as normal/abnormal . RBC (test code = 81579-9) 4.25 M/UL See_Comment [ Automated message] The system which NEXGRID nerated this result transmit radha reference range: 3.80-5.4 0 M/UL. The reference range was not used to interpret th is result as normal/abnormal . RDW (test code = 22783-0) 14.4 % See_Comment [ Automated message] The system which ge nerated this result transmit radha reference range: 11.5-15. 0 %. The reference range was not used to interpret th is result as normal/abnormal . WBC (test code = 32540-6) 4.7 K/UL See_Comment [ Automated message] The system which ge nerated this result transmit radha reference range: 3.5-11.0 K/UL. The reference range was not used to interpret th is result as normal/abnormal . DRUG ABUSE SCREEN 10 REFLEX [id number] 00:00:00 Test Item Value Reference Range Interpretation Comments AMPHETAMINES (test code = 94634-9) NEGATIVE NEGATIVE BARBITURATES (test code = 76065-8) NEGATIVE NEGATIVE BENZODIAZEPINES (test code = NEGATIVE NEGATIVE 96581-6) BUPRENORPHINE (test code = 77445-4) NEGATIVE NEGATIVE CANNABINOIDS (test code = 69780-7) NEGATIVE NEGATIVE COCAINE METABOLITE (test code = NEGATIVE NEGATIVE 18542-6) METHADONE (test code = 47271-3) NEGATIVE NEGATIVE OPIATES (test code = 16353-0) NEGATIVE NEGATIVE OXYCODONE (test code = 46255-3) NEGATIVE NEGATIVE PHENCYCLIDINE (test code = 37289-2) NEGATIVE NEGATIVE BENZODIAZEPINE, QUANT, [id number] 00:00:00 Test Item Value Reference Range Interpretation Comments 7-AMINOCLONAZEPAM QNT <50 ng/mL See_Comment [Auto mated (test code = 29109-1) messag e] The system which generated this result transmit radha reference range : <100 ng/mL. The reference range was not used to interpret this result as normal/abnormal . 7-AMINOFLUNITRAZEPAM QNT <50 ng/mL See_Comment [A utomated (test code = 41186-2) messag e] The system which generated this result transmit radha reference range : <100 ng/mL. The reference range was not used to interpret this result as normal/abnormal . HYDROXYALPRAZOLAM QNT <50 ng/mL See_Comment [Auto mated (test code = 69553-8) messag e] The system which generated this result transmit radha reference range : <100 ng/mL. The reference range was not used to interpret this result as normal/abnormal . HYDROXYTRIAZOLAM QNT <50 ng/mL See_Comment [Autom ated (test code = 12229-9) messag e] The system which generated this result transmit radha reference range : <100 ng/mL. The reference range was not used to interpret this result as normal/abnormal . LORAZEPAM QNT (test code 3212 ng/mL See_Comment H [A utomated = 07907-0) message] The system which generated this result transmit radha reference range : <100 ng/mL. The reference range was not used to interpret this result as normal/abnormal . NORDIAZEPAM QNT (test <50 ng/mL See_Comment [Auto mated code = 44479-5) message] The system which generated this result transmit radha reference range : <100 ng/mL. The reference range was not used to interpret this result as normal/abnormal . CB-OYXHP-WLPPGEJSEC QNT <50 ng/mL See_Comment [Au tomated (test code = 08430-3) WinWebag e] The system which generated this result transmit radha reference range : <100 ng/mL. The reference range was not used to interpret this result as normal/abnormal . OXAZEPAM QNT (test code = <50 ng/mL See_Comment [ Automated 78790-1) message] The system which generated this result transmit radha reference range : <100 ng/mL. The reference range was not used to interpret this result as normal/abnormal . TEMAZEPAM QNT (test code <50 ng/mL See_Comment [A utomated = 50964-7) message] The system which generated this result transmit radha reference range : <100 ng/mL. The reference range was not used to interpret this result as normal/abnormal . COMPREHENSIVE METABOLIC [id number] 00:00:00 Test Item Value Reference Range Interpretation Comments ALBUMIN (test code = 4.2 G/DL See_Comment [Autom ated message] 0341-7) The system [facility] [employer] generated this result transmit radha reference range : 3.5-5.2 G/DL. T he reference range was not used to interpret this result as normal/abnormal . ALKALINE PHOSPHATASE 70 U/L See_Comment [Autom ated message] (test code = 6768-6) The sys tem which generated this result transmit radha reference range : 40-142 U/L. The reference range was not used to interpret this result as normal/abnormal . BILIRUBIN, TOTAL 0.7 MG/DL See_Comment [Automated message] (test code = 1974-2) [facility] tem which generated this result transmit radha reference range : <=1.2 MG/DL. Th e reference range was not used to interpret this result as normal/abnormal . BUN (test code = 14 MG/DL See_Comment [Automated message] 3094-0) The system [facility] generated this result transmit radha reference range : 8-23 MG/DL. The reference range was not used to interpret this result as normal/abnormal . CALCIUM (test code = 9.7 MG/DL See_Comment [Autom ated message] 84122-0) The system [facility] generated this result transmit radha reference range : 8.5-10.5 MG/DL. The reference range was not used to interpret this result as normal/abnormal . CALC A/G RATIO (test 1.3 RATIO See_Comment [Autom ated message] code = 1759-0) The system [facility] generated this result transmit radha reference range : 1.0-2.6 RATIO. The reference range was not used to interpret this result as normal/abnormal . CALC BUN/CREAT (test 15 RATIO See_Comment [Autom ated message] code = 4897-3) The system [facility] generated this result transmit radha reference range : 6-28 RATIO. The reference range was not used to interpret this result as normal/abnormal . CALC GLOBULIN (test 3.3 G/DL See_Comment [Automa radha message] code = 67737-2) The system [facility] generated this result transmit radha reference range : 1.9-3.7 G/DL. T he reference range was not used to interpret this result as normal/abnormal . CARBON DIOXIDE (test 26 MEQ/L See_Comment [Autom ated message] code = 1963-8) The system [facility] generated this result transmit radha reference range : 19-31 MEQ/L. Th e reference range was not used to interpret this result as normal/abnormal . CHLORIDE (test code 103 MEQ/L See_Comment [Automa radha message] = 0381-0) The system [facility] generated this result transmit radha reference range : 95-107 MEQ/L. T he reference range was not used to interpret this result as normal/abnormal . CREATININE (test 0.95 MG/DL See_Comment [Automated message] code = 2160-0) The system [employer] generated this result transmit radha reference range : 0.60-1.30 MG/DL . The reference range was not used to interpret this result as normal/abnormal . eGFR (2020 CKD-EPI) 59 ML/MIN/1.73 See_Comment L [Auto mated message] (test code = The system [facility] [employer] 36985-2) generated this result transmit radha reference range : >60 ML/MIN/1.73. Th e reference range was not used to interpret this result as normal/abnormal . GLUCOSE (test code = 112 MG/DL See_Comment H [Autom ated message] 1558-6) The system [employer] generated this result transmit radha reference range : 70-99 MG/DL. Th e reference range was not used to interpret this result as normal/abnormal . POTASSIUM (test code 4.2 MEQ/L See_Comment [Autom ated message] = 2823-3) The system [employer] generated this result transmit radha reference range : 3.5-5.4 MEQ/L. The reference range was not used to interpret this result as normal/abnormal . PROTEIN, TOTAL (test 7.5 G/DL See_Comment [Autom ated message] code = 2885-2) The system [employer] generated this result transmit radha reference range : 6.1-8.3 G/DL. T he reference range was not used to interpret this result as normal/abnormal . AST (test code = 18 U/L See_Comment [Automated message] 1920-8) The system [employer] generated this result transmit radha reference range : 9-40 U/L. The reference range was not used to interpret this result as normal/abnormal . ALT (test code = 9 U/L See_Comment [Automated message] 1742-6) The system [employer] generated this result transmit radha reference range : 5-40 U/L. The reference range was not used to interpret this result as normal/abnormal . SODIUM (test code = 144 MEQ/L See_Comment [Automa radha message] 2951-2) The system [facility] [employer] generated this result transmit radha reference range : 133-146 MEQ/L. The reference range was not used to interpret this result as normal/abnormal . BASIC METABOLIC [id number] 05:58:05 Test Item Value Reference Range Interpretation Comments SODIUM (BEAKER) 143 meq/L 135-148 (test code = 381) POTASSIUM 3.8 meq/L 3.6-5.5 (BEAKER) (test code = 379) CHLORIDE (BEAKER) 109 meq/L 98-106 H (test code = 382) CO2 (BEAKER) 24 meq/L 20-29 (test code = 355) BLOOD UREA 6 mg/dL 10-26 L NITROGEN (BEAKER) (test code = 354) CREATININE 0.79 mg/dL 0.50-1.20 (BEAKER) (test code = 358) GLUCOSE RANDOM 106 mg/dL 70-110 (BEAKER) (test code = 652) CALCIUM (BEAKER) 8.6 mg/dL 8.5-10.5 (test code = 697) EGFR (BEAKER) 74 Interpretatio n of eGFR (test code = [...] not appl icable for dialysis patien ts Forger Helper ID - LITOOperator ID - LITOOperator ID - LITOOperator ID - LITOOperator ID - LITOOperator ID - LITOOperator ID - LITOOperator ID - LITOOperator ID - LITOOperator ID - LITOOperator ID - LITOOperator ID - LITOOperator ID - LITOOperator ID - leviotaOperator ID - leviotaOperator ID - leviotaCBC W/PLT COUNT & AUTO [id number] 05:06:22 Test Item Value Reference Range Interpretation [...] 0.00-0.00 H PERCENT (BEAKER) (test code = 280) HEPATITIS B SURFACE [id number] 16:55:30 Test Item Value Reference Range Interpretation Comments HEPATITIS B SURFACE ANTIGEN (2) Nonreactive Nonreactive (BEAKER) (test code = 2585) Forger Helper ID - AMORQUEPOCT-GLUCOSE [id number] 11:52:58 Test Item Value Reference Range Interpretation Comments POC-GLUCOSE METER 86 mg/dL 70-110 : TESTED A T [address] (BEAKER) (test code = [address]) [facility] 77 478: Forger Helper/Techni kelly ID = [id number] for Diana Steiner POCT-GLUCOSE [id number] 06:57:11 Test Item Value Reference Range Interpretation Comments POC-GLUCOSE METER 112 mg/dL 70-110 H : TESTED A T [address] (BEAKER) (test code [address], = 1538) [facility] 77 478: Forger Helper/Techni kelly ID = [id number] for Bac october BASIC METABOLIC [id number] 01:45:44 Test Item Value Reference Range Interpretation [...] not appl icable for dialysis patien ts Forger Helper ID - [id number] ID - [id number] ID - YZCZAC783Sngvmydv ID - [id number] - LYGPMS421Qnrlibiw ID - SBRZRZ226Hgayrsii ID - UQTMYS536Eoyhbkdv ID - UMSUZK954Pzyavgvi ID - PECEFB734Zzbfchkn ID - QHKNOX144Jfvxzpql ID - [id number] ID - ZAPRNX190Hyknkabn ID - [id number] CBC W/PLT COUNT & AUTO [id number] 01:33:45 Test Item Value Reference Range Interpretation [...] PERCENT (BEAKER) (test code = 2801) POCT-GLUCOSE [id number] 23:59:54 Test Item Value Reference Range Interpretation Comments POC-GLUCOSE METER 126 mg/dL 70-110 H : TESTED A T [address] (BEAKER) (test code [address], = 1538) [place] [address] 478: Forger Helper/Techni kelly ID = [id number] for Bac october POCT-GLUCOSE [id number] 17:17:50 Test Item Value Reference Range Interpretation Comments POC-GLUCOSE METER 98 mg/dL 70-110 : TESTED A T [address] (BEAKER) (test code = [address], [address]) [place] [address] 478: Forger Helper/Techni kelly ID = [id number] for Diana Steiner B-TYPE NATRIURETIC FACTOR (BNP)2022-03-19 04:33:52 Test Item Value Reference Range Interpretation Comments B-TYPE NATRIURETIC PEPTIDE (BEAKER) 90 pg/mL 0-100 (test code = 700) Forger Helper ID - LITOBASIC METABOLIC [id number] 04:22:47 Test Item Value Reference Range Interpretation [...] not appl icable for dialysis patien ts Forger Helper ID - LITOOperator ID - LITOOperator ID - LITOOperator ID - LITOOperator ID - LITOOperator ID - LITOOperator ID - LITOOperator ID - LITOOperator ID - LITOOperator ID - LITOOperator ID - LITOOperator ID - LITOCBC W/PLT COUNT & AUTO [id number] 04:14:27 Test Item Value Reference Range Interpretation [...] PERCENT (BEAKER) (test code = 2801) VITAMIN [id number] 03:09:55 Test Item Value Reference Range Interpretation Comments VITAMIN B12 (BEAKER) (test code = 386 pg/mL 211-911 774) Forger Helper ID - LITOTSH/FREE T4 IF [id number] 01:33:59 Test Item Value Reference Range Interpretation Comments THYROID STIMULATING HORMONE 1.240 uIU/mL 0.350-5.500 (BEAKER) (test code = 772) Forger Helper ID - JUSTINLIPID [id number] 01:31:59 Test Item Value Reference Range Interpretation Comments TRIGLYCERIDES (BEAKER) 101 mg/dL Speci men slightly (test code = 540) hemolyzed CHOLESTEROL (BEAKER) 143 mg/dL Specime n slightly (test code = 631) hemolyzed HDL CHOLESTEROL (BEAKER) 36 mg/dL (test code = 976) LDL CHOLESTEROL 87 mg/dL CALCULATED (BEAKER) (test code = 633) Triglyceride Reference Range: Low Risk <150 Borderline 150-199 High Risk 200- 499 Very High Risk >=500Cholesterol Reference Range: Low Risk <200 Borderline 200-239 High Risk >240HDL Cholesterol Reference Range: Low Risk >=60 High Risk <40LDL Cholesterol Reference Range: Optimal <100 Near Optimal 100-129 Borderline 130-159 High 160-189 Very High >=190 Forger Helper ID - JUSTINOperator ID - JUSTINOperator ID [...] 55 % 20-55 (test code = 2590) Forger Helper ID - JUSTINOperator ID - [id number] 00:07:28 Test Item Value Reference Range Interpretation Comments FERRITIN (BEAKER) (test code = 53.60 ng/mL 10.00-291.00 361) Forger Helper ID - JUSTINCOMPREHENSIVE METABOLIC [id number] 23:49:23 Test Item Value Reference Range Interpretation [...] not appl icable for dialysis patien ts Forger Helper ID - JUSTINOperator ID - JUSTINOperator ID - JUSTINOperator ID - JUSTINOperator ID - JUSTINOperator ID - JUSTINOperator ID - JUSTINOperator ID - JUSTINOperator ID - JUSTINOperator ID - JUSTINOperator ID - JUSTINOperator ID - JUSTINOperator ID - JUSTINOperator ID - JUSTINOperator ID - JUSTINOperator ID - JUSTINOperator ID - JUSTINOperator ID - JUSTINOperator ID - JUSTINPROTHROMBIN TIME/[id number] 23:42:41 Test Item Value Reference Range Interpretation Comments PROTIME (BEAKER) 11.6 seconds 9.3-12.0 Final Infor mation (test code = 759) (Auto Outp ut) INR (BEAKER) (test 1.06 See_Comment Final Inf ormation code = 370) (Auto Output) [Automated mess age] The system [employer] generated this result transmitted ref erence range: <=5.90. The reference range was not used to int erpret this result as normal/abnormal . RECOMMENDED COUMADIN/WARFARIN INR THERAPY RANGESSTANDARD DOSE: 2.0 - 3.0 Includes: PROPHYLAXIS for venous thrombosis, systemic embolization; TREATMENT for venous thrombosis and/or pulmonary embolus.HIGH RISK: Target INR is 2.5-3.5 for patients with mechanical heart valves.CBC W/PLT COUNT & AUTO [id number] 23:29:57 Test Item Value Reference Range Interpretation [...] PERCENT (BEAKER) (test code = 2801) POC [id number] 17:17:00 Test Item Value Reference Range Interpretation Comments POC glucose (test 87 mg/dL 65-99 Forger Helper N justice: Pandya code = 70406-2) CarmenDevice ID: [id number] [facility] [id number] 17:17:00 Test Item Value Reference Range Interpretation Comments POC glucose (test 87 mg/dL 65-99 Forger Helper N justice: Pandya code = 67201-6) CarmenDevice ID: [id number] [facility] Coronavirus 2019 [id number] 23:10:00 Test Item Value Reference Range Interpretation [...] for the identification of SARS-CoV-2 RNA usingthe Therabiol M2000 Sy stem under the FDA Emergen cy UseAuthorizatio n. The testing is perf ormed by personneltraine d in the procedures for the Therabiol M2000 molecular diagnostic SARS-CoV-2 assa y in vitro. PROTHROMBIN [id number] 11:28:00 Test Item Value Reference Range Interpretation [...] (to prevent recurrent infar ct). BASIC METABOLIC [id number] 11:25:00 Test Item Value Reference Range Interpretation [...] 9.6 mg/dL 8.0-10.5 N CA) CBC W/AUTO [id number] 11:15:00 Test Item Value Reference Range Interpretation [...] (test code NO = MDIFF) BASIC METABOLIC [id number] 05:27:00 Test Item Value Reference Range Interpretation [...] 8.5 mg/dL 8.0-10.5 N CA) CBC W/AUTO [id number] 05:17:00 Test Item Value Reference Range Interpretation [...] DIFF REQUIRED (test code NO = MDIFF) [id number] 15:33:00 Test Item Value Reference Range Interpretation Comments ACT-ISTAT (test code 257 SEC 74-137 H Perform ed by certified = ACTI) supervisor transcribing operators at [facility] [id number] 15:33:00 Test Item Value Reference Range Interpretation Comments ACT-ISTAT (test code 235 SEC 74-137 H Perform ed by certified = ACTI) supervisor transcribing operators at [facility] [id number] 14:40:00 Test Item Value Reference Range Interpretation Comments ACT-ISTAT (test code 224 SEC 74-137 H Perform ed by certified = ACTI) supervisor transcribing operators at [facility] - XR CHEST 1 [id number] 00:00:00 [facility] 1935 Sex: F FAX: Baltazar Avendaño MD [phone] [place]: St: ADM FAX: Dhaval Gracia [phone] Name: JOHANNA GUEVARA [facility] : 1935 Age/S: 85/F [address] [place] [address] Unit #: [id number] Loc: [place] [address] Phys: Dhaval Gracia Acct: [id number] Dis Date: Status: ADM IN PHONE #: [phone] Date: 12/10/2020 1623 FAX #: [phone] Reason: S/P WATCHMAN EXAMS: CPT CODE: [id number] XR CHEST 1 V 78882 PROCEDURE INFORMATION: Exam: XR Chest Exam date and time: 12/10/2020 3:48 PM Age: 85 years old Clinical indication: Condition or disease; Other: Watchman; Additional info: S/P watchman TECHNIQUE: Imaging protocol: XR of the chest. Views: 1 view. Other technique: AP portable chest obtainedwith the patient semi upright. COMPARISON: DX XR CHEST 2 V 12/08/2020 1:09 PM FINDINGS: Limitations:Portable technique, patient slightly rotated and tilted to the left. Tubes, catheters and devices: Faintly radiopaque EKG leads overlie the chest. Atrial appendage occlusion device overlies the left cardiac silhouette. Lungs: The lungs are clear, allowing for portable technique. Pleural spaces: Thereis no pneumothorax or pleural effusion. Heart/Mediastinum: The cardiomediastinal silhouette is stable allowing for rotation. Calcified plaque thoracic aorta. Bones/joints: Scoliosis and multilevel degenerative changes of the spine. No acute skeletal abnormality. IMPRESSION: 1. Interval atrial appendage occlusion device placement. 2. No acute findings. at 5897 Reported and signed by: Mark So M.D. CC: Baltazar Oden MD; Dhaval DALTON [facility] Technologist: RT Karina(R) Trnscrd Date/Time/By: 12/10/2020 (1646) : By: [email or web address] Orig Print D/T: S: 12/10/2020 (399) PAGE 1 Signed ReportNovel Coronavirus 2019 [id number] 05:28:00 Test Item Value Reference Range Interpretation [...] for the identification of SARS-CoV-2 RNA usingthe Therabiol M2000 Sy stem under the FDA Emergen cy UseAuthorizatio n. The testing is perf ormed by personneltrajaime d in the procedures for the Therabiol M2000 molecular diagnostic SARS-CoV-2 assa y in vitro. BASIC METABOLIC [id number] 12:58:00 Test Item Value Reference Range Interpretation [...] code = 9.9 mg/dL 8.0-10.5 N CA) [id number] 12:58:00 Test Item Value Reference Range Interpretation Comments PREALBUMIN (test code = PREALB) 15.9 mg/dL 16.0-40.0 L BASIC METABOLIC [id number] 12:57:00 Test Item Value Reference Range Interpretation [...] code = 9.9 mg/dL 8.0-10.5 N CA) [id number] 12:57:00 Test Item Value Reference Range Interpretation Comments PREALBUMIN (test code = PREALB) mg/dL 16.0-40.0 PROTHROMBIN [id number] 12:50:00 Test Item Value Reference Range Interpretation [...] (to prevent recurrent infar ct). CBC W/AUTO [id number] 12:45:00 Test Item Value Reference Range Interpretation [...] MANUAL DIFF REQUIRED (test code NO = LAYNE) - XR CHEST 2 [id number] 00:00:00 [facility] : 1935 Sex: F FAX: Baltazar Avendaño MD [phone] [place]: St: PRE Name: JOHANNA GUEVARA [facility] : 1935 Age/S: 85/F [address] [place] [address] Unit #: [id number] Loc: [place] [address] Phys: Baltazar Oden MD Acct: [id number] Dis Date: Status: PRE IN PHONE #: [phone] Exam Date: 12/08/2020 1434 FAX #: [phone] Reason: WATCHMAN EXAMS: CPT CODE: [id number] XR CHEST 2 V 98990 PROCEDURE INFORMATION: Exam: XR Chest Exam date and time: 12/08/2020 1:09 PM Age: 85 years old Clinical indication: Pre-operative exam; Respiratory screening exam; Additional info: Watchman TECHNIQUE: Imaging protocol: XR of the chest. Views: 2 views. PA and Lateral COMPARISON: No relevant prior studies available. FINDINGS: Lungs:There are normal lung volumes without consolidation or interstitial oppacities. Pleural spaces: Unremarkable. No pleural effusion. No pneumothorax. Heart/Mediastinum: Mild cardiomegaly. Vasculature: Tortuous aorta contains calcifications. Bones/joints: Right curvature of the midthoracic spine is present. Degenerative changes in both shoulders. IMPRESSION: No acute cardiopulmonary process. at 1950 Reported and signed by: Rebecca Calvert M.D. CC: Baltazar Oden MD Technologist: RT Efrain(R) Trnscrd Date/Time/By: (1950) : By: [email or web address] Orig Print D/T: S: 12/08/2020 (1950) PAGE 1 Signed Report Notes Date/Time Note Provider Source 2020-12-11 12:04:00 [id number]:04:00 [facility]Discharge SummaryREPORT#:[id number] REPORT STATUS: SignedDATE:12/11/20 TIME: 1204 PATIENT: JOHANNA GUEVARA UNIT #: [id number]#: [id number] [address] [birth year] AGE : 85 SEX: F ATTEND: Baltazar Oden [facility] AUTHOR: Dhaval Gracia * ALL edits or amendments must be made on the electronic/computer document * PCP PCPDischarge to: home General InformationDischarge date: 12/11/20Hospital course:-s/p Watchman implantation per -monitored overnight-hemodynamically stable-R groin soft; n o hematoma; suture removed vkcdylebq-sjea-vp ECHO - no pericardial effusion-resume AC eliquis -d/c home; outpt f/u w/ in 2 weeks Med Rec PCPPCP:PCP: Undefined Provider Med RecDischarge meds:Continue taking these medications:ASPIRIN E C (ECOTRIN) 81 MG TAB.EC 81 MILLIGRAM ORAL DAILY. MULTIVITAMIN (MULTIPLE VITAMIN) 1 TAB TAB 1 TABLET ORAL DAILY. LORazepam (ATIVAN) 1 MG TAB 1 MILLIGRAM ORAL TWICE DAILY. as needed for ANXIET Y CELECOXIB (CeleBREX) 200 MG CAP 200 MILLIGRAM ORAL DAILY. as needed for ARTHRITIS PAIN GABAPENTIN (NEURONTIN) 300 MG CAP 300 MILLIGRAM ORAL BEDTIME. LANSOPRAZOLE DR (PREVACID) 30 MG CAP.DR 30 MILLIGRAM ORAL TWICE DAILY. traMADol E R (ULTRAM ER) 100 MG TAB.SR.24H 100 MILLIGRAM ORAL TWICE DAILY. VERAPAMIL ER (VERELAN) 240 MG CAP.SR.24H 240 MILLIGRAM ORAL TWICE DAILY. APIXABAN (ELIQUIS) 5 MG TAB 5 MILLIGRAM ORAL TWICE DAILY. ObjectiveVS/I OLast Documented: Result Date Time Pulse Ox 92 12/11 1137 B/P 139/85 12/11 1137 B/P Mean 102.6 12/11 1137 O2 Delivery Room air 12/11 1137 Temp 36.7 12/11 113 7 Pulse 83 12/11 1137 Resp 18 12/11 1137 24 hour I O ending at 0700: 12/11 0700 12/10 1900 Intake Total 870.00 Output Total 2700 Balance -1830.00 Intake, IV 750.00 Intake, Oral 120 Number Voids 5 Output, Urine 2700 PATIENT WEIGHT: Weight (lb): 180Weight (oz): 12.46Weight (kg): 82.000 General appearance: alert, awake, oriented, no acute distressCardiovascular: regular rate rhythmRespiratory: clear to auscultation, no distressGI: soft, non-tenderExtremities: moves allNeuro/SUPPLY OFFICER: alert, oriented X 3Skin: dryWound/incision: Location:R groin soft; no hematoma ResultsFindings/Data:Laboratory Tests: 12/11 12/10 12/10 12/10 0355 1454 [...] (8.0 - 10.5 mg/dL) 8.5 Coagulation Activated Coa g Time (74 - 137 SEC) 257 H 235 H 224 H Hematolog y WBC (4.5 - 11.0 x10 3/uL) 5.6 RBC (3.54 - 5.02 x10 6/uL) 3.83 Hgb (11.0 - 15.0 g/dL) 11.9 Hct (33.0 - 45.0 %) 37.8 MCV (81.0 - 99.0 fL) 98.7 MCH (27.0 - 33.0 pg) 31.1 MCHC (33.0 - 37.0 g/dL ) 31.5 L RDW (11.5 - 14.5 %) 13.2 Plt Count (150 - 400 x10 3/uL) 224 MPV (7.0 - 9.0 fL) 9.1 H Neut % (Auto) (56.0 - 77.0 %) 80.3 H Lymph % (Auto) (14.0 - 32.0 %) 16.3 Screven % (Auto) (4.8 - 9.0 %) 2.9 L Eos % (Auto) (0.3 - 3.7 %) 0.0 L Baso % (Auto) (0.0 - 2.0 %) 0.0 Neut # (Auto) (2.0 - 7. 6 x10 3/uL) 4.50 Lymph # (Auto) (1.0 - 3.8 x10 3/uL) 0.91 L Screven # (Auto) (0.1 - 0.8 x10 3/uL) 0.16 Eos # (Auto) (0.0 - 0.2 x10 3/uL) 0.00 Baso # (Auto) (0.0 - 0.2 x10 3/uL) 0.00 Abs Immat Gra n (auto) (0.00 - 0.03 x10 3/uL) 0.03 Add Manual Diff NO Immature Gran % (0.0 - 2.0 %) 0.5 Nucleated RBC % (0 - 0 %) 0.0 Nucleated RBCs # (Man) (0.0 - 0.1 x10 3/uL) 0.00 Radiology data:Recent Impressions:RADIOLOGY - XR CHEST 1 V 12/10 1622 Report Impression - Status: SIGNED Entered: 12/10/20201646 IMPRESSION: 1. Interval atrial appendage occlusion device placement. 2. No acute findings. Impression By: Sandip So M.D. Treatments ProceduresTreatments Procedures:Left atrial appendage closure using a 27-mm Watchman FLX closure device.Lab:Chemistry last 24 hrs: 12/11 0355 Chemistry Sodium (134 - 147 mEq/L) 140 Potassium (3.4 - 5.0 mEq/L) 4.0 Chloride (100 - 108 mEq/L) 106 BUN (7 - 18 mg/dL) 8 Creatinine (0.6 - 1.3 mg/dL) 0.7 Glucose (70 - 110 mg/dL) 161 H Hematology last 24 hrs: 12/11 354 Hematology WBC (4.5 - 11.0 x10 3/uL) 5.6 Hgb (11.0 - 15.0 g/dL) 11.9 Hct (33.0 - 45.0 %) 37.8 Plt Count (150 - 400 x10 3/uL) 224 Neut % (Auto) (56.0 - 77.0 %) 80.3 H Imaging:Recent Impressions:RADIOLOGY - XR CHEST 1 V 12/10 1622 Report Impression - Status: SIGNED Entered: 12/10/20201646 IMPRESSION: 1. Interval atrial appendage occlusion device placement. 2. No acute findings. Impression By: Sandip So M.D. Discharge Instructions PCPPCP:PCP: Undefined Provider )( Discharge to: Home/Self Care Discharge InstructionsAdditional Discharge Routines: Attending Follow-Up)( Diet: Cardiac)( Activity: As Tolerated Follow-up AppointmentsAttending Physician: Attending Physician: Baltazar Oden MD Attending physician follow up timeframe: In 1-2 weeksConsulting provider 1: Provider 1: Baltazar Oden MD Specialty: NETWORK PROFESSIONAL Consult follow up timeframe: 2 WEEK S Special instructions:CALL FOR FOLLOW UP APPOINTMENT at 1508 RPT #:[id number] OF REPORTDSDischarge smycdmf8683-38-27R40:04:00G.[id number] v ailable for patient utlwCBXJRIDMJLWFLK2564-96-71T00:08:53 2020-12-11 12:04:00 ULgngrjrzul182817743180-22-69A69:04:00 [facility] ([facility])Discharge SummaryREPORT#:[id number] REPORT STATUS: SignedDATE:12/11/20 TIME: 1204 PATIENT: JOHANNA GUEVARA UNIT #: [id number]#: [id number] [address] AGE : 85 SEX: F ATTEND: Baltazar Oden AUTHOR: Dhaval Gracia * ALL edits or amendments must be made on the electronic/computer document * PCP PCPDischarge to: home General InformationDischarge date: 12/11/20Hospital course:-s/p Watchman implantation per -monitored overnight-hemodynamically stable-R groin soft; n o hematoma; suture removed amhvtbckt-ouxw-wt ECHO - no pericardial effusion-resume AC eliquis -d/c home; outpt f/u w/ in 2 weeks Med Rec PCPPCP:PCP: Undefined Provider Med RecDischarge meds:Continue taking these medications:ASPIRIN E C (ECOTRIN) 81 MG TAB.EC 81 MILLIGRAM ORAL DAILY. MULTIVITAMIN (MULTIPLE VITAMIN) 1 TAB TAB 1 TABLET ORAL DAILY. LORazepam (ATIVAN) 1 MG TAB 1 MILLIGRAM ORAL TWICE DAILY. as needed for ANXIET Y CELECOXIB (CeleBREX) 200 MG CAP 200 MILLIGRAM ORAL DAILY. as needed for ARTHRITIS PAIN GABAPENTIN (NEURONTIN) 300 MG CAP 300 MILLIGRAM ORAL BEDTIME. LANSOPRAZOLE DR (PREVACID) 30 MG CAP.DR 30 MILLIGRAM ORAL TWICE DAILY. traMADol E R (ULTRAM ER) 100 MG TAB.SR.24H 100 MILLIGRAM ORAL TWICE DAILY. VERAPAMIL ER (VERELAN) 240 MG CAP.SR.24H 240 MILLIGRAM ORAL TWICE DAILY. APIXABAN (ELIQUIS) 5 MG TAB 5 MILLIGRAM ORAL TWICE DAILY. ObjectiveVS/I OLast Documented: Result Date Time Pulse Ox 92 12/11 1137 B/P 139/85 12/11 1137 B/P Mean 102.6 12/11 1137 O2 Delivery Room air 12/11 113 Temp 36.7 12/11 113 7 Pulse 83 12/11 1137 Resp 18 12/11 1137 24 hour I O ending at 0700: 12/11 0700 12/10 1900 Intake Total 870.00 Output Total 2700 Balance -1830.00 Intake, IV 750.00 Intake, Oral 120 Number Voids 5 Output, Urine 2700 PATIENT WEIGHT: Weight (lb): 180Weight (oz): 12.46Weight (kg): 82.000 General appearance: alert, awake, oriented, no acute distressCardiovascular: regular rate rhythmRespiratory: clear to auscultation, no distressGI: soft, non-tenderExtremities: moves allNeuro/SUPPLY OFFICER: alert, oriented X 3Skin: dryWound/incision: Location:R groin soft; no hematoma ResultsFindings/Data:Laboratory Tests: 12/11 12/10 12/10 12/10 0355 1454 1443 1431 Chemistry Sodium (134 - 147 mEq/L) 140 Potassium (3.4 - 5.0 mEq/L) 4.0 Chloride (100 - 108 mEq/L) 106 Carbon Dioxide (21 - 33 mEq/l) 27 Anion Gap (0 - 20) 11 BUN (7 - 18 mg/dL) 8 Creatinine (0.6 - 1.3 mg/dL) 0.7 Glomerular Filtr Rate (70 - 80 ) 96.7 H Glucose (70 - 110 mg/dL) 161 H Calcium (8.0 - 10.5 mg/dL) 8.5 Coagulation Activated Coa g Time (74 - 137 SEC) 257 H 235 H 224 H Hematology WBC (4.5 - 11.0 x10 3/uL) 5.6 RBC (3.54 - 5.02 x10 6/uL) 3.83 Hgb (11.0 - 15.0 g/dL) 11.9 Hct (33.0 - 45.0 %) 37.8 MCV (81.0 - 99.0 fL) 98.7 MCH (27.0 - 33.0 pg) 31.1 MCHC (33.0 - 37.0 g/dL ) 31.5 L RDW (11.5 - 14.5 %) 13.2 Plt Count (150 - 400 x10 3/uL) 224 MPV (7.0 - 9.0 fL) 9.1 H Neut % (Auto) (56.0 - 77.0 %) 80.3 H Lymph % (Auto) (14.0 - 32.0 %) 16.3 Screven % (Auto) (4.8 - 9.0 %) 2.9 L Eos % (Auto) (0.3 - 3.7 %) 0.0 L Baso % (Auto) (0.0 - 2.0 %) 0.0 Neut # (Auto) (2.0 - 7. 6 x10 3/uL) 4.50 Lymph # (Auto) (1.0 - 3.8 x10 3/uL) 0.91 L Screven # (Auto) (0.1 - 0.8 x10 3/uL) 0.16 Eos # (Auto) (0.0 - 0.2 x10 3/uL) 0.00 Baso # (Auto) (0.0 - 0.2 x10 3/uL) 0.00 Abs Immat Gra n (auto) (0.00 - 0.03 x10 3/uL) 0.03 Add Manual Diff NO Immature Gran % (0.0 - 2.0 %) 0.5 Nucleated RBC % (0 - 0 %) 0.0 Nucleated RBCs # (Man) (0.0 - 0.1 x10 3/uL) 0.00 Radiology data:Recent Impressions:RADIOLOGY - XR CHEST 1 V 12/10 1623 Report Impression - Status: SIGNED Entered: 12/10/2020 4395 IMPRESSION: 1. Interval atrial appendage occlusion device placement. 2. No acute findings. Impression By: Sandip So M.D. Treatments ProceduresTreatments Procedures:Left atrial appendage closure using a 27-mm Watchman FLX closure device.Lab:Chemistry last 24 hrs: 12/11 0355 Chemistry Sodium [...] (Auto) (56.0 - 77.0 %) 80.3 H Imaging:Recent Impressions:RADIOLOGY - XR CHEST 1 V 12/10 1623 Report Impression - Status: SIGNED Entered: 12/10/2020 1647 IMPRESSION: 1. Interval atrial appendage occlusion device placement. 2. No acute findings. Impression By: Sandip So M.D. Discharge Instructions PCPPCP:PCP: Undefined Provider )( Discharge to: Home/Self Care Discharge InstructionsAdditional Discharge Routines: Attending Follow-Up)( Diet: Cardiac)( Activity: As Tolerated Follow-up AppointmentsAttending Physician: Attending Physician: Baltazar Oden MD Attending physician follow up timeframe: In 1-2 weeksConsulting provider 1: Provider 1: Baltazar Oden MD Specialty: NETWORK PROFESSIONAL Consult follow up timeframe: 2 WEEK S Special instructions:CALL FOR FOLLOW UP APPOINTMENT at 1508 at 1141 RPT #:[id number] OF REPORTDSDischarge xacqyzc8288-78-76B80:04:00G.[id number] v ailable for patient scdnITCLWXMCZQOUFK0425-36-33K83:49:42 2020-12-10 19:08:00 [id number]:08:227002-[address] [place] [id number] PATIENT NAME: JOHANNA GUEVARA ADMIT DATE: 12/10/20ACCOUNT NO: [id number] ROOM NO: G.CHIC AGE: 85 REPORT TYPE: eECHOCARDIOGRAM REPORT SEX: F ADMITTING PHYSICIAN:Baltazar Oden MD ATTENDING PHYSICIAN:Baltazar Oden MD *[address], [place] [address]Eiehe: [phone]: [phone] Limited Transthoracic Echocardiogra m Patient: Johanna Guevaraudy Date: 12/10/2020 BP: 165 / 86 [id number] 1935 Age: 85 Height: 66 in / 167.6 cmAccession#: [id number] Gender: F Weight: 179.6 lb / 81.6 kgBMI/BSA: 29.1 kg/m 2 / 1.97 m 2 *Ordering Physician: * Dhaval Gracia *Interpreting Physician: * Akshat Ledesma MD*Financial Planning Adviser: * Esther Ramires - Indications: POST WATCHMAN. - Study data: Transthoracic echocardiogram, limited study. Procedure:Transthoracic echocardiography was performed. Image quality wasadequate. Limited 2D and limited spectral Doppler. Location: Bedside. Patient status: Inpatient. Patient room number: CHIC. Study status:Routine. - Findings Left ventricle: The cavity size is normal. Wall thickness is normal.Systolic function is normal. The estimate d ejection fraction is 55-60%.Wall motion is normal; there are no regional wall motion abnormalities.Left atrium: The atrium is normal in size.Pericardium: There is no pericardial effusion.PATIENT NAME: JOHANNA GUEVARA ANN - Measurements Left ventricle Value Ref PHILLY, LAX [...] 1.0 cm 0.6 - 0.9 IVS/PW, ED 1.0 6 --------- EF 58 % 54 - 74 [...] MM 4.5 cm 2.7 - 3.8 LA/Ao audrey t ratio, MM 1.54 --------- Aortic valve Value Ref Leaflet sep, MM 2.00 cm --------- Mitral valve Value Ref E-septal separation 0.5 cm --------- E-F slope 0.07 m/sec --------- Aortic root Value Ref Root diam, ED MM 2.89 cm --------- - Conclusions Summary: 1. Left ventricle: The cavity size is normal. Wall thickness is normal. Systolic function is normal . The estimated ejection fraction is 55-60%. Wall motion is normal; there are no regional wall motion abnormalities.2. Left atrium: The atrium is normal in size.3. Pericardium, extracardiac: There is no pericardial effusion.PATIENT NAME: JOHANNA GUEVARA Prepare d and electronically signed by Akshat Ledesma MD12/10/2020 19:08 at 1909 PATIENT NAME: JOHANNA GUEVARA :08: 0 0G.[id number] for patient edqoMBMVCEJEVWDRKY1019-79-81Q47:09:24 2020-12-10 15:52:00 [id number]:52:725870-0 066 [place] [id number] PATIENT NAME: JOHANNA GUEVARA ADMIT DATE: 12/10/20ACCOUNT NO: [id number] ROOM NO: G.CHIC AGE: 85 REPORT TYPE: eELECTROCARDIOGRAM REPORT SEX: F ADMITTING PHYSICIAN:Baltazar Oden MD ATTENDING PHYSICIAN:Baltazar Oden MD Order:[id number] Reason : WATCHMAN Test Date/Time Stamp:TueDec 10 2020 15:52:19Blood Pressure : / mmHGVent. Rate : 071 BPM Atrial Rate : 071 BPM P-R Int : 192 ms QRS Dur : 076 ms QT Int : 454 ms P-R-T Axes : 079 078 079 degrees QTc Int : 493 ms Normal sinus rhythmST elevation, consider early repolarization, pericarditis, or injuryProlonged QTAbnormal ECGWhen compared with ECG of 08-DEC-2020 12:34,N o significant change was foundConfirmed by WALDEMAR FINK MD ([id number]) on 12/10/2020 7:03:52 PM Referred By: Baltazar Oden Confirmed by:WALDEMAR FINK MD at 1904 PATIENT NAME: JOHANNA GUEVARA .[id number] AVAvailable for patient qzhcIUBPPEVRKILFDC0911-28-56I41:04:14 2020-12-10 15:24:00 [id number]:24:750881-[address] [address] PATIENT NAME: JOHANNA GUEVARA ADMIT DATE: 12/10/20ACCOUNT NO: [id number] ROOM NO: G.3353 AGE: 85 REPORT TYPE: OPERATIVE REPORT SEX: F ADMITTING PHYSICIAN:Baltazar Oden MD ATTENDING PHYSICIAN:Baltazar Oden MD OPERATION DATE: 12/10/2020 PREOPERATIVE DIAGNOSIS: POSTOPERATIVE DIAGNOSIS: PROCEDURE PERFORMED: Left atrial appendage closure using a 27-mm Watchman FLXclosure device. SURGEON: Baltazar Oden MD ATMOSPHERIC DRIER TENDER: ANESTHESIA: INDICATIONS: Paroxysmal atrial fibrillation with history of TIA and inabilityto take anticoagulants due to falls and GI bleed. ACCESS: Right femoral vein, 16-German closed with rokniq-hb-cdavy suture. COMPLICATIONS: None. BLEEDING: Less than 50 mL. PROCEDURE IN DETAIL: After risks, benefits, and alternatives were explained,the patient agreed t o proceed and signed informed consent. The patient wasbrought into the cardiac catheterization laboratory, prepped and draped in theusual sterile fashion and then general anesthesia was applied and HORACIO probe wasinserted and preprocedure HORACIO was performed. No thrombus was found in theappendage. I then took micropuncture kit and under the ultrasound guidance,accessed the right femoral vein and placed an 8-German Price sheath andupgraded to 16-German Cook sheath and gave partial dose of heparin. Subsequently, took a SL1 sheath into the SVC and then the Cherry needle inside,we descended under the guidance of HORACIO and fluoroscopy into the low mid positionand transseptal puncture was done successfully. LA pressure was 10 mmHg. Then,I took a ProTrack wire into the left atrium and we gave full dose heparin toassure ACT level above 250 throughout the procedure. I then took a double curveWatchman sheath into the LA and navigated it into the appendage over the pigtailand then the angiogram was done of the appendage and determined 27-mm devicewill be suitable for closure. Attempted to deploy a 27-m m device; however, theappendage was very deep anteriorly, could not reach it with a double curvesheath, so we captured the device and then removed it outside the body and thenexchanged fo r a single anterior curve sheath and placed it in the appendage over PATIENT NAME: JOHANNA GUEVARA the pigtail and then I took a new 27-mm Watchman FLX closure device int o thesheath and under fluoroscopy and HORACIO guidance , the device was deployed inposition. Then, PASS criteria were evaluated and were all met such. The devicewas released in position and remained stable. Then, removed the Watchman sheathand the Cook sheath and placed a daqacx-ek-pxdms suture with good hemostasis. CONCLUSION: Successful lef t atrial appendage closure using 27-mm Watchman FLXclosure device. PLAN: Eliquis for 6 weeks, at which time a HORACIO will be performed and then planto discontinue it if satisfactory closure. Dictated By: Baltazar Oden MD WT: OP:GGAVINO/TANIA/NTSDD: 12/10/2020 15:24:06DT: 12/10/2020 15:58:38Conf#: [id number]/DID#: [id number] Authenticated by Baltazar Oden MD On 12/23/2020 11:48:02 AM at 1148 PATIENT NAME: JOHANNA GUEVARA civzjg2775-93-35M81:58:00G.[id number] i lable for patient lawbQQQTZPYNUFYQOO7601-32-97P66:48:42 2020-12-08 17:14:00 [id number]:14:00 [facility] ([facility])Consultatio n Note - BriefREPORT#:[id number] REPORT STATUS: SignedDATE:12/08/20 TIME: 1714 PATIENT: JOHANNA GUEVARA UNIT #: [id number]#: [id number] ROOM/BED:: 37 AGE: 85 SEX: F ATTEND: Baltazar Oden MDADM AUTHOR: Tony Alexander DO * ALL edits or amendments must be made on the electronic/computer document * History of Presen t Illness HPIRequesting Clinician: Dr Wilkes for consult:WATCHMAN pre-op evaluationPCP:PCP: Daysi Templeton MD History of present illness:85-year-old female with past medical history of atrial fibrillation on, diverticulitis, rheumatoid arthritis, neuropathy , anxiety, GERD, hypertension, and stroke in 2000 with residual right-sided weakness presents to hospital for preop evaluation for watchman procedure. She is not currently on anticoagulation, reports that she had diverticular bleeding. Her TXQ9QA7-AWOd score is 6 and her has bled score is 4. The NICE questionnaire was reviewed with her and all questions were answered. History - Adult longitudinalAdditional medical history:Atrial fibrillationDiverticulitisRheumatoid arthritisNeuropathyAnxietyGERDHypertensionStroke A dditional surgical history:Bilateral total knee replacementBilateral shoulder surgeryColon resectionAppendectomyAdditional family history:DeniesAlcohol use: Denies EtOH useDrug use: Denies recreational drugsSmoking status: Smoking status for patients 13 years old or older: Never SmokerMedications:Home Medications:Medication Dose/Rte/Freq Days Qty Entered Last Max Daily Dose Reviewed ASPIRIN EC (ECOTRIN) 81 MG PO DAILY 12/08/20rength: 81 MG TAB.EC 1246 MULTIVITAMIN 1 TAB PO DAILY 1 (MULTIPLE VITAMIN) 1247Strength: 1 TAB TAB LORazepam (ATIVAN) 1 MG PO 12/08/20rength: 1 M G TAB BID PRN ANXIETY 1247 CELECOXIB (CeleBREX) 20 0 MG PO 12/08/20rength: 200 MG CAP DAILY PRN ARTHRITIS 1248 PAIN GABAPENTIN (NEURONTIN) 300 M G PO BEDTIME 12/08/20rength: 300 MG CAP [address] 30 MG PO BID 12/08/20 (PREVACID) 1249Strength: 30 MG CAP.DR traMADol ER (ULTRAM ER) 100 MG PO BID 12/08/20rength: 100 MG 1249TAB.SR.24H VERAPAMIL ER (VERELAN) 240 MG PO BID 12/08/20rength: 240 MG 1249CAP.SR.24H Current Hospital Medications:Cardiovascular Drug s Sig/Thierno Start time Last Medication Dose Route Stop Time Status Admin Lidocaine HCl 2 ML PREOP ONCALL 12/08 1345 AC (LIDOCAINE HCL/PF) LOCAL 01/07 235 Lidocaine HCl 2 ML PREOP ONCALL 12/08 1345 AC (LIDOCAINE HCL/PF) LOCAL 01/07 235 Central Nervous System Agents Sig/Thierno Start bethany e Last Medication Dose Route Stop Time Status Admi n Acetaminophen 1,000 MG PREOP ONCALL 12/08 1345 CKD (TYLENOL EXTRA PO 01/07 2359 STRENGTH) Electrolytic, Caloric, And Gildardo Sig/Thierno Start bethany e Last Medication Dose Route Stop Time Status Admi n Lactated Ringer's 1,000 ML PREOP ONCALL 12/08 1345 AC (LACTATED RINGERS) IV 01/07 2359 Sodium Chloride 500 ML PREOP ONCALL 12/08 1345 AC (SODIUM CHLORIDE IV 01/07 2359 0.9%) Sodium Chloride 500 ML PREOP ONCALL 12/08 1345 AC (SODIUM CHLORIDE IV 01/07 2359 0.9%) Sodium Chloride 1,000 ML PREOP ONCALL 12/08 1345 AC (SODIUM CHLORIDE IV 01/07 2359 0.9%) Sodium Chloride 5 ML ASDIR PRN 12/08 1345 AC (SODIUM CHLORIDE) IV 01/07 1344 Sodium Chloride 10 ML ASDIR PRN 12/08 1345 AC (SODIUM CHLORIDE) IV 01/07 1344 Sodium Chloride 250 ML ASDIR PRN 11/20 9 1345 AC (SODIUM CHLORIDE IV 01/07 134 0.9%) Allergies:Coded Allergies:codeine (Severe, ITCHING 12/08/20) Brief Consult Note Physical ExamGeneral appearance: alert, awake, orientedHEENT: mucosal membranes moist, pupils reactive to lightNeck: non-tenderCardiovascular: normal capillary refill, normal heart soundsRespiratory: clear to auscultation, aerating wellAbdomen: soft, non-tenderNeuro/SUPPLY OFFICER: alert, oriented X 3Skin: dry, intactFindings/Data:Laboratory Tests 12/08/20 1218:[Embedded Image Not Available] Problem List/A P: 1. Afib A P Patient seen for preop watchman evaluation. KXT7TO8-ZUJj score is 6, islas s bled score is 4. The NICE questionnaire was reviewed with patient, all questions wereanswered. Patient appears to be a good candidate for watchman procedure. at 1721 RPT #:[id number] OF REPORTOKJlyaqprufprn4413-40-27A11:14:00G.PDOC 2 [id number] for patient maueNNEYMTITFWSLQU0309-89-93A74:21:25 2020-12-08 12:34:00 [id number]:34:480137-8 [address] [address] [address] PATIENT NAME: JOHANNA GUEVARA ADMIT DATE: ACCOUNT NO: [id number] ROOM NO: AGE: 85 REPORT TYPE: eELECTROCARDIOGRAM REPORT SEX: F ADMITTING PHYSICIAN:Baltazar Oden MD ATTENDING PHYSICIAN:Baltazar Oden MD Order:[id number] Reason : PREOP Test Date/Time Stamp:TueDec 08 2020 12:34:04Blood Pressure : / mmHGVent. Rate : 071 BPM Atrial Rate : 071 BPM P-R Int : 174 ms QRS Dur : 076 ms QT Int : 408 ms P-R-T Axes : 049 065 076 degrees QTc Int : 443 ms Normal sinus rhythmST elevation, consider early repolarization, pericarditis, or injuryAbnormal ECGNo previous ECGs availableConfirmed by ALICIA PACHECO ([id number]) on 12/09/2020 9:00:26 AM Referred By: Baltazar Oden Confirmed by:ALICIA PACHECO at 0900 PATIENT NAME: JOHANNA GUEVARA .[id number] AVAvailable for patient ebazSCFXUXOFNLAKKA7431-60-07Y43:00:56
--- NOTE | 2023-04-26 16:38 | RAD REPORT ---
EXAM DESCRIPTION: RAD - Knee Right 3 View - 04/26/2023 4:27 pm CLINICAL HISTORY: Right knee pain status post injury FINDINGS: No fracture or dislocation is seen. Right knee prosthesis in place. No evidence of loosening Osteoporosis
--- NOTE | 2023-04-26 16:45 | RAD REPORT ---
EXAM DESCRIPTION: RAD - Foot Left 2 View - 04/26/2023 4:27 pm CLINICAL HISTORY: Left Foot pain FINDINGS: Mildly displaced fracture proximal aspect first proximal phalanx Curvilinear lucency first metatarsal may represent a prominent trabecula or nondisplaced fracture No dislocation Osteoporosis
--- NOTE | 2023-04-26 17:16 | ER ---
Nurse's Notes [facility] Name: Johanna Guevara Age: 87 yrs Sex: Female : 1935 Arrival Date: 04/26/2023 Time: 15:57 Bed 8 Private MD: Colten Templeton Diagnosis: Left proximal phalanx of the right toe fracture nondisplaced, right knee contusion Presentation: 04/26 16:18 Chief complaint: Patient states: She was walking with her walker and she tripped and cm10 fell. Pt states that she has left foot pain and right knee pain. Coronavirus screen: Vaccine status: Patient reports being unvaccinated. Client denies travel out of the [place] in the last 14 days. Ebola Screen: Patient denies travel to an Ebola-affected area in the 21 days before illness onset. No symptoms or risks identified at this time. Initial Sepsis Screen: Does the patient meet any 2 criteria? No. Patient's initial sepsis screen is negative. Does the patient have a suspected source of infection? No. Patient's initial sepsis screen is negative. Risk Assessment: Do you want to hurt yourself or someone else? Patient reports no desire to harm self or others. Onset of symptoms was April 26, 2023. 16:18 Method Of Arrival: Wheelchair cm10 16:18 Acuity: JAIME 4 cm10 Historical: - Allergies: 16:19 Codeine; cm10 - PMHx: 16:19 Arthritis; CVA; Diverticulitis; hemorrhoids; Hypertension; cm10 - PSHx: 16:19 Cholecystectomy; cm10 - Immunization history:: Adult Immunizations unknown. - Social history:: Smoking status: Patient denies any tobacco usage or history of. Screenin:21 [facility] ED Fall Risk Assessment (Adult) History of falling in the last 3 months, ld1 including since admission No falls in past 3 months (0 pts). Abuse screen: Denies threats or abuse. Denies injuries from another. Nutritional screening: No deficits noted. Tuberculosis screening: No symptoms or risk factors identified. Assessment: 16:21 General: Appears in no apparent distress. comfortable, Behavior is calm, cooperative, ld1 appropriate for age. Pain: Complains of pain in left foot and right leg Pain does not radiate. Pain currently is 7 out of 10 on a pain scale. Quality of pain is described as throbbing, Pain began 1 day ago. Neuro: Level of Consciousness is awake, alert, obeys commands, Oriented to person, place, time, situation. Cardiovascular: Capillary refill < 3 seconds Patient's skin is warm and dry. Respiratory: Airway is patent Respiratory effort is even, unlabored. GI: Abdomen is round non-distended. : No signs and/or symptoms were reported regarding the genitourinary system. EENT: No signs and/or symptoms were reported regarding the EENT system. Derm: No signs and/or symptoms reported regarding the dermatologic system. Musculoskeletal: No signs and/or symptoms reported regarding the musculoskeletal system. 17:25 Reassessment: Patient appears in no apparent distress at this time. No changes from ld1 previously documented assessment. Patient and/or family updated on plan of care and expected duration. Pain level reassessed. Patient is alert, oriented x 3, equal unlabored respirations, skin warm/dry/pink. Vital Signs: 16:18 BP 165 / 109; Pulse 84; Resp 18; Temp 97.1; Pulse Ox 96% ; Weight 84 kg; Pain 10/10; cm10 16:29 BP 165 / 109; Pulse 83; Pulse Ox 97% on R/A; tm6 17:08 BP 144 / 105; ld1 17:25 BP 136 / 99; Pulse 79; Resp 18; Pulse Ox 100% on R/A; ld1 16:18 Pain Scale: Adult cm10 ED Course: 15:59 Patient arrived in ED. rg4 16:00 Colten Templeton DO is Private Physician. rg4 16:05 Dmitry Templeton MD is Attending Physician. sp3 16:12 Lorraine Moya RN is Primary Nurse. tm6 16:19 Triage completed. cm10 16:19 Arm band placed on Patient placed in an exam room, on a stretcher. cm10 16:21 Patient has correct armband on for positive identification. Placed in gown. Bed in low ld1 position. Call light in reach. Side rails up X2. Pulse ox on. NIBP on. Door closed. Noise minimized. Warm blanket given. 16:29 Knee Right 3 View XRAY In Process Unspecified. EDMS 16:29 Foot Left 2 View XRAY In Process Unspecified. EDMS 17:15 Florentin Rebolledo MD is Referral Physician. sp3 17:26 No provider procedures requiring assistance completed. Patient did not have IV access ld1 during this emergency room visit. Administered Medications: No medications were administered Medication: 16:21 VIS not applicable for this client. ld1 Outcome: 17:15 Discharge ordered by . sp3 17:26 Discharged to home via wheelchair, with family, ld1 17:26 Condition: stable 17:26 Discharge instructions given to patient, family, Instructed on discharge instructions, follow up and referral plans. Demonstrated understanding of instructions, follow-up care, 17:26 Patient left the ED. ld1 Signatures: Dispatcher [employer] EDMS Melina Culp rg4 Radha Hawthorne RN RN ld1 Dmitry Templeton MD MD sp3 Angelic Rausch, RN RN cm10 Lorraine Moya RN RN tm6
--- NOTE | 2023-04-26 17:16 | EDPHYS ---
Physician Documentation [facility] Name: Johanna Guevara Age: 87 yrs Sex: Female : 1935 Arrival Date: 04/26/2023 Time: 15:57 Bed 8 Private MD: Jareth [facility] ED Physician Dmitry Templeton HPI: 04/26 16:22 This 87 yrs old Black Female presents to ER via Wheelchair with complaints of Fall sp3 Injury. 16:22 87-year-old female with a history of prior CVA, hypertension, diverticulitis who sp3 currently normally walks with a walker and a mechanical fall injuring her right knee and left great toe. No bleeding noted. No other injuries including head injury or LOC reported. Patient denies headache, neck pain, chest pain, shortness breath, abdominal pain, other extremity pain other than the 2 above, medical prodrome symptoms prior to the fall, or any other signs or symptoms on ROS at this time.. Historical: - Allergies: 16:19 Codeine; cm10 - PMHx: 16:19 Arthritis; CVA; Diverticulitis; hemorrhoids; Hypertension; cm10 - PSHx: 16:19 Cholecystectomy; cm10 - Immunization history:: Adult Immunizations unknown. - Social history:: Smoking status: Patient denies any tobacco usage or history of. ROS: 16:23 Constitutional: Negative for fever, chills, and weight loss, Eyes: Negative for injury, sp3 pain, redness, and discharge, ENT: Negative for injury, pain, and discharge, Neck: Negative for injury, pain, and swelling, Cardiovascular: Negative for chest pain, palpitations, and edema, Respiratory: Negative for shortness of breath, cough, wheezing, and pleuritic chest pain, Abdomen/GI: Negative for abdominal pain, nausea, vomiting, diarrhea, and constipation, Back: Negative for injury and pain, Skin: Negative for injury, rash, and discoloration, Neuro: Negative for headache, weakness, numbness, tingling, and seizure, Psych: Negative for depression, anxiety, suicide ideation, homicidal ideation, and hallucinations, Allergy/Immunology: Negative for hives, rash, and allergies, Endocrine: Negative for neck swelling, polydipsia, polyuria, polyphagia, and marked weight changes, Hematologic/Lymphatic: Negative for swollen nodes, abnormal bleeding, and unusual bruising, 16:23 All other systems are negative, Exam: 16:23 Constitutional: This is a well developed, well nourished patient who is awake, alert, sp3 and in no acute distress. Head/Face: Normocephalic, atraumatic. Eyes: Pupils equal round and reactive to light, extra-ocular motions intact. Lids and lashes normal. Conjunctiva and sclera are non-icteric and not injected. Cornea within normal limits. Periorbital areas with no swelling, redness, or edema. Neck: Trachea midline, no thyromegaly or masses palpated, and no cervical lymphadenopathy. Supple, full range of motion without nuchal rigidity, or vertebral point tenderness. No Meningismus. Chest/axilla: Normal chest wall appearance and motion. Nontender with no deformity. No lesions are appreciated. Cardiovascular: Regular rate and rhythm with a normal S1 and S2. No gallops, murmurs, or rubs. Normal PMI, no JVD. No pulse deficits. Respiratory: Lungs have equal breath sounds bilaterally, clear to auscultation and percussion. No rales, rhonchi or wheezes noted. No increased work of breathing, no retractions or nasal flaring. Abdomen/GI: Soft, non-tender, with normal bowel sounds. No distension or tympany. No guarding or rebound. No evidence of tenderness throughout. Back: No spinal tenderness. No costovertebral tenderness. Full range of motion. Skin: Warm, dry with normal turgor. Normal color with no rashes, no lesions, and no evidence of cellulitis. Neuro: Awake and alert, GCS 15, oriented to person, place, time, and situation. Cranial nerves II-XII grossly intact. Motor strength 5/5 in all extremities. Sensory grossly intact. Cerebellar exam normal. Normal gait. Psych: Awake, alert, with orientation to person, place and time. Behavior, mood, and affect are within normal limits. 16:24 Musculoskeletal/extremity: Patient has pain to the patella on the right side with small sp3 amount of swelling. Also pain to the left great toe. No crepitus noted.. Vital Signs: 16:18 BP 165 / 109; Pulse 84; Resp 18; Temp 97.1; Pulse Ox 96% ; Weight 84 kg; Pain 10/10; cm10 16:29 BP 165 / 109; Pulse 83; Pulse Ox 97% on R/A; tm6 17:08 BP 144 / 105; ld1 17:25 BP 136 / 99; Pulse 79; Resp 18; Pulse Ox 100% on R/A; ld1 16:18 Pain Scale: Adult cm10 MDM: 16:13 Patient medically screened. sp3 16:24 Data reviewed: vital signs, nurses notes, radiologic studies. ED course: Mechanical sp3 fall injuring her right knee and left foot/great toe. X-rays are pending. I am not highly suspicious of fracture or other critical injury at this time.. 17:05 ED course: Proximal phalanx fracture noted. Knee x-ray is negative. We will larry tape sp3 toe to the adjacent toe and place patient in an orthopedic shoe.. 04/26 16:14 Order name: Knee Right 3 View XRAY; Complete Time: 17:04 sp3 04/26 16:14 Order name: Foot Left 2 View XRAY; Complete Time: 17:04 sp3 04/26 17:06 Order name: Splint: larry tape to 2nd toe; Complete Time: 17:14 sp3 04/26 17:06 Order name: Ortho shoe; Complete Time: 17:14 sp3 04/26 17:06 Order name: Recheck B/P; Complete Time: 17:08 sp3 Administered Medications: No medications were administered Disposition Summary: 04/26/23 17:15 Discharge Ordered Notes: Location: Home sp3 Condition: Stable sp3 Diagnosis - Left proximal phalanx of the right toe fracture nondisplaced, right knee contusion sp3 Followup: sp3 - With: Florentin Rebolledo MD - When: Upon discharge from the Emergency Department - Reason: Recheck today's complaints Discharge Instructions: - Discharge Summary Sheet sp3 - Toe Fracture sp3 Forms: - Medication Reconciliation Form sp3 - Thank You Letter sp3 - Antibiotic Education sp3 - Prescription Opioid Use sp3 - Patient Portal Instructions sp3 - Leadership Thank You Letter sp3 Signatures: Dispatcher [employer] Dmitry Naik MD MD sp3 Angelic Rausch RN RN cm10
[2023-04-26 17:46] VITALS: TEMP 97.1
[2023-04-26 17:49] VITALS: BP 136/99; O2SAT 100
== END 2023-04-26 17:26 | disposition home or self-care (01) ==
LOC: ER 15:57
DX: S92.412A Displaced fracture of proximal phalanx of left great toe, initial encounter for closed fracture (principal); S80.01XA Contusion of right knee, initial encounter; Z88.5 Allergy status to narcotic agent
CPT/HCPCS: 99283

== ENCOUNTER → 2023-06-19 | Emergency (ER) | payer OTHER ==
[~2023-06-19] MED LIST: ONDANSETRON 4 MG/2 ML VIAL ONE
[2023-06-19 11:09] LABS: Absolute Lymphocytes (CBC) 1.3 K/uL (0.7-4.9); Lymphocytes % 34.7 % (15.3-44.8); MPV 6.8 fL (7.6-11.3); Platelets 217 thou/uL (152-406); RBC Red Blood Cell Count 4.18 M/uL (3.86-4.86)
[2023-06-19 11:31] LABS: Albumin 3.2 g/dL (3.4-5.0); Bilirubin Direct 0.2 mg/dL (0-0.2); Bilirubin Indirect, Calculated 0.8 mg/dL (0.2-0.8); Magnesium 2.1 mg/dL (1.6-2.4); Potassium 3.9 mEq/L (3.5-5.1); Protein, Total 7.4 g/dL (6.4-8.2); Troponin High Sensitivity 11.5 pg/mL (<58.9)
[2023-06-19 12:20] LABS: Specific Gravity 1.009 (1.005-1.030); Transitional Epithelial <5 /HPF (None Seen); Urine Bacteria None Seen /HPF (<20); Urine Bilirubin NEGATIVE (Negative); Urine Blood Negative (Negative); Urine Clarity Clear (Clear); Urine Color Light-Yellow (Yellow); Urine Glucose NEGATIVE (Negative); Urine Protein NEGATIVE (Negative); Urine RBC <5 /HPF (None Seen); Urine Urobilinogen Normal (Normal); Urine pH 7.5 (5.0-7.0)
--- NOTE | 2023-06-19 12:22 | RAD REPORT ---
EXAM DESCRIPTION: RAD - Chest Single View - 06/19/2023 12:01 pm CLINICAL HISTORY: DYSPNEA COMPARISON: Chest Single View dated 11/29/2022; Chest Single View dated 10/30/2020; Chest Single View dated 07/31/2019; Chest Single View dated 02/10/2019 FINDINGS: Lines: None. Lungs: No evidence of edema or pneumonia. Pleural: No significant pleural effusions or pneumothorax. Cardiac: The heart size is within normal limits. Mediastinum: Within normal limits. Bones: No acute fractures. Scoliosis. Other: None IMPRESSION: No acute cardiopulmonary disease.
--- NOTE | 2023-06-19 12:42 | EDPHYS ---
Physician Documentation [facility] Name: Johanna Guevara Age: 88 yrs Sex: Female : 1935 Arrival Date: 06/19/2023 Time: 10:09 Bed 6 Private MD: Jareth [facility] ED Physician Jay Galarza HPI: 06/19 12:09 This 88 yrs old Black Female presents to ER via Wheelchair with complaints of Shortness rt Of Breath, Nausea, Urinary Frequency. 12:09 Patient presents to the ED with shortness of breath, nausea. She states that she has rt been having increasing urinary frequency but is taking Lasix currently. She denies chest pain currently. Denies other acute complaints, symptoms are moderate severity, no other aggravating or elevating factors.. Historical: - Allergies: 10:36 Codeine; ph - PMHx: 10:36 Arthritis; CVA; Diverticulitis; hemorrhoids; Hypertension; ph - PSHx: 10:36 Cholecystectomy; ph - Immunization history:: Adult Immunizations up to date. - Social history:: Smoking status: Patient denies any tobacco usage or history of. - Family history:: not pertinent. ROS: 12:09 Constitutional: Negative for fever, chills, and weight loss, Cardiovascular: Negative rt for chest pain, palpitations, and edema, MS/Extremity: Negative for injury and deformity, Skin: Negative for injury, rash, and discoloration, Neuro: Negative for headache, weakness, numbness, tingling, and seizure, Psych: Negative for depression, anxiety, suicide ideation, homicidal ideation, and hallucinations, 12:09 Respiratory: Positive for shortness of breath, Negative for cough, 12:09 Abdomen/GI: Positive for nausea, Negative for abdominal pain, 12:09 : Positive for urinary frequency, Negative for burning with urination, Exam: 12:09 Constitutional: This is a well developed, well nourished patient who is awake, alert, rt and in no acute distress. Head/Face: Normocephalic, atraumatic. Chest/axilla: Normal chest wall appearance and motion. Nontender with no deformity. No lesions are appreciated. Cardiovascular: Regular rate and rhythm with a normal S1 and S2. No gallops, murmurs, or rubs. Normal PMI, no JVD. No pulse deficits. Respiratory: Lungs have equal breath sounds bilaterally, clear to auscultation and percussion. No rales, rhonchi or wheezes noted. No increased work of breathing, no retractions or nasal flaring. Abdomen/GI: Soft, non-tender, with normal bowel sounds. No distension or tympany. No guarding or rebound. No evidence of tenderness throughout. Skin: Warm, dry with normal turgor. Normal color with no rashes, no lesions, and no evidence of cellulitis. MS/ Extremity: Pulses equal, no cyanosis. Neurovascular intact. Full, normal range of motion. Neuro: Awake and alert, GCS 15, oriented to person, place, time, and situation. Cranial nerves II-XII grossly intact. Motor strength 5/5 in all extremities. Sensory grossly intact. Cerebellar exam normal. Normal gait. Psych: Awake, alert, with orientation to person, place and time. Behavior, mood, and affect are within normal limits. 12:09 ECG was reviewed by the Attending Physician. Vital Signs: 10:34 BP 163 / 108; Pulse 89; Resp 24; Temp 98.5(O); Pulse Ox 98% on R/A; Weight 83.91 kg; ph Height 5 ft. 8 in. ; 12:03 BP 169 / 104; Pulse 83; Resp 18 S; Pulse Ox 95% on R/A; as6 12:40 BP 146 / 99; Pulse 85; Resp 18 S; Pulse Ox 98% on R/A; as6 13:30 BP 148 / 68; Pulse 84; Resp 18; Temp 97.9; Pulse Ox 98% on R/A; ph 10:34 Body Mass Index 28.13 (83.91 kg, 172.72 cm) ph MDM: 10:31 Patient medically screened. rt 17:34 Differential diagnosis: CHF, ACS, electrolyte disturbance. Data reviewed: vital signs, rt nurses notes, lab test result(s), EKG, radiologic studies. Consideration of Admission/Observation Escalation of care including admission/observation considered. Symptoms improving, patient states that she wishes to go home, strict return precautions were discussed.. I considered the following discharge prescriptions or medication management in the emergency department Medications were administered in the Emergency Department. See MAR. Independent interpretation of the following test(s) in the Emergency Department X-Ray: My interpretation is No consolidation seen on interpretation of x-ray images. Care significantly affected by the following chronic conditions: Hypertension. Counseling: I had a detailed discussion with the patient and/or guardian regarding the historical points, exam findings, and any diagnostic results supporting the discharge/admit diagnosis, lab results, radiology results, the need for outpatient follow up, to return to the emergency department if symptoms worsen or persist or if there are any questions or concerns that arise at home. Response to treatment: the patient's symptoms have markedly improved after treatment. 06/19 10:39 Order name: Basic Metabolic Panel; Complete Time: 12: rt 06/19 10:39 Order name: CBC with Diff; Complete Time: 12:06/19 10:39 Order name: LFT's; Complete Time: 12:06/19 10:39 Order name: Magnesium; Complete Time: 12:06/19 10:39 Order name: NT PRO-BNP; Complete Time: 12:06/19 10:39 Order name: Troponin HS; Complete Time: 12:06/19 10:39 Order name: UAM; Complete Time: 12:06/19 10:39 Order name: XRAY Chest (1 view); Complete Time: 12:06/19 10:39 Order name: EKG; Complete Time: 10:39 06/19 10:39 Order name: Cardiac monitoring; Complete Time: 10:50 06/19 10:39 Order name: EKG - Nurse/Tech; Complete Time: 11:06/19 10:39 Order name: IV Saline Lock; Complete Time: 11:06/19 10:39 Order name: Labs collected and sent; Complete Time: 11:06/19 10:39 Order name: O2 Per Protocol; Complete Time: 10:06/19 10:39 Order name: O2 Sat Monitoring; Complete Time: 10:49 rt EC:09 Rate is 79 beats/min. Rhythm is regular, Normal Sinus Rhythm with No ectopy. QRS Urich rt is Normal. SC interval is normal. QRS interval is normal. QT interval is normal. No Q waves. Clinical impression: NSR w/ Non-specific ST/T Changes. Administered Medications: 12:47 Drug: Ondansetron IVP 4 mg IVP once; over 2 minutes Route: IVP; Site: left forearm; bp 12:48 Follow up: Response: No adverse reaction bp Disposition Summary: 06/19/23 12:41 Discharge Ordered Notes: Location: Home rt Problem: new rt Symptoms: have improved rt Condition: Stable rt Diagnosis - Shortness of breath rt - Nausea rt Followup: rt - With: Colten Templeton DO - When: 2 - 3 days - Reason: Followup: rt - With: Emergency Department - When: As needed - Reason: Worsening of condition Discharge Instructions: - Discharge Summary Sheet rt - Shortness of Breath, Adult rt - Nausea, Adult, Mark-ea-Joor rt Forms: - Medication Reconciliation Form rt - Thank You Letter rt - Antibiotic Education rt - Prescription Opioid Use rt - Patient Portal Instructions rt - Leadership Thank You Letter rt Prescriptions: - ondansetron 4 mg Oral Tablet,disintegrating - take 1 tablet ORAL route every 6 hours for 5 days; 15 tablet; Refills: 0, rt Product Selection Permitted Signatures: Dispatcher [employer] Jyothi Florence RN RN Mason Rodriguez RN RN bp Jay Galarza MD MD rt
--- NOTE | 2023-06-19 12:42 | ER ---
Nurse's Notes [facility] Name: Johanna Guevara Age: 88 yrs Sex: Female : 1935 Arrival Date: 06/19/2023 Time: 10:09 Bed 6 Private MD: Colten Templeton Diagnosis: Shortness of breath;Nausea Presentation: 06/19 10:34 Chief complaint: Patient states: High BP, SOB , nausea and urinary frequency, denies ph pain. Coronavirus screen: Vaccine status: Patient reports receiving the 2nd dose of the covid vaccine. Ebola Screen: No symptoms or risks identified at this time. Initial Sepsis Screen: Does the patient meet any 2 criteria? No. Patient's initial sepsis screen is negative. Does the patient have a suspected source of infection? Yes: Dysuria/Frequency/Urgency/UTI. Risk Assessment: Do you want to hurt yourself or someone else? Patient reports no desire to harm self or others. Onset of symptoms was June 19, 2023. 10:34 Method Of Arrival: Wheelchair ph 10:34 Acuity: JAIME 3 ph Triage Assessment: 10:38 General: Appears in no apparent distress. comfortable, well groomed, Behavior is calm, ph cooperative, appropriate for age. Pain: Denies pain. Neuro: Level of Consciousness is awake, alert, obeys commands, Oriented to person, place, time, situation. Cardiovascular: Reports nausea, shortness of breath, Capillary refill < 3 seconds Patient's skin is warm and dry. Respiratory: Reports shortness of breath at rest Onset: The symptoms/episode began/occurred gradually, the patient has mild shortness of breath. GI: Reports nausea, Patient currently denies abdominal pain, vomiting. : Reports urinary frequency, Denies burning with urination. Derm: Skin is pink, warm \T\ dry. Historical: - Allergies: 10:36 Codeine; ph - PMHx: 10:36 Arthritis; CVA; Diverticulitis; hemorrhoids; Hypertension; ph - PSHx: 10:36 Cholecystectomy; ph - Immunization history:: Adult Immunizations up to date. - Social history:: Smoking status: Patient denies any tobacco usage or history of. - Family history:: not pertinent. Screenin:25 [facility] ED Fall Risk Assessment (Adult) History of falling in the last 3 months, ph including since admission No falls in past 3 months (0 pts) Confusion or Disorientation No (0 pts) Intoxicated or Sedated No (0 pts) Impaired Gait Yes (1 pt) Mobility Assist Device Used Yes (1 pt) Altered Elimination Yes (1 pt) Score/Fall Risk Level 3 or more points = High Risk Oriented to surroundings, Maintained a safe environment, Hourly rounding (assess needs \T\ fall precautionary measures) done, Used ambulatory aids as needed (educated on \T\ assisted with). Abuse screen: Denies threats or abuse. Denies injuries from another. Nutritional screening: No deficits noted. Tuberculosis screening: No symptoms or risk factors identified. Assessment: 11:24 General: SEE TRIAGE ASSESSMENT. ph Vital Signs: 10:34 BP 163 / 108; Pulse 89; Resp 24; Temp 98.5(O); Pulse Ox 98% on R/A; Weight 83.91 kg; ph Height 5 ft. 8 in. ; 12:03 BP 169 / 104; Pulse 83; Resp 18 S; Pulse Ox 95% on R/A; as6 12:40 BP 146 / 99; Pulse 85; Resp 18 S; Pulse Ox 98% on R/A; as6 13:30 BP 148 / 68; Pulse 84; Resp 18; Temp 97.9; Pulse Ox 98% on R/A; ph 10:34 Body Mass Index 28.13 (83.91 kg, 172.72 cm) ph ED Course: 10:11 Patient arrived in ED. mr 10:11 Colten Templeton, is Private Physician. mr 10:12 Jay Galarza MD is Attending Physician. rt 10:33 Jyothi Viveros, KUNAL is Primary Nurse. ph 10:36 Triage completed. ph 10:37 Arm band placed on Patient placed in an exam room, on pulse oximetry. ph 10:57 Inserted saline lock: 22 gauge in left forearm, using aseptic technique. Blood bp collected. 11:23 Troponin HS Sent. ph 11:23 NT PRO-BNP Sent. ph 11:23 Magnesium Sent. ph 11:23 LFT's Sent. ph 11:23 Basic Metabolic Panel Sent. ph 11:25 Patient has correct armband on for positive identification. Placed in gown. Bed in low ph position. Call light in reach. Side rails up X2. Client placed on continuous cardiac and pulse oximetry monitoring. NIBP monitoring applied. Door closed. Noise minimized. Warm blanket given. Pillow given. 12:03 XRAY Chest (1 view) In Process Unspecified. EDMS 12:03 UAM Sent. as6 12:04 Assisted to bedside commode. as6 12:41 Colten Templeton DO is Referral Physician. rt 13:20 No provider procedures requiring assistance completed. IV discontinued, intact, ph bleeding controlled, No redness/swelling at site. Pressure dressing applied. Administered Medications: 12:47 Drug: Ondansetron IVP 4 mg IVP once; over 2 minutes Route: IVP; Site: left forearm; bp 12:48 Follow up: Response: No adverse reaction bp Medication: 11:26 VIS not applicable for this client. ph Outcome: 12:41 Discharge ordered by . rt 13:28 Patient left the ED. ph 13:29 Discharged to home via wheelchair, with family, ph 13:29 Condition: good 13:29 Discharge instructions given to patient, family, Instructed on discharge instructions, follow up and referral plans. medication usage, Demonstrated understanding of instructions, follow-up care, medications, Prescriptions given X 1, Signatures: Dispatcher [employer] EDMS Johanna Richmond, Reg Reg mr Jyothi Viveros RN RN ph Mason Christopher RN RN Sae Albert RN RN as6 Jay Galarza MD MD rt
[2023-06-19 16:38] VITALS: BP 146/99; TEMP 98.5; O2SAT 98
== END ==
LOC: ER 10:09
DX: R06.02 Shortness of breath (principal); R11.0 Nausea; I10 Essential (primary) hypertension; Z88.5 Allergy status to narcotic agent
CPT/HCPCS: 93005; 85025; 81001; 80048; 36415; 83735; 80076; 84484; 83880; 71045; J2405

== ENCOUNTER 2023-11-29 18:58 | Emergency (ER) | payer OTHER ==
[2023-11-29] MEDS ORDERED: NA CHLORIDE 0.9% 1,000 ML ONE (21:41)
[2023-11-29 21:44] LABS: Absolute Lymphocytes (CBC) 1.5 K/uL (0.7-4.9); Absolute Monocytes 0.5 K/uL (0.1-1.3); Absolute Neutrophil 2.2 K/uL (1.8-8.0); Basophils % 0.3 % (0-1.3); Eosinophils % 0.4 % (0-4.4); Hematocrit 41.2 % (36.0-45.0); Hemoglobin 13.2 g/dL (12.0-15.0); Lymphocytes % 35.1 % (15.3-44.8); MPV 6.9 fL (7.6-11.3); Monocytes % 11.8 % (3.3-12.3); Neutrophils % 52.4 % (41.7-73.7); Platelets 209 thou/uL (152-406); RBC Red Blood Cell Count 4.12 M/uL (3.86-4.86); Red Cell Distribution Width 14.4 % (12.1-15.2)
[2023-11-29 21:50] LABS: PT Prothrombin Time 11.9 SECONDS (9.4-12.5); Protime INR 1.08
[2023-11-29 22:09] LABS: ALT/SGPT 19 U/L (13-56); Albumin 3.1 g/dL (3.4-5.0); Albumin/Globulin Ratio 0.8 (1.1-1.8); Alkaline Phosphatase 62 U/L (45-117); Anion Gap 5.1 mEq/L (5.0-15.0); BUN Blood Urea Nitrogen 29 mg/dL (7-18); Bicarbonate 34 mEq/L (21-32); Bilirubin Total 0.4 mg/dL (0.2-1.0); Globulin 3.7 g/dL (2.3-3.5); Glomerular Filtration Rate 44 ml/min (=/>90); Glucose Level 139 mg/dL (74-106); Magnesium 2.1 mg/dL (1.6-2.4); NT PRO-BNP 183 pg/mL (<450); Potassium 4.1 mEq/L (3.5-5.1); Protein, Total 6.8 g/dL (6.4-8.2); Sodium Level 142 mEq/L (136-145); Troponin High Sensitivity 14.2 pg/mL (<58.9)
[2023-11-29 22:10] LABS: AST/SGOT < 10 U/L (15-37); Bilirubin Direct < 0.2 mg/dL (0-0.2); Bilirubin Indirect, Calculated 0.2 mg/dL (0.2-0.8)
--- NOTE | 2023-11-30 00:04 | ER ---
Nurse's Notes [facility] Name: Johanna Guevara Age: 88 yrs Sex: Female : 1935 Arrival Date: 11/29/2023 Time: 18:58 Bed 18 Private MD: Colten Templeton Diagnosis: Heat exhaustion Presentation: 11/28 19:48 Chief complaint: Patient's son or daughter states: weakness and feeling lightheaded as6 that started this morning. Coronavirus screen: At this time, the client does not indicate any symptoms associated with coronavirus-19. Ebola Screen: No symptoms or risks identified at this time. Initial Sepsis Screen: Does the patient meet any 2 criteria? No. Patient's initial sepsis screen is negative. Does the patient have a suspected source of infection? No. Patient's initial sepsis screen is negative. Risk Assessment: Do you want to hurt yourself or someone else? Patient reports no desire to harm self or others. Onset of symptoms was November 29, 2023. 19:48 Method Of Arrival: Wheelchair as6 19:48 Acuity: JAIME 3 as6 Historical: - Allergies: 19:51 Codeine; as6 - PMHx: 19:51 Hypertension; hemorrhoids; Diverticulitis; CVA; Arthritis; Atrial fibrillation; as6 - PSHx: 19:51 Cholecystectomy; knee; shoulder; as6 - Immunization history:: Adult Immunizations up to date. - Infectious Disease History:: Denies. - Social history:: Smoking status: Patient denies any tobacco usage or history of. Screenin:51 [facility] ED Fall Risk Assessment (Adult) History of falling in the last 3 months, cp4 including since admission No falls in past 3 months (0 pts) Confusion or Disorientation No (0 pts) Intoxicated or Sedated No (0 pts) Impaired Gait Yes (1 pt) Mobility Assist Device Used No (0 pt) Altered Elimination No (0 pt) Score/Fall Risk Level 0 - 2 = Low Risk Oriented to surroundings, Maintained a safe environment, Assessed \T\ reinforced patient's understanding of fall precautions, Hourly rounding (assess needs \T\ fall precautionary measures) done. Abuse screen: Denies threats or abuse. Nutritional screening: No deficits noted. Tuberculosis screening: No symptoms or risk factors identified. Assessment: 20:51 General: Appears uncomfortable, Behavior is calm, cooperative, appropriate for age. cp4 Pain: Complains of pain in left shoulder and back Pain currently is 10 out of 10 on a pain scale. Quality of pain is described as aching. Neuro: Level of Consciousness is awake, alert, obeys commands, Oriented to person, place, time, situation, [employer] are weak on right Paralysis in right arm(s) Gait is unsteady, Speech is normal, Facial symmetry appears normal, Pupils are PERRLA, Intact. Vital Signs: 19:48 BP 154 / 91; Pulse 87; Resp 16; Temp 96.8; Pulse Ox 94% ; Weight 83.91 kg; Height 5 ft. as6 6 in. ; Pain 10/10; 21:00 BP 187 / 99; Pulse 75; Resp 18; Pulse Ox 95% ; cp4 22:00 BP 175 / 90; Pulse 75; Resp 18; Pulse Ox 95% ; cp4 23:00 BP 173 / 71; Pulse 75; Resp 18; Pulse Ox 96% ; cp4 07 00:00 BP 170 / 98; Pulse 77; Resp 18; Temp 97.2; Pulse Ox 96% ; cp4 11/28 19:48 Body Mass Index 29.86 (83.91 kg, 167.64 cm) as6 11/28 19:48 Pain Scale: Adult as6 ED Course: 11/28 19:00 Patient arrived in ED. rg4 19:00 Colten Templeton DO is Private Physician. rg4 19:51 Triage completed. as6 19:52 Arm band placed on. as6 20:01 Dmitry Templeton MD is Attending Physician. sp3 20:33 Chelly Terry is Primary Nurse. cp4 20:51 Bed in low position. Call light in reach. Side rails up X2. Provided Education on: cp4 weakness. 20:51 No provider procedures requiring assistance completed. cp4 21:15 Basic Metabolic Panel Sent. cp4 21:15 CBC with Diff Sent. cp4 21:15 LFT's Sent. cp4 21:15 Magnesium Sent. cp4 21:15 NT PRO-BNP Sent. cp4 21:15 PT-INR Sent. cp4 21:15 Troponin HS Sent. cp4 21:33 Chest Single View In Process Unspecified. EDMS 21:49 Missed attempt(s): 22 gauge in left antecubital area. Inserted saline lock: 22 gauge in cp4 left antecubital area, using aseptic technique. Blood collected. Administered Medications: 21:49 Drug: NS 0.9% IV 1000 ml IV at 1 bolus Per protocol; 1000 mL bolus Route: IV; Rate: 1 cp4 bolus; Site: left antecubital; 11/29 00:11 Follow up: Response: No adverse reaction; IV Status: Completed infusion cp4 Medication: 11/28 20:51 VIS not applicable for this client. cp4 Outcome: 11/29 00:03 Discharge ordered by . sp3 00:17 Patient left the ED. cp4 Signatures: Dispatcher [employer] EDMS Melina Culp rg4 Dmitry Templeton MD MD sp3 Sae Solano, KUNAL RN as6 Chelly Terry cp4
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
[2023-11-30 03:05] VITALS: BP 170/98; TEMP 97.2; O2SAT 96
--- NOTE | 2023-11-30 11:25 | RAD REPORT ---
EXAM DESCRIPTION: RAD - Chest Single View - 11/29/2023 9:32 pm CLINICAL HISTORY: The patient is 88 years old and is Female; Pain TECHNIQUE: Frontal view of the chest. COMPARISON: XR Chest dated February 01 2022 FINDINGS: LUNGS: Unremarkable. No consolidation. PLEURAL SPACE: Unremarkable. No pneumothorax. HEART: Unremarkable. No cardiomegaly. MEDIASTINUM: Unremarkable. Normal mediastinal contour. BONES/JOINTS: Degenerative and scoliotic curvature of the spine is present. No acute fracture. UPPER ABDOMEN: Unremarkable as visualized. IMPRESSION: No acute cardiopulmonary process. Electronically signed by: Lisa Salazar MD 11/29/2023 09:55 PM CDT RP Due to temporary technical issues with the PACS/Fluency reporting system, reports are being signed by the in house radiologist without review as a courtesy to ensure prompt reporting. The interpreting r adiologist is fully responsible for the content of the report.
--- NOTE | 2023-11-30 12:11 | EKG ---
Test Date: 2023-11-29 Test Time: 20:52:13 Order Planner: YEVGENIY MEASUREMENT RESULTS: Intervals: Rate: 85 OR: 162 QRSD: 66 QT: 376 QTc: 447 [place]: P: OR: 162 QRS: 142 T: 116 INTERPRETIVE STATEMENTS: Suspect arm lead reversal, interpretation assumes no reversal Normal sinus rhythm Lateral infarct, age undetermined Abnormal ECG Compared to ECG 06/19/2023 11:12:43 Myocardial infarct finding now present Atrial abnormality no longer present Early repolarization no longer present Electronically Signed On 11-30-23 12:09:52 CDT by See Carmona
== END 2023-11-30 00:17 | disposition home or self-care (01) ==
LOC: ER 18:58
DX: T67.5XXA Heat exhaustion, unspecified, initial encounter (principal)
CPT/HCPCS: 96361; 93005; 85025; 80048; 36415; 83735; 85610; 80076; 84484; 83880; 71045; 96360; 99284; J7030

== ENCOUNTER 2024-01-19 09:48 | Emergency (ER) | payer OTHER ==
--- NOTE | 2024-01-19 10:47 | RAD REPORT ---
EXAM DESCRIPTION: RAD - Chest Single View - 01/19/2024 10:27 am CLINICAL HISTORY: DYSPNEA Chest pain. COMPARISON: Chest Single View dated 11/29/2023; Chest Single View dated 06/19/2023; Chest Single View d ated 11/29/2022; Chest Single View dated 10/30/2020 FINDINGS: Portable technique limits examination quality. The lungs are grossly clear. The heart is mildly enlarged in size. No displaced fractures.There is a prominent dextroscoliosis seen of the thoracic spine. IMPRESSION: No acute intrathoracic process suspected.
[2024-01-19 11:08] LABS: Absolute Eosinophils 0.1 K/uL (0-0.5); Absolute Lymphocytes (CBC) 1.7 K/uL (0.7-4.9); Absolute Monocytes 0.4 K/uL (0.1-1.3); Absolute Neutrophil 2.9 K/uL (1.8-8.0); Basophils % 0.5 % (0-1.3); Eosinophils % 1.4 % (0-4.4); Hematocrit 41.1 % (36.0-45.0); Hemoglobin 13.1 g/dL (12.0-15.0); Lymphocytes % 34.3 % (15.3-44.8); MCH 32.1 pg (27.0-35.0); MCV 100.3 fL (80-100); MPV 6.9 fL (7.6-11.3); Monocytes % 7.1 % (3.3-12.3); Neutrophils % 56.7 % (41.7-73.7); Platelets 249 thou/uL (152-406); RBC Red Blood Cell Count 4.09 M/uL (3.86-4.86); Red Cell Distribution Width 14.3 % (12.1-15.2)
[2024-01-19 11:15] LABS: PT Prothrombin Time 11.2 SECONDS (9.4-12.5); PTT, Activated Partial Thromb 32.8 SECONDS (24.3-36.9)
[2024-01-19 11:26] LABS: ALT/SGPT 22 U/L (13-56); AST/SGOT 14 U/L (15-37); Albumin 3.3 g/dL (3.4-5.0); Albumin/Globulin Ratio 0.8 (1.1-1.8); Alkaline Phosphatase 60 U/L (45-117); Anion Gap 6.6 mEq/L (5.0-15.0); BUN Blood Urea Nitrogen 12 mg/dL (7-18); Bicarbonate 35 mEq/L (21-32); Bilirubin Total 0.5 mg/dL (0.2-1.0); Globulin 4.2 g/dL (2.3-3.5); Glomerular Filtration Rate 66 ml/min (=/>90); Glucose Level 147 mg/dL (74-106); NT PRO-BNP 389 pg/mL (<450); Potassium 3.6 mEq/L (3.5-5.1); Protein, Total 7.5 g/dL (6.4-8.2); Sodium Level 140 mEq/L (136-145)
[2024-01-19 11:32] LABS: Bilirubin Direct < 0.2 mg/dL (0-0.2); Bilirubin Indirect, Calculated 0.3 mg/dL (0.2-0.8)
[2024-01-19 12:44] LABS: Specific Gravity 1.014 (1.005-1.030); Urine Bilirubin NEGATIVE (Negative); Urine Blood Negative (Negative); Urine Clarity Clear (Clear); Urine Color Light-Yellow (Yellow); Urine Glucose NEGATIVE (Negative); Urine Ketones NEGATIVE (Negative); Urine Microscopic Reflex YN NO UMIC; Urine Nitrite NEGATIVE (Negative); Urine Protein NEGATIVE (Negative); Urine Urobilinogen Normal (Normal)
[2024-01-19] MEDS ORDERED: MORPHINE 2 MG/ML SYR ONE (13:40)
--- NOTE | 2024-01-19 13:51 | ER ---
Nurse's Notes [facility] Name: Johanna Guevara Age: 88 yrs Sex: Female : 1935 Arrival Date: 01/19/2024 Time: 09:48 Bed 18 Private MD: Diagnosis: Mild intermittent asthma with (acute) exacerbation;Dyspnea, unspecified Presentation: 01/18 09:55 Chief complaint: EMS states: Pt brought in via EMS for difficulty breathing since dd2 yesterday. Pt states she hasn't used her inhaler in a few days. Coronavirus screen: At this time, the client does not indicate any symptoms associated with coronavirus-19. Ebola Screen: No symptoms or risks identified at this time. Initial Sepsis Screen: Does the patient meet any 2 criteria? No. Patient's initial sepsis screen is negative. Does the patient have a suspected source of infection? No. Patient's initial sepsis screen is negative. Risk Assessment: Do you want to hurt yourself or someone else? Patient reports no desire to harm self or others. Onset of symptoms was January 18, 2024. Care prior to arrival: Medication(s) given: Albuterol Neb x 1. 09:55 Method Of Arrival: EMS: [facility] dd2 09:55 Acuity: JAIME 3 dd2 Triage Assessment: 09:58 General: Appears in no apparent distress. Behavior is calm, cooperative. Pain: Denies dd2 pain. Respiratory: Reports shortness of breath at rest on exertion Airway is patent Breath sounds are clear bilaterally. the patient has mild shortness of breath. Historical: - Allergies: 09:58 Codeine; dd2 - PMHx: 09:58 Arthritis; Atrial fibrillation; CVA; Diverticulitis; Hypertension; hemorrhoids; Asthma; dd2 - PSHx: 09:58 Cholecystectomy; knee; Shoulder; Watchman device; dd2 - Immunization history:: Adult Immunizations unknown. - Infectious Disease History:: Denies. - Social history:: Smoking status: Patient denies any tobacco usage or history of. - Family history:: not pertinent. - Hospitalizations: : No recent hospitalization is reported. Screenin:15 [facility] ED Fall Risk Assessment (Adult) History of falling in the last 3 months, dd2 including since admission No falls in past 3 months (0 pts) Confusion or Disorientation No (0 pts) Intoxicated or Sedated No (0 pts) Impaired Gait Yes (1 pt) Mobility Assist Device Used No (0 pt) Altered Elimination No (0 pt) Score/Fall Risk Level 0 - 2 = Low Risk Oriented to surroundings, Maintained a safe environment, Educated pt \T\ family on fall prevention, incl call for assistance when getting out of bed, Hourly rounding (assess needs \T\ fall precautionary measures) done. Abuse screen: Denies threats or abuse. Nutritional screening: No deficits noted. Tuberculosis screening: No symptoms or risk factors identified. Assessment: 10:15 General: Appears in no apparent distress. Behavior is calm, cooperative. Pain: Denies dd2 pain. Neuro: Level of Consciousness is awake, alert, obeys commands, Oriented to person, place, time, situation. Cardiovascular: Patient's skin is warm and dry. Rhythm is regular. Respiratory: Reports shortness of breath at rest on exertion Airway is patent Breath sounds are clear bilaterally. Onset: The symptoms/episode began/occurred yesterday, the patient has mild shortness of breath. GI: No signs and/or symptoms were reported involving the gastrointestinal system. Abdomen is non-distended, Abd is soft and non tender X 4 quads. : No deficits noted. No signs and/or symptoms were reported regarding the genitourinary system. EENT: No deficits noted. No signs and/or symptoms were reported regarding the EENT system. Derm: No deficits noted. No signs and/or symptoms reported regarding the dermatologic system. Musculoskeletal: No deficits noted. No signs and/or symptoms reported regarding the musculoskeletal system. Vital Signs: 09:55 BP 164 / 108; Pulse 80; Resp 18; Temp 98.5; Pulse Ox 96% ; dd2 10:15 BP 147 / 96; Pulse 76; Resp 17; Pulse Ox 96% ; dd2 13:22 BP 167 / 110; Pulse 80; Resp 16; Pulse Ox 95% ; dd2 ED Course: 09:52 Patient arrived in ED. ko1 09:52 Moshe Velez, KUNAL is Primary Nurse. ll1 09:52 Ildefonso Tuttle MD is Attending Physician. rn 09:58 Triage completed. dd2 09:58 Arm band placed on right wrist. Patient placed in an exam room, on a stretcher, on dd2 pulse oximetry. 10:15 Patient has correct armband on for positive identification. Bed in low position. Call dd2 light in reach. Side rails up X2. Client placed on continuous cardiac and pulse oximetry monitoring. NIBP monitoring applied. manager monitoring on. Door closed. Warm blanket given. Verbal reassurance given. 10:15 Provided Education on: call light, labs, procedures. dd2 10:28 XRAY CXR (1 view) In Process Unspecified. EDMS 10:53 No provider procedures requiring assistance completed. Initial lab(s) drawn, by me, dd2 sent to lab. First set of blood cultures drawn EKG done, by ED staff, reviewed by Ildefonso Tuttle MD. 10:59 Inserted saline lock: 20 gauge in left hand, using aseptic technique. Blood collected. dd2 Flushed with 10 mL NS. 13:15 YONATAN met with patient and daughter Tenisha at the bedside in the ED exam room. Patient ane identified by name and . Demographic sheet confirmed. Mrs. Guevara states she lives in a single story home with her daughter. She reports that prior to admission, she performs ADLs with moderate assistance, using a walker at all times. Other DME in the home include a shower seat, wheelchair, raised toilet seat, nebulizer, and a handicap equipped bathroom. No HH, home oxygen or other medical services at this time. Mrs River expressed concern for feeling weaker as of late. Patient reports a Hx of a stroke that left her with residual right sided weakness for which she did receive PT at that time, she just expressed concern that overall weakness was increasing and was wondering about PT to build strength. Tenisha TAM and Mrs River explored options for PT evaluation through PCP. Patient states she has an appointment with her PCP coming up in the month of January and states she will speak to him at that time about possible options to build some strength. 14:07 IV discontinued, intact, bleeding controlled, No redness/swelling at site. Pressure dd2 dressing applied. Administered Medications: 13:42 Drug: morphine IVP or IV 2 mg IVP once over 4 mins Route: IVP; Infused Over: 4 mins; dd2 Site: left hand; 13:57 Follow up: Response: No adverse reaction dd2 Medication: 10:15 VIS not applicable for this client. dd2 Outcome: 13:51 Discharge ordered by MD. pascual 14:07 Discharged to home via wheelchair, dd2 14:07 Condition: stable 14:07 Discharge instructions given to patient, Instructed on discharge instructions, follow up and referral plans. medication usage, Demonstrated understanding of instructions, follow-up care, medications, Prescriptions given X 1, 14:20 Patient left the ED. dd2 Signatures: Dispatcher [employer] EDMS Ildefonso Tuttle MD MD rn Lewis, Lynsay, RN RN ll1 Allison Sylvester RN RN koDiamond Ruby RN RN ane DAVIS, DIANA, RN RN dd2
--- NOTE | 2024-01-19 13:51 | EDPHYS ---
Physician Documentation [facility] Name: Johanna Guevara Age: 88 yrs Sex: Female : 1935 Arrival Date: 01/19/2024 Time: 09:48 Bed 18 Private MD: ED Physician Ildefonso Tuttle HPI: 01/18 11:25 This 88 yrs old Black Female presents to ER via EMS with complaints of Breathing rn Difficulty. 11:25 The patient has shortness of breath at rest. Onset: The symptoms/episode began/occurred rn at an unknown time. Duration: The symptoms are intermittent. The patient's shortness of breath is aggravated by nothing, is alleviated by nebulizer treatment. Associated signs and symptoms: Pertinent positives: non-productive cough, Pertinent negatives: fever, hemoptysis. Severity of symptoms: At their worst the symptoms were mild in the emergency department the symptoms have improved. The patient has experienced similar episodes in the past. Historical: - Allergies: 09:58 Codeine; dd2 - PMHx: 09:58 Arthritis; Atrial fibrillation; CVA; Diverticulitis; Hypertension; hemorrhoids; Asthma; dd2 - PSHx: 09:58 Cholecystectomy; knee; Shoulder; Watchman device; dd2 - Immunization history:: Adult Immunizations unknown. - Infectious Disease History:: Denies. - Social history:: Smoking status: Patient denies any tobacco usage or history of. - Family history:: not pertinent. - Hospitalizations: : No recent hospitalization is reported. ROS: 11:25 Constitutional: Negative for fever, chills, and weight loss, Neck: Negative for injury, rn pain, and swelling, Cardiovascular: Negative for chest pain, palpitations, and edema, Respiratory: Positive for shortness of breath Abdomen/GI: Negative for abdominal pain, nausea, vomiting, diarrhea, and constipation, : Positive for increase in urinary frequency MS/Extremity: Negative for injury and deformity, Skin: Negative for injury, rash, and discoloration, Neuro: Negative for headache, weakness, numbness, tingling, and seizure, Exam: 11:25 Constitutional: This is a well developed, well nourished patient who is awake, alert, rn and in no acute distress. Cardiovascular: Regular rate, irregular rhythm. No pulse deficits. Respiratory: Mild tachypnea, no retractions Abdomen/GI: Soft, nontender MS/ Extremity: Pulses equal, no cyanosis. No lower extremity edema noted Neuro: Awake and alert, GCS 15 Vital Signs: 09:55 BP 164 / 108; Pulse 80; Resp 18; Temp 98.5; Pulse Ox 96% ; dd2 10:15 BP 147 / 96; Pulse 76; Resp 17; Pulse Ox 96% ; dd2 13:22 BP 167 / 110; Pulse 80; Resp 16; Pulse Ox 95% ; dd2 MDM: 09:52 Patient medically screened. rn 13:50 Differential diagnosis: Anemia Anxiety Reaction asthma, CHF exacerbation, Chronic rn Obstructive Pulmonary Disease pneumonia, Pneumothorax pulmonary edema. Data reviewed: vital signs, nurses notes, lab test result(s), EKG, radiologic studies, plain films, and as a result, I will discharge patient. Counseling: I had a detailed discussion with the patient and/or guardian regarding the historical points, exam findings, and any diagnostic results supporting the discharge/admit diagnosis, lab results, radiology results, the need for outpatient follow up, to return to the emergency department if symptoms worsen or persist or if there are any questions or concerns that arise at home. Response to treatment: the patient's symptoms have markedly improved after treatment, the patient's symptoms have resolved after treatment, the patient's condition has returned to base line, the patient is now symptom free, and as a result, I will discharge patient. Special discussion: I discussed with the patient/guardian in detail that at this point there is no indication for admission to the hospital. It is understood, however, that if the symptoms persist or worsen the patient needs to return immediately for re-evaluation. ED course: Patient feels much better, back to baseline, denies dyspnea. Chest x-ray images negative for pneumonia or pneumothorax per my interpretation. No sign of infection. No evidence of sepsis. Symptoms resolved after initial breathing treatment. Will discharge home with return precautions and PCP follow-up.. 01/18 09:58 Order name: BMP; Complete Time: 11:42 rn 01/18 09:58 Order name: Blood Culture Adult (2) rn 01/18 09:58 Order name: CBC with Diff; Complete Time: 11:24 rn 01/18 09:58 Order name: Hepatic Function; Complete Time: 11:42 rn 01/18 09:58 Order name: NT PRO-BNP; Complete Time: 11:42 rn 01/18 09:58 Order name: PT-INR; Complete Time: 11:24 rn 01/18 09:58 Order name: Ptt, Activated; Complete Time: 11:24 rn 01/18 09:58 Order name: Troponin HS; Complete Time: 11:42 rn 01/18 09:58 Order name: Urinalysis w/ reflexes; Complete Time: 12:55 rn 01/18 10:34 Order name: Lactate w/ 2H reflex if indic.; Complete Time: 11:42 ko1 01/18 09:58 Order name: XRAY CXR (1 view) rn 01/18 09:58 Order name: EKG; Complete Time: 09:58 rn 01/18 09:58 Order name: Cardiac monitoring; Complete Time: 10:36 rn 01/18 09:58 Order name: EKG - Nurse/Tech; Complete Time: 10:36 rn 01/18 09:58 Order name: IV Saline Lock; Complete Time: 10:58 rn 01/18 09:58 Order name: Labs collected and sent; Complete Time: 10:58 rn 01/18 09:58 Order name: O2 Per Protocol; Complete Time: 10:58 rn 01/18 09:58 Order name: O2 Sat Monitoring; Complete Time: 10:59 rn Administered Medications: 13:42 Drug: morphine IVP or IV 2 mg IVP once over 4 mins Route: IVP; Infused Over: 4 mins; dd2 Site: left hand; 13:57 Follow up: Response: No adverse reaction dd2 Disposition Summary: 01/19/24 13:51 Discharge Ordered Notes: Location: Home rn Problem: new rn Symptoms: have improved rn Condition: Stable rn Diagnosis - Mild intermittent asthma with (acute) exacerbation rn - Dyspnea, unspecified rn Followup: rn - With: Private Physician - When: As needed - Reason: Recheck today's complaints, Re-evaluation by your physician Discharge Instructions: - Discharge Summary Sheet rn - Asthma, Adult rn - Shortness of Breath, Adult rn Forms: - Medication Reconciliation Form rn - Antibiotic lathe turner - Prescription Opioid Use rn - Patient Portal Instructions rn - Leadership Thank You Letter rn Prescriptions: - Prednisone 20 mg Oral Tablet - take 3 tablets ORAL route once daily for 5 days; 15 tablet; Refills: 0, Product rn Selection Permitted Signatures: Dispatcher [employer]conf[employer] MS Tuttle, Ildefonso, MD MD rn DANILO, MARIO, RN RN dd2
[2024-01-19 14:29] VITALS: TEMP 98.5
[2024-01-19 14:48] VITALS: BP 167/110; O2SAT 95
--- NOTE | 2024-01-20 14:41 | EKG ---
Test Date: 2024-01-19 Test Time: 10:28:46 Pole Sander Operator: CAMDEN MEASUREMENT RESULTS: Intervals: Rate: 78 NC: 164 QRSD: 70 QT: 412 QTc: 469 [place]: P: 73 NC: 164 QRS: 61 T: 69 INTERPRETIVE STATEMENTS: Normal sinus rhythm Possible Left atrial enlargement Borderline ECG Compared to ECG 12/04/2023 10:09:54 No significant changes Electronically Signed On 01-20-24 14:38:57 CDT by See Carmona
--- NOTE | 2024-01-20 14:41 | EKG ---
Test Date: 2024-01-19 Test Time: 10:29:08 Service Attendant: CAMDEN MEASUREMENT RESULTS: Intervals: Rate: 76 [place]: 158 QRSD: 78 QT: 422 QTc: 474 [place]: P: 71 [place]: 158 QRS: 61 T: 69 INTERPRETIVE STATEMENTS: Normal sinus rhythm Possible Left atrial enlargement Borderline ECG Compared to ECG 01/19/2024 10:28:46 No significant changes Electronically Signed On 01-20-24 14:38:55 CDT by See Carmona
== END 2024-01-19 14:20 | disposition home or self-care (01) ==
LOC: ER 09:48
DX: J45.21 Mild intermittent asthma with (acute) exacerbation (principal); I10 Essential (primary) hypertension; Z86.73 Personal history of transient ischemic attack (TIA), and cerebral infarction without residual deficits
CPT/HCPCS: 93005 ×2; 87040 ×2; 85025; 80048; 36415; 85610; 80076; 83605; 85730; 81003; 84484; 83880; 71045; 96374; 99285; J2270

== ENCOUNTER 2024-02-29 08:18 | Day surgery (SDC) | payer OTHER ==
[2024-02-24 08:59] LABS: Absolute Lymphocytes (CBC) 1.6 K/uL (0.7-4.9); Absolute Monocytes 0.4 K/uL (0.1-1.3); Absolute Neutrophil 2.7 K/uL (1.8-8.0); Basophils % 0.7 % (0-1.3); Eosinophils % 0.8 % (0-4.4); Hematocrit 39.5 % (36.0-45.0); Hemoglobin 12.5 g/dL (12.0-15.0); Lymphocytes % 33.2 % (15.3-44.8); MCHC 31.7 g/dL (32.0-36.0); Monocytes % 8.4 % (3.3-12.3); Neutrophils % 56.9 % (41.7-73.7); Platelets 245 thou/uL (152-406); RBC Red Blood Cell Count 3.91 M/uL (3.86-4.86); Red Cell Distribution Width 14.3 % (12.1-15.2)
[2024-02-24 09:11] LABS: Anion Gap 7.6 mEq/L (5.0-15.0); Potassium 4.6 mEq/L (3.5-5.1)
[2024-02-29] MEDS ORDERED: propofoL 200 MG/20 ML VIAL IV ONE (10:02)
[2024-02-29] MEDS ORDERED: LIDOCAINE 1% MPF 5 ML VIAL ONE (10:02)
[2024-02-29] MEDS: Ringers Lactate 1,000 ML IV ONE (10:09)
[2024-02-29] MEDS: KETOROLAC 30 MG/ML INJ ONE (11:06)
[2024-02-29] MEDS: FLUCONAZOLE 100 MG TAB PO ONE (11:23)
[2024-02-29 11:50] VITALS: BP 138/94; TEMP 99.4; O2SAT 95
--- NOTE | 2024-02-29 12:24 | RAD REPORT ---
EXAM: Esophagram HISTORY: Dysphagia COMPARISON: 08/18/2021 EXPOSURE: 0.55 minutes; 12.3 mGy per centimeter squared. FINDINGS: A barium swallow/esophagram was performed. Patient's current clinical status limited examination in t erms of patient positioning. Esophageal motility is abnormal with diffuse tertiary contractions compatible with presbyesophagus.. No mucosal lesions are seen in the esophagus. No extrinsic compression on the esophagus is seen. No hiatal hernia. No gastroesophageal reflux. IMPRESSION: Diffuse abnormal motility of the esophagus with significant tertiary contractions, suggestive of pres byesophagus.
== END 2024-02-29 11:40 | disposition home or self-care (01) ==
LOC: OR 08:18
PROVIDERS: ATTEND Internal Medicine Gastroenterology
PROC: 0DB68ZX Excision of Stomach, Via Natural or Artificial Opening Endoscopic, Diagnostic (ICD-10-PCS; principal; 2024-02-29 10:00)
DX: K22.4 Dyskinesia of esophagus (principal); K29.50 Unspecified chronic gastritis without bleeding; R10.13 Epigastric pain; R14.1 Gas pain; R13.10 Dysphagia, unspecified; R10.30 Lower abdominal pain, unspecified; R11.0 Nausea; R14.0 Abdominal distension (gaseous); R14.2 Eructation; K44.9 Diaphragmatic hernia without obstruction or gangrene
CPT/HCPCS: 85025; 80048; 36415; 88312; 88305; 74220; 43239; J2704; J2001; J7120

== ENCOUNTER 2024-12-24 07:32 | Inpatient (IN) | payer OTHER ==
[2024-12-24] MEDS ORDERED: MORPHINE 4 MG/ML SYR ONE ×2 (07:53→09:26)
[2024-12-24] MEDS ORDERED: ONDANSETRON 4 MG/2 ML VIAL ONE (07:53)
[2024-12-24 07:58] LABS: Absolute Lymphocytes (CBC) 1.4 K/uL (0.7-4.9); Hematocrit 40.0 % (36.0-45.0); Hemoglobin 13.0 g/dL (12.0-15.0); MCH 32.2 pg (27.0-35.0); MCHC 32.5 g/dL (32.0-36.0); MCV 99.1 fL (80-100); MPV 6.9 fL (7.6-11.3); Nucleated RBC Absolute Count 0.0 (0-0); Nucleated Red Blood Cells % 0.1 % (0-0); RBC Red Blood Cell Count 4.03 M/uL (3.86-4.86); White Blood Count 3.60 thou/uL (4.3-10.9)
[2024-12-24 08:07] LABS: PT Prothrombin Time 11.9 SECONDS (10-13.0); PTT, Activated Partial Thromb 28.6 SECONDS (27.2-37.4); Protime INR 1.05
[2024-12-24 08:15] LABS: Anion Gap 5.1 mEq/L (5.0-15.0); BUN Blood Urea Nitrogen 24.0 mg/dL (7-18); Glucose Level 116.0 mg/dL (74-106); Potassium 5.1 mEq/L (3.5-5.1)
--- NOTE | 2024-12-24 08:31 | RAD REPORT ---
EXAM: CT brain without contrast HISTORY: fall, pain COMPARISON: None TECHNIQUE: Multiple contiguous axial images were obtained and a CT of the brain without contrast. Sag ittal and coronal reformats were performed. One or more of the following dose reduction techniques were used: Automated exposure control, adjust ment of the mA and/or kV according to patient size, and/or iterative reconstruction. FINDINGS: No evidence of hydrocephalus, intracranial hemorrhage, or extra-axial fluid collection. Moderate brain atrophy with moderate periventricular and deep white matter chronic microvascular isc hemic changes present. Partial empty sella configuration noted. The calvarium is intact. The visualized paranasal sinuses and mastoid air cells are essentially clear . EXAM: CT of the cervical spine without contrast HISTORY: Neck pain, injury fall, pain TECHNIQUE: Multiple contiguous axial images were obtained in a CT of the cervical spine without contr ast. Sagittal and coronal reformats were performed. FINDINGS: The vertebral bodies demonstrate normal height and alignment. No evidence of acute fracture or subluxation.. Moderate mid cervical spondylosis with moderate levoscoliosis. No prevertebral soft tissue swelling is seen. The odontoid is normal and the lateral masses are symmetric. The lung apices are unremarkable. COMBINED IMPRESSION: No evidence of acute intracranial abnormality. No evidence of acute osseous abnormality of the cervical spine. Moderate degenerative levoscoliosis.
--- NOTE | 2024-12-24 08:36 | RAD REPORT ---
EXAMINATION: XR RIGHT FEMUR CLINICAL INDICATION: . PAIN RIGHT TECHNIQUE: Multiple views of the right femur were obtained. COMPARISON: No prior exam. FINDINGS: Diffuse osteopenia. Intertrochanteric fracture proximal right femur with varus angulation. No dislocation.
--- NOTE | 2024-12-24 08:36 | RAD REPORT ---
EXAMINATION: CT ABDOMEN AND PELVIS WITHOUT CONTRAST CLINICAL INDICATION: fall, back pain TECHNIQUE: CT abdomen and pelvis was performed, without IV contrast, as per department protocol. Axia l, sagittal and coronal reconstructions were obtained. One or more of the following dose reduction techniques were used: Automated exposure control, adjustment of the mA and kV according to the patien t size, and iterative reconstruction. Unless otherwise specified, incidental findings do not require dedicated imaging follow-up. COMPARISON: No prior exam. FINDINGS: The lack of intravenous contrast limits the sensitivity of this exam for evaluation of solid visceral organs, vascular structures, and retroperitoneum. LOWER CHEST: The visualized lung bases are clear. LIVER:Normal in size and contour. No focal lesion. Grossly unremarkable gallbladder. SPLEEN: Normal size. No focal lesion. PANCREAS: No mass, ductal dilation, or gavin-pancreatic fluid. ADRENALS: Normal; no mass. KIDNEYS AND URETERS: Normal size and contour. No hydronephrosis. 5 mm nonobstructing right renal calc ulus. URINARY BLADDER: Normal contour. GASTROINTESTINAL TRACT: No evidence of bowel obstruction, significant free fluid, free air or abscess . Prominent sigmoid diverticulosis. Moderate stool is present in the sigmoid colon. APPENDIX: Normal appendix. LYMPH NODES: No lymphadenopathy. MUSCULOSKELETAL: Acute intertrochanteric fracture proximal right femur with varus angulation. ADDITIONAL FINDINGS: Moderate lower lumbar degenerative spondylosis levels of anterolisthesis seen. IMPRESSION: Intertrochanteric fracture proximal right femur with varus angulation.
--- NOTE | 2024-12-24 08:43 | ER ---
Nurse's Notes [facility] Name: Johanna Guevara Age: 89 yrs Sex: Female : 1935 Arrival Date: 12/24/2024 Time: 07:32 Bed 5 Private MD: Diagnosis: Intertrochanteric fracture of femur-right, acute, closed Presentation: 12/24 07:33 Chief complaint: EMS states: FALL FROM STANDING 2/2 RESIDUAL R SIDED WKN FROM PREVIOUS bp STROKE, NOW R HIP PAIN. NO LOC, NO HEAD STRIKE. Coronavirus screen: At this time, the client does not indicate any symptoms associated with coronavirus-19. Ebola Screen: No symptoms or risks identified at this time. Initial Sepsis Screen: Does the patient meet any 2 criteria? No. Patient's initial sepsis screen is negative. Does the patient have a suspected source of infection? No. Patient's initial sepsis screen is negative. Risk Assessment: Do you want to hurt yourself or someone else? Patient reports no desire to harm self or others. Onset of symptoms was December 24, 2024 at 07:00. 07:33 Method Of Arrival: EMS bp 07:33 Acuity: JAIME 3 bp Triage Assessment: 07:34 General: Appears in no apparent distress. obese, Behavior is appropriate for age. Pain: bp Complains of pain in right hip. EENT: No deficits noted. Neuro: No deficits noted. Cardiovascular: No deficits noted. Respiratory: No deficits noted. GI: No signs and/or symptoms were reported involving the gastrointestinal system. : No signs and/or symptoms were reported regarding the genitourinary system. Derm: No deficits noted. Musculoskeletal: No deficits noted. Historical: - Allergies: 07:34 Codeine; bp - PMHx: 07:34 Arthritis; Asthma; Atrial fibrillation; CVA; Diverticulitis; hemorrhoids; Hypertension; bp - PSHx: 07:34 Cholecystectomy; knee; Shoulder; Watchman device; bp - Immunization history:: Adult Immunizations up to date. - Infectious Disease History:: Denies. - Social history:: Smoking status: Patient denies any tobacco usage or history of. - Family history:: not pertinent. - Hospitalizations: : No recent hospitalization is reported. Screenin:35 [facility] ED Fall Risk Assessment (Adult) History of falling in the last 3 months, bp including since admission Yes- single mechanical fall (1 pt) Confusion or Disorientation No (0 pts) Intoxicated or Sedated No (0 pts) Impaired Gait Yes (1 pt) Mobility Assist Device Used Yes (1 pt) Altered Elimination No (0 pt) Score/Fall Risk Level 3 or more points = High Risk Oriented to surroundings, Maintained a safe environment. Abuse screen: Denies threats or abuse. Denies injuries from another. Nutritional screening: No deficits noted. Tuberculosis screening: No symptoms or risk factors identified. Assessment: 07:35 General: SEE TRIAGE NOTE. bp 09:39 Reassessment: Patient appears in no apparent distress at this time. Patient and/or db family updated on plan of care and expected duration. Pain level reassessed. Patient is alert, oriented x 3, equal unlabored respirations, skin warm/dry/pink. General: Appears in no apparent distress. comfortable, Behavior is calm, cooperative. 09:48 Reassessment: REPORT FAXED TO 2ND FLOOR. NO ANSWER. MESSAGE LEFT. db 10:55 Reassessment: Patient appears in no apparent distress at this time. Patient and/or db family updated on plan of care and expected duration. Pain level reassessed. Patient is alert, oriented x 3, equal unlabored respirations, skin warm/dry/pink. TO 2ND FLOOR. Neuro: Level of Consciousness is awake, alert, obeys commands, Oriented to person, place, time, situation, Speech is normal. Respiratory: Airway is patent Respiratory effort is even, unlabored, Respiratory pattern is regular, symmetrical. Vital Signs: 07:34 BP 131 / 75; Pulse 74; Resp 16; Temp 97.7; Pulse Ox 95% ; Weight 81.65 kg; Height 5 ft. bp 6 in. ; 08:27 BP 151 / 89; Pulse 82; Resp 16; Pulse Ox 96% ; bp 09:30 BP 156 / 85; Pulse 88; Resp 16; Pulse Ox 95% on 2 lpm NC; db 10:30 BP 156 / 86; Pulse 86; Resp 16; Pulse Ox 95% ; db 07:34 Body Mass Index 29.05 (81.65 kg, 167.64 cm) bp ED Course: 07:33 Patient arrived in ED. bp 07:33 Ildefonso Tuttle MD is Attending Physician. rn 07:34 Triage completed. bp 07:34 Arm band placed on. bp 07:35 Candi, Mason, RN is Primary Nurse. bp 07:35 Patient has correct armband on for positive identification. bp 07:57 Inserted saline lock: 24 gauge in right wrist, using aseptic technique. Blood bp collected. Flushed with 10 mL NS. 08:05 CT Head C Spine In Process Unspecified. EDMS 08:05 CT Abd/Pelvis - Without Contrast In Process Unspecified. EDMS 08:22 XRAY Femur RIGHT In Process Unspecified. EDMS 08:42 Eugene Riddle MD is Hospitalizing Provider. rn 10:51 Provided Education on: ADMISSION. Client placed on continuous cardiac and pulse db oximetry monitoring. NIBP monitoring applied. telemetry monitor on. Pulse ox on. NIBP on. Warm blanket given. Pillow given. 10:51 No provider procedures requiring assistance completed. db 10:51 Patient admitted, IV remains in place. db Administered Medications: 07:56 Drug: morphine IVP or IV 4 mg IVP once over 4 mins Route: IVP; Infused Over: 4 mins; bp Site: right wrist; 10:56 Follow up: Response: No adverse reaction; Pain is decreased db 07:57 Drug: Ondansetron IVP 4 mg IVP once; over 2 minutes Route: IVP; Site: right wrist; bp 10:56 Follow up: Response: No adverse reaction db 09:31 Drug: morphine IVP or IV 4 mg IVP once over 4 mins Route: IVP; Infused Over: 4 mins; bp Site: right hand; 10:56 Follow up: Response: No adverse reaction; Pain is decreased db Medication: 10:51 VIS not applicable for this client. db Outcome: 08:43 Decision to Hospitalize by Provider. rn 10:51 Admitted to Med/surg room 2ND FLOOR, with chart, db 10:51 Condition: stable 10:51 Instructed on the need for admit, db 10:56 Patient left the ED. db Signatures: Dispatcher [employer] EDMS Ildefonso Tuttle MD MD rn Peltier, Brian, RN RN Melissa George RN RN db Corrections: (The following items were deleted from the chart) 10:52 10:51 Discharged to home ambulatory, with friend, db db 10:52 10:51 Discharge instructions given to patient, friend, Instructed on discharge db instructions, follow up and referral plans. Prescriptions given X 2, db
--- NOTE | 2024-12-24 08:44 | EDPHYS ---
Physician Documentation [facility] Name: Johanna Guevara Age: 89 yrs Sex: Female : 1935 Arrival Date: 12/24/2024 Time: 07:32 Bed 5 Private MD: ED Physician Ildefonso Tuttle HPI: 12/24 08:12 This 89 yrs old Black Female presents to ER via EMS with complaints of Hip Pain. rn 08:12 Patient reports fall in bathroom from standing, is able to get around with walker. rn Denies head injury. Reports pain to back and right hip. Unable to get up after fall. Does not take blood thinners.. Historical: - Allergies: 07:34 Codeine; bp - PMHx: 07:34 Arthritis; Asthma; Atrial fibrillation; CVA; Diverticulitis; hemorrhoids; Hypertension; bp - PSHx: 07:34 Cholecystectomy; knee; Shoulder; Watchman device; bp - Immunization history:: Adult Immunizations up to date. - Infectious Disease History:: Denies. - Social history:: Smoking status: Patient denies any tobacco usage or history of. - Family history:: not pertinent. - Hospitalizations: : No recent hospitalization is reported. ROS: 08:12 Constitutional: Negative for fever, chills, and weight loss, Neck: Negative for injury, rn pain, and swelling, Cardiovascular: Negative for chest pain, palpitations, and edema, Respiratory: Negative for shortness of breath, cough, wheezing, and pleuritic chest pain, Abdomen/GI: Negative for abdominal pain, nausea, vomiting, diarrhea, and constipation, Back: Positive for back pain MS/Extremity: Positive for right hip pain Skin: Negative for injury, rash, and discoloration, Neuro: Negative for headache, weakness, numbness, tingling, and seizure, Exam: 08:12 Constitutional: This is a well developed, well nourished patient who is awake, alert, rn appears in pain Neck: No midline cervical tenderness Chest/axilla: No rib tenderness or crepitus Cardiovascular: Regular rate and rhythm. No pulse deficits. Respiratory: No increased work of breathing, no retractions or nasal flaring. Abdomen/GI: Soft, nontender Back: Right lower paraspinal tenderness. No midline tenderness MS/ Extremity: Pulses equal, no cyanosis. Painful range of motion right hip with tenderness along right hip. No gross deformity. Right hip held in passive flexion and patient is laying on her left side. Neuro: Awake and alert, GCS 15, residual right-sided weakness from previous stroke 08:31 ECG was reviewed by the Attending Physician. rn Vital Signs: 07:34 BP 131 / 75; Pulse 74; Resp 16; Temp 97.7; Pulse Ox 95% ; Weight 81.65 kg; Height 5 ft. bp 6 in. ; 08:27 BP 151 / 89; Pulse 82; Resp 16; Pulse Ox 96% ; bp 09:30 BP 156 / 85; Pulse 88; Resp 16; Pulse Ox 95% on 2 lpm NC; db 10:30 BP 156 / 86; Pulse 86; Resp 16; Pulse Ox 95% ; db 07:34 Body Mass Index 29.05 (81.65 kg, 167.64 cm) bp MDM: 07:33 Medical Screening Exam initiated rn 08:41 Differential diagnosis: hip fracture, intertrochanteric fracture. Data reviewed: vital rn signs, nurses notes, lab test result(s), EKG, radiologic studies, plain films, and as a result, I will admit patient. Consideration of Admission/Observation Patient was admitted/placed on observation. Escalation of care including admission/observation considered. Management of patient was discussed with the following: Hog Grader: Management discussed with Dr. Arias, will admit to hospitalist service. Independent interpretation of the following test(s) in the Emergency Department X-Ray: My interpretation is X-ray right hip images show intertrochanteric/neck fracture of right femur per my interpretation. Care significantly affected by the following chronic conditions: Stroke, atrial fibrillation. Counseling: I had a detailed discussion with the patient and/or guardian regarding the historical points, exam findings, and any diagnostic results supporting the discharge/admit diagnosis, the presence of at least one elevated blood pressure reading (>120/80) during this emergency department visit, lab results, radiology results, the need for further work-up and treatment in the hospital. Response to treatment: the patient's symptoms have mildly improved after treatment, and as a result, I will admit patient. ED course: Patient with a right intertrochanteric fracture of the right femur. Isolated injury without acute findings of CT head or abdomen pelvis. Will admit to hospitalist service with Dr. Arias consult for orthopedics.. 12/24 07:41 Order name: CBC with Diff; Complete Time: 08:26 rn 12/24 07:41 Order name: Basic Metabolic Panel; Complete Time: 08:26 rn 12/24 07:41 Order name: Protime (+inr); Complete Time: 08:10 rn 12/24 07:41 Order name: Ptt, Activated; Complete Time: 08:10 rn 12/24 09:14 Order name: Basic Metabolic Panel EDMS 12/24 09:14 Order name: Basic Metabolic Panel EDMS 12/24 09:14 Order name: Basic Metabolic Panel EDMS 12/24 09:14 Order name: Basic Metabolic Panel EDMS 12/24 09:14 Order name: Basic Metabolic Panel EDMS 12/24 09:14 Order name: Basic Metabolic Panel EDMS 12/24 09:14 Order name: Basic Metabolic Panel EDMS 12/24 09:14 Order name: CBC with Automated Diff EDMS 12/24 09:14 Order name: CBC with Automated Diff EDMS 12/24 09:14 Order name: CBC with Automated Diff EDMS 12/24 09:14 Order name: CBC with Automated Diff EDMS 12/24 09:14 Order name: CBC with Automated Diff EDMS 12/24 09:14 Order name: CBC with Automated Diff EDMS 12/24 09:14 Order name: CBC with Automated Diff EDMS 12/24 09:14 Order name: Protime (+INR) EDMS 12/24 09:14 Order name: Protime (+INR) EDMS 12/24 07:41 Order name: XRAY Femur RIGHT; Complete Time: 08:37 rn 12/24 07:41 Order name: CT Head C Spine; Complete Time: 08:37 rn 12/24 07:42 Order name: CT Abd/Pelvis - Without Contrast; Complete Time: 08:37 rn 12/24 07:41 Order name: IV Start; Complete Time: 07:57 rn 12/24 07:41 Order name: EKG - Nurse/Tech; Complete Time: 08:27 rn EC:31 Rate is 83 beats/min. Rhythm is regular. QRS [place] is Normal. IA interval is normal. QRS rn interval is normal. QT interval is normal. No Q waves. T waves are Normal. No ST changes noted. Clinical impression: NSR w/ Non-specific ST/T Changes. Interpreted by me. Reviewed by me. Administered Medications: 07:56 Drug: morphine IVP or IV 4 mg IVP once over 4 mins Route: IVP; Infused Over: 4 mins; bp Site: right wrist; 10:56 Follow up: Response: No adverse reaction; Pain is decreased db 07:57 Drug: Ondansetron IVP 4 mg IVP once; over 2 minutes Route: IVP; Site: right wrist; bp 10:56 Follow up: Response: No adverse reaction db 09:31 Drug: morphine IVP or IV 4 mg IVP once over 4 mins Route: IVP; Infused Over: 4 mins; bp Site: right hand; 10:56 Follow up: Response: No adverse reaction; Pain is decreased db Disposition Summary: 12/24/24 08:43 Hospitalization Ordered Notes: Hospitalization Status: Inpatient Admission rn Provider: Eugene Arias rn Location: Telemetry/MedSurg (Inpatient) rn Condition: Stable rn Problem: new rn Symptoms: have improved rn Bed/Room Type: Standard rn Room Assignment: 207(12/24/24 09:37) bd Diagnosis - Intertrochanteric fracture of femur - right, acute, closed rn Forms: - Medication Reconciliation Form rn - SBAR form rn - Leadership Thank You Letter rn Signatures: Dispatcher [employer] EDMS Kimberly Gleason bd Ildefonso Tuttle MD MD rn Peltier, Brian, RN RN bp Jackson, Damien, MD MD dj2 Benton, Danielle RN db Corrections: (The following items were deleted from the chart) 07:41 07:41 Femur Right+RAD.RAD.BRZ ordered. EDMS EDMS 07:41 07:41 Head C Spine MPR Wo Con+CT.RAD.BRZ ordered. EDMS EDMS 07:41 07:41 CBC+H.LAB.BRZ ordered. EDMS EDMS 07:41 07:41 BASIC METABOLIC PANEL+C.LAB.BRZ ordered. EDMS EDMS 07:41 07:41 PROTIME (+INR)+COAG.LAB.BRZ ordered. EDMS EDMS 07:41 07:41 PTT, ACTIVATED+COAG.LAB.BRZ ordered. EDMS EDMS 07:42 07:42 Abdomen Pelvis Wo Con+CT.RAD.BRZ ordered. EDMS EDMS 09:37 08:43 rn bd
[2024-12-24] MEDS ORDERED: HYDRALAZINE HCL 20 MG/ML VIAL IV PRN (09:09)
[2024-12-24] MEDS ORDERED: ONDANSETRON 4 MG/2 ML VIAL IV PRN (09:09)
--- NOTE | 2024-12-24 09:24 | P.HP ---
Certification for Inpatient Patient admitted to: Inpatient With expected LOS: >2 Midnights Patient will require the following post-hospital care: None Practitioner: I am a practitioner with admitting privileges, knowledge of patient current condition, hospital course, and medical plan of care. Services: Services provided to patient in accordance with Admission requirements found in Title 42 Section 412.3 of the Code of Federal Regulations <Miguelito Chauhan - Last Filed: 12/24/24 09:21> Patient History Date of Service: 12/24/24 Reason for admission: Right hip fracture History of Present Illness: 89-year-old female with history of atrial fibrillation status post Watchman procedure, hypertension, previous CVA presented to the emergency department after sustaining a mechanical fall. Patient was evaluated in the emergency department CT of the head/C-spine was performed which was negative for acute findings, CT of the abdomen pelvis showed an intertrochanteric fracture of the proximal right femur with varus angulation. The x-ray of the right femur showed similar findings. ED physician has reached out to orthopedics, wishes to admit patient to the hospital for further management of her right intertrochanteric femur fracture. Patient does not take any blood thinners. - Past Medical/Surgical History Diabetic: No -: ANXIETY -: HTN -: CVA -: SHOULDER PAIN -: WRIST SPRAIN -: Atrial Fib with Watchman procedure, no anticoagulation -: HYSTERECTOMY -: CHOLECYSTECTOMY -: VINOD KNEE SX -: ROTATOR CUFF L ARM SX -: WATCHMAN DEVICE -: VINOD LUMPECTOMY -: Watchman - Family History Mother -: Heart disease, Stroke Father -: Heart disease Notes: HEART ATTACK Brother -: Cancer - Social History Alcohol use: No CD- Drugs: No Caffeine use: Yes Place of Residence: Home <Miguelito Chauhan - Last Filed: 12/24/24 09:21> Date of Service: 12/24/24 <Adrienne Ferrer - Last Filed: 12/28/24 04:30> Allergies codeine [Codeine] Allergy (Mild, Verified 02/29/24 09:20) Itching Home Medications: LORazepam [Ativan*] 1 mg PO BIDP PRN 09/02/12 Famotidine [Pepcid*] 20 mg PO DAILY 07/14/24 Celecoxib [Celebrex] 200 mg PO DAILY 02/24/24 Gabapentin 300 mg PO TID 02/24/24 Multivit-Min/Iron/Folic/Lutein [Centrum Silver Women Tablet] 1 each PO DAILY 02/24/24 Verapamil HCl [Verapamil ER] 240 mg PO BID 02/24/24 Tramadol HCl [Ultram] 50 mg PO BIDP PRN 12/01/24 Atorvastatin Calcium [Lipitor] 40 mg PO BEDTIME #30 tab 12/03/24 Review of Systems 10-point ROS is otherwise unremarkable Musculoskeletal: Leg Pain <Miguelito Chauhan - Last Filed: 12/24/24 09:21> Physical Examination - Physical Exam General: Alert, In no apparent distress, Oriented x3 HEENT: Atraumatic, PERRLA, EOMI Neck: Supple, 2+ carotid pulse no bruit, No LAD Respiratory: Clear to auscultation bilaterally, Normal air movement Cardiovascular: Regular rate/rhythm, Normal S1 S2 Gastrointestinal: Normal bowel sounds, No tenderness Musculoskeletal: Tenderness, Other (Right leg shortened, rotated) Integumentary: No rashes Neurological: Normal gait, Normal speech, Normal strength at 5/5 x4 extr, Normal affect - Studies Laboratory Data (last 24 hrs) 12/24/24 12/24/24 12/24/24 07:50 07:50 07:50 WBC 3.60 L Hgb 13.0 Hct 40.0 Plt Count 180 PT 11.9 INR 1.05 APTT 28.6 Sodium 139 Potassium 5.1 BUN 24 H Creatinine 1.15 H Glucose 116 H <Miguelito Chauhan - Last Filed: 12/24/24 09:21> - Vital Signs Temperature: 98 F Blood Pressure: 140/80 Pulse: 80 Respirations: 18 Pulse Ox (%): 95 <Adrienne Ferrer - Last Filed: 12/28/24 04:30> Assessment and Plan - Plan Assessment: Right intertrochanteric femur fracture History of chronic atrial fibrillation status post Watchman procedure Hypertension History of CVA-2000 Plan: Right intertrochanteric femur fracture N.p.o. until we have heard from Ortho As needed pain medications Orthopedics consultation Was previously ambulatory with a walker History of chronic atrial fibrillation status post Watchman procedure Hypertension History of CVA-2000 Not on any blood thinners including baby aspirin at home Continue home medications once verified Denies any chest pain or shortness of breath recently History of asthma As needed nebulizer treatments DVT PPX: SCD Code status: Full code Discharge Plan: Home Plan to discharge in: Greater than 2 days - Advance Directives Does patient have a Living Will: No Does patient have a Durable POA for Healthcare: Yes - Code Status/Comfort Care Code Status Assessed: Yes (Full code) Critical Care: No Time Spent Managing Pts Care (In Minutes): 65 <Miguelito Chauhan - Last Filed: 12/24/24 09:21> - Plan Patient was seen and examined. Events of the last 24 hours have been noted. Spoke with with [facility] regarding patient's clinical picture after evaluating and examining the patient independently. I performed a substantial part of the MDM during this patient's care today. I personally made or approved the documented management plan and acknowledge its risk of complications. I agree with the findings and documentation provided in the [facility]'s notes. <Adrienne Ferrer - Last Filed: 12/28/24 04:30>
[2024-12-24] MEDS: NA CHLORIDE 0.9% 1,000 ML IV SCH (11:13)
[2024-12-24 11:18] VITALS: BMI 29.8
--- NOTE | 2024-12-24 12:20 | P.CNS ---
Date of Consult: 12/24/24 Chief Complaint: Right hip fracture History of Present Illness: Patient with PMH of HTN, Pulmonary HTN, chronic diastolic heart failure, stroke, presented with mechanical fall and hip fracture, cardiology consulted for preoperative clearance, patient denies any active cardiac symptoms, no chest pain, no palpitations, no syncope. Allergies codeine [Codeine] Allergy (Mild, Verified 02/29/24 09:20) Itching Home medications list reviewed: Yes Home Medications: LORazepam [Ativan*] 1 mg PO BIDP PRN 09/02/12 Famotidine [Pepcid*] 20 mg PO DAILY 12/04/23 Celecoxib [Celebrex] 200 mg PO DAILY 02/24/24 Gabapentin 300 mg PO TID 02/24/24 Multivit-Min/Iron/Folic/Lutein [Centrum Silver Women Tablet] 1 each PO DAILY 02/24/24 Verapamil HCl [Verapamil ER] 240 mg PO BID 02/24/24 Tramadol HCl [Ultram] 50 mg PO BIDP PRN 12/01/24 Atorvastatin Calcium [Lipitor] 40 mg PO BEDTIME #30 tab 12/03/24 - Past Medical/Surgical History Diabetic: No -: ANXIETY -: HTN -: CVA -: SHOULDER PAIN -: WRIST SPRAIN -: Atrial Fib with Watchman procedure, no anticoagulation -: HYSTERECTOMY -: CHOLECYSTECTOMY -: VINOD KNEE SX -: ROTATOR CUFF L ARM SX -: WATCHMAN DEVICE -: VINOD LUMPECTOMY -: Watchman - Family History Mother Medical History: Heart disease, Stroke Father Medical History: Heart disease Notes: HEART ATTACK Brother Medical History: Cancer - Social History Smoking Status: Unknown if ever smoked Alcohol use: No CD- Drugs: No Caffeine use: Yes Place of Residence: Home Review of Systems 10-point ROS is otherwise unremarkable Physical Examination Temp Pulse Resp BP Pulse Ox 97.7 F 86 16 156/86 H 12/24/24 11:02 12/24/24 11:07 12/24/24 11:07 12/24/24 11:07 General: Alert, In no apparent distress HEENT: Atraumatic, PERRLA, Mucous membr. moist/pink, EOMI, Sclerae nonicteric Neck: Supple, 2+ carotid pulse no bruit, No LAD, Without JVD or thyroid abnormality Respiratory: Clear to auscultation bilaterally, Normal air movement Cardiovascular: Regular rate/rhythm, Normal S1 S2 Gastrointestinal: Normal bowel sounds, No tenderness Musculoskeletal: No tenderness Integumentary: No rashes Neurological: Normal gait, Normal speech, Normal tone, Normal affect Lymphatics: No axilla or inguinal lymphadenopathy Laboratory Data (last 24 hrs) 12/24/24 12/24/24 12/24/24 07:50 07:50 07:50 WBC 3.60 L Hgb 13.0 Hct 40.0 Plt Count 180 PT 11.9 INR 1.05 APTT 28.6 Sodium 139 Potassium 5.1 BUN 24 H Creatinine 1.15 H Glucose 116 H - Problems (1) Preoperative clearance Current Visit: Yes Status: Acute Plan: although patient functional status is very limited, patient had a stress test recently at cardiology office that was normal her last echo shows normal EF with pulmonary hypertension and diastolic dysfunction, she looks euvolemic on exam patient is cleared as moderate cardiac risk for surgery, no further cardiac work up needed prior to surgery (2) Chronic diastolic heart failure Current Visit: Yes Status: Acute Plan: continue verapmil and Aldactone gentle fluids monitor input and output and electrolytes.
[2024-12-24] MEDS: MORPHINE 2 MG/ML SYR IV PRN (14:15)
[2024-12-24] MEDS: GABAPENTIN 300 MG CAP PO SCH (14:15)
[2024-12-24] MEDS: VERAPAMIL SR 240 MG TABLET PO SCH (20:38)
[2024-12-24] MEDS: ATORVASTATIN 40 MG TAB PO SCH (20:38)
[2024-12-24] MEDS: LORAZEPAM 1 MG TABLET PO PRN (20:38)
--- NOTE | 2024-12-24 22:22 | CON ---
Date of Consultation: 12/24/2024 History Of Present Illness: I may have seen this patient in the past, however, not for this problem. She is an 89-year-old female. Unfortunately, she has had a CVA in the past and says that her right knee apparently gave way and she fell on her right hip. She was seen and examined in the emergency department. She was ruled out for other injuries. However, x-rays of her right hip demonstrates a c omminuted displaced fracture in the intertrochanteric region. Physical Examination: All her long bones and joints were palpated without pain or crepitation with the exception of pain in her right hip and pain with any motion. She does hold the right upper extremity in a position of fl exion and this was the side that she was most affected by her previous CVA. Family is in the room and they were shown the x-rays. Risks, benefits, and alternatives of different methods of treating this were discussed with the patient and the family. They state they understand things as presented. I think she can eat now. We will have her NPO after midnight, and plan for cl osed reduction and intramedullary zay fixation tomorrow. Risks associated with this were discussed a nd they agreed to proceed. All other questions were otherwise answered. /GARFIELD Voice ID: [id number] Report ID: [id number]
[2024-12-25 06:19] LABS: Absolute Lymphocytes (CBC) 1.0 K/uL (0.7-4.9); Hematocrit 36.3 % (36.0-45.0); Hemoglobin 12.1 g/dL (12.0-15.0); MCH 32.5 pg (27.0-35.0); MCHC 33.3 g/dL (32.0-36.0); MCV 97.6 fL (80-100); MPV 7.0 fL (7.6-11.3); Nucleated RBC Absolute Count 0.0 (0-0); Nucleated Red Blood Cells % 0.1 % (0-0); RBC Red Blood Cell Count 3.71 M/uL (3.86-4.86); White Blood Count 6.60 thou/uL (4.3-10.9)
[2024-12-25 06:26] LABS: PT Prothrombin Time 13.4 SECONDS (10-13.0); Protime INR 1.19
[2024-12-25 06:35] LABS: Anion Gap 5.8 mEq/L (5.0-15.0); BUN Blood Urea Nitrogen 20.0 mg/dL (7-18); Glucose Level 103.0 mg/dL (74-106); Potassium 4.8 mEq/L (3.5-5.1)
[2024-12-25] MEDS: CELECOXIB 100 MG CAPSULE PO SCH (08:20)
[2024-12-25] MEDS: FAMOTIDINE 20 MG TAB PO SCH (08:20)
[2024-12-25] MEDS: Ringers Lactate 1,000 ML IV ONE (11:22)
[2024-12-25] MEDS ORDERED: TRANEXAMIC ACID 1,000 MG/10 ML VIAL IV ONE (11:53)
[2024-12-25] MEDS ORDERED: ONDANSETRON 4 MG/2 ML VIAL ONE ×2 (12:06→12:07)
[2024-12-25] MEDS ORDERED: FENTANYL CITR 100 MCG/2 ML ONE (12:06)
[2024-12-25] MEDS ORDERED: LIDOCAINE 2% MPF 5 ML VIAL ONE (12:06)
[2024-12-25] MEDS ORDERED: ROPLVACAINE HCL 40 ML ONE (12:11)
[2024-12-25] MEDS: CEFAZOLIN SODIUM 1 GM/VIAL ONE (12:13)
--- NOTE | 2024-12-25 13:23 | P.BOP ---
Preoperative diagnosis: right complex proximal femur fx Postoperative diagnosis: same Primary procedure: right JAYCOB fixation femur Estimated blood loss: 100ccs Anesthesia: General Complications: None Transferred to: Recovery Room Condition: Good
[2024-12-25] MEDS: MORPHINE 2 MG/ML SYR ONE (14:23)
[2024-12-25] MEDS: MIDAZOLAM HCL 2 MG/2 ML INJ ONE (14:46)
--- NOTE | 2024-12-25 15:05 | RAD REPORT ---
Fluoroscopy time 2.5 minutes.
[2024-12-25] MEDS ORDERED: NEOSTIGMINE 1 MG/ML -10 ML VIAL ONE (15:14)
--- NOTE | 2024-12-25 16:51 | OP ---
Date of Procedure: 12/25/2024 Surgeon: Florentin Rebolledo MD Preoperative Diagnosis: Comminuted complex right proximal femur fracture. Postoperative Diagnosis: Comminuted complex right proximal femur fracture. Procedure Performed: Right closed reduction with intramedullary zya fixation of femur fracture using Affixus nail system. Estimated Blood Loss: 100 cc. Complications: There were no complications. Specimens: No pathology specimens sent. Indications For Operation: Ms. Guevara is an 89-year-old female, who unfortunately fell injuring her right lower extremity. She was seen and examined in the emergency department where she was ruled ou t for other injuries; however, x-rays demonstrated a complex comminuted fracture most consistent with an intertrochanteric fracture, but of a more complex pattern. All of her long bones and joints were palpated without further pain or crepitation. Risks, benefits, and alternatives of different method s of treating this were discussed with the patient and the family. Recommend operative intervention most likely with closed reduction and intramedullary zay fixation. They state they understand everyt nestor as presented and wishes to proceed. Description Of Procedure: The patient was taken to the operating room, placed in supine position. G eneral anesthesia was easily obtained by the Anesthesia staff. Following this, she was then transfer red onto the fracture table where all of her bony prominences were checked and lower extremities were then appropriately positioned. C-arm was brought in. It was somewhat difficult to reduce this havi ng more of character of a subtrochanteric fracture than standard intertrochanteric fracture. However , with traction, rotation and manipulation, we were able to achieve a good reduction on both AP and l ateral views. Right lower extremity was then prepped and draped in usual sterile fashion for procedu re. C-arm was brought in and the tip of the trochanter was marked. A vertical incision was made pro ximal to the greater trochanter. There was quite a bit of adipose tissue; however, small stab wound was made in the fascia, which allowed for placement of the starting awl. Starting awl started a tyree le bit more medial than normal to avoid lateralizing the construct and it was placed carefully. The guide pin was then able to be passed through the starting awl into the femur. After this, the hand r eamer was then used to establish a starting hole and a size 9 x 125 was selected. It was then placed over the guide pin and placed at appropriate depth. After this, the guide pin was removed. The tro car for the cephalomedullary screw was placed and an incision was made. Trocar was placed upon the b one and the guide pin was then placed in standard fashion. It should be noted that the femoral neck was quite small and care was taken to keep the hip out of varus. This was checked under biplanar C-a rm radiography and appeared to be appropriate depth. After this, it was then reamed and size 100 cep halomedullary screw was placed without difficulty. Decision was made to go with an anti-rotation scr ew as it appeared to be unstable and anti-rotation screw was in place being 20 mm shorter than the la g screw. It was a little bit superior and may actually exit the femoral neck and re-enter the femora l head, although this was uncertain. It was checked under biplanar C-arm radiography and was difficu lt to determine, however, it did appear to have good purchase in both the femur as well as the head. After this, attention was then turned more distally and a distal interlock was then placed in standa rd fashion. The wounds were irrigated and closed and the patient was awakened and taken to recovery room in good condition. There were no complications. SE/MODL Voice ID: [id number] Report ID: [id number]
[2024-12-25] MEDS: CEFAZOLIN 1 GM in NA CHLORIDE 0.9% 50 ML IVPB SCH (17:41)
[2024-12-25] MEDS: TRAMADOL HCL 50 MG TAB PO PRN (22:06)
[2024-12-25] MEDS: DIPHENHYDRAMINE 25 MG TAB/CAP PO ONE (22:07)
[2024-12-26 06:42] LABS: Absolute Lymphocytes (CBC) 0.6 K/uL (0.7-4.9); Hematocrit 32.0 % (36.0-45.0); Hemoglobin 10.5 g/dL (12.0-15.0); MCH 32.2 pg (27.0-35.0); MCHC 32.8 g/dL (32.0-36.0); MCV 98.0 fL (80-100); MPV 7.1 fL (7.6-11.3); Nucleated RBC Absolute Count 0.0 (0-0); Nucleated Red Blood Cells % 0.1 % (0-0); RBC Red Blood Cell Count 3.26 M/uL (3.86-4.86); White Blood Count 8.80 thou/uL (4.3-10.9)
[2024-12-26 07:04] LABS: Anion Gap 12.2 mEq/L (5.0-15.0); BUN Blood Urea Nitrogen 29.0 mg/dL (7-18); Glucose Level 207.0 mg/dL (74-106); Potassium 5.2 mEq/L (3.5-5.1)
[2024-12-26 10:02] LABS: Blood Morphology Comment NOT SEEN (NOT SEEN); White Blood Cell Scan OK (OK)
--- NOTE | 2024-12-26 10:56 | P.PN ---
Subjective Date of Service: 12/26/24 Chief Complaint: Right hip fracture Subjective: No new changes (Patient tolerated surgery well) Review of Systems 10-point ROS is otherwise unremarkable Physical Examination - Vital Signs Temperature: 97.7 F Blood Pressure: 139/61 Pulse: 75 Respirations: 18 Pulse Ox (%): 98 - Physical Exam General: Alert, In no apparent distress HEENT: Atraumatic, PERRLA, EOMI Neck: Supple, JVD not distended Respiratory: Clear to auscultation bilaterally, Normal air movement Cardiovascular: Regular rate/rhythm, Normal S1 S2 Gastrointestinal: Normal bowel sounds, No tenderness Musculoskeletal: No tenderness Integumentary: No rashes Neurological: Normal speech, Normal tone, Normal affect Lymphatics: No axilla or inguinal lymphadenopathy - Studies Medications List Reviewed: Yes Assessment And Plan - Current Problems (Diagnosis) (1) Preoperative clearance Current Visit: Yes Status: Acute Plan: although patient functional status is very limited, patient had a stress test recently at cardiology office that was normal her last echo shows normal EF with pulmonary hypertension and diastolic dysfunction, she looks euvolemic on exam patient is s/p surgery, tolerated well. physical therapy and DVT prophylaxis. (2) Chronic diastolic heart failure Current Visit: Yes Status: Acute Plan: continue verapmil and Aldactone gentle fluids monitor input and output and electrolytes.
[2024-12-27 06:38] LABS: Anion Gap 6.3 mEq/L (5.0-15.0); BUN Blood Urea Nitrogen 47.0 mg/dL (7-18); Glucose Level 131.0 mg/dL (74-106); Potassium 5.3 mEq/L (3.5-5.1)
[2024-12-27 06:51] LABS: Absolute Lymphocytes (CBC) 1.1 K/uL (0.7-4.9); Hematocrit 41.5 % (36.0-45.0); Hemoglobin 13.0 g/dL (12.0-15.0); MCH 30.8 pg (27.0-35.0); MCHC 31.3 g/dL (32.0-36.0); MCV 98.5 fL (80-100); MPV 7.5 fL (7.6-11.3); Nucleated RBC Absolute Count 0.0 (0-0); Nucleated Red Blood Cells % 0.1 % (0-0); RBC Red Blood Cell Count 4.21 M/uL (3.86-4.86); White Blood Count 7.40 thou/uL (4.3-10.9)
[2024-12-27] MEDS: ACETAMINOPHEN 325 MG TABLET PO PRN (10:01)
--- NOTE | 2024-12-28 04:35 | P.PN ---
Date of Service: 12/25/24 Subjective Patient continues to do well with no new complaints. Patient appears in good spirits. Schedule via the OR later today. Physical Examination - Vital Signs AF/VSS - Physical Exam General: Alert, In no apparent distress, Oriented x3 Neck: Supple, 2+ carotid pulse no bruit, No LAD Respiratory: Clear to auscultation bilaterally, Normal air movement Cardiovascular: Regular rate/rhythm, Normal S1 S2 Gastrointestinal: Normal bowel sounds, No tenderness Musculoskeletal: Tenderness, Other (Right leg shortened, rotated) Integumentary: No rashes Neurological: Normal gait Assessment and Plan - Assessment/Plan Assessment: Right intertrochanteric femur fracture History of chronic atrial fibrillation status post Watchman procedure Hypertension History of CVA-2000 Plan: Right intertrochanteric femur fracture Advance diet as [id number] As needed pain medications Orthopedics consultation Was previously ambulatory with a walker History of chronic atrial fibrillation status post Watchman procedure Hypertension History of CVA-2000 Not on any blood thinners including baby aspirin at home Continue home medications once verified Denies any chest pain or shortness of breath recently History of asthma As needed nebulizer treatments DVT PPX: SCD Code status: Full code Discharge Plan: Home Plan to discharge in: Greater than 2 days - Advance Directives Does patient have a Living Will: No Does patient have a Durable POA for Healthcare: Yes - Code Status/Comfort Care Code Status Assessed: Yes (Full code) Critical Care: No Time Spent Managing Pts Care (In Minutes): 65
--- NOTE | 2024-12-28 04:38 | P.PN ---
Date of Service: 12/26/24 Subjective Patient denies any new complaints; feeling better and she is working hard to get to rehab Physical Examination - Vital Signs AF/VSS - Physical Exam General: Alert, In no apparent distress, Oriented x3 Respiratory: Clear to auscultation bilaterally, Normal air movement Cardiovascular: Regular rate/rhythm, Normal S1 S2 Gastrointestinal: Normal bowel sounds, No tenderness Musculoskeletal: Tenderness, Other (Right leg shortened, rotated) Integumentary: No rashes Neurological: weakness but strength improving Assessment and Plan - Assessment/Plan Assessment: Right intertrochanteric femur fracture History of chronic atrial fibrillation status post Watchman procedure Hypertension History of CVA-2000 Plan: Right intertrochanteric femur fracture Advance diet as tolerated As needed pain medications Orthopedics consultation appreciated Was previously ambulatory with a walker History of chronic atrial fibrillation status post Watchman procedure Hypertension History of CVA-2000 Not on any blood thinners including baby aspirin at home Continue home medications once verified Denies any chest pain or shortness of breath recently History of asthma As needed nebulizer treatments DVT PPX: SCD Code status: Full code Discharge Plan: Home Plan to discharge in: Greater than 2 days - Advance Directives Does patient have a Living Will: No Does patient have a Durable POA for Healthcare: Yes - Code Status/Comfort Care Code Status Assessed: Yes (Full code) Critical Care: No Time Spent Managing Pts Care (In Minutes): 40
--- NOTE | 2024-12-28 04:44 | P.SSS ---
Patient History Date of Service: 12/24/24 Reason for admission: Right hip fracture History of Present Illness: Patient is an 89-year-old female who came to the hospital for right intratrochanteric fracture. Patient was started on IV antibiotic therapies. Patient is working on inpatient rehab versus snf facility placement. At this time patient will be admitted for inpatient hospitalization. Allergies codeine [Codeine] Allergy (Mild, Verified 02/29/24 09:20) Itching Home Medications: LORazepam [Ativan*] 1 mg PO BIDP PRN 09/02/12 Famotidine [Pepcid*] 20 mg PO DAILY 12/04/23 Celecoxib [Celebrex] 200 mg PO DAILY 02/24/24 Gabapentin 300 mg PO TID 02/24/24 Multivit-Min/Iron/Folic/Lutein [Centrum Silver Women Tablet] 1 each PO DAILY 02/24/24 Verapamil HCl [Verapamil ER] 240 mg PO BID 02/24/24 Tramadol HCl [Ultram] 50 mg PO BIDP PRN 12/01/24 Atorvastatin Calcium [Lipitor] 40 mg PO BEDTIME #30 tab 12/03/24 - Past Medical/Surgical History Has patient received pneumonia vaccine in the past: Yes Diabetic: No -: ANXIETY -: HTN -: CVA -: SHOULDER PAIN -: WRIST SPRAIN -: Atrial Fib with Watchman procedure, no anticoagulation -: HYSTERECTOMY -: CHOLECYSTECTOMY -: VINOD KNEE SX -: ROTATOR CUFF L ARM SX -: WATCHMAN DEVICE -: VINOD LUMPECTOMY -: Watchman - Family History Mother -: Heart disease, Stroke Father -: Heart disease Notes: HEART ATTACK Brother -: Cancer - Social History Smoking Status: Never smoker Alcohol use: No CD- Drugs: No Caffeine use: Yes Place of Residence: Home Review of Systems 10-point ROS is otherwise unremarkable Physical Examination - Vital Signs Temperature: 98 F Blood Pressure: 140/80 Pulse: 80 Respirations: 18 Pulse Ox (%): 95 - Physical Exam General: Alert, Oriented x3, Oriented x2, Oriented x1 - Diagnosis (Problem(s)) (1) Chronic diastolic heart failure Current Visit: Yes Status: Acute (2) Preoperative clearance Current Visit: Yes Status: Acute (3) Atrial fibrillation Current Visit: No Status: Acute (4) Chest pain Onset Date: 03/02/15 Current Visit: No Status: Acute Qualifiers: Chest pain type: unspecified Qualified Code(s): R07.9 - Chest pain, unspecified (5) GI bleed Onset Date: 09/21/16 Current Visit: No Status: Acute (6) HTN (hypertension) Current Visit: No Status: Acute Treatment Summary: 1. Echocardiogram reviewed 2. Continue on an TONY inhibitor or an ARB 3. We will start patient on a Beta jhoana 4. Cardiology consultation appreciated 5. Aggressive diuresis 6. Strict I's and O's 7. Repeat CXR 8. Daily weights 9. Education regarding diet and treatment of congestive heart failure - Disposition Disposition: ROUTINE DISCHARGE Critical Care: No Time Spent Managing Pts Care (In Minutes): 50
--- NOTE | 2024-12-28 04:48 | P.PN ---
Date of Service: 12/27/24 Subjective Pt continuing to improve Physical Examination - Vital Signs AF/VSS - Physical Exam General: Alert, In no apparent distress, Oriented x3 Respiratory: Clear to auscultation bilaterally, Normal air movement Cardiovascular: Regular rate/rhythm, Normal S1 S2 Gastrointestinal: Normal bowel sounds, No tenderness Musculoskeletal: Tenderness, Other (Right leg shortened, rotated) Integumentary: No rashes Neurological: weakness but strength improving Assessment and Plan - Assessment/Plan Assessment: Right intertrochanteric femur fracture History of chronic atrial fibrillation status post Watchman procedure Hypertension History of CVA-2000 Plan: Right intertrochanteric femur fracture Advance diet as tolerated As needed pain medications Orthopedics consultation appreciated Was previously ambulatory with a walker History of chronic atrial fibrillation status post Watchman procedure Hypertension History of CVA-2000 Not on any blood thinners including baby aspirin at home Continue home medications once verified Denies any chest pain or shortness of breath recently History of asthma As needed nebulizer treatments DVT PPX: SCD Code status: Full code Discharge Plan: Home Plan to discharge in: Greater than 2 days - Advance Directives Does patient have a Living Will: No Does patient have a Durable POA for Healthcare: Yes - Code Status/Comfort Care Code Status Assessed: Yes (Full code) Critical Care: No Time Spent Managing Pts Care (In Minutes): 30
[2024-12-28 06:17] LABS: Absolute Lymphocytes (CBC) 1.5 K/uL (0.7-4.9); Hematocrit 31.9 % (36.0-45.0); Hemoglobin 10.4 g/dL (12.0-15.0); MCH 32.0 pg (27.0-35.0); MCHC 32.6 g/dL (32.0-36.0); MCV 98.3 fL (80-100); MPV 7.2 fL (7.6-11.3); Nucleated RBC Absolute Count 0.0 (0-0); Nucleated Red Blood Cells % 0.1 % (0-0); RBC Red Blood Cell Count 3.24 M/uL (3.86-4.86); White Blood Count 6.00 thou/uL (4.3-10.9)
[2024-12-28 06:36] LABS: Anion Gap 4.8 mEq/L (5.0-15.0); BUN Blood Urea Nitrogen 49.0 mg/dL (7-18); Glucose Level 103.0 mg/dL (74-106); Potassium 4.8 mEq/L (3.5-5.1)
--- NOTE | 2024-12-28 09:16 | P.PN ---
Date of Service: 12/28/24 Subjective: pain in right hip more controlled and tolerable today appetite improving denies any new or worsening problems afebrile Physical Exam: Gen: Alert, NAD, Orientedx3 CV: Regular rate and rhythm, no edema Pulm: Nonlabored respirations on room air, clear bilaterally Abdomen: Soft, nontender, nondistended MSK: tenderness, Right leg shortened and rotated Neuro: Weakness but improving Problem List: Right femur fracture s/p Right JAYCOB fixation (12/25) Chronic diastolic CHF Hypertension Hx of a-fib s/p watchman procedure Hx of CVA with residual deficits (2000) Hx of asthma Right femur fracture s/p Right JAYCOB fixation (12/25) on admission, presents with right hip pain following a mechanical fall. CT showed Intertrochanteric fracture proximal right femur with varus angulation, moderate stool burden, 5mm nonobstructing right renal calculus s/p right JAYCOB fixation (12/25) Dr. Rebolledo is following [facility] per ortho continue PT, pain control social human services assistants consulted for inpatient rehab Was previously ambulatory with a walker Chronic diastolic CHF Hypertension Hx of a-fib s/p watchman procedure Hx of CVA with residual deficits (2000) Hx of asthma Not on any blood thinners including aspirin. Cardiology consulted for pre-op clearance. Has recent normal stress test. Last echo with normal EF, Pulm HTN, Diastolic dysfunction. continue statin, pepcid, gabapentin, verapamil VTE: SCD Code: Full Dispo: Rehab - pending approval
[2024-12-28] MEDS: DIPHENHYDRAMINE 25 MG TAB/CAP PO ONE (19:28)
[2024-12-28 21:33] VITALS: O2SAT 96
[2024-12-29 06:37] LABS: Absolute Lymphocytes (CBC) 1.2 K/uL (0.7-4.9); Hematocrit 29.9 % (36.0-45.0); Hemoglobin 10.0 g/dL (12.0-15.0); MCH 32.5 pg (27.0-35.0); MCHC 33.4 g/dL (32.0-36.0); MCV 97.3 fL (80-100); MPV 6.9 fL (7.6-11.3); Nucleated RBC Absolute Count 0.0 (0-0); Nucleated Red Blood Cells % 0.1 % (0-0); RBC Red Blood Cell Count 3.07 M/uL (3.86-4.86); White Blood Count 5.10 thou/uL (4.3-10.9)
[2024-12-29 06:39] LABS: Anion Gap 6.7 mEq/L (5.0-15.0); BUN Blood Urea Nitrogen 38.0 mg/dL (7-18); Glucose Level 152.0 mg/dL (74-106); Potassium 4.7 mEq/L (3.5-5.1)
--- NOTE | 2024-12-29 07:40 | P.PN ---
Date of Service: 12/29/24 Subjective: Eating breakfast. No acute complaints. Vitals remained stable overnight. She is in good spirits Physical Exam: Gen: Alert, NAD, Orientedx3 CV: Regular rate and rhythm, no edema Pulm: Nonlabored respirations on room air, clear bilaterally Abdomen: Soft, nontender, nondistended MSK: tenderness, Right leg shortened and rotated Neuro: Weakness but improving Problem List: Right femur fracture s/p Right JAYCOB fixation (12/25) Chronic diastolic CHF Hypertension Hx of a-fib s/p watchman procedure Hx of CVA with residual deficits (2000) Hx of asthma Right femur fracture s/p Right JAYCOB fixation (12/25) on admission, presents with right hip pain following a mechanical fall. CT showed Intertrochanteric fracture proximal right femur with varus angulation, moderate stool burden, 5mm nonobstructing right renal calculus s/p right JAYCOB fixation (12/25) Dr. Rebolledo is following [facility] per ortho continue PT, pain control social and human services assistant consulted for inpatient rehab Was previously ambulatory with a walker Chronic diastolic CHF Hypertension Hx of a-fib s/p watchman procedure Hx of CVA with residual deficits (2000) Hx of asthma Not on any blood thinners including aspirin. Cardiology consulted for pre-op clearance. Has recent normal stress test. Last echo with normal EF, Pulm HTN, Diastolic dysfunction. continue statin, pepcid, gabapentin, verapamil VTE: SCD Code: Full Dispo: Rehab - pending approval
[2024-12-30 04:41] LABS: Absolute Lymphocytes (CBC) 1.3 K/uL (0.7-4.9); Hematocrit 28.0 % (36.0-45.0); Hemoglobin 9.5 g/dL (12.0-15.0); MCH 32.9 pg (27.0-35.0); MCHC 33.9 g/dL (32.0-36.0); MCV 97.2 fL (80-100); MPV 6.6 fL (7.6-11.3); Nucleated RBC Absolute Count 0.0 (0-0); Nucleated Red Blood Cells % 0.1 % (0-0); RBC Red Blood Cell Count 2.88 M/uL (3.86-4.86); White Blood Count 5.20 thou/uL (4.3-10.9)
[2024-12-30 04:56] LABS: Anion Gap 6.0 mEq/L (5.0-15.0); BUN Blood Urea Nitrogen 32.0 mg/dL (7-18); Glucose Level 140.0 mg/dL (74-106); Potassium 5.0 mEq/L (3.5-5.1)
--- NOTE | 2024-12-30 12:37 | P.PN ---
Date of Service: 12/30/24 Subjective: Doing very well. Her granddaughter is at bedside. No acute events overnight. Vitals remained stable. She is eating her breakfast Physical Exam: Gen: Alert, NAD, Orientedx3 CV: Regular rate and rhythm, no edema Pulm: Nonlabored respirations on room air, clear bilaterally Abdomen: Soft, nontender, nondistended MSK: tenderness, Right leg shortened and rotated Neuro: Weakness but improving Problem List: Right femur fracture s/p Right JAYCOB fixation (12/25) Chronic diastolic CHF Hypertension Hx of a-fib s/p watchman procedure Hx of CVA with residual deficits (2000) Hx of asthma Right femur fracture s/p Right JAYCOB fixation (12/25) on admission, presents with right hip pain following a mechanical fall. CT showed Intertrochanteric fracture proximal right femur with varus angulation, moderate stool burden, 5mm nonobstructing right renal calculus s/p right JAYCOB fixation (12/25) Dr. Rebolledo is following [facility] per ortho continue PT, pain control social service assistant consulted for inpatient rehab Was previously ambulatory with a walker Chronic diastolic CHF Hypertension Hx of a-fib s/p watchman procedure Hx of CVA with residual deficits (2000) Hx of asthma Not on any blood thinners including aspirin. Cardiology consulted for pre-op clearance. Has recent normal stress test. Last echo with normal EF, Pulm HTN, Diastolic dysfunction. continue statin, pepcid, gabapentin, verapamil VTE: SCD Code: Full Dispo: Rehab - pending approval
[2024-12-31] MEDS: LACTULOSE 20 GM/30 ML UCUP PO ONE (02:27)
--- NOTE | 2024-12-31 15:27 | P.DS ---
Admission Date: 12/24/24 Discharge Date: 12/31/24 Disposition: TRANSFER TO INPATIENT REHAB Discharge Condition: GOOD Reason for Admission: Right hip fracture Brief History of Present Illness: 89-year-old female with history of atrial fibrillation status post Watchman procedure, hypertension, previous CVA presented to the emergency department after sustaining a mechanical fall. Patient was evaluated in the emergency department CT of the head/C-spine was performed which was negative for acute findings, CT of the abdomen pelvis showed an intertrochanteric fracture of the proximal right femur with varus angulation. The x-ray of the right femur showed similar findings. ED physician has reached out to orthopedics, wishes to admit patient to the hospital for further management of her right intertrochanteric femur fracture. Patient does not take any blood thinners. Cardiology was consulted for preop clearance and she recently had an abnormal stress test. In addition last echo with normal EF. orthopedic surgery was consulted and she went for a closed reduction with intramedullary zay fixation. The remainder of her medical problems were chronic and stable. She is medically optimized for discharge Hospital Course: Physical Exam: Gen: Alert, NAD, Orientedx3 CV: Regular rate and rhythm, no edema Pulm: Nonlabored respirations on room air, clear bilaterally Abdomen: Soft, nontender, nondistended MSK: tenderness, Right leg shortened and rotated Neuro: Weakness but improving Problem List: Right femur fracture s/p Right JAYCOB fixation (12/25) Chronic diastolic CHF Hypertension Hx of a-fib s/p watchman procedure Hx of CVA with residual deficits (2000) Hx of asthma Right femur fracture s/p Right JAYCOB fixation (12/25) on admission, presents with right hip pain following a mechanical fall. CT showed Intertrochanteric fracture proximal right femur with varus angulation, moderate stool burden, 5mm nonobstructing right renal calculus s/p right JAYCOB fixation (12/25) Dr. Rebolledo is following [facility] per ortho continue PT, pain control social and human services assistant consulted for inpatient rehab Was previously ambulatory with a walker Chronic diastolic CHF Hypertension Hx of a-fib s/p watchman procedure Hx of CVA with residual deficits (2000) Hx of asthma Not on any blood thinners including aspirin. Cardiology consulted for pre-op clearance. Has recent normal stress test. Last echo with normal EF, Pulm HTN, Diastolic dysfunction. continue statin, pepcid, gabapentin, verapamil VTE: SCD Code: Full Dispo: Rehab - pending approval Vital Signs/Physical Exam: Temp Pulse Resp BP Pulse Ox 97.8 F 58 18 99/55 L 94 12/31/24 11:45 12/31/24 11:45 12/31/24 11:45 12/31/24 11:45 12/31/24 11:45 Laboratory Data at Discharge: WBC 5.20 thou/uL (4.3-10.9) 12/30/24 04:18 Hgb 9.5 g/dL (12.0-15.0) L 12/30/24 04:18 Hct 28.0 % (36.0-45.0) L 12/30/24 04:18 Plt Count 187 thou/uL (152-406) 12/30/24 04:18 PT 13.4 SECONDS (10-13.0) H 12/25/24 06:03 INR 1.19 12/25/24 06:03 APTT 28.6 SECONDS (27.2-37.4) 12/24/24 07:50 Sodium 140 mEq/L (136-145) 12/30/24 04:18 Potassium 5.0 mEq/L (3.5-5.1) 12/30/24 04:18 BUN 32 mg/dL (7-18) H 12/30/24 04:18 Creatinine 0.86 mg/dL (0.55-1.02) 12/30/24 04:18 Glucose 140 mg/dL (74-106) H 12/30/24 04:18 Home Medications: LORazepam [Ativan*] 1 mg PO BIDP PRN 09/02/12 Famotidine [Pepcid*] 20 mg PO DAILY 12/04/23 Celecoxib [Celebrex] 200 mg PO DAILY 02/24/24 Gabapentin 300 mg PO TID 02/24/24 Multivit-Min/Iron/Folic/Lutein [Centrum Silver Women Tablet] 1 each PO DAILY 02/24/24 Verapamil HCl [Verapamil ER] 240 mg PO BID 02/24/24 Tramadol HCl [Ultram] 50 mg PO BIDP PRN 12/01/24 Atorvastatin Calcium [Lipitor] 40 mg PO BEDTIME #30 tab 12/03/24 Physician Discharge Instructions: [facility] [employer] Call Isaura Siddiqi, RN at [phone] for questions or concerns after discharge. Expect a call within 1-2 business days of discharge. Alternate: [facility] [phone]. Alternate: [facility] [phone]. Followup: Ildefonso Tuttle MD [Primary Care Provider] -
[2024-12-31 15:59] VITALS: BP 120/65; TEMP 97.5
[2024-12-31] MEDS ORDERED: DOCUSATE NA/SENNA CONC 1 TAB PO SCH (21:00)
[2024-12-31] MEDS ORDERED: ENSURE ENLIVE 237 ML CAN PO SCH (21:00)
== END 2024-12-31 18:52 | DRG 481 ==
LOC: ER 07:32 → ERHOLD 09:08 → 2ND 10:20
PROVIDERS: ADMIT Family Medicine; ATTEND Family Medicine
PROC: 0QS636Z Reposition Right Upper Femur with Intramedullary Internal Fixation Device, Percutaneous Approach (ICD-10-PCS; principal; 2024-12-25 11:45)
DX: S72.141A Displaced intertrochanteric fracture of right femur, initial encounter for closed fracture (principal); I48.20 Chronic atrial fibrillation, unspecified; I50.32 Chronic diastolic (congestive) heart failure; K92.2 Gastrointestinal hemorrhage, unspecified; I11.0 Hypertensive heart disease with heart failure; M19.90 Unspecified osteoarthritis, unspecified site; J45.909 Unspecified asthma, uncomplicated; Z88.5 Allergy status to narcotic agent; Z90.49 Acquired absence of other specified parts of digestive tract; Z86.73 Personal history of transient ischemic attack (TIA), and cerebral infarction without residual deficits; Z79.899 Other long term (current) drug therapy
CPT/HCPCS: 36415; 70450; 72125; 74176; 80048; 85025; 85610; 85730; 93005; 97110; 97112; 97161; 97530; 99285; J0690; J1100; J2003; J2250; J2270; J2405; J2704; J2710; J2795; J3010; J7030; J7120